=== PATIENT | female | born 1940 | race Caucasian/White ===

== ENCOUNTER 2021-07-11 18:43 | Inpatient (IN) | payer MEDICARE ==
[~2021-07-11] VITALS: Ht 165.1 cm; Wt 66.0 kg
--- NOTE | 2021-07-11 19:19 | RAD ---
EXAMINATION: Chest radiograph. VIEWS: Single view COMPARISON: None INDICATION:80 years, Female, weakness and dizziness. FINDINGS: Normal cardiomediastinal silhouette. Bibasilar patchy airspace opacities. Small to moderate left and small right pleural effusions. No pneumothorax. No acute osseous process. Left chest wall pacemaker d evice with lead wires terminate in the right atrium and right ventricle. IMPRESSION: 1. Bibasilar patchy airspace opacities, differential includes pulmonary edema, multifocal pneumonia o r atelectatic changes. 2. Small to moderate left and small right pleural effusions. Electronically signed by: Montse Yoder MD (07/11/2021 7:16 PM) [facility]
--- NOTE | 2021-07-11 19:21 | PHYS DOC ---
General Adult EDM: Chief Complaint: WEAKNESS/GENERALIZED HPI: HPI: Patient is a 80-year-old female presents emergency department complaining of weakness and dizziness. Denies chest pains or shortness of breath, denies recent fever or chills, denies abdominal pains, nausea, vomiting, diarrhea, reports she lives at home by herself. Reports a history of a pacemaker, cardiac problems, states she takes Lasix and quite a few other medications, has a history of low magnesium. Denies other physical complaints or physical concerns. Reports receiving the COVID-19 virus vaccination series. Denies cigarette smoking, drinking alcohol, or illicit drug use. Review of Systems: Review of Systems: 14 body systems of review of systems have been reviewed. See HPI for pertinent positives and negative responses, otherwise all other systems are negative, nonpertinent or noncontributory. Constitutional: Negative except as outlined in HPI above. Skin: Negative except as outlined in HPI above. Eyes: Negative except as outlined in HPI above. HENT: Negative except as outlined in HPI above. Respiratory: Negative except as outlined in HPI above. Cardiovascular: Negative except as outlined in HPI above. GI: Negative except as outlined in HPI above. : Negative except as outlined in HPI above. Musculoskeletal: Negative except as outlined in HPI above. Integument: Negative except as outlined in HPI above. Neurologic: Negative except as outlined in HPI above. Endocrine: Negative except as outlined in HPI above. Lymphatic: Negative except as outlined in HPI above. Psychiatric: Negative except as outlined in HPI above. Heart Score: C/O Chest Pain: No Risk Factors: Risk Factors: DM, Current or recent (<one month) smoker, HTN, HLP, family history of CAD, obesity. Risk Scores: Score 0 - 3: 2.5% MACE over next 6 weeks - Discharge Home Score 4 - 6: 20.3% MACE over next 6 weeks - Admit for Clinical Observation Score 7 - 10: 72.7% MACE over next 6 weeks - Early Invasive Strategies Current Medications: Eliquis 2.5 mg mg daily metoprolol XL 50 mg daily potassium chloride 20 mEq daily Lasix 40 mg every morning calcium supplement 600 mg daily, iron supplement 325 mg daily, Mag-Ox 250 mg daily, omeprazole 20 mg daily Physical Exam: PE: Constitutional: Well developed, well nourished, patient in mild respiratory distress otherwise nontoxic in appearance. Patient speaks approximately 4-5 words before taking a breath. HENT: Normocephalic, atraumatic, bilateral external ears normal, oropharynx moist, no oral exudates, nose normal. No lymphadenopathy of the head or neck appreciated, patient speaking in normal voice tones. Eyes: PERRLA, EOMI, conjunctiva normal, no discharge. Neck: Normal range of motion, no tenderness, supple, no stridor. Bilateral JVD Cardiovascular: Rapid heart rate irregular rhythm with diastolic murmur appreciated per auscultation. Lungs & Thorax: Coarse inspiratory/expiratory lung sounds right upper and lower lobes, expiratory wheezing to left upper lobe, coarse left lower lobe. Abdomen: Bowel sounds normal, soft, no tenderness, no masses, no pulsatile masses. Skin: Warm, dry, no erythema, no rash. Back: No tenderness, no CVA tenderness. Extremities: No tenderness, no cyanosis, no clubbing, ROM intact, bilateral 2+ ankle edema, 2+ dorsalis pedis pulses bilaterally, distal cap refill less than 2 seconds. Neurologic: Alert and oriented X 3, normal motor function, normal sensory function, no focal deficits noted. Psychologic: Affect normal, judgement normal, mood normal. EKG: EKG: EKG performed at 1854 by ED nursing staff shows atrial fibrillation irregular rhythm with no discernible P waves with occasional PVCs heart rate 129 bpm, QTc interval 0.503, no acute STEMI, no ACS, no acute ischemia appreciated, EKG interpreted by ED attending physician Dr. Ramos. Radiology/Procedures: Radiology/Procedures: PATIENT: NADINE SILVEIRA LACCOUNT: [id number] : 1940 LOCATION: ER AGE: 80 SEX: F EXAM STATUS: PRE ER ORD. PHYSICIAN: CARMINA GARCIA APRN REASON: Dizziness PROCEDURE: CT HEAD WO CONTRAST Exam: CT head INDICATION: Dizziness TECHNIQUE: Sequential axial images through the head were obtained without the administration of IV contrast. Exposure: One or more of the following in the visualized dose reduction techniques were utilized for this examination: 1. Automated exposure control 2. Adjustment of the MA and/or KV according to patient size 3. Use of iterative of reconstructive technique Comparisons: None FINDINGS: No focal parenchymal lesion or hemorrhage is identified. There is no midline shift or sulcal effacement. Mild small vessel ischemic change, technically age indeterminate. No acute vascular territory infarction is identified. Sharp-white distinction is preserved. The ventricular system is within normal limits without compression hydrocephalus. The basal cisterns are well maintained. The visualized portions of the paranasal sinuses and mastoid air cells are well- pneumatized. No acute fractures. IMPRESSION: Mild small vessel ischemic change, technically age indeterminate without recent prior imaging. Electronically signed by: Danish Grubbs MD (07/11/2021 7:56 PM) [facility] PROCEDURE: CHEST AP ONLY EXAMINATION: Chest radiograph. VIEWS: Single view COMPARISON: None INDICATION:80 years, Female, weakness and dizziness. FINDINGS: Normal cardiomediastinal silhouette. Bibasilar patchy airspace opacities. Small to moderate left and small right pleural effusions. No pneumothorax. No acute osseous process. Left chest wall pacemaker device with lead wires terminate in the right atrium and right ventricle. IMPRESSION: 1. Bibasilar patchy airspace opacities, differential includes pulmonary edema, multifocal pneumonia or atelectatic changes. 2. Small to moderate left and small right pleural effusions. Electronically signed by: Montse Yoder MD (07/11/2021 7:16 PM) [facility] Course & Med Decision Making: Course & Med Decision Making Pertinent Labs and Imaging studies reviewed. (See chart for details) 80-year-old female, vital signs reviewed, presents to the emergency department concerning weakness and dizziness at home all day. Patient has a history of atrial fibrillation with RVR chronic diastolic CHF, nonrheumatic mitral valve regurgitation. Patient physical examination concerning for CHF exacerbation, will order CBC, CMP, chest x-ray, EKG, proBNP, cardiac enzymes, magnesium, phosphorus, urinalysis assay. CT head concerning for small vessel disease, chest x-ray interpreted as pulmonary edema versus other infiltrate, with patient's lung sounds, 2-day reported history of lower extremity edema with shortness of breath, this is most likely a pulmonary edema/CHF exacerbation. Labs are still pending at this time. Patient's proBNP greater than 35,000, patient takes 20 mg of Lasix daily, will give 40 IV, patient's heart rate remains at 128 atrial fibrillation with occasional PVC, will give 10 mg diltiazem, will reevaluate for additional dosing and drip if required. Called and discussed patient case and ED work-up with inpatient management physician Dr. Parks who agrees patient's case warrants admission to the telemetry unit. 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 Sujata Disclaimer: Sujata Disclaimer: This electronic medical record was generated, in whole or in part, using a voice recognition dictation system. Departure Departure Impression: Primary Impression: Acute on chronic congestive heart failure Qualified Codes: I50.9 - Heart failure, unspecified Disposition: ADMITTED INPATIENT Admitting Physician: LASHON (Admit to Dr. Parks to the telemetry unit.) Condition: GUARDED PATSYMYNORCARMINA Clay PROGRAM SPECIALIST Jul 11, 2021 19:21
--- NOTE | 2021-07-11 19:58 | RAD ---
Exam: CT head INDICATION: Dizziness TECHNIQUE: Sequential axial images through the head were obtained without the administration of IV co ntrast. Exposure: One or more of the following in the visualized dose reduction techniques were utilized for this examination: 1. Automated exposure control 2. Adjustment of the MA and/or KV according to patient size 3. Use of iterative of reconstructive technique Comparisons: None FINDINGS: No focal parenchymal lesion or hemorrhage is identified. There is no midline shift or sulcal effaceme nt. Mild small vessel ischemic change, technically age indeterminate. No acute vascular territory infarct ion is identified. Sharp-white distinction is preserved. The ventricular system is within normal limits without compression hydrocephalus. The basal cisterns are well maintained. The visualized portions of the paranasal sinuses and mastoid air cells are well-pneumatized. No acute fractures. IMPRESSION: Mild small vessel ischemic change, technically age indeterminate without recent prior imaging. Electronically signed by: Danish Grubbs MD (07/11/2021 7:56 PM) [facility]
[2021-07-11] MEDS ORDERED: ONDANSETRON PF 4 MG/2 ML VIAL. IVP ONE (20:30)
[2021-07-11 20:33] LABS: BASO % 0 % (0-3); EOS % 0 % (0-3); HEMOGLOBIN 13.4 g/dL (12.0-15.5); LYMPH # 0.2 x10^3/uL (1.0-4.8); LYMPH % 2 % (24-48); MEAN CORPUSCULAR HEMOGLOBIN 29 pg (25-35); MEAN CORPUSCULAR HGB CONC 33 g/dL (31-37); MEAN CORPUSCULAR VOLUME 90 fL (79-100); MONO # 0.3 x10^3/uL (0.0-1.1); MONO % 3 % (0-9); NEUT # 8.5 x10^3/uL (1.8-7.7); NEUT % 94 % (31-73); PLATELET COUNT 131 x10^3/uL (140-400); RED BLOOD COUNT 4.56 x10^6/uL (3.50-5.40); RED CELL DISTRIBUTION WIDTH 16.3 % (11.5-14.5)
[2021-07-11 20:44] LABS: PROTHROMBIN TIME PATIENT 15.5 SEC (11.7-14.0)
[2021-07-11 20:48] LABS: CALCIUM 8.4 mg/dL (8.5-10.1); CREATININE 0.9 mg/dL (0.6-1.0); GFR 59.9; POTASSIUM 4.9 mmol/L (3.5-5.1)
[2021-07-11 20:53] LABS: ALBUMIN 2.4 g/dL (3.4-5.0); ALBUMIN/GLOBULIN RATIO 0.7 (1.0-1.7); MAGNESIUM 1.9 mg/dL (1.8-2.4); PHOSPHORUS 3.8 mg/dL (2.6-4.7); TOTAL BILIRUBIN 0.5 mg/dL (0.2-1.0); TOTAL PROTEIN 5.8 g/dL (6.4-8.2)
[2021-07-11 21:01] LABS: % BANDS 21 % (0-9); % LYMPHS 5 % (24-48); % MONOS 5 % (0-10); % SEGS 69 % (35-66); PLT ESTIMATE DECREASED (ADEQUATE)
[2021-07-11 21:02] LABS: CREATINE KINASE 82 U/L (26-192)
[2021-07-11] MEDS ORDERED: FUROSEMIDE 40 MG/4 ML VIAL. IVP ONE (21:15)
[2021-07-12] VITALS (8 sets, daily range): BP systolic 83–109; BP diastolic 38–62
[2021-07-12] MEDS ORDERED: DIGOXIN IV 500 MCG/2 ML AMPUL. IV ONE (00:45)
--- NOTE | 2021-07-12 02:15 | NUR ---
The patient, NADINE SILVEIRA, 80 y/o, F admitted by DAVID BROOKS III, DO, was given written information regarding hospital policies, unit procedures and contact persons. Valuables were checked and documented. Call light in reach, will cont to monitor pt status and safety. pmrn
--- NOTE | 2021-07-12 04:07 | EKG ---
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
--- NOTE | 2021-07-12 08:36 | PDOC1 ---
History and Physical Date of Service: DOS: DATE: 07/12/21 TIME: 08:30 Chief Complaint: Chief Complain: Weakness and dizziness History of Present Illness: HPI: History obtained from discussion with the ED physician and chart review: 80-year-old female with past medical history of atrial fibrillation with pacemaker placed at [facility], hypertension, CHF, atrial fibrillation who comes in with shortness of breath and weakness for the past week since . She does take Lasix and other cardiac medications. Apparently patient also takes Eliquis but this is costly for her so she decided to just stay on aspirin. Patient denies any nausea vomiting, fevers, chest pain, diarrhea or dysuria. Patient is vaccinated for COVID-19. Per chart review: EKG performed at 1854 by ED nursing staff shows atrial fibrillation irregular rhythm with no discernible P waves with occasional PVCs heart rate 129 bpm, QTc interval 0.503, no acute STEMI, no ACS, no acute ischemia appreciated, EKG interpreted by ED attending physician Dr. Ramos. Past Medical/Surgical History: PMH/PSH: History of atrial fibrillation, pacemaker placement, hypertension, CHF Allergies: Allergies: Coded Allergies: Penicillins (Verified Allergy, Unknown, 07/11/21) prednisone (Verified Allergy, Unknown, 07/12/21) pt verbalized causes boils Family History: Family History: Reviewed with no relevant findings Social History: Social History: Denies tobacco, drug or alcohol abuse Current Medications: Current Medications Current Medications Ondansetron HCl (Zofran) 4 mg 1X ONCE IVP Last administered on 07/11/21at 20:38; Start 07/11/21 at 20:30; Stop 07/11/21 at 20:42; Status DC Furosemide (Lasix) 40 mg 1X ONCE IVP Last administered on 07/11/21at 22:50; Start 07/11/21 at 21:15; Stop 07/11/21 at 21:16; Status DC Diltiazem HCl (Cardizem Iv Push) 10 mg 1X ONCE IVP Last administered on 1at 22:53; Start 07/11/21 at 21:15; Stop 07/11/21 at 21:18; Status DC Diltiazem HCl 125 mg/Sodium Chloride 125 ml @ 5 mls/hr CONT PRN IV PER PROTOCOL Last administered on 11/1/21at 23:43; Start 07/11/21 at 23:30 Enoxaparin Sodium (Lovenox 60mg Syringe) 60 mg 1X ONCE SQ ; Start 07/12/21 at 00:00; Stop 07/12/21 at 00:42; Status DC Digoxin (Lanoxin) 500 mcg 1X ONCE IV Last administered on 07/12/21at 01:10; Start 07/12/21 at 00:45; Stop 07/12/21 at 00:46; Status DC ROS: Review of Systems Review of System REVIEW OF SYSTEMS: GENERAL: Positive for weakness SKIN: No bruising, hair changes or rashes. EYES: No blurred, double or loss of vision. NOSE AND THROAT: No history of nosebleeds, hoarseness or sore throat. HEART: No history of palpitations, chest pain or shortness of breath on exertion. LUNGS: Positive for shortness of breath GASTROINTESTINAL: Denies changes in appetite, nausea, vomiting, diarrhea or constipation. GENITOURINARY: No history of frequency, urgency, hesitancy or nocturia. NEUROLOGIC: Denies history of numbness, tingling, or tremor. PSYCHIATRIC: No history of panic, anxiety or depression. ENDOCRINE: No history of heat or cold intolerance, polyuria or polydipsia. EXTREMITIES: Denies joint pain, pain on walking or stiffness. Physical Exam: Vital Signs: Vital Signs Date Time Temp Pulse Resp B/P (MAP) Pulse Ox O2 Delivery O2 Flow Rate FiO2 07/12/21 04:16 87 109/41 (63) Nasal Cannula 1.0 07/12/21 03:24 97 07/12/21 02:42 97.7 18 97.7 Physcial Exam: General: Well developed, well nourished, no acute distress, well appearing. Minimal respiratory distress. HEENT: Pupils equally round and reactive to light, EOMI, no discharge, normal conjunctiva Neck: Supple, no nuchal rigidity, no JVD, trachea midline, no tenderness Cardiac: RRR, no murmurs, no gallops, no rubs Chest/Lungs: CTAB, no wheeze, no rhonchi, no crackles Abdomen: soft, non-distended, no guarding, no peritoneal signs, non-tender Back: No tenderness Extremities: bilateral 2+ ankle edema, 2+ dorsalis pedis pulses bilaterally, distal cap refill less than 2 seconds., pulses intact, non-tender,capillary refill <3 sec bilateral upper and lower extremities, Neuro: Alert and oriented x 4, no focal deficits, normal speech Labs: Labs: Laboratory Tests Test 07/11/21 20:20 White Blood Count 9.0 x10^3/uL (4.0-11.0) Red Blood Count 4.56 x10^6/uL (3.50-5.40) Hemoglobin 13.4 g/dL (12.0-15.5) Hematocrit 41.0 % (36.0-47.0) Mean Corpuscular Volume 90 fL (79-100) Mean Corpuscular Hemoglobin 29 pg (25-35) Mean Corpuscular Hemoglobin Concent 33 g/dL (31-37) Red Cell Distribution Width 16.3 % (11.5-14.5) Platelet Count 131 x10^3/uL (140-400) Neutrophils (%) (Auto) 94 % (31-73) Lymphocytes (%) (Auto) 2 % (24-48) Monocytes (%) (Auto) 3 % (0-9) Eosinophils (%) (Auto) 0 % (0-3) Basophils (%) (Auto) 0 % (0-3) Neutrophils # (Auto) 8.5 x10^3/uL (1.8-7.7) Lymphocytes # (Auto) 0.2 x10^3/uL (1.0-4.8) Monocytes # (Auto) 0.3 x10^3/uL (0.0-1.1) Eosinophils # (Auto) 0.0 x10^3/uL (0.0-0.7) Basophils # (Auto) 0.0 x10^3/uL (0.0-0.2) Segmented Neutrophils % 69 % (35-66) Band Neutrophils % 21 % (0-9) Lymphocytes % 5 % (24-48) Monocytes % 5 % (0-10) Platelet Estimate Decreased (ADEQUATE) Prothrombin Time 15.5 SEC (11.7-14.0) Prothromb Time International Ratio 1.2 (0.8-1.1) Sodium Level 135 mmol/L (136-145) Potassium Level 4.9 mmol/L (3.5-5.1) Chloride Level 99 mmol/L (98-107) Carbon Dioxide Level 26 mmol/L (21-32) Anion Gap 10 (6-14) Blood Urea Nitrogen 30 mg/dL (7-20) Creatinine 0.9 mg/dL (0.6-1.0) Estimated GFR (Cockcroft-Gault) 59.9 BUN/Creatinine Ratio 33 (6-20) Glucose Level 171 mg/dL (70-99) Calcium Level 8.4 mg/dL (8.5-10.1) Phosphorus Level 3.8 mg/dL (2.6-4.7) Magnesium Level 1.9 mg/dL (1.8-2.4) Total Bilirubin 0.5 mg/dL (0.2-1.0) Aspartate Amino Transf (AST/SGOT) 46 U/L (15-37) Alanine Aminotransferase (ALT/SGPT) 76 U/L (14-59) Alkaline Phosphatase 141 U/L (46-116) Creatine Kinase 82 U/L (26-192) Creatine Kinase MB (Mass) 2.5 ng/mL (0.0-3.6) Creatine Kinase MB Relative Index 3.0 % (0-4) Troponin I High Sensitivity 727 ng/L (4-50) RQ-Xtf-T-Type Natriuretic Peptide > 70980 pg/mL (0-449) Total Protein 5.8 g/dL (6.4-8.2) Albumin 2.4 g/dL (3.4-5.0) Albumin/Globulin Ratio 0.7 (1.0-1.7) Laboratory Tests Test 07/11/21 20:20 White Blood Count 9.0 x10^3/uL (4.0-11.0) Red Blood Count 4.56 x10^6/uL (3.50-5.40) Hemoglobin 13.4 g/dL (12.0-15.5) Hematocrit 41.0 % (36.0-47.0) Mean Corpuscular Volume 90 fL (79-100) Mean Corpuscular Hemoglobin 29 pg (25-35) Mean Corpuscular Hemoglobin Concent 33 g/dL (31-37) Red Cell Distribution Width 16.3 % (11.5-14.5) Platelet Count 131 x10^3/uL (140-400) Neutrophils (%) (Auto) 94 % (31-73) Lymphocytes (%) (Auto) 2 % (24-48) Monocytes (%) (Auto) 3 % (0-9) Eosinophils (%) (Auto) 0 % (0-3) Basophils (%) (Auto) 0 % (0-3) Neutrophils # (Auto) 8.5 x10^3/uL (1.8-7.7) Lymphocytes # (Auto) 0.2 x10^3/uL (1.0-4.8) Monocytes # (Auto) 0.3 x10^3/uL (0.0-1.1) Eosinophils # (Auto) 0.0 x10^3/uL (0.0-0.7) Basophils # (Auto) 0.0 x10^3/uL (0.0-0.2) Segmented Neutrophils % 69 % (35-66) Band Neutrophils % 21 % (0-9) Lymphocytes % 5 % (24-48) Monocytes % 5 % (0-10) Platelet Estimate Decreased (ADEQUATE) Prothrombin Time 15.5 SEC (11.7-14.0) Prothromb Time International Ratio 1.2 (0.8-1.1) Sodium Level 135 mmol/L (136-145) Potassium Level 4.9 mmol/L (3.5-5.1) Chloride Level 99 mmol/L (98-107) Carbon Dioxide Level 26 mmol/L (21-32) Anion Gap 10 (6-14) Blood Urea Nitrogen 30 mg/dL (7-20) Creatinine 0.9 mg/dL (0.6-1.0) Estimated GFR (Cockcroft-Gault) 59.9 BUN/Creatinine Ratio 33 (6-20) Glucose Level 171 mg/dL (70-99) Calcium Level 8.4 mg/dL (8.5-10.1) Phosphorus Level 3.8 mg/dL (2.6-4.7) Magnesium Level 1.9 mg/dL (1.8-2.4) Total Bilirubin 0.5 mg/dL (0.2-1.0) Aspartate Amino Transf (AST/SGOT) 46 U/L (15-37) Alanine Aminotransferase (ALT/SGPT) 76 U/L (14-59) Alkaline Phosphatase 141 U/L (46-116) Creatine Kinase 82 U/L (26-192) Creatine Kinase MB (Mass) 2.5 ng/mL (0.0-3.6) Creatine Kinase MB Relative Index 3.0 % (0-4) Troponin I High Sensitivity 727 ng/L (4-50) VY-Ier-I-Type Natriuretic Peptide > 05399 pg/mL (0-449) Total Protein 5.8 g/dL (6.4-8.2) Albumin 2.4 g/dL (3.4-5.0) Albumin/Globulin Ratio 0.7 (1.0-1.7) Images: Images PROCEDURE: CT HEAD WO CONTRAST IMPRESSION: Mild small vessel ischemic change, technically age indeterminate without recent prior imaging. PROCEDURE: CHEST AP ONLY IMPRESSION: 1. Bibasilar patchy airspace opacities, differential includes pulmonary edema, multifocal pneumonia or atelectatic changes. 2. Small to moderate left and small right pleural effusions. Assessment/Plan Assessment/Plan Acute on chronic CHF exacerbation Elevated BNP due to volume overload Elevated troponins suggestive of type II demand ischemia A. fib RVR Mild transaminitis Severe protein malnutrition Admit to hospitalist for further management Continue telemetry Strict I's and O's IV Lasix diuresis as needed Continue with IV diltiazem drip with target heart rate less than 110 in the inpatient setting Trend troponins Cardiology consult Aspirin for now for stroke prophylaxis Lovenox for DVT prophylaxis Cardiac diet CODE STATUS full Discussed with RN and SW Disposition inpatient management as above DPOA: Undesignated In addition to my E/M visit, advance care planning done with A total time of 20 minutes was spent from 830 to 850 face to face in discussion regarding the patient's goals of care, CODE STATUS. Justifications for Admission Other Justification MACHO ESTEVEZ MD Jul 12, 2021 08:36
[2021-07-12] MEDS ORDERED: LORazepam 0.5 MG TABLET PO PRN (08:45)
[2021-07-12] MEDS ORDERED: ZOLPIDEM 5 MG TABLET. PO PRN (08:45)
[2021-07-12] MEDS ORDERED: PROCHLORPERAZINE 10 MG/2 ML VIAL. IV PRN (08:45)
[2021-07-12] MEDS ORDERED: DEXTROSE 50% 25 GM / 50ML DISP.SYRIN. IV PRN (08:45)
[2021-07-12] MEDS ORDERED: ONDANSETRON PF 4 MG/2 ML VIAL. IVP PRN (08:45)
[2021-07-12] MEDS ORDERED: DOCUSATE SODIUM 100 MG CAPSULE. PO PRN (08:45)
[2021-07-12] MEDS ORDERED: SENNOSIDES 8.6 MG TABLET PO PRN (08:45)
[2021-07-12] MEDS ORDERED: FURO-68 PO (09:06)
[2021-07-12] MEDS ORDERED: APIX2.5T PO (09:06)
[2021-07-12] MEDS ORDERED: METO-239 PO (09:15)
[2021-07-12] MEDS ORDERED: EFFER-K 10 MEQ10 MEQ PO (09:15)
[2021-07-12] MEDS ORDERED: APIXABAN 2.5 MG TABLET. PO SCH ×2 (09:30→21:00)
[2021-07-12 09:31] LABS: CHOLESTEROL/HDL RATIO 3.8
[2021-07-12] MEDS: METOPROLOL TART IMMED RELEASE 25 MG TABLET. PO SCH ×2 (09:41→20:25)
[2021-07-12] MEDS: ACETAMINOPHEN 325 MG TABLET. PO PRN ×2 (09:42→12:15)
[2021-07-12] MEDS: POTASSIUM BICARB 20 MEQ EFFERVESCENT TABLET. PO SCH (09:42)
--- NOTE | 2021-07-12 11:39 | PDOC2 ---
CARDIAC CONSULT DATE OF CONSULT Date of Consult DATE: 07/12/21 TIME: 11:12 REASON FOR CONSULT Reason for Consult: elevated troponin REFERRING PHYSICIAN Referring Physician: Kasey SOURCE Source: Chart review, Patient HISTORY OF PRESENT ILLNESS HISTORY OF PRESENT ILLNESS This is a pleasant 80 yo female admitted for complains of SOA and leg swelling. Reports that since she has been feeling SOA and could not function. Her right foot is sore and is currently red. No fever or chills. Reports no chest pain or palpitations. No recent falls or injury. She is vaccinated for covid-19. 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 PAST MEDICAL HISTORY Cardiovascular: AFIB, HTN Musculoskeletal: Osteoarthritis ENT: Other ([id number]) PAST SURGICAL HISTORY Past Surgical History: Pacemaker, Hysterectomy FAMILY HISTORY Family History: Family History Unknown SOCIAL HISTORY Smoke: No ALCOHOL: none Drugs: None Lives: Alone CURRENT MEDICATIONS CURRENT MEDICATIONS Current Medications Medications (Trade) Dose Ordered Sig/Beny Route PRN Reason Start Time Stop Time Status Last Admin Dose Admin Ondansetron HCl (Zofran) 4 mg 1X ONCE IVP 07/11/21 20:30 07/11/21 20:42 DC 07/11/21 20:38 Furosemide (Lasix) 40 mg 1X ONCE IVP 07/11/21 21:15 07/11/21 21:16 DC 07/11/21 22:50 Diltiazem HCl (Cardizem Iv Push) 10 mg 1X ONCE IVP 07/11/21 21:15 07/11/21 21:18 DC 07/11/21 22:53 Diltiazem HCl 125 mg/Sodium Chloride 125 ml @ 5 mls/hr CONT PRN IV PER PROTOCOL 07/11/21 23:30 07/11/21 23:43 Digoxin (Lanoxin) 500 mcg 1X ONCE IV 07/12/21 00:45 07/12/21 00:46 DC 07/12/21 01:10 Acetaminophen (Tylenol) 650 mg PRN Q4HRS PRN PO TEMP OVER 100.4F OR MILD PAIN 07/12/21 08:45 07/12/21 09:42 Apixaban (Eliquis) 2.5 mg BID PO 07/12/21 09:30 07/12/21 09:41 Metoprolol Tartrate (Lopressor) 25 mg BID PO 07/12/21 09:30 07/12/21 09:41 ALLERGIES ALLERGIES: Coded Allergies: Penicillins (Verified Allergy, Unknown, 07/11/21) prednisone (Verified Allergy, Unknown, 07/12/21) pt verbalized causes boils ROS Review of System limited, poor historian PHYSICAL EXAM General: Alert, Oriented X3, Cooperative, No acute distress HEENT: Atraumatic, Mucous membr. moist/pink Lungs: Other (basialr crackles) Heart: Other (Atrial flutter with PVCs rate controlled; 4/6 apical holosystolic murmur) Extremities: No cyanosis, Other (2-3+ bilateral LE pitting edema with erythema to right foot) Skin: No breakdown, No significant lesion Neuro: Normal speech, Sensation intact Psych/Mental Status: Mental status NL, Mood NL MUSCULOSKELETAL: Osteoarthritic changes both hands VITALS/I&O VITALS/I&O: Vital Signs Date Time Temp Pulse Resp B/P (MAP) Pulse Ox O2 Delivery O2 Flow Rate FiO2 07/12/21 10:22 98.4 92 17 108/38 (61) 98 Nasal Cannula 3.0 98.4 I & O 07/11/21 07/11/21 07/12/21 15:00 23:00 07:00 Output Total 20 ml Balance -20 ml LABS Lab: Laboratory Tests Test 07/11/21 20:20 07/12/21 08:45 White Blood Count 9.0 x10^3/uL (4.0-11.0) Red Blood Count 4.56 x10^6/uL (3.50-5.40) Hemoglobin 13.4 g/dL (12.0-15.5) Hematocrit 41.0 % (36.0-47.0) Mean Corpuscular Volume 90 fL (79-100) Mean Corpuscular Hemoglobin 29 pg (25-35) Mean Corpuscular Hemoglobin Concent 33 g/dL (31-37) Red Cell Distribution Width 16.3 % (11.5-14.5) H Platelet Count 131 x10^3/uL (140-400) L Neutrophils (%) (Auto) 94 % (31-73) H Lymphocytes (%) (Auto) 2 % (24-48) L Monocytes (%) (Auto) 3 % (0-9) Eosinophils (%) (Auto) 0 % (0-3) Basophils (%) (Auto) 0 % (0-3) Neutrophils # (Auto) 8.5 x10^3/uL (1.8-7.7) H Lymphocytes # (Auto) 0.2 x10^3/uL (1.0-4.8) L Monocytes # (Auto) 0.3 x10^3/uL (0.0-1.1) Eosinophils # (Auto) 0.0 x10^3/uL (0.0-0.7) Basophils # (Auto) 0.0 x10^3/uL (0.0-0.2) Segmented Neutrophils % 69 % (35-66) H Band Neutrophils % 21 % (0-9) H Lymphocytes % 5 % (24-48) L Monocytes % 5 % (0-10) Platelet Estimate Decreased (ADEQUATE) Prothrombin Time 15.5 SEC (11.7-14.0) H Prothrombin Time INR 1.2 (0.8-1.1) H Sodium Level 135 mmol/L (136-145) L Potassium Level 4.9 mmol/L (3.5-5.1) Chloride Level 99 mmol/L (98-107) Carbon Dioxide Level 26 mmol/L (21-32) Anion Gap 10 (6-14) Blood Urea Nitrogen 30 mg/dL (7-20) H Creatinine 0.9 mg/dL (0.6-1.0) Estimated GFR (Cockcroft-Gault) 59.9 BUN/Creatinine Ratio 33 (6-20) H Glucose Level 171 mg/dL (70-99) H Calcium Level 8.4 mg/dL (8.5-10.1) L Phosphorus Level 3.8 mg/dL (2.6-4.7) Magnesium Level 1.9 mg/dL (1.8-2.4) Total Bilirubin 0.5 mg/dL (0.2-1.0) Aspartate Amino Transferase (AST) 46 U/L (15-37) H Alanine Aminotransferase (ALT) 76 U/L (14-59) H Alkaline Phosphatase 141 U/L (46-116) H Creatine Kinase 82 U/L (26-192) Creatine Kinase MB (Mass) 2.5 ng/mL (0.0-3.6) Creatine Kinase MB Relative Index 3.0 % (0-4) Troponin I High Sensitivity 727 ng/L (4-50) H CH-Dng-X-Type Natriuretic Peptide > 01880 pg/mL (0-449) H Total Protein 5.8 g/dL (6.4-8.2) L Albumin 2.4 g/dL (3.4-5.0) L Albumin/Globulin Ratio 0.7 (1.0-1.7) L Triglycerides Level 70 mg/dL (0-150) Cholesterol Level 94 mg/dL (0-200) LDL Cholesterol, Calculated 55 mg/dL (0-100) VLDL Cholesterol, Calculated 14 mg/dL (0-40) Non-HDL Cholesterol Calculated 69 mg/dL (0-129) HDL Cholesterol 25 mg/dL (40-60) L Cholesterol/HDL Ratio 3.8 Laboratory Tests 07/11/21 20:20 Laboratory Tests 07/11/21 20:20 ASSESSMENT/PLAN ASSESSMENT/PLAN 1. Acute on chronic CHF with possible diastolic/systolic dysfunction 2. AFIB/flutter with RVR: rate better possibly chronic 3. HTN; at low end 4. PPM in situ: unknown brand 5. NSTEMI; suspect demand mediated type 2 6. Valvular insufficiency: possibly MR 7. Right foot cellulitis; per PCP 8. Possible urinary retention Recommendations 1. Unable to retrieve [facility] records. Will try to get fax records. Interrogate device 2. Presently on eliquis but apparently pt has not been able to afford this costing >$500 every other week and has been taking high dose ASA at home instead. Will switch over to ASA for stroke prevention 3. TTE 4. Received cardizem and digoxin bolus in ED. Continue metoprolol for rate control 5. Consider for outpt ischemic workup. she follows with [facility] cardiology 6. Lasix therapy MICHAELA PIPER SOFTWARE SOLUTIONS ARCHITECT Jul 12, 2021 11:39
[2021-07-12] MEDS ORDERED: FUROSEMIDE 20 MG/2 ML VIAL. IVP ONE (12:00)
--- NOTE | 2021-07-12 12:34 | NUR ---
SS following for discharge planning. SS reviewed pt chart and discussed with pt RN. Pt is from home and is currently requiring oxygen at three liters nasal canula. Cardiology consulted. PT/OT ordered. Pt still drives and lives independently. SS will continue to follow for discharge planning.
[2021-07-12] MEDS: ENOXAPARIN 40 MG/0.4 ML SYRINGE. SQ SCH (17:19)
--- NOTE | 2021-07-12 18:53 | EKG ---
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
[2021-07-12] MEDS ORDERED: CALCIUM CARBONATE 500 MG TAB.CHEW PO PRN (20:00)
[2021-07-12] MEDS: MAG HYDROX/ALUMINUM HYD/SIMETH 30 ML ORAL.SUSP PO PRN (20:22)
[2021-07-12] MEDS: ATORVASTATIN CALCIUM 10 MG TABLET. PO SCH (20:22)
[2021-07-12] MEDS ORDERED: METOPROLOL TART IMMED RELEASE 25 MG TABLET. PO SCH (21:00)
[2021-07-13 02:20] VITALS: BP 54/51
[2021-07-13 07:00] VITALS: BP 110/71
[2021-07-13] MEDS ORDERED: ASPIRIN ENTERIC COATED 81 MG TABLET.DR. PO SCH (08:00)
[2021-07-13 08:38] LABS: BASO % 0 % (0-3); EOS # 0.1 x10^3/uL (0.0-0.7); EOS % 1 % (0-3); HEMOGLOBIN 11.3 g/dL (12.0-15.5); LYMPH # 0.3 x10^3/uL (1.0-4.8); LYMPH % 4 % (24-48); MEAN CORPUSCULAR HEMOGLOBIN 29 pg (25-35); MEAN CORPUSCULAR HGB CONC 32 g/dL (31-37); MEAN CORPUSCULAR VOLUME 90 fL (79-100); MONO # 0.6 x10^3/uL (0.0-1.1); MONO % 10 % (0-9); NEUT % 85 % (31-73); RED BLOOD COUNT 3.89 x10^6/uL (3.50-5.40); RED CELL DISTRIBUTION WIDTH 16.2 % (11.5-14.5); WHITE BLOOD COUNT 5.9 x10^3/uL (4.0-11.0)
[2021-07-13 08:42] LABS: PLATELET COUNT 78 x10^3/uL (140-400)
[2021-07-13] MEDS: METOPROLOL TART IMMED RELEASE 25 MG TABLET. PO SCH ×2 (08:47→21:37)
[2021-07-13] MEDS: ACETAMINOPHEN 325 MG TABLET. PO PRN ×2 (08:47→21:36)
[2021-07-13] MEDS: MAG HYDROX/ALUMINUM HYD/SIMETH 30 ML ORAL.SUSP PO PRN ×2 (08:47→21:37)
[2021-07-13] MEDS: POTASSIUM BICARB 20 MEQ EFFERVESCENT TABLET. PO SCH (08:48)
[2021-07-13 08:49] LABS: CALCIUM 7.6 mg/dL (8.5-10.1); CREATININE 0.7 mg/dL (0.6-1.0); GFR 80.1; MAGNESIUM 2.1 mg/dL (1.8-2.4); PHOSPHORUS 2.5 mg/dL (2.6-4.7); POTASSIUM 4.7 mmol/L (3.5-5.1)
--- NOTE | 2021-07-13 09:52 | PDOC ---
MICHAELA PIPER INDUSTRIAL AUTOMATION SPECIALIST 07/13/21 0952: CARDIO Progress Notes Date and Time Date of Service 07/13/2021 Time of Evaluation 1115 Subjective Subjective: No Chest Pain, No shortness of breath, No Palpitations Vitals Vitals Vital Signs Date Time Temp Pulse Resp B/P (MAP) Pulse Ox O2 Delivery O2 Flow Rate FiO2 07/13/21 08:47 96 110/71 07/13/21 08:00 Nasal Cannula 3.0 07/13/21 07:00 98.6 18 96 98.6 Weight Weight [ ] Input and Output Intake and Output Intake and Output 07/13/21 07:00 Intake Total 1720 ml Output Total 850 ml Balance 870 ml Intake Oral 1720 ml Output Urine Total 850 ml Laboratory Labs Laboratory Tests Test 07/13/21 08:05 White Blood Count 5.9 x10^3/uL (4.0-11.0) Red Blood Count 3.89 x10^6/uL (3.50-5.40) Hemoglobin 11.3 g/dL (12.0-15.5) Hematocrit 35.0 % (36.0-47.0) Mean Corpuscular Volume 90 fL (79-100) Mean Corpuscular Hemoglobin 29 pg (25-35) Mean Corpuscular Hemoglobin Concent 32 g/dL (31-37) Red Cell Distribution Width 16.2 % (11.5-14.5) Platelet Count 78 x10^3/uL (140-400) Neutrophils (%) (Auto) 85 % (31-73) Lymphocytes (%) (Auto) 4 % (24-48) Monocytes (%) (Auto) 10 % (0-9) Eosinophils (%) (Auto) 1 % (0-3) Basophils (%) (Auto) 0 % (0-3) Neutrophils # (Auto) 5.0 x10^3/uL (1.8-7.7) Lymphocytes # (Auto) 0.3 x10^3/uL (1.0-4.8) Monocytes # (Auto) 0.6 x10^3/uL (0.0-1.1) Eosinophils # (Auto) 0.1 x10^3/uL (0.0-0.7) Basophils # (Auto) 0.0 x10^3/uL (0.0-0.2) Sodium Level 131 mmol/L (136-145) Potassium Level 4.7 mmol/L (3.5-5.1) Chloride Level 97 mmol/L (98-107) Carbon Dioxide Level 29 mmol/L (21-32) Anion Gap 5 (6-14) Blood Urea Nitrogen 27 mg/dL (7-20) Creatinine 0.7 mg/dL (0.6-1.0) Estimated GFR (Cockcroft-Gault) 80.1 Glucose Level 105 mg/dL (70-99) Calcium Level 7.6 mg/dL (8.5-10.1) Phosphorus Level 2.5 mg/dL (2.6-4.7) Magnesium Level 2.1 mg/dL (1.8-2.4) Physical Exam HEENT: Neck Supple W Full Motion Chest: Symmetric LUNGS: Other (basilar crackles) Heart: irregularly irregular (AFlutter) Abdomen: Soft N/T Extremities: Other (2+ bilateral LE pitting edema) Neurology: alert, oriented, follow commands Assessment Assessment 1. Acute on chronic CHF with possible diastolic/systolic dysfunction, improved 2. Chronic AFIB/flutter with RVR: rate better possibly chronic 3. HTN; controlled 4. 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 Normal device function. AAIR-DDDR 99.6% AFIB burden 10.7 yrs battery life 5. NSTEMI; suspect demand mediated type 2, CP free 6. Valvular insufficiency: MR 7. Right foot cellulitis?; per PCP Recommendations 1. Presently on eliquis but apparently pt has not been able to afford this costing >$500 every other week and has been taking high dose ASA at home instead. Will switch over to ASA for stroke prevention 2. TTE 3. Continue metoprolol for rate control 4. Consider for outpt ischemic workup. she follows with [facility] cardiology 5. Lasix therapy 6. Consider SNU Justicifation of Admission Dx: Justifications for Admission: Justification of Admission Dx: Yes JOSE VILLEGAS MD 07/13/21 0441: CARDIO Progress Notes Assessment Assessment Patient seen and examined. I agree with our nurse practitioners assessment and plan. Acute on chronic CHF with possible diastolic/systolic dysfunction, continue slow improvement. Echo pending. Chronic AFIB/flutter with RVR: rate better possibly chronic. Continuing beta- blockers. Discussion of Eliquis as above. 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 Normal device function. AAIR-DDDR 99.6% AFIB burden 10.7 yrs battery life NSTEMI; suspect demand mediated type 2, CP free Valvular insufficiency: MICHAELA CORDON APRN Jul 13, 2021 09:52 JOSE VILLEGAS MD Jul 13, 2021 16:25
[2021-07-13] MEDS ORDERED: FUROSEMIDE 40 MG/4 ML VIAL. IVP ONE (10:00)
[2021-07-13 11:00] VITALS: BP 113/50
--- NOTE | 2021-07-13 11:02 | NUR ---
SS following up with discharge planning. SS reviewed pt chart and discussed with pt RN. Cardiology following. ID consulted for right foot. Pt is currently requiring oxygen at three liters nasal canula. Pt has no home oxygen. PT/OT ordered. Pt very weak but stating that she will not go to inpatient rehabilitation. Physician and RN notified. SS will continue to follow for discharge planning.
[2021-07-13] MEDS ORDERED: ceFAZolin SODIUM IV Push 1 GM VIAL. IVP ONE ×3 (12:00→12:45)
[2021-07-13] MEDS: MICAFUNGIN 100 MG in IV DEXTROSE 5% 100ML 100 ML IV SCH (12:44)
--- NOTE | 2021-07-13 13:11 | PDOC ---
[facility] [facility] PROGRESS NOTE Date of Service DOS: DATE: 07/13/21 TIME: 13:10 Chief Complaint Chief Complaint Acute on chronic CHF exacerbation Elevated BNP due to volume overload Elevated troponins suggestive of type II demand ischemia A. fib RVR Mild transaminitis Severe protein malnutrition ID consult Start empiric IV antibiotics, IV micafungin and IV Ancef per ID recommendations Continue telemetry Strict I's and O's IV Lasix diuresis as needed Continue with IV diltiazem drip with target heart rate less than 110 in the inpatient setting Trend troponins Cardiology consult Aspirin for now for stroke prophylaxis Lovenox for DVT prophylaxis Cardiac diet CODE STATUS full Discussed with RN and SW Disposition inpatient management as above DPOA: Undesignated History of Present Illness History of Present Illness 80-year-old female with past medical history of atrial fibrillation with pacemaker placed at [facility], hypertension, CHF, atrial fibrillation who comes in with shortness of breath and weakness for the past week since . She does take Lasix and other cardiac medications. Apparently patient also takes Eliquis but this is costly for her so she decided to just stay on aspirin. Patient denies any nausea vomiting, fevers, chest pain, diarrhea or dysuria. Patient is vaccinated for COVID-19. Per chart review: EKG performed at 1854 by ED nursing staff shows atrial fibrillation irregular rhythm with no discernible P waves with occasional PVCs heart rate 129 bpm, QTc interval 0.503, no acute STEMI, no ACS, no acute ischemia appreciated, EKG interpreted by ED attending physician Dr. Ramos. 08/09/2021 Patient seen and examined bedside while eating breakfast. Patient tolerating diet without issues. Does complain of some reflux issues. Complaining of right lower extremity pain in her foot. She does have severe bilateral toe digits onychomycosis. Patient's chart, labs, images were reviewed and discussed with RN Vitals/I&O Vitals/I&O: Vital Signs Date Time Temp Pulse Resp B/P (MAP) Pulse Ox O2 Delivery O2 Flow Rate FiO2 07/13/21 11:00 99.1 83 18 113/50 (71) 95 Nasal Cannula 3.0 99.1 I & O0 07/12/21 07/12/21 07/13/21 15:00 23:00 07:00 Intake Total 300 ml 420 ml 1000 ml Output Total 850 ml Balance 300 ml 420 ml 150 ml Physical Exam General: Alert, Oriented X3, Cooperative Heart: Regular rate Lungs: Wheezing Abdomen: Normal bowel sounds Extremities: Other (Redness and swelling of the right foot. Severe bilateral toe onychomycosis) Labs Labs: Laboratory Tests Test 07/13/21 08:05 White Blood Count 5.9 x10^3/uL (4.0-11.0) Red Blood Count 3.89 x10^6/uL (3.50-5.40) Hemoglobin 11.3 g/dL (12.0-15.5) Hematocrit 35.0 % (36.0-47.0) Mean Corpuscular Volume 90 fL (79-100) Mean Corpuscular Hemoglobin 29 pg (25-35) Mean Corpuscular Hemoglobin Concent 32 g/dL (31-37) Red Cell Distribution Width 16.2 % (11.5-14.5) Platelet Count 78 x10^3/uL (140-400) Neutrophils (%) (Auto) 85 % (31-73) Lymphocytes (%) (Auto) 4 % (24-48) Monocytes (%) (Auto) 10 % (0-9) Eosinophils (%) (Auto) 1 % (0-3) Basophils (%) (Auto) 0 % (0-3) Neutrophils # (Auto) 5.0 x10^3/uL (1.8-7.7) Lymphocytes # (Auto) 0.3 x10^3/uL (1.0-4.8) Monocytes # (Auto) 0.6 x10^3/uL (0.0-1.1) Eosinophils # (Auto) 0.1 x10^3/uL (0.0-0.7) Basophils # (Auto) 0.0 x10^3/uL (0.0-0.2) Sodium Level 131 mmol/L (136-145) Potassium Level 4.7 mmol/L (3.5-5.1) Chloride Level 97 mmol/L (98-107) Carbon Dioxide Level 29 mmol/L (21-32) Anion Gap 5 (6-14) Blood Urea Nitrogen 27 mg/dL (7-20) Creatinine 0.7 mg/dL (0.6-1.0) Estimated GFR (Cockcroft-Gault) 80.1 Glucose Level 105 mg/dL (70-99) Calcium Level 7.6 mg/dL (8.5-10.1) Phosphorus Level 2.5 mg/dL (2.6-4.7) Magnesium Level 2.1 mg/dL (1.8-2.4) Assessment and Plan Assessmemt and Plan Problems Medical Problems: (1) Acute on chronic congestive heart failure Status: Acute Comment Review of Relevant I have reviewed the following items peewee (where applicable) has been applied. Medications: Current Medications Medications (Trade) Dose Ordered Sig/Beny Route PRN Reason Start Time Stop Time Status Last Admin Dose Admin Atorvastatin Calcium (Lipitor) 10 mg QHS PO 07/12/21 21:00 07/12/21 20:22 Aspirin (Ecotrin) 81 mg DAILYWBKFT PO 07/13/21 08:00 07/13/21 08:49 DC 07/13/21 08:47 Enoxaparin Sodium (Lovenox 40mg Syringe) 40 mg Q24H SQ 07/12/21 16:00 07/12/21 17:19 Al Hydroxide/Mg Hydroxide (Mylanta Plus Xs) 30 ml PRN Q2HR PRN PO HEARTBURN / GAS 07/12/21 20:00 07/13/21 08:47 Furosemide (Lasix) 40 mg 1X ONCE IVP 07/13/21 10:00 07/13/21 10:01 DC 07/13/21 10:43 Micafungin Sodium 100 mg/Dextrose 100 ml @ 100 mls/hr Q24H IV 07/13/21 13:00 07/13/21 12:44 Cefazolin Sodium (Ancef) 0.2 gm 1X ONCE IVP 07/13/21 12:00 07/13/21 12:01 DC 07/13/21 12:00 Cefazolin Sodium (Ancef) 0.8 gm 1X ONCE IVP 07/13/21 12:45 07/13/21 12:46 DC 07/13/21 12:43 Justifications for Admission Other Justification A. fib RVR and CHF exacerbation MACHO ESTEVEZ MD Jul 13, 2021 13:11
--- NOTE | 2021-07-13 13:12 | CONS ---
DATE OF CONSULTATION: 07/13/2021 REFERRING PHYSICIAN: Julian Woo MD REASON FOR CONSULTATION: Possible right foot cellulitis evaluation and treatment. HISTORY OF PRESENT ILLNESS: An 80-year-old female presented to the ER with complaints of shortness of breath and leg swelling. The patient has been living at home alone with her dog in a trailer for the last one year. Prior to that, she was at [facility], but since she was not allowed to walk around, she left [facility] and went back home again. She has a history of chronic CHF and has a pacemaker placed at [facility]. The patient denies any fevers, chills, recent falls or injury. The patient was found to have right foot redness. Also, she was found to have onychomycosis mainly in all the toenails. The patient denies being on any antibiotics recently. PAST MEDICAL HISTORY: AFib, hypertension, CHF, osteoarthritis, PPM, hysterectomy. FAMILY HISTORY: As per HPI. SOCIAL HISTORY: Lives alone. No smoking, alcohol or drugs. Has a pet dog. Poor living condition. CURRENT MEDICATIONS: Reviewed. Antibiotics none. ALLERGIES: PENICILLIN, PREDNISONE. REVIEW OF SYSTEMS: Hard of hearing, limited, poor historian. PHYSICAL EXAMINATION: VITAL SIGNS: Afebrile, stable. GENERAL: Alert, awake female, poor hearing, in no acute distress, able to answer most of the questions. HEENT: Normocephalic, atraumatic. Anicteric. No thrush. Oral mucosa moist. NECK: Supple. LUNGS: Basilar crackles. HEART: Irregular. Holosystolic murmur. EXTREMITIES: Bilateral lower extremity pedal edema with erythema to the right foot, onychomycosis both feet on toenails. Good peripheral pulses, dorsalis pedis. No calf tenderness, no cyanosis. DERMATOLOGIC: Warm, dry. No generalized skin rash except for above. NEUROLOGIC: Hard of hearing, alert, awake, moves all 4 extremities. Debilitated. PSYCHIATRIC: Calm and cooperative. MUSCULOSKELETAL: Degenerative joint disease changes. LABORATORY DATA: WBC normal, hemoglobin 11.3, hematocrit 35, platelets 79. Sodium 131, potassium 4.7, chloride 97, bicarbonate 29, BUN 27, creatinine 0.7, glucose 105. BNP 35,000. Troponin 727. CK 82. INR 1.2. IMAGING: Chest x-ray shows bibasilar patchy airspace opacities, small to moderate bilateral pleural effusion. Head CT, mild small vessel ischemic change. IMPRESSION: 1. Right foot redness, possible mild superimposed cellulitis. 2. Acute on chronic congestive heart failure exacerbation. 3. Atrial fibrillation with rapid ventricular response. 4. Mild transaminitis. 5. Severe protein calorie malnutrition. 6. PPM in place. 7. Thrombocytopenia. 8. Poor living condition. RECOMMENDATIONS: 1. Start cefazolin and micafungin. 2. Elevate right lower extremity. 3. We will deescalate soon. 4. Local wound care. 5. The patient will need podiatry evaluation as an outpatient. 6. Optimal edema control. 7. Continue supportive care. Thank you, Dr. Woo, for consulting Infectious Disease to participate in this patient's care. If you have any questions, do not hesitate to contact me. HERMAN NICHOLE: Anibal TID: [id number]
[2021-07-13 15:00] VITALS: BP 109/52
[2021-07-13] MEDS: ENOXAPARIN 40 MG/0.4 ML SYRINGE. SQ SCH (17:05)
[2021-07-13 19:00] VITALS: BP 124/63
[2021-07-13] MEDS: ceFAZolin SODIUM IV Push 1 GM VIAL. IVP SCH (21:35)
[2021-07-13] MEDS: ATORVASTATIN CALCIUM 10 MG TABLET. PO SCH (21:36)
[2021-07-13 23:00] VITALS: BP 101/64
[2021-07-14] MEDS: MAG HYDROX/ALUMINUM HYD/SIMETH 30 ML ORAL.SUSP PO PRN (00:14)
[2021-07-14 03:00] VITALS: BP 110/54
[2021-07-14 04:15] LABS: BASO % 0 % (0-3); EOS % 0 % (0-3); HEMATOCRIT 36.3 % (36.0-47.0); HEMOGLOBIN 11.7 g/dL (12.0-15.5); LYMPH # 0.3 x10^3/uL (1.0-4.8); LYMPH % 6 % (24-48); MEAN CORPUSCULAR HEMOGLOBIN 29 pg (25-35); MEAN CORPUSCULAR HGB CONC 32 g/dL (31-37); MEAN CORPUSCULAR VOLUME 90 fL (79-100); MONO # 0.8 x10^3/uL (0.0-1.1); MONO % 15 % (0-9); NEUT % 79 % (31-73); PLATELET COUNT 81 x10^3/uL (140-400); RED BLOOD COUNT 4.06 x10^6/uL (3.50-5.40); RED CELL DISTRIBUTION WIDTH 15.5 % (11.5-14.5); WHITE BLOOD COUNT 5.1 x10^3/uL (4.0-11.0)
[2021-07-14 04:34] LABS: CALCIUM 7.6 mg/dL (8.5-10.1); CREATININE 0.5 mg/dL (0.6-1.0); GFR 118.1; MAGNESIUM 2.2 mg/dL (1.8-2.4)
[2021-07-14 07:00] VITALS: BP 125/72
[2021-07-14] MEDS ORDERED: ASPIRIN 325 MG TABLET PO SCH (08:00)
--- NOTE | 2021-07-14 08:11 | CARD ---
MR#: [id number] Date of Study: 07/13/2021 Ordering Physician: MICHAELA PIPER, Referring Physician: MICHAELA PIPER, Tech: Angelia Hammond, [facility] APPROVED REPORT EXAM: Two-dimensional and M-mode echocardiogram with Doppler and color Doppler. Other Information Rhythm : PacemakerTechnically limited study due to INDICATION Atrial Fibrillation Congestive Heart Failure Elevated Troponin Surgery/Intervention Pacemaker: RISK FACTORS Hypertension 2D DIMENSIONS Left Atrium(2D)3.8 (1.6-4.0cm)IVSd0.7 (0.7-1.1cm) Aortic Root(2D)3.2 (2.0-3.7cm)LVDd5.2 (3.9-5.9cm) LVOT Diameter2.1 (1.8-2.4cm)PWd1.0 (0.7-1.1cm) LVDs3.5 (2.5-4.0cm)FS (%) 32.0 % SV77.4 mlLVEF(%)59.8 (>50%) Aortic Valve AoV Peak Jarrell.127.3cm/sAoV VTI24.8cm AO Peak GR.6.5mmHgLVOT VTI 14.97cm AO Mean GR.5mmHg Mitral Valve MV E Eubfkjzz657.2cm/sMV E Peak Gr.6mmHg MV A Dgwtmvea11.9cm/sMV E Mean Gr.2mmHg E/A Ratio1.6 TDI Lateral E' P. V18.99cm/sMedial E' P. V4.83cm/s E/Lateral E'6.6E/Medial E'25.9 Tricuspid Valve TR P. [id number]/sRAP [id number] TR Peak Gr.[id number] LEFT VENTRICLE The left ventricle is normal size. There is borderline to mild concentric left ventricular hypertroph y. The left ventricular systolic function is normal. Ejection fraction estimated at 50 to 55% Septal wall motion consistent with conduction abnormality and pacemaker activation. Tissue Doppler imaging r eveals moderate left ventricular diastolic dysfunction. RIGHT VENTRICLE The right ventricle is not well visualized. There is normal right ventricular wall thickness. There i s a pacemaker lead in the right ventricle. ATRIA The left atrium is mildly dilated. AORTIC VALVE The aortic valve is thickened but opens well. Doppler and Color Flow revealed trace aortic regurgitat ion. There is no significant aortic valvular stenosis. Calculated aortic valve area is 2.14 cm2 with maximum pressure gradient of 8 mmHg and mean pressure gradient of 5mmHg. MITRAL VALVE The mitral valve is normal in structure and function. There is no mitral valve stenosis. Doppler and Color-flow revealed moderate to severe mitral regurgitation. TRICUSPID VALVE The tricuspid valve is normal in structure and function. Doppler and Color Flow revealed moderate tri cuspid regurgitation with an estimated PAP of 35 mmHg. There is no tricuspid valve stenosis. PULMONIC VALVE The pulmonary valve is normal in structure and function. Doppler and Color Flow revealed trace pulmon ic valvular regurgitation. GREAT VESSELS The aortic root is normal in size. The IVC was not visualized. PERICARDIAL EFFUSION There is a trace pericardial effusion. Critical Notification Critical Value: No <Conclusion> The left ventricular systolic function is normal. Ejection fraction estimated at 50 to 55%. Pacer lead noted RA/RV. Moderate to severe mitral regurgitation. Moderate tricuspid regurgitation with an estimated PAP of 35 mmHg. There is a trace pericardial effusion. Signed by : Kei Chang, Electronically Approved : 07/14/2021 08:10:51
[2021-07-14] MEDS: POTASSIUM BICARB 20 MEQ EFFERVESCENT TABLET. PO SCH (08:32)
[2021-07-14] MEDS: ASPIRIN ENTERIC COATED 81 MG TABLET.DR. PO SCH (08:34)
[2021-07-14] MEDS: METOPROLOL TART IMMED RELEASE 25 MG TABLET. PO SCH ×2 (08:35→22:39)
[2021-07-14] MEDS: ceFAZolin SODIUM IV Push 1 GM VIAL. IVP SCH ×2 (08:36→22:37)
--- NOTE | 2021-07-14 09:18 | PDOC ---
Infectious Disease Note Subjective: Subjective Patient complains of shortness of breath T-max 100 degrees Patient tolerated cefazolin well Right foot redness and swelling is improving Vital Signs: Vital Signs Vital Signs Date Time Temp Pulse Resp B/P (MAP) Pulse Ox O2 Delivery O2 Flow Rate FiO2 07/14/21 08:35 125 125/72 07/14/21 07:00 97.9 28 92 Nasal Cannula 3.0 97.9 Physical Exam: PHYSICAL EXAM GENERAL: Alert, awake female, poor hearing,, lethargic, confused, HEENT: Normocephalic, atraumatic. Anicteric. No thrush. Oral mucosa moist. NECK: Supple. LUNGS: Basilar crackles. HEART: Irregular. Holosystolic murmur. EXTREMITIES: Bilateral lower extremity pedal edema , dusky looking toes worsened than yesterday Right foot more prominent, I could not palpate dorsalis pedis today ,onychomycosis both feet on toenails. pedis. No calf tenderness, no cyanosis. DERMATOLOGIC: Warm, dry. No generalized skin rash except for above. NEUROLOGIC: Hard of hearing, opens eyes, confused lethargic, was able to move all 4 extremities yesterday though had generalized weakness PSYCHIATRIC: Anxious and confused MUSCULOSKELETAL: Degenerative joint disease changes. Medications: Inpatient Meds: Medications reviewed. Labs: Lab Laboratory Tests Test 07/14/21 02:35 White Blood Count 5.1 x10^3/uL (4.0-11.0) Red Blood Count 4.06 x10^6/uL (3.50-5.40) Hemoglobin 11.7 g/dL (12.0-15.5) Hematocrit 36.3 % (36.0-47.0) Mean Corpuscular Volume 90 fL (79-100) Mean Corpuscular Hemoglobin 29 pg (25-35) Mean Corpuscular Hemoglobin Concent 32 g/dL (31-37) Red Cell Distribution Width 15.5 % (11.5-14.5) Platelet Count 81 x10^3/uL (140-400) Neutrophils (%) (Auto) 79 % (31-73) Lymphocytes (%) (Auto) 6 % (24-48) Monocytes (%) (Auto) 15 % (0-9) Eosinophils (%) (Auto) 0 % (0-3) Basophils (%) (Auto) 0 % (0-3) Neutrophils # (Auto) 4.0 x10^3/uL (1.8-7.7) Lymphocytes # (Auto) 0.3 x10^3/uL (1.0-4.8) Monocytes # (Auto) 0.8 x10^3/uL (0.0-1.1) Eosinophils # (Auto) 0.0 x10^3/uL (0.0-0.7) Basophils # (Auto) 0.0 x10^3/uL (0.0-0.2) Sodium Level 132 mmol/L (136-145) Potassium Level 5.0 mmol/L (3.5-5.1) Chloride Level 97 mmol/L (98-107) Carbon Dioxide Level 32 mmol/L (21-32) Anion Gap 3 (6-14) Blood Urea Nitrogen 25 mg/dL (7-20) Creatinine 0.5 mg/dL (0.6-1.0) Estimated GFR (Cockcroft-Gault) 118.1 Glucose Level 117 mg/dL (70-99) Calcium Level 7.6 mg/dL (8.5-10.1) Magnesium Level 2.2 mg/dL (1.8-2.4) Objective: Assessment: Right foot cyanotic, ischemic changes changed significantly since yesterday's exam ,possible ischemic Altered mental status Acute on chronic congestive heart failure exacerbation. Atrial fibrillation with rapid ventricular response. Severe protein calorie malnutrition. PPM in place. Thrombocytopenia. Poor living condition. Plan: Plan of Care Agree for brain imaging and Doppler ultrasound Recommend vascular evaluation Continue cefazolin and micafungin. Patient tolerated cefazolin well. Elevate right lower extremity. Critically ill Consider palliative care Discussed with NATALY Francis MD Jul 14, 2021 09:18
--- NOTE | 2021-07-14 10:57 | PDOC2 ---
CONSULT Date of Consult Date of Consult DATE: 07/14/21 TIME: 10:51 Reason for Consult Reason for Consult: Toe mottling Referring Physician Referring Physician: Dr. Woo Identification/Chief Complaint Chief Complaint Shortness of breath History of Present Illness Reason for Visit: This is an 80-year-old female admitted for management of multiple medical issues and acute dyspnea. I was consulted for evaluation of cyanosis of the bilateral feet. She currently denies any changes in the sensation of her feet and denies any pain in her toes or feet. She was unable to unable to answer many questions due to acute mental status changes related to her acute illness which limited my evaluation and history. Past Medical History Cardiovascular: AFIB, HTN Musculoskeletal: Osteoarthritis ENT: Other ([place]) Past Surgical History Past Surgical History: Pacemaker, Hysterectomy Family History Family History: Family History Unknown Social History No ALCOHOL: none Drugs: None Lives: Alone Current Problem List Problem List Problems Medical Problems: (1) Acute on chronic congestive heart failure Status: Acute Current Medications Current Medications Current Medications Ondansetron HCl (Zofran) 4 mg 1X ONCE IVP Last administered on 07/11/21at 20:38; Start 07/11/21 at 20:30; Stop 07/11/21 at 20:42; Status DC Furosemide (Lasix) 40 mg 1X ONCE IVP Last administered on 07/11/21at 22:50; Start 07/11/21 at 21:15; Stop 07/11/21 at 21:16; Status DC Diltiazem HCl (Cardizem Iv Push) 10 mg 1X ONCE IVP Last administered on 07/11/21at 22:53; Start 07/11/21 at 21:15; Stop 07/11/21 at 21:18; Status DC Diltiazem HCl 125 mg/Sodium Chloride 125 ml @ 5 mls/hr CONT PRN IV PER PROTOCOL Last administered on 07/11/21at 23:43; Start 07/11/21 at 23:30 Enoxaparin Sodium (Lovenox 60mg Syringe) 60 mg 1X ONCE SQ ; Start 07/12/21 at 00:00; Stop 07/12/21 at 00:42; Status DC Digoxin (Lanoxin) 500 mcg 1X ONCE IV Last administered on 07/12/21at 01:10; Start 07/12/21 at 00:45; Stop 07/12/21 at 00:46; Status DC Sennosides (Senna) 17.2 mg PRN BID PRN PO CONSTIPATION; Start 07/12/21 at 08:45 Docusate Sodium (Colace) 100 mg PRN DAILY PRN PO HARD STOOLS; Start 07/12/21 at 08:45 Ondansetron HCl (Zofran) 4 mg PRN Q6HRS PRN IVP NAUSEA/VOMITING, 1ST CHOICE; Start 07/12/21 at 08:45 Dextrose (Dextrose 50%-Water Syringe) 12.5 gm PRN Q15MIN PRN IV SEE COMMENTS; Start 07/12/21 at 08:45 Acetaminophen (Tylenol) 650 mg PRN Q4HRS PRN PO TEMP OVER 100.4F OR MILD PAIN Last administered on 07/13/21at 21:36; Start 07/12/21 at 08:45 Lorazepam (Ativan) 0.5 mg PRN Q6HRS PRN PO ANXIETY / AGITATION; Start 07/12/21 at 08:45 Lorazepam (Ativan Inj) 0.25 mg PRN Q4HRS PRN IV ANXIETY / AGITATION Last administered on 07/14/21at 08:08; Start 07/12/21 at 08:45 Prochlorperazine Edisylate (Compazine) 10 mg PRN Q6HRS PRN IV NAUSEA/VOMITING, 2ND CHOICE; Start 07/12/21 at 08:45 Zolpidem Tartrate (Ambien) 2.5 mg PRN QHS PRN PO INSOMNIA; Start 07/12/21 at 08:45 Metoprolol Tartrate (Lopressor) 25 mg BID PO ; Start 07/12/21 at 21:00; Stop 07/12/21 at 09:28; Status DC Apixaban (Eliquis) 2.5 mg BID PO ; Start 07/12/21 at 21:00; Stop 07/12/21 at 09:28; Status DC Potassium Bicarbonate (Potassium Effervescent Tablet) 10 meq DAILY PO Last administered on 07/14/21at 08:32; Start 07/12/21 at 10:00 Apixaban (Eliquis) 2.5 mg BID PO Last administered on 07/12/21at 09:41; Start 07/12/21 at 09:30; Stop 07/12/21 at 11:40; Status DC Metoprolol Tartrate (Lopressor) 25 mg BID PO Last administered on 07/14/21at 08:35; Start 07/12/21 at 09:30 Furosemide (Lasix) 20 mg 1X ONCE IVP Last administered on 07/12/21at 12:18; Start 07/12/21 at 12:00; Stop 07/12/21 at 12:01; Status DC Atorvastatin Calcium (Lipitor) 10 mg QHS PO Last administered on 07/13/21at 21:36; Start 07/12/21 at 21:00 Aspirin (Ecotrin) 81 mg DAILYWBKFT PO Last administered on 07/13/21at 08:47; Start 07/13/21 at 08:00; Stop 07/13/21 at 08:49; Status DC Enoxaparin Sodium (Lovenox 40mg Syringe) 40 mg Q24H SQ Last administered on 07/13/21at 17:05; Start 07/12/21 at 16:00 Al Hydroxide/Mg Hydroxide (Mylanta Plus Xs) 30 ml PRN Q2HR PRN PO HEARTBURN / GAS Last administered on 07/14/21at 00:14; Start 07/12/21 at 20:00 Calcium Carbonate/ Glycine (Tums) 500 mg PRN AFTMEALHC PRN PO INDIGESTION; Start 07/12/21 at 20:00 Aspirin (Willie Aspirin) 325 mg DAILYWBKFT PO ; Start 07/14/21 at 08:00; Stop 07/13/21 at 11:05; Status DC Furosemide (Lasix) 40 mg 1X ONCE IVP Last administered on 07/13/21at 10:43; Start 07/13/21 at 10:00; Stop 07/13/21 at 10:01; Status DC Aspirin (Ecotrin) 81 mg DAILYWBKFT PO Last administered on 07/14/21at 08:34; Start 07/14/21 at 08:00 Cefazolin Sodium (Ancef) 1 gm Q12HR IVP Last administered on 07/14/21at 08:36; Start 07/13/21 at 21:00 Micafungin Sodium 100 mg/Dextrose 100 ml @ 100 mls/hr Q24H IV Last administered on 07/13/21at 12:44; Start 07/13/21 at 13:00 Cefazolin Sodium (Ancef) 0.2 gm 1X ONCE IVP Last administered on 07/13/21at 12:00; Start 07/13/21 at 12:00; Stop 07/13/21 at 12:01; Status DC Cefazolin Sodium (Ancef) 0.8 gm 1X ONCE IVP ; Start 07/13/21 at 12:30; Stop 07/13/21 at 12:31; Status Cancel Cefazolin Sodium (Ancef) 0.8 gm 1X ONCE IVP Last administered on 07/13/21at 12:43; Start 07/13/21 at 12:45; Stop 07/13/21 at 12:46; Status DC Active Scripts Active Reported Effer-K 10 Meq Tablet Eff (Potassium Bicarbonate/Cit Ac) 10 Meq Tablet.eff 15 Meq PO DAILY Metoprolol Succinate ( Xl ) (Metoprolol Succinate) 25 Mg Tab.er.24h 2 Tab PO BID Lasix (Furosemide) 40 Mg Tablet 1 Tab PO DAILY 30 Days Eliquis (Apixaban) 2.5 Mg Tablet 2.5 Mg PO BID Allergies Allergies: Coded Allergies: Penicillins (Verified Allergy, Intermediate, 07/14/21) prednisone (Verified Allergy, Intermediate, 07/14/21) pt verbalized causes boils ROS Review of System Unable to obtain due to alteration of mental status related to acute illness Physical Exam General: moderate distress, Other (Labored breathing) HEENT: Atraumatic, EOMI Lungs: Other (Tachypneic with labored breathing) Heart: Other (Tachycardic, 2+ palpable femoral and popliteal pulses. Nonpalpable pedal pulses. There are monophasic Doppler signals in the PT and DP bilaterally.) Abdomen: No masses, Other (Nondistended) Extremities: Other (She has significant cyanosis of both of her feet including the toes worse on the right than the left) Skin: No breakdown, Other (There are no ulcerations on either foot) Neuro: Sensation intact, Other (She is able to flex and extend her bilateral lower extremities and toes) MUSCULOSKELETAL: No deformity, No swelling, Other (She is cachectic in appearance) Vitals VITALS Vital Signs Date Time Temp Pulse Resp B/P (MAP) Pulse Ox O2 Delivery O2 Flow Rate FiO2 07/14/21 08:35 125 125/72 11/4/21 07:00 97.9 28 92 Nasal Cannula 3.0 97.9 Labs Labs Laboratory Tests Test 07/13/21 08:05 07/14/21 02:35 White Blood Count 5.9 x10^3/uL (4.0-11.0) 5.1 x10^3/uL (4.0-11.0) Red Blood Count 3.89 x10^6/uL (3.50-5.40) 4.06 x10^6/uL (3.50-5.40) Hemoglobin 11.3 g/dL (12.0-15.5) 11.7 g/dL (12.0-15.5) Hematocrit 35.0 % (36.0-47.0) 36.3 % (36.0-47.0) Mean Corpuscular Volume 90 fL (79-100) 90 fL (79-100) Mean Corpuscular Hemoglobin 29 pg (25-35) 29 pg (25-35) Mean Corpuscular Hemoglobin Concent 32 g/dL (31-37) 32 g/dL (31-37) Red Cell Distribution Width 16.2 % (11.5-14.5) 15.5 % (11.5-14.5) Platelet Count 78 x10^3/uL (140-400) 81 x10^3/uL (140-400) Neutrophils (%) (Auto) 85 % (31-73) 79 % (31-73) Lymphocytes (%) (Auto) 4 % (24-48) 6 % (24-48) Monocytes (%) (Auto) 10 % (0-9) 15 % (0-9) Eosinophils (%) (Auto) 1 % (0-3) 0 % (0-3) Basophils (%) (Auto) 0 % (0-3) 0 % (0-3) Neutrophils # (Auto) 5.0 x10^3/uL (1.8-7.7) 4.0 x10^3/uL (1.8-7.7) Lymphocytes # (Auto) 0.3 x10^3/uL (1.0-4.8) 0.3 x10^3/uL (1.0-4.8) Monocytes # (Auto) 0.6 x10^3/uL (0.0-1.1) 0.8 x10^3/uL (0.0-1.1) Eosinophils # (Auto) 0.1 x10^3/uL (0.0-0.7) 0.0 x10^3/uL (0.0-0.7) Basophils # (Auto) 0.0 x10^3/uL (0.0-0.2) 0.0 x10^3/uL (0.0-0.2) Sodium Level 131 mmol/L (136-145) 132 mmol/L (136-145) Potassium Level 4.7 mmol/L (3.5-5.1) 5.0 mmol/L (3.5-5.1) Chloride Level 97 mmol/L (98-107) 97 mmol/L (98-107) Carbon Dioxide Level 29 mmol/L (21-32) 32 mmol/L (21-32) Anion Gap 5 (6-14) 3 (6-14) Blood Urea Nitrogen 27 mg/dL (7-20) 25 mg/dL (7-20) Creatinine 0.7 mg/dL (0.6-1.0) 0.5 mg/dL (0.6-1.0) Estimated GFR (Cockcroft-Gault) 80.1 118.1 Glucose Level 105 mg/dL (70-99) 117 mg/dL (70-99) Calcium Level 7.6 mg/dL (8.5-10.1) 7.6 mg/dL (8.5-10.1) Phosphorus Level 2.5 mg/dL (2.6-4.7) Magnesium Level 2.1 mg/dL (1.8-2.4) 2.2 mg/dL (1.8-2.4) Laboratory Tests Test 07/14/21 02:35 White Blood Count 5.1 x10^3/uL (4.0-11.0) Red Blood Count 4.06 x10^6/uL (3.50-5.40) Hemoglobin 11.7 g/dL (12.0-15.5) Hematocrit 36.3 % (36.0-47.0) Mean Corpuscular Volume 90 fL (79-100) Mean Corpuscular Hemoglobin 29 pg (25-35) Mean Corpuscular Hemoglobin Concent 32 g/dL (31-37) Red Cell Distribution Width 15.5 % (11.5-14.5) Platelet Count 81 x10^3/uL (140-400) Neutrophils (%) (Auto) 79 % (31-73) Lymphocytes (%) (Auto) 6 % (24-48) Monocytes (%) (Auto) 15 % (0-9) Eosinophils (%) (Auto) 0 % (0-3) Basophils (%) (Auto) 0 % (0-3) Neutrophils # (Auto) 4.0 x10^3/uL (1.8-7.7) Lymphocytes # (Auto) 0.3 x10^3/uL (1.0-4.8) Monocytes # (Auto) 0.8 x10^3/uL (0.0-1.1) Eosinophils # (Auto) 0.0 x10^3/uL (0.0-0.7) Basophils # (Auto) 0.0 x10^3/uL (0.0-0.2) Sodium Level 132 mmol/L (136-145) Potassium Level 5.0 mmol/L (3.5-5.1) Chloride Level 97 mmol/L (98-107) Carbon Dioxide Level 32 mmol/L (21-32) Anion Gap 3 (6-14) Blood Urea Nitrogen 25 mg/dL (7-20) Creatinine 0.5 mg/dL (0.6-1.0) Estimated GFR (Cockcroft-Gault) 118.1 Glucose Level 117 mg/dL (70-99) Calcium Level 7.6 mg/dL (8.5-10.1) Magnesium Level 2.2 mg/dL (1.8-2.4) Assessment/Plan Assessment/Plan 1. Acrocyanosis, bilateral lower extremity 2. COPD 3. Pacemaker dependent 4. Cachexia/severe protein calorie malnutrition. Recommend obtaining a right lower extremity arterial duplex however on my examination I am less concerned about embolic phenomenon to the lower extremities. I am more concerned that the peripheral acrocyanosis is a sign of systemic vasoconstriction concerning for an early sign of clinical deterioration. I expressed my concerns with Dr. Woo and explained my exam findings. She has monophasic Doppler signals in the bilateral pedal vessels again concerning for vasospasm related to peripheral vasoconstriction. DAVID LUX MD Jul 14, 2021 10:57
[2021-07-14 11:00] VITALS: BP 117/80
[2021-07-14] MEDS ORDERED: FUROSEMIDE 40 MG/4 ML VIAL. IVP ONE (11:15)
[2021-07-14] MEDS ORDERED: DIGOXIN IV 500 MCG/2 ML AMPUL. IV ONE (11:15)
--- NOTE | 2021-07-14 11:15 | PDOC ---
MICHAELA PIPER GENERAL ASSISTANT 07/14/21 1115: CARDIO Progress Notes Date and Time Date of Service 07/14/2021 Time of Evaluation 1050 Subjective Subjective: No Chest Pain, No shortness of breath, No Palpitations Vitals Vitals Vital Signs Date Time Temp Pulse Resp B/P (MAP) Pulse Ox O2 Delivery O2 Flow Rate FiO2 07/14/21 11:00 98.0 125 18 117/80 (92) 95 Nasal Cannula 3.0 98.0 Weight Weight [ ] Input and Output Intake and Output Intake and Output 07/14/21 07:00 Intake Total 940 ml Output Total 400 ml Balance 540 ml Intake Oral 940 ml Output Urine Total 400 ml Laboratory Labs Laboratory Tests Test 07/14/21 02:35 White Blood Count 5.1 x10^3/uL (4.0-11.0) Red Blood Count 4.06 x10^6/uL (3.50-5.40) Hemoglobin 11.7 g/dL (12.0-15.5) Hematocrit 36.3 % (36.0-47.0) Mean Corpuscular Volume 90 fL (79-100) Mean Corpuscular Hemoglobin 29 pg (25-35) Mean Corpuscular Hemoglobin Concent 32 g/dL (31-37) Red Cell Distribution Width 15.5 % (11.5-14.5) Platelet Count 81 x10^3/uL (140-400) Neutrophils (%) (Auto) 79 % (31-73) Lymphocytes (%) (Auto) 6 % (24-48) Monocytes (%) (Auto) 15 % (0-9) Eosinophils (%) (Auto) 0 % (0-3) Basophils (%) (Auto) 0 % (0-3) Neutrophils # (Auto) 4.0 x10^3/uL (1.8-7.7) Lymphocytes # (Auto) 0.3 x10^3/uL (1.0-4.8) Monocytes # (Auto) 0.8 x10^3/uL (0.0-1.1) Eosinophils # (Auto) 0.0 x10^3/uL (0.0-0.7) Basophils # (Auto) 0.0 x10^3/uL (0.0-0.2) Sodium Level 132 mmol/L (136-145) Potassium Level 5.0 mmol/L (3.5-5.1) Chloride Level 97 mmol/L (98-107) Carbon Dioxide Level 32 mmol/L (21-32) Anion Gap 3 (6-14) Blood Urea Nitrogen 25 mg/dL (7-20) Creatinine 0.5 mg/dL (0.6-1.0) Estimated GFR (Cockcroft-Gault) 118.1 Glucose Level 117 mg/dL (70-99) Calcium Level 7.6 mg/dL (8.5-10.1) Magnesium Level 2.2 mg/dL (1.8-2.4) Physical Exam HEENT: Neck Supple W Full Motion Chest: Symmetric LUNGS: Other (basilar crackles) Heart: irregularly irregular (AFlutter) Abdomen: Soft N/T Extremities: Other (2+ bilateral LE pitting edema) Neurology: alert, oriented, follow commands Assessment Assessment 1. Acute on chronic CHF with possible diastolic/systolic dysfunction, improved. EF nml 2. Chronic AFIB/flutter with RVR: HR in the 120s 3. HTN; controlled 4. 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 Normal device function. AAIR-DDDR 99.6% AFIB burden 10.7 yrs battery life 5. NSTEMI; suspect demand mediated type 2, CP free 6. Valvular insufficiency: Moderate to severe mitral regurgitation. 7. Right foot cellulitis; per PCP Recommendations 1. Was on eliquis but apparently pt has not been able to afford this costing >$500 every other week and has been taking high dose ASA at home instead. Will switch over to ASA for stroke prevention 2. Continue metoprolol for rate control. Digoxin IV x1. Will increase BB if BP trend is adequate 3. Consider for outpt ischemic workup. she follows with [facility] cardiology. Will likely need mitral clip. Will consider for BETY. Will see if she has had any recent BETY at 4. Lasix therapy 5. Consider SN[facility] Justicifation of Admission Dx: Justifications for Admission: Justification of Admission Dx: Yes JOSE VILLEGAS MD 07/14/21 6936: CARDIO Progress Notes Assessment Assessment Patient seen and examined I agree with our nurse practitioners assessment and plan. Acute on chronic CHF with possible diastolic/systolic dysfunction. EF nml. Still short of breath. Pulmonary evaluation. Chronic AFIB/flutter with RVR: HR in the 120s. Continuing present treatments as above. Digoxin x1 for improved rate control. 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 Normal device function. AAIR-DDDR 99.6% AFIB burden 10.7 yrs battery life NSTEMI; suspect demand mediated type 2, CP free Valvular insufficiency: Moderate to severe mitral regurgitation. Follows at . Right foot cellulitis; per PCP MICHAELA PIPER APRN Jul 14, 2021 11:15 JOSE VILLEGAS MD Jul 14, 2021 16:16
[2021-07-14] MEDS ORDERED: IOHEXOL 350 MG/ML 100 ML VIAL. IV ONE (11:30)
[2021-07-14] MEDS ORDERED: CONTRAST GIVEN. MC PRN (11:45)
--- NOTE | 2021-07-14 11:52 | NUR ---
SS following up with discharge planning. SS reviewed pt chart and discussed with pt RN. Pt is currently requiring oxygen at three liters nasal canula. Pt has no home oxygen. Cardiology, ID, and Vascular following. Pt on IV Cefazolin and IV Micafungin. PT/OT recommended retirement unit. SS met with pt and discussed discharge planning and retirement unit. Pt agreeable to rehabilitation with no preference of company. Referral phoned and faxed to [facility], ; fax [phone]. COVID19 test requested for placement. SS will continue to follow for discharge planning. Addendum: 07/14/21 at 1156 by DANNIE MÉNDEZ Pt has been vaccinated for COVID19.
--- NOTE | 2021-07-14 12:29 | RAD ---
EXAMINATION: CT head without IV contrast INDICATION:80 years, Female, tachycardia, altered mental status. COMPARISON: 07/11/2021 TECHNIQUE: Spiral acquisition of contiguous images from the skull base to the vertex were obtained. S agittal and coronal 2D reformatted series were provided by the technologist. Exposure: One or more of the following individualized dose reduction techniques were utilized for thi s examination: 1. Automated exposure control 2. Adjustment of the mA and/or kV according to patient size 3. Use of iterative reconstruction technique. FINDINGS: Neither mass, midline shift, intracranial hemorrhage, acute/subacute ischemic changes, nor extraaxial fluid collections are seen. Brain parenchymal volume loss. Mild to moderate supratentorial periventr icular white matter hypodensities, indeterminate but most likely representing chronic microangiopathi c disease, similar. The ventricular system is within normal limits of variation. The paranasal sinuses, mastoid air cells, and middle ears are clear.The orbital contents appear withi n normal limits. IMPRESSION: 1. No evidence of acute intracranial abnormality. 2. Similar supratentorial periventricular white matter hypodensities, indeterminate but most likely representing chronic microangiopathic disease. Electronically signed by: Sajan Clark DO (07/14/2021 12:27 PM) [facility]
--- NOTE | 2021-07-14 13:02 | RAD ---
CTA OF THE CHEST WITH AND WITHOUT CONTRAST Clinical indications: Tachycardia. Altered mental status. Technique: Noncontrast axial localizer was performed. After IV infusion of 90 cc of Omnipaque 350, he lical CT scanning of the chest was performed using the CTA pulmonary embolism protocol. Coronal and s agittal MIP reconstructions were generated. PQRS compliance Statement One or more of the following individualized dose reduction techniques were utilized for this study: 1. Automated exposure control 2. Adjustment of the mA and/or kV according to patient size 3. Use of iterative reconstruction technique Comparison: None available. Findings: There is significant breathing motion artifact. Given this, there are bilateral pulmonary e mboli present within the primary branches of both lung forde just distal to the bifurcation of the l eft and right main pulmonary arteries at the level of the hilum especially on the left side. There ar e low density areas within the left and right main pulmonary arteries extending to the distal main pu lmonary trunk which could be due to flow phenomenon or emboli. No finding of right ventricular strain . Heart size is significantly enlarged. No pericardial effusion is seen. No focal aneurysmal dilatati on of thoracic aorta is seen. Prominent hiatal hernia is seen within the lower right medial chest. No bulky thoracic lymphadenopathy is apparent. Moderate size bilateral pleural effusions right greater than left are seen. There is significant compressive atelectasis or consolidative infiltrate of both lower lobes. Breathing motion artifact is apparent throughout the lung forde. As a result, groundgla ss lung infiltrates/pulmonary edema cannot be excluded. Proximal bronchial tree is patent. No pneumot horax is seen. There is a mild compression fracture of superior endplate of T12 of indeterminate age. No lytic process is seen otherwise. IMPRESSION: Bilateral pulmonary emboli. No right ventricular strain. Significant cardiomegaly more so involving the left side of the heart. Moderate size bilateral pleural effusions, right greater than left, with associated compressive atele ctasis or consolidation of both lower lobes. Given the breathing motion artifact, evaluation for grou ndglass lung infiltrates/pulmonary edema is difficult and therefore cannot be excluded. Prominent hiatal hernia. Mild compression fracture of T12 of indeterminate age. FOR INTERNAL CODING PURPOSES Critical result: Findings discussed with Bhavna, the patient's floor nurse at 07/14/2021 12:30 PM. RESULT CODE: (C) Electronically signed by: Blake Lee MD (07/14/2021 1:00 PM) [id number]
--- NOTE | 2021-07-14 13:42 | PDOC ---
[employer] PROGRESS NOTE Date of Service DOS: DATE: 07/14/21 TIME: 13:29 Chief Complaint Chief Complaint Acute bilateral PE without right heart strain Acute bilateral pleural effusions Acute on chronic CHF exacerbation, nromal LVEF Elevated BNP due to volume overload Elevated troponins suggestive of type II demand ischemia A. fib RVR Mild transaminitis Severe protein malnutrition Start full dose Lovenox ID consult Start empiric IV antibiotics, IV micafungin and IV Ancef per ID recommendations Continue telemetry Strict I's and O's IV Lasix diuresis as needed Continue with IV diltiazem drip with target heart rate less than 110 in the inpatient setting Trend troponins Cardiology consult Aspirin for now for stroke prophylaxis Lovenox for DVT prophylaxis Cardiac diet CODE STATUS full Discussed with RN and SW Disposition inpatient management as above DPOA: Undesignated History of Present Illness History of Present Illness 80-year-old female with past medical history of atrial fibrillation with pacemaker placed at [facility], hypertension, CHF, atrial fibrillation who comes in with shortness of breath and weakness for the past week since . She does take Lasix and other cardiac medications. Apparently patient also takes Eliquis but this is costly for her so she decided to just stay on aspirin. Patient denies any nausea vomiting, fevers, chest pain, diarrhea or dysuria. Patient is vaccinated for COVID-19. Per chart review: EKG performed at 1854 by ED nursing staff shows atrial fibrillation irregular rhythm with no discernible P waves with occasional PVCs heart rate 129 bpm, QTc interval 0.503, no acute STEMI, no ACS, no acute ischemia appreciated, EKG interpreted by ED attending physician Dr. Ramos. 07/13/2021 Patient seen and examined bedside while eating breakfast. Patient tolerating diet without issues. Does complain of some reflux issues. Complaining of right lower extremity pain in her foot. She does have severe bilateral toe digits onychomycosis. Patient's chart, labs, images were reviewed and discussed with RN 07/14/21 No acute events overnight. Pt seen and examined bedside today and there are some acute mental status changes. Pt more confused and mumbling her words. More tachycardic in the 120s. Lower extremities are cold to touch but there are dopplerable monophasic pulses. Will obtain CTA of the chest and CT head. Patient's chart, labs, images were reviewed and discussed with RN Vitals/I&O Vitals/I&O: Vital Signs Date Time Temp Pulse Resp B/P (MAP) Pulse Ox O2 Delivery O2 Flow Rate FiO2 07/14/21 11:22 125 117/80 07/14/21 11:00 98.0 18 95 Nasal Cannula 3.0 98.0 I & O 07/13/21 07/13/21 07/14/21 15:00 23:00 07:00 Intake Total 360 ml 420 ml 160 ml Output Total 400 ml Balance 360 ml 420 ml -240 ml Physical Exam Physical Exam: GENERAL: Alert, awake female, poor hearing,, lethargic, confused, HEENT: Normocephalic, atraumatic. Anicteric. No thrush. Oral mucosa moist. NECK: Supple. LUNGS: Basilar crackles. HEART: Irregular. Holosystolic murmur. EXTREMITIES: Bilateral lower extremity pedal edema , dusky looking toes worsened than yesterday Right foot more prominent, I could not palpate dorsalis pedis today ,onychomycosis both feet on toenails. pedis. No calf tenderness, no cyanosis. DERMATOLOGIC: Warm, dry. No generalized skin rash except for above. NEUROLOGIC: Hard of hearing, opens eyes, confused lethargic, was able to move all 4 extremities yesterday though had generalized weakness PSYCHIATRIC: Anxious and confused MUSCULOSKELETAL: Degenerative joint disease changes. General: moderate distress, Other (Labored breathing) Heart: Other (Tachycardic, 2+ palpable femoral and popliteal pulses. Nonpalpable pedal pulses. There are monophasic Doppler signals in the PT and DP bilaterally.) Lungs: Wheezing Abdomen: No masses, Other (Nondistended) Extremities: Other (She has significant cyanosis of both of her feet including the toes worse on the right than the left) Skin: No breakdown, Other (There are no ulcerations on either foot) Labs Labs: Laboratory Tests Test 07/14/21 02:35 White Blood Count 5.1 x10^3/uL (4.0-11.0) Red Blood Count 4.06 x10^6/uL (3.50-5.40) Hemoglobin 11.7 g/dL (12.0-15.5) Hematocrit 36.3 % (36.0-47.0) Mean Corpuscular Volume 90 fL (79-100) Mean Corpuscular Hemoglobin 29 pg (25-35) Mean Corpuscular Hemoglobin Concent 32 g/dL (31-37) Red Cell Distribution Width 15.5 % (11.5-14.5) Platelet Count 81 x10^3/uL (140-400) Neutrophils (%) (Auto) 79 % (31-73) Lymphocytes (%) (Auto) 6 % (24-48) Monocytes (%) (Auto) 15 % (0-9) Eosinophils (%) (Auto) 0 % (0-3) Basophils (%) (Auto) 0 % (0-3) Neutrophils # (Auto) 4.0 x10^3/uL (1.8-7.7) Lymphocytes # (Auto) 0.3 x10^3/uL (1.0-4.8) Monocytes # (Auto) 0.8 x10^3/uL (0.0-1.1) Eosinophils # (Auto) 0.0 x10^3/uL (0.0-0.7) Basophils # (Auto) 0.0 x10^3/uL (0.0-0.2) Sodium Level 132 mmol/L (136-145) Potassium Level 5.0 mmol/L (3.5-5.1) Chloride Level 97 mmol/L (98-107) Carbon Dioxide Level 32 mmol/L (21-32) Anion Gap 3 (6-14) Blood Urea Nitrogen 25 mg/dL (7-20) Creatinine 0.5 mg/dL (0.6-1.0) Estimated GFR (Cockcroft-Gault) 118.1 Glucose Level 117 mg/dL (70-99) Calcium Level 7.6 mg/dL (8.5-10.1) Magnesium Level 2.2 mg/dL (1.8-2.4) Assessment and Plan Assessmemt and Plan Problems Medical Problems: (1) Acute on chronic congestive heart failure Status: Acute Comment Review of Relevant I have reviewed the following items peewee (where applicable) has been applied. Medications: Current Medications Medications (Trade) Dose Ordered Sig/Beny Route PRN Reason Start Time Stop Time Status Last Admin Dose Admin Aspirin (Ecotrin) 81 mg [id number] PO 07/14/21 08:00 07/14/21 08:34 Cefazolin Sodium (Ancef) 1 gm Q12HR IVP 07/13/21 21:00 07/14/21 08:36 Furosemide (Lasix) 40 mg 1X ONCE IVP 07/14/21 11:15 07/14/21 11:16 DC 07/14/21 11:17 Digoxin (Lanoxin) 500 mcg 1X ONCE IV 07/14/21 11:15 07/14/21 11:16 DC 07/14/21 11:22 Iohexol (Omnipaque 350 Mg/ml) 90 ml 1X ONCE IV 07/14/21 11:30 07/14/21 11:31 DC 07/14/21 11:59 Justifications for Admission Other Justification A. fib RVR and CHF exacerbation MACHO ESTEVEZ MD Jul 14, 2021 13:42
--- NOTE | 2021-07-14 14:45 | PDOC ---
PULMONARY PROGRESS NOTES DATE: 07/14/21 TIME: 14:44 Vitals Vital Signs Date Time Temp Pulse Resp B/P (MAP) Pulse Ox O2 Delivery O2 Flow Rate FiO2 07/14/21 11:22 125 117/80 07/14/21 11:00 98.0 18 95 Nasal Cannula 3.0 98.0 Lungs: Wheezing Labs Laboratory Tests Test 07/13/21 08:05 07/14/21 02:35 White Blood Count 5.9 x10^3/uL (4.0-11.0) 5.1 x10^3/uL (4.0-11.0) Red Blood Count 3.89 x10^6/uL (3.50-5.40) 4.06 x10^6/uL (3.50-5.40) Hemoglobin 11.3 g/dL (12.0-15.5) 11.7 g/dL (12.0-15.5) Hematocrit 35.0 % (36.0-47.0) 36.3 % (36.0-47.0) Mean Corpuscular Volume 90 fL (79-100) 90 fL (79-100) Mean Corpuscular Hemoglobin 29 pg (25-35) 29 pg (25-35) Mean Corpuscular Hemoglobin Concent 32 g/dL (31-37) 32 g/dL (31-37) Red Cell Distribution Width 16.2 % (11.5-14.5) 15.5 % (11.5-14.5) Platelet Count 78 x10^3/uL (140-400) 81 x10^3/uL (140-400) Neutrophils (%) (Auto) 85 % (31-73) 79 % (31-73) Lymphocytes (%) (Auto) 4 % (24-48) 6 % (24-48) Monocytes (%) (Auto) 10 % (0-9) 15 % (0-9) Eosinophils (%) (Auto) 1 % (0-3) 0 % (0-3) Basophils (%) (Auto) 0 % (0-3) 0 % (0-3) Neutrophils # (Auto) 5.0 x10^3/uL (1.8-7.7) 4.0 x10^3/uL (1.8-7.7) Lymphocytes # (Auto) 0.3 x10^3/uL (1.0-4.8) 0.3 x10^3/uL (1.0-4.8) Monocytes # (Auto) 0.6 x10^3/uL (0.0-1.1) 0.8 x10^3/uL (0.0-1.1) Eosinophils # (Auto) 0.1 x10^3/uL (0.0-0.7) 0.0 x10^3/uL (0.0-0.7) Basophils # (Auto) 0.0 x10^3/uL (0.0-0.2) 0.0 x10^3/uL (0.0-0.2) Sodium Level 131 mmol/L (136-145) 132 mmol/L (136-145) Potassium Level 4.7 mmol/L (3.5-5.1) 5.0 mmol/L (3.5-5.1) Chloride Level 97 mmol/L (98-107) 97 mmol/L (98-107) Carbon Dioxide Level 29 mmol/L (21-32) 32 mmol/L (21-32) Anion Gap 5 (6-14) 3 (6-14) Blood Urea Nitrogen 27 mg/dL (7-20) 25 mg/dL (7-20) Creatinine 0.7 mg/dL (0.6-1.0) 0.5 mg/dL (0.6-1.0) Estimated GFR (Cockcroft-Gault) 80.1 118.1 Glucose Level 105 mg/dL (70-99) 117 mg/dL (70-99) Calcium Level 7.6 mg/dL (8.5-10.1) 7.6 mg/dL (8.5-10.1) Phosphorus Level 2.5 mg/dL (2.6-4.7) Magnesium Level 2.1 mg/dL (1.8-2.4) 2.2 mg/dL (1.8-2.4) Laboratory Tests Test 07/14/21 02:35 White Blood Count 5.1 x10^3/uL (4.0-11.0) Red Blood Count 4.06 x10^6/uL (3.50-5.40) Hemoglobin 11.7 g/dL (12.0-15.5) Hematocrit 36.3 % (36.0-47.0) Mean Corpuscular Volume 90 fL (79-100) Mean Corpuscular Hemoglobin 29 pg (25-35) Mean Corpuscular Hemoglobin Concent 32 g/dL (31-37) Red Cell Distribution Width 15.5 % (11.5-14.5) Platelet Count 81 x10^3/uL (140-400) Neutrophils (%) (Auto) 79 % (31-73) Lymphocytes (%) (Auto) 6 % (24-48) Monocytes (%) (Auto) 15 % (0-9) Eosinophils (%) (Auto) 0 % (0-3) Basophils (%) (Auto) 0 % (0-3) Neutrophils # (Auto) 4.0 x10^3/uL (1.8-7.7) Lymphocytes # (Auto) 0.3 x10^3/uL (1.0-4.8) Monocytes # (Auto) 0.8 x10^3/uL (0.0-1.1) Eosinophils # (Auto) 0.0 x10^3/uL (0.0-0.7) Basophils # (Auto) 0.0 x10^3/uL (0.0-0.2) Sodium Level 132 mmol/L (136-145) Potassium Level 5.0 mmol/L (3.5-5.1) Chloride Level 97 mmol/L (98-107) Carbon Dioxide Level 32 mmol/L (21-32) Anion Gap 3 (6-14) Blood Urea Nitrogen 25 mg/dL (7-20) Creatinine 0.5 mg/dL (0.6-1.0) Estimated GFR (Cockcroft-Gault) 118.1 Glucose Level 117 mg/dL (70-99) Calcium Level 7.6 mg/dL (8.5-10.1) Magnesium Level 2.2 mg/dL (1.8-2.4) Medications Active Scripts Medications Dose Route/Sig Max Daily Dose Days Date Category Effer-K 10 Meq Tablet Eff (Potassium Bicarbonate/Cit Ac) 10 Meq Tablet.eff 15 Meq PO DAILY 07/12/21 Reported Metoprolol Succinate ( Xl ) (Metoprolol Succinate) 25 Mg Tab.er.24h 2 Tab PO BID 07/12/21 Reported Lasix (Furosemide) 40 Mg Tablet 1 Tab PO DAILY 30 07/12/21 Reported Eliquis (Apixaban) 2.5 Mg Tablet 2.5 Mg PO BID 07/12/21 Reported Impression . Full note dictated Proceed with thoracentesis, patient severely short of air Suspect transudate of effusion CHHAYA LOYOLA MD Jul 14, 2021 14:45
--- NOTE | 2021-07-14 14:52 | RAD ---
Exam: US RIGHT LOWER EXTREMITY ARTERIAL DUPLEX EVAL History: Right lower extremity change in pulses Comparison: None. Technique: Grayscale, color, and spectral Doppler ultrasound images of the right lower extremity marco max. Exam was terminated early by the patient due to pain. Arteries below the knee were not evaluate d. Findings: Peak systolic velocities (cm/s) and waveforms in the lower extremities: Right: Common femoral artery: 94, triphasic Profunda femoris artery: 39, biphasic Proximal superficial femoral artery: 71, triphasic Mid superficial femoral artery: 60, triphasic Distal superficial femoral artery: 57, triphasic Popliteal artery: 69, triphasic Arteries below the knee were not evaluated due to patient pain. Impression: 1. The exam was terminated early by the patient due to pain. The arteries below the knee were not ari luated. 2. Normal common femoral, profunda femoris, superficial femoral, and popliteal arteries. Electronically signed by: Sheree Gaytan MD (07/14/2021 2:49 PM) [id number]
[2021-07-14 15:00] VITALS: BP 126/77
[2021-07-14] MEDS: MICAFUNGIN 100 MG in IV DEXTROSE 5% 100ML 100 ML IV SCH (15:07)
[2021-07-14] MEDS: FUROSEMIDE 40 MG TABLET. PO SCH (16:47)
[2021-07-14 19:47] VITALS: BP 127/87
[2021-07-14 22:05] VITALS: BP 105/76
[2021-07-14] MEDS: ACETAMINOPHEN 325 MG TABLET. PO PRN (22:35)
[2021-07-14] MEDS: LACTOBACILLUS RHAMNOSUS GG 1 CAPSULE. PO SCH (22:36)
[2021-07-14] MEDS: ATORVASTATIN CALCIUM 10 MG TABLET. PO SCH (22:36)
--- NOTE | 2021-07-14 23:48 | CONS ---
DATE OF CONSULTATION: 07/14/2021 ATTENDING PHYSICIAN: Julian Woo MD REASON FOR CONSULTATION: The patient is seen in pulmonary consultation at the request of Dr. Woo for abnormal CT chest revealing bilateral pulmonary effusions with atelectasis, right greater than left. HISTORY OF PRESENT ILLNESS: The patient is an 80-year-old female that was admitted on the 12 of July with acute on chronic heart failure, elevated BNP, severe protein malnutrition. The patient has been treated with IV diuresis. Cardiology has been consulted. Part of her workup included a CT angiogram, which revealed no evidence of pulmonary emboli. There was a large right-sided small left effusion. I was asked to see her in consultation. The patient is currently being treated for right foot possible cellulitis. She is on cefazolin and micafungin. She is short of breath, normally does not wear oxygen at home. She is not coughing up any blood. She has never smoked. PAST MEDICAL HISTORY: Otherwise remarkable for AFib, hypertension, osteoarthritis. PAST SURGICAL HISTORY: Status post pacemaker, hysterectomy. FAMILY HISTORY: Noncontributory. SOCIAL HISTORY: She has never smoked. REVIEW OF SYSTEMS: As indicated above, otherwise other systems were reviewed and negative. CURRENT MEDICATIONS: List was reviewed. ALLERGIES: SHE IS CURRENTLY ALLERGIC TO PENICILLIN AND PREDNISONE. PHYSICAL EXAMINATION: VITAL SIGNS: Stable. O2 saturation was greater than 92%. Yesterday, she had a T-max of 100, currently on 3-4 liters of oxygen. NECK: Jugular venous distention was markedly elevated. No lymphadenopathy. CHEST: Full expansion. Evidence of muscle wasting. LUNGS: Anteriorly were clear. There were diminished breath sounds in the lateral bases. CARDIOVASCULAR: Tachycardic with S1, S2, no S3. ABDOMEN: Soft. EXTREMITIES: Muscle wasting. Some edema. LABORATORY DATA: Reviewed. White count was normal, hemoglobin and hematocrit were noted. Electrolytes: Sodium was low, BUN was 25, creatinine was 0.5. AST and ALT were elevated. CT reviewed as indicated above. IMPRESSION: 1. Progressive dyspnea, acute hypoxemic respiratory failure, multifactorial in nature. 2. Acute on chronic diastolic heart failure. 3. Abnormal CT chest revealing significant pleural effusions, right greater than left, suspect transudative. 4. Chronic atrial fibrillation/flutter with rapid ventricular response. 5. Hypertension. 6. Non-ST segment elevation myocardial infarction. 7. Valvular insufficiency, moderate to severe mitral regurgitation. 8. Right foot cellulitis. 9. Fever per ID. PLAN: Considering the patient's significant symptomatology, I recommend proceeding with thoracentesis of the right side. She is currently anticoagulated with Lovenox 40 subcutaneously 24 hours. She has also received Lovenox 70 every 12 hours started today. Lovenox will be placed on hold. Proceed with interventional radiologist performing a thoracentesis. KIMBERLYN/KASHIF/MARA DR: Tomas TID: [id number]
[2021-07-15 02:34] VITALS: BP 93/48
[2021-07-15 07:15] VITALS: BP 113/56
[2021-07-15 07:51] LABS: BASO % 0 % (0-3); EOS % 0 % (0-3); HEMATOCRIT 35.7 % (36.0-47.0); HEMOGLOBIN 11.4 g/dL (12.0-15.5); LYMPH # 0.4 x10^3/uL (1.0-4.8); LYMPH % 5 % (24-48); MEAN CORPUSCULAR HEMOGLOBIN 29 pg (25-35); MEAN CORPUSCULAR HGB CONC 32 g/dL (31-37); MEAN CORPUSCULAR VOLUME 90 fL (79-100); MONO # 1.2 x10^3/uL (0.0-1.1); MONO % 15 % (0-9); NEUT # 6.5 x10^3/uL (1.8-7.7); NEUT % 80 % (31-73); PLATELET COUNT 67 x10^3/uL (140-400); RED BLOOD COUNT 3.99 x10^6/uL (3.50-5.40); RED CELL DISTRIBUTION WIDTH 15.9 % (11.5-14.5); WHITE BLOOD COUNT 8.1 x10^3/uL (4.0-11.0)
[2021-07-15 08:10] LABS: CALCIUM 7.8 mg/dL (8.5-10.1); CREATININE 0.4 mg/dL (0.6-1.0); GFR 152.8; MAGNESIUM 2.1 mg/dL (1.8-2.4); POTASSIUM 4.1 mmol/L (3.5-5.1)
--- NOTE | 2021-07-15 08:33 | PDOC ---
PULMONARY PROGRESS NOTES DATE: 07/15/21 TIME: 08:33 Subjective Patient less short of breath status post thoracentesis earlier this morning Chest x-ray pending Vitals Vital Signs Date Time Temp Pulse Resp B/P (MAP) Pulse Ox O2 Delivery O2 Flow Rate FiO2 07/15/21 07:15 97.8 66 22 113/56 (75) 98 Nasal Cannula 3.5 97.8 ROS: No Nausea, No Chest Pain, No Abdominal Pain, No Increase Cough General: Alert Lungs: Clear, Other (Diminished breath sounds in the bases) Cardiovascular: S1, S2 Abdomen: Soft Neuro Exam: Alert Extremities: No Edema Skin: Warm Labs Laboratory Tests Test 07/14/21 02:35 07/15/21 06:45 White Blood Count 5.1 x10^3/uL (4.0-11.0) 8.1 x10^3/uL (4.0-11.0) Red Blood Count 4.06 x10^6/uL (3.50-5.40) 3.99 x10^6/uL (3.50-5.40) Hemoglobin 11.7 g/dL (12.0-15.5) 11.4 g/dL (12.0-15.5) Hematocrit 36.3 % (36.0-47.0) 35.7 % (36.0-47.0) Mean Corpuscular Volume 90 fL (79-100) 90 fL (79-100) Mean Corpuscular Hemoglobin 29 pg (25-35) 29 pg (25-35) Mean Corpuscular Hemoglobin Concent 32 g/dL (31-37) 32 g/dL (31-37) Red Cell Distribution Width 15.5 % (11.5-14.5) 15.9 % (11.5-14.5) Platelet Count 81 x10^3/uL (140-400) 67 x10^3/uL (140-400) Neutrophils (%) (Auto) 79 % (31-73) 80 % (31-73) Lymphocytes (%) (Auto) 6 % (24-48) 5 % (24-48) Monocytes (%) (Auto) 15 % (0-9) 15 % (0-9) Eosinophils (%) (Auto) 0 % (0-3) 0 % (0-3) Basophils (%) (Auto) 0 % (0-3) 0 % (0-3) Neutrophils # (Auto) 4.0 x10^3/uL (1.8-7.7) 6.5 x10^3/uL (1.8-7.7) Lymphocytes # (Auto) 0.3 x10^3/uL (1.0-4.8) 0.4 x10^3/uL (1.0-4.8) Monocytes # (Auto) 0.8 x10^3/uL (0.0-1.1) 1.2 x10^3/uL (0.0-1.1) Eosinophils # (Auto) 0.0 x10^3/uL (0.0-0.7) 0.0 x10^3/uL (0.0-0.7) Basophils # (Auto) 0.0 x10^3/uL (0.0-0.2) 0.0 x10^3/uL (0.0-0.2) Sodium Level 132 mmol/L (136-145) 137 mmol/L (136-145) Potassium Level 5.0 mmol/L (3.5-5.1) 4.1 mmol/L (3.5-5.1) Chloride Level 97 mmol/L (98-107) 101 mmol/L (98-107) Carbon Dioxide Level 32 mmol/L (21-32) 32 mmol/L (21-32) Anion Gap 3 (6-14) 4 (6-14) Blood Urea Nitrogen 25 mg/dL (7-20) 28 mg/dL (7-20) Creatinine 0.5 mg/dL (0.6-1.0) 0.4 mg/dL (0.6-1.0) Estimated GFR (Cockcroft-Gault) 118.1 152.8 Glucose Level 117 mg/dL (70-99) 101 mg/dL (70-99) Calcium Level 7.6 mg/dL (8.5-10.1) 7.8 mg/dL (8.5-10.1) Magnesium Level 2.2 mg/dL (1.8-2.4) 2.1 mg/dL (1.8-2.4) Laboratory Tests Test 07/15/21 06:45 White Blood Count 8.1 x10^3/uL (4.0-11.0) Red Blood Count 3.99 x10^6/uL (3.50-5.40) Hemoglobin 11.4 g/dL (12.0-15.5) Hematocrit 35.7 % (36.0-47.0) Mean Corpuscular Volume 90 fL (79-100) Mean Corpuscular Hemoglobin 29 pg (25-35) Mean Corpuscular Hemoglobin Concent 32 g/dL (31-37) Red Cell Distribution Width 15.9 % (11.5-14.5) Platelet Count 67 x10^3/uL (140-400) Neutrophils (%) (Auto) 80 % (31-73) Lymphocytes (%) (Auto) 5 % (24-48) Monocytes (%) (Auto) 15 % (0-9) Eosinophils (%) (Auto) 0 % (0-3) Basophils (%) (Auto) 0 % (0-3) Neutrophils # (Auto) 6.5 x10^3/uL (1.8-7.7) Lymphocytes # (Auto) 0.4 x10^3/uL (1.0-4.8) Monocytes # (Auto) 1.2 x10^3/uL (0.0-1.1) Eosinophils # (Auto) 0.0 x10^3/uL (0.0-0.7) Basophils # (Auto) 0.0 x10^3/uL (0.0-0.2) Sodium Level 137 mmol/L (136-145) Potassium Level 4.1 mmol/L (3.5-5.1) Chloride Level 101 mmol/L (98-107) Carbon Dioxide Level 32 mmol/L (21-32) Anion Gap 4 (6-14) Blood Urea Nitrogen 28 mg/dL (7-20) Creatinine 0.4 mg/dL (0.6-1.0) Estimated GFR (Cockcroft-Gault) 152.8 Glucose Level 101 mg/dL (70-99) Calcium Level 7.8 mg/dL (8.5-10.1) Magnesium Level 2.1 mg/dL (1.8-2.4) Medications Active Scripts Medications Dose Route/Sig Max Daily Dose Days Date Category Effer-K 10 Meq Tablet Eff (Potassium Bicarbonate/Cit Ac) 10 Meq Tablet.eff 15 Meq PO DAILY 07/12/21 Reported Metoprolol Succinate ( Xl ) (Metoprolol Succinate) 25 Mg Tab.er.24h 2 Tab PO BID 07/12/21 Reported Lasix (Furosemide) 40 Mg Tablet 1 Tab PO DAILY 30 07/12/21 Reported Eliquis (Apixaban) 2.5 Mg Tablet 2.5 Mg PO BID 07/12/21 Reported Impression . IMPRESSION: 1. Progressive dyspnea, acute hypoxemic respiratory failure, multifactorial in nature. 2. Acute on chronic diastolic heart failure. 3. Abnormal CT chest revealing significant pleural effusions, right greater than left, suspect transudative. 4. Chronic atrial fibrillation/flutter with rapid ventricular response. 5. Hypertension. 6. Non-ST segment elevation myocardial infarction. 7. Valvular insufficiency, moderate to severe mitral regurgitation. 8. Right foot cellulitis. 9. Fever per ID. Plan . Updated 07/[address] Woo, case management Okay to transfer to [facility] Continue anticoagulation per cardiology Suspect fluid transudate of in nature Follow-up in my office in August 20 PLAN: Considering the patient's significant symptomatology, I recommend proceeding with thoracentesis of the right side. She is currently anticoagulated with Lovenox 40 subcutaneously 24 hours. She has also received Lovenox 70 every 12 hours started today. Lovenox will be placed on hold. Proceed with interventional radiologist performing a thoracentesis. CHHAYA LOYOLA MD Jul 15, 2021 08:33
--- NOTE | 2021-07-15 09:12 | NUR ---
SS following up with discharge planning. SS reviewed pt chart and discussed with pt RN. Pt is currently requiring oxygen at three and a half liters nasal canula. COVID19 test pending for placement. Pt on IV Cefazolin and IV Micafungin. PO Lasix. Pt has no home oxygen. Thoracentesis today. PT/OT recommended senior care unit. Pt accepted at [facility], ; fax [phone]. Pt has friends Kira and Fotrino Yo, , that are primary contacts. SS will continue to follow for discharge planning. Addendum: 07/15/21 at 1332 by DANNIE MÉNDEZ Discharge orders received and phoned and faxed to [facility]. Pt will discharge today and go to [facility] between 1500 and 1530 via [employer]. Pt and pt's RN notified.
--- NOTE | 2021-07-15 09:14 | PDOC ---
Infectious Disease Note Subjective: Subjective Patient remains afebrile interim events noted. Complains of shortness of breath and foot pain Vital Signs: Vital Signs Vital Signs Date Time Temp Pulse Resp B/P (MAP) Pulse Ox O2 Delivery O2 Flow Rate FiO2 07/15/21 07:15 97.8 66 22 113/56 (75) 98 Nasal Cannula 3.5 97.8 Physical Exam: PHYSICAL EXAM GENERAL: Alert, awake female, poor hearing,, lethargic, confused, HEENT: Normocephalic, atraumatic. Anicteric. No thrush. Oral mucosa moist. NECK: Supple. LUNGS: Basilar crackles. HEART: Irregular. Holosystolic murmur. EXTREMITIES: Bilateral lower extremity pedal edema , dusky looking toes worsened than yesterday Right foot more prominent, I could not palpate dorsalis pedis today ,on ychomycosis both feet on toenails. pedis. No calf tenderness, no cyanosis. DERMATOLOGIC: Warm, dry. No generalized skin rash except for above. NEUROLOGIC: Hard of hearing, opens eyes, confused lethargic, was able to move all 4 extremities yesterday though had generalized weakness PSYCHIATRIC: Anxious and confused MUSCULOSKELETAL: Degenerative joint disease changes. Medications: Inpatient Meds: Medications reviewed. Labs: Lab Laboratory Tests Test 07/15/21 06:45 White Blood Count 8.1 x10^3/uL (4.0-11.0) Red Blood Count 3.99 x10^6/uL (3.50-5.40) Hemoglobin 11.4 g/dL (12.0-15.5) Hematocrit 35.7 % (36.0-47.0) Mean Corpuscular Volume 90 fL (79-100) Mean Corpuscular Hemoglobin 29 pg (25-35) Mean Corpuscular Hemoglobin Concent 32 g/dL (31-37) Red Cell Distribution Width 15.9 % (11.5-14.5) Platelet Count 67 x10^3/uL (140-400) Neutrophils (%) (Auto) 80 % (31-73) Lymphocytes (%) (Auto) 5 % (24-48) Monocytes (%) (Auto) 15 % (0-9) Eosinophils (%) (Auto) 0 % (0-3) Basophils (%) (Auto) 0 % (0-3) Neutrophils # (Auto) 6.5 x10^3/uL (1.8-7.7) Lymphocytes # (Auto) 0.4 x10^3/uL (1.0-4.8) Monocytes # (Auto) 1.2 x10^3/uL (0.0-1.1) Eosinophils # (Auto) 0.0 x10^3/uL (0.0-0.7) Basophils # (Auto) 0.0 x10^3/uL (0.0-0.2) Sodium Level 137 mmol/L (136-145) Potassium Level 4.1 mmol/L (3.5-5.1) Chloride Level 101 mmol/L (98-107) Carbon Dioxide Level 32 mmol/L (21-32) Anion Gap 4 (6-14) Blood Urea Nitrogen 28 mg/dL (7-20) Creatinine 0.4 mg/dL (0.6-1.0) Estimated GFR (Cockcroft-Gault) 152.8 Glucose Level 101 mg/dL (70-99) Calcium Level 7.8 mg/dL (8.5-10.1) Magnesium Level 2.1 mg/dL (1.8-2.4) Objective: Assessment: Biltateral foot cyanosis right foot changes worse than left, vascular evaluation noted Altered mental status Acute hypoxic respiratory failure CT and pulmonary evaluation noted Moderate right pleural effusion awaiting thoracocentesis Acute on chronic congestive heart failure exacerbation. Atrial fibrillation with rapid ventricular response. Severe protein calorie malnutrition. PPM in place. Thrombocytopenia. Poor living condition. Plan: Plan of Care Continue cefazolin and micafungin, Elevate right lower extremity. Patient is awaiting thoracocentesis for right moderate pleural effusion Critically ill Consider palliative care Discussed with NATALY MCKEE MD Jul 15, 2021 09:14
[2021-07-15 09:22] VITALS: BP 140/46
[2021-07-15 09:37] VITALS: BP 141/51
--- NOTE | 2021-07-15 09:41 | NUR ---
This RN talked to patient about code status. Patient replied, "I want everything done! [facility] keeps trying to put me on hospice. Im not ready for that!" Patient remains full code status.
--- NOTE | 2021-07-15 10:29 | PDOC ---
CARDIO Progress Notes Date and Time Date of Service 07/15/2021 Time of Evaluation 1010 Subjective Subjective: No Chest Pain, No shortness of breath, No Palpitations Vitals Vitals Vital Signs Date Time Temp Pulse Resp B/P (MAP) Pulse Ox O2 Delivery O2 Flow Rate FiO2 07/15/21 09:37 65 20 141/51 (81) 93 Nasal Cannula 3.5 07/15/21 07:15 97.8 97.8 Weight Weight [ ] Input and Output Intake and Output Intake and Output 07/15/21 07:00 Intake Total 150 ml Output Total 600 ml Balance -450 ml Intake Oral 50 ml IV Total 100 ml Output Urine Total 600 ml # Voids 2 # Bowel Movements 1 Laboratory Labs Laboratory Tests Test 07/15/21 06:45 07/15/21 09:25 White Blood Count 8.1 x10^3/uL (4.0-11.0) Red Blood Count 3.99 x10^6/uL (3.50-5.40) Hemoglobin 11.4 g/dL (12.0-15.5) Hematocrit 35.7 % (36.0-47.0) Mean Corpuscular Volume 90 fL (79-100) Mean Corpuscular Hemoglobin 29 pg (25-35) Mean Corpuscular Hemoglobin Concent 32 g/dL (31-37) Red Cell Distribution Width 15.9 % (11.5-14.5) Platelet Count 67 x10^3/uL (140-400) Neutrophils (%) (Auto) 80 % (31-73) Lymphocytes (%) (Auto) 5 % (24-48) Monocytes (%) (Auto) 15 % (0-9) Eosinophils (%) (Auto) 0 % (0-3) Basophils (%) (Auto) 0 % (0-3) Neutrophils # (Auto) 6.5 x10^3/uL (1.8-7.7) Lymphocytes # (Auto) 0.4 x10^3/uL (1.0-4.8) Monocytes # (Auto) 1.2 x10^3/uL (0.0-1.1) Eosinophils # (Auto) 0.0 x10^3/uL (0.0-0.7) Basophils # (Auto) 0.0 x10^3/uL (0.0-0.2) Sodium Level 137 mmol/L (136-145) Potassium Level 4.1 mmol/L (3.5-5.1) Chloride Level 101 mmol/L (98-107) Carbon Dioxide Level 32 mmol/L (21-32) Anion Gap 4 (6-14) Blood Urea Nitrogen 28 mg/dL (7-20) Creatinine 0.4 mg/dL (0.6-1.0) Estimated GFR (Cockcroft-Gault) 152.8 Glucose Level 101 mg/dL (70-99) Calcium Level 7.8 mg/dL (8.5-10.1) Magnesium Level 2.1 mg/dL (1.8-2.4) Body Fluid pH 7.34 Physical Exam HEENT: Neck Supple W Full Motion Chest: Symmetric LUNGS: Other (diminished) Heart: irregularly irregular (AFlutter) Abdomen: Soft N/T Extremities: Other (2+ bilateral LE pitting edema) Neurology: alert, oriented, follow commands Assessment Assessment 1. Acute on chronic CHF with possible diastolic/systolic dysfunction, improved. EF nml 2. Chronic AFIB/flutter with RVR: now rate controlled 3. HTN; controlled 4. 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 Normal device function. AAIR-DDDR 99.6% AFIB burden 10.7 yrs battery life 5. NSTEMI; suspect demand mediated type 2, CP free 6. Valvular insufficiency: Moderate to severe mitral regurgitation. 7. Right foot cellulitis; per PCP 8. Pleural effusion: S/P right side thoracentesis Recommendations 1. Was on eliquis but apparently pt has not been able to afford this costing >$500 every other week and has been taking high dose ASA at home instead. Given that she is going to SNU, will start on low dose eliquis for stroke prevention. If no assistance in regards to this then will need to go back to ASA once DC from SNU 2. Continue metoprolol for rate control.Start on low dose digoxin. Digoxin level in 1 week 3. Consider for outpt ischemic workup. she follows with [facility] cardiology. Will likely need mitral clip. Will consider for BETY as an outpt. No BETY records from 4. Lasix therapy 5. Consider SNU Justicifation of Admission Dx: Justifications for Admission: Justification of Admission Dx: Yes MICHAELA PIPER DATABASE SECURITY ADMINISTRATOR Jul 15, 2021 10:29
[2021-07-15] MEDS ORDERED: ANTI-COAG MONITOR BY PHARMACY. MC PRN (10:45)
[2021-07-15 10:53] VITALS: BP 119/60
[2021-07-15] MEDS ORDERED: APIXABAN 2.5 MG TABLET. PO SCH (11:00)
[2021-07-15] MEDS ORDERED: DIGOXIN 125 MCG TABLET. PO SCH (11:00)
--- NOTE | 2021-07-15 11:22 | RAD ---
XR CHEST 1V History: Status post right thoracentesis. Comparison: CT chest 07/14/2021. Chest x-ray 07/11/2021 Technique: Portable AP radiograph of the chest. Findings: Adequate inflation. Interval decrease in size of now small right pleural effusion with persistent rig ht lower lobe consolidation. Moderate left pleural effusion with adjacent consolidations. Left chest dual-chamber pacemaker with cardiomegaly. Pulmonary vasculature is within normal limits. Degenerative changes of the right shoulder. Moderate to large hiatal hernia projecting in the right lower mediast inum. Impression: 1. Decreased size of right pleural effusion. No pneumothorax. 2. Bilateral lower lung airspace disease and moderate left pleural effusion. 3. Moderate to large hiatal hernia. Electronically signed by: Julien Hull MD (07/15/2021 11:20 AM) [id number]
[2021-07-15] MEDS: ASPIRIN ENTERIC COATED 81 MG TABLET.DR. PO SCH (11:23)
[2021-07-15] MEDS: POTASSIUM BICARB 20 MEQ EFFERVESCENT TABLET. PO SCH (11:23)
[2021-07-15] MEDS: METOPROLOL TART IMMED RELEASE 25 MG TABLET. PO SCH (11:24)
[2021-07-15] MEDS: LACTOBACILLUS RHAMNOSUS GG 1 CAPSULE. PO SCH (11:24)
[2021-07-15 11:34] VITALS: BP 119/60
[2021-07-15] MEDS: ceFAZolin SODIUM IV Push 1 GM VIAL. IVP SCH (11:35)
[2021-07-15] MEDS: FUROSEMIDE 40 MG TABLET. PO SCH (11:35)
[2021-07-15] MEDS ORDERED: ATOR10TA60 PO (12:32)
[2021-07-15] MEDS ORDERED: DIGO125T3 PO (12:32)
[2021-07-15] MEDS ORDERED: CEPH500C PO (13:13)
[2021-07-15] MEDS ORDERED: METO25TA4 PO (13:15)
[2021-07-15] MEDS ORDERED: APIX2.5T PO (13:15)
--- NOTE | 2021-07-15 13:16 | SNU/HH DC ---
DISCHARGE ORDERS DISCHARGE INFORMATION: DISCHARGE DATE: Jul 15, 2021 FINAL DIAGNOSIS Problems Medical Problems: (1) Acute on chronic congestive heart failure Status: Acute CONDITION ON DISCHARGE: Stable CODE STATUS: Code Status: Full SHELTER: SNF STAY <30 DAYS: Yes POST DISCHARGE ORDERS: ACTIVITY ORDERS: Activity as tolerated WEIGHT BEARING STATUS: As tolerated CHECKS AFTER DISCHARGE: CHECKS AFTER DISCHARGE: Check blood press - daily, Check your Temp as needed, Weigh Yourself Daily COMMENTS: Digoxin level in 1 week FOLLOW-UP: PHYSICIAN FOLLOW-UP: PCP within 2 weeks of discharge ADDITIONAL FOLLOW-UP: Pulmonology and cardiology as needed LAB ORDERS FOR FOLLOW-UP: CBC, CMP and digoxin level in 1 week TREATMENT/EQUIPMENT ORDERS: Physical Therapy For: Evalulation/Treatment Occupational Therapy For: Evaluation/Treatment DISCHARGE MEDICATIONS: Home Meds Active Scripts Metoprolol Tartrate (METOPROLOL TARTRATE) 25 Mg Tablet, 25 MG PO BID for afrib for 30 Days, #60 TAB 2 Refills Prov:MACHO ESTEVEZ MD 07/15/21 Apixaban (ELIQUIS) 2.5 Mg Tablet, 2.5 MG PO BID for stroke prophylaxis for 30 Days, #60 TAB 2 Refills Prov:MACHO ESTEVEZ MD 07/15/21 Cephalexin (KEFLEX) 500 Mg Capsule, 1 CAP PO TID for cellulitis for 3 Days, #9 CAP Prov:MACHO ESTEVEZ MD 07/15/21 Atorvastatin Calcium (ATORVASTATIN CALCIUM) 10 Mg Tablet, 10 MG PO QHS for cholesterol for 30 Days, #30 TAB Prov:MACHO ESTEVEZ MD 07/15/21 Digoxin (DIGOXIN) 125 Mcg Tablet, 125 MCG PO DAILY for afib for 30 Days, #30 TAB 2 Refills Prov:MACHO ESTEVEZ MD 07/15/21 Reported Medications Potassium Bicarbonate/Cit Ac (EFFER-K 10 MEQ TABLET EFF) 10 Meq Tablet.eff, 15 MEQ PO DAILY for POTASSIUM SUPPLEMENT, TAB 07/12/21 Metoprolol Succinate (METOPROLOL SUCCINATE ( XL )) 25 Mg Tab.er.24h, 2 TAB PO BID for cardiac, #30 TAB 5 Refills 07/12/21 Furosemide (LASIX) 40 Mg Tablet, 1 TAB PO DAILY for diuretic for 30 Days, #30 TAB 0 Refills 07/12/21 Apixaban (ELIQUIS) 2.5 Mg Tablet, 2.5 MG PO BID for cardiac, TAB 07/12/21 MACHO ESTEVEZ MD Jul 15, 2021 13:16
[2021-07-15] MEDS ORDERED: APIX5TAB PO (14:14)
[2021-07-15] MEDS ORDERED: APIXABAN 5 MG TABLET. PO SCH (14:15)
--- NOTE | 2021-07-15 14:19 | SNU/HH DC ---
DISCHARGE ORDERS DISCHARGE INFORMATION: DISCHARGE DATE: Jul 15, 2021 FINAL DIAGNOSIS Problems Medical Problems: (1) Acute on chronic congestive heart failure Status: Acute CONDITION ON DISCHARGE: Stable CODE STATUS: Code Status: Full RESIDENTIAL: SNF STAY <30 DAYS: Yes POST DISCHARGE ORDERS: ACTIVITY ORDERS: Activity as tolerated WEIGHT BEARING STATUS: As tolerated CHECKS AFTER DISCHARGE: CHECKS AFTER DISCHARGE: Check blood press - daily, Check your Temp as needed, Weigh Yourself Daily COMMENTS: Digoxin level in 1 week FOLLOW-UP: PHYSICIAN FOLLOW-UP: PCP within 2 weeks of discharge ADDITIONAL FOLLOW-UP: Pulmonology and cardiology as needed LAB ORDERS FOR FOLLOW-UP: CBC, CMP and digoxin level in 1 week TREATMENT/EQUIPMENT ORDERS: Physical Therapy For: Evalulation/Treatment Occupational Therapy For: Evaluation/Treatment DISCHARGE MEDICATIONS: Home Meds Active Scripts Apixaban (ELIQUIS) 5 Mg Tablet, 5 MG PO BID for PE for 30 Days, #60 TAB Prov:MACHO ESTEVEZ MD 07/15/21 Apixaban (ELIQUIS) 5 Mg Tablet, 10 MG PO BID for PE for 7 Days, #28 TAB Prov:MACHO ESTEVEZ MD 07/15/21 Metoprolol Tartrate (METOPROLOL TARTRATE) 25 Mg Tablet, 25 MG PO BID for afrib for 30 Days, #60 TAB 2 Refills Prov:MACHO ESTEVEZ MD 07/15/21 Cephalexin (KEFLEX) 500 Mg Capsule, 1 CAP PO TID for cellulitis for 3 Days, #9 CAP Prov:MACHO ESTEVEZ MD 07/15/21 Atorvastatin Calcium (ATORVASTATIN CALCIUM) 10 Mg Tablet, 10 MG PO QHS for cholesterol for 30 Days, #30 TAB Prov:MACHO ESTEVEZ MD 07/15/21 Digoxin (DIGOXIN) 125 Mcg Tablet, 125 MCG PO DAILY for afib for 30 Days, #30 TAB 2 Refills Prov:MACHO ESTEVEZ MD 07/15/21 Reported Medications Potassium Bicarbonate/Cit Ac (EFFER-K 10 MEQ TABLET EFF) 10 Meq Tablet.eff, 15 MEQ PO DAILY for POTASSIUM SUPPLEMENT, TAB 07/12/21 Metoprolol Succinate (METOPROLOL SUCCINATE ( XL )) 25 Mg Tab.er.24h, 2 TAB PO BID for cardiac, #30 TAB 5 Refills 07/12/21 Furosemide (LASIX) 40 Mg Tablet, 1 TAB PO DAILY for diuretic for 30 Days, #30 TAB 0 Refills 07/12/21 MACHO ESTEVEZ MD Jul 15, 2021 14:19
--- NOTE | 2021-07-15 14:47 | NUR ---
Discharge Note: NADINE SILVEIRA Discharge instructions and discharge home medications reviewed with Other facility and a copy given. All questions have been answered and understanding verbalized. The following instructions and handouts were given: Nursing report was given to RN at [facility]. Discontinued lines and drains: 20g R FA removed with tip intact. Patient discharged to EMS transferred patient to [facility].
--- NOTE | 2021-07-15 15:19 | RAD ---
Ultrasound Guided Thoracentesis Indication: Adult female with right pleural effusion. Consent: The procedure was explained in its entirety to the patient or the patients designated repres entative by a member of the treatment team, including a discussion of the risks, benefits and commonl y accepted alternatives to the procedure, as well as the expected consequences of not performing the procedure. Discussion of the risks included, but was not limited to, those that are most frequent an d those that are rare but possibly severe or life-threatening, as well as the possibility of unforese en complications. Sterility: The procedure was performed in its entirety using appropriate elements of sterile techniqu e. Technique and Findings: Following informed consent, the patient was prepped and draped in the usual s terile fashion. Ultrasound interrogation of the area of interest revealed a pleural effusion. Under ultrasound guidance, a 6 bruneian [id number] catheter was inserted into the pleural space and 550 cc of thin rosario fluid was removed. The catheter was removed and hemostasis was achieved with manual compression. Chest x-ray was ordered. Complications: No immediate Impression: 1. Ultrasound-guided right thoracentesis as described. Electronically signed by: Cory Arias MD (07/15/2021 3:17 PM) [id number]
--- NOTE | 2021-08-01 12:40 | PDOC3 ---
[facility]-Discharge Summary Date of Admission: Date of Admission: Jul 12, 2021 Date of Discharge: Date of Discharge: Jul 15, 2021 Discharge Diagnosis: Discharge Diagnosis: Acute bilateral PE without right heart strain Acute bilateral pleural effusions Acute on chronic CHF exacerbation, nromal LVEF Elevated BNP due to volume overload Elevated troponins suggestive of type II demand ischemia A. fib RVR Mild transaminitis Severe protein malnutrition Consults: Consults: Cardiac Recommendations 1. Was on eliquis but apparently pt has not been able to afford this costing >$500 every other week and has been taking high dose ASA at home instead. Given that she is going to SNU, will start on low dose eliquis for stroke prevention. If no assistance in regards to this then will need to go back to ASA once DC from SNU 2. Continue metoprolol for rate control.Start on low dose digoxin. Digoxin level in 1 week 3. Consider for outpt ischemic workup. she follows with [facility] cardiology. Will likely need mitral clip. Will consider for [facility] as an outpt. No [facility] records from 4. Lasix therapy 5. Consider [facility] Hospital Course: Hospital Course: 80-year-old female with past medical history of atrial fibrillation with pacemaker placed at [facility], hypertension, CHF, atrial fibrillation who comes in with shortness of breath and weakness for the past week since . She does take Lasix and other cardiac medications. Apparently patient also takes Eliquis but this is costly for her so she decided to just stay on aspirin. Patient denies any nausea vomiting, fevers, chest pain, diarrhea or dysuria. Patient is vaccinated for COVID-19. Per chart review: EKG performed at 1854 by ED nursing staff shows atrial fibrillation irregular rhythm with no discernible P waves with occasional PVCs heart rate 129 bpm, QTc interval 0.503, no acute STEMI, no ACS, no acute ischemia appreciated, EKG interpreted by ED attending physician Dr. Ramos. 07/13/2021 Patient seen and examined bedside while eating breakfast. Patient tolerating diet without issues. Does complain of some reflux issues. Complaining of right lower extremity pain in her foot. She does have severe bilateral toe digits onychomycosis. Patient's chart, labs, images were reviewed and discussed with RN 07/14/21 No acute events overnight. Pt seen and examined bedside today and there are some acute mental status changes. Pt more confused and mumbling her words. More tachycardic in the 120s. Lower extremities are cold to touch but there are dopplerable monophasic pulses. Will obtain CTA of the chest and CT head. Patient's chart, labs, images were reviewed and discussed with RN Patient was clinically stable by time of discharge. She will be transferred to assisted facility. SS following up with discharge planning. SS reviewed pt chart and discussed with pt RN. Pt is currently requiring oxygen at three and a half liters nasal canula. COVID19 test pending for placement. Pt on IV Cefazolin and IV Micafungin. PO Lasix. Pt has no home oxygen. Thoracentesis today. PT/OT recommended assisted unit. Pt accepted at [facility], ; fax [phone]. Pt has friends Kira and Fortino Yo, , that are primary contacts. SS will continue to follow for disch arge planning. Activity: Activity: Resume previous activity Diet: Diet: Cardiac Medications: Home Meds Active Scripts Apixaban (ELIQUIS) 5 Mg Tablet, 5 MG PO BID for PE for 30 Days, #60 TAB Prov:MACHO ESTEVEZ MD 07/15/21 Apixaban (ELIQUIS) 5 Mg Tablet, 10 MG PO BID for PE for 7 Days, #28 TAB Prov:MACHO ESTEVEZ MD 07/15/21 Metoprolol Tartrate (METOPROLOL TARTRATE) 25 Mg Tablet, 25 MG PO BID for afrib for 30 Days, #60 TAB 2 Refills Prov:MACHO ESTEVEZ MD 07/15/21 Cephalexin (KEFLEX) 500 Mg Capsule, 1 CAP PO TID for cellulitis for 3 Days, #9 CAP Prov:MACHO ESTEVEZ MD 07/15/21 Atorvastatin Calcium (ATORVASTATIN CALCIUM) 10 Mg Tablet, 10 MG PO QHS for cholesterol for 30 Days, #30 TAB Prov:MACHO ESTEVEZ MD 07/15/21 Digoxin (DIGOXIN) 125 Mcg Tablet, 125 MCG PO DAILY for afib for 30 Days, #30 TAB 2 Refills Prov:MACHO ESTEVEZ MD 07/15/21 Reported Medications Potassium Bicarbonate/Cit Ac (EFFER-K 10 MEQ TABLET EFF) 10 Meq Tablet.eff, 15 MEQ PO DAILY for POTASSIUM SUPPLEMENT, TAB 07/12/21 Furosemide (LASIX) 40 Mg Tablet, 1 TAB PO DAILY for diuretic for 30 Days, #30 TAB 0 Refills 07/12/21 Scheduled Apixaban (Eliquis), 10 MG PO BID Apixaban (Eliquis), 5 MG PO BID Atorvastatin Calcium (Atorvastatin Calcium), 10 MG PO QHS Cephalexin (Keflex), 1 CAP PO TID Digoxin (Digoxin), 125 MCG PO DAILY Furosemide (Lasix), 1 TAB PO DAILY, (Reported) Metoprolol Tartrate (Metoprolol Tartrate), 25 MG PO BID Potassium Bicarbonate/Cit Ac (Effer-K 10 Meq Tablet Eff), 15 MEQ PO DAILY, (Reported) Total Time: Total Time: Total time spent was 32 minutes in preparing scripts, discharge planning with [facility] and RN and preparing this discharge summary Patient seen and examined on day of discharge. No acute abnormal findings. Justicifation of Admission Dx: Justifications for Admission: Justification of Admission Dx: Yes MACHO ESTEVEZ MD Aug 01, 2021 12:40
== END 2021-07-15 14:40 | DRG 280 ==
LOC: ER 18:43 → 5 NORTH 21:10 → 6 SOUTH 07-12 01:36
PROVIDERS: ADMIT Internal Medicine; ATTEND Internal Medicine
PROC: 0W993ZZ Drainage of Right Pleural Cavity, Percutaneous Approach (ICD-10-PCS; principal; 2021-07-15)
DX: I11.0 Hypertensive heart disease with heart failure (principal); E43 Unspecified severe protein-calorie malnutrition; I21.A1 Myocardial infarction type 2; I50.43 Acute on chronic combined systolic (congestive) and diastolic (congestive) heart failure; J96.01 Acute respiratory failure with hypoxia; I48.92 Unspecified atrial flutter; L03.115 Cellulitis of right lower limb; R64 Cachexia; I48.20 Chronic atrial fibrillation, unspecified; J90 Pleural effusion, not elsewhere classified; B35.1 Tinea unguium; D69.6 Thrombocytopenia, unspecified; I34.0 Nonrheumatic mitral (valve) insufficiency; I73.89 Other specified peripheral vascular diseases; J44.9 Chronic obstructive pulmonary disease, unspecified; K21.9 Gastro-esophageal reflux disease without esophagitis; Z90.710 Acquired absence of both cervix and uterus; Z95.0 Presence of cardiac pacemaker; M19.90 Unspecified osteoarthritis, unspecified site; R74.01 Elevation of levels of liver transaminase levels; Z88.0 Allergy status to penicillin; Z60.2 Problems related to living alone
CPT/HCPCS: 32555; 36415; 70450; 71045; 71275; 80048; 80053; 80061; 82553; 83615; 83735; 83880; 83986; 84100; 84157; 84484; 85007; 85025; 85610; 87071; 87075; 87116; 88112; 93005; 93306; 93926; 96365; 96375; J0690; J1160; J1650; J1940; J2060; J2248; J2405; J3490; J7060; Q9967; U0003; U0005; 97110-GP; 99285-25; G0378

== ENCOUNTER 2021-07-17 01:13 | Inpatient (IN) | payer MEDICARE ==
[~2021-07-17] VITALS: Ht 165.1 cm; Wt 54.6 kg
[2021-07-17] VITALS (19 sets, daily range): BP systolic 86–130; BP diastolic 28–60
[2021-07-17 01:05] LABS: CREATINE KINASE 18 U/L (26-192)
[2021-07-17 01:13] LABS: INFLUENZA A PATIENT NEGATIVE (NEGATIVE); INFLUENZA B PATIENT NEGATIVE (NEGATIVE)
[~2021-07-17 01:13] MED LIST: APIX2.5T PO; APIX5TAB PO; ATOR10TA60 PO; CEPH500C PO; DIGO125T3 PO; EFFER-K 10 MEQ10 MEQ PO; FURO-68 PO; METO-239 PO; METO25TA4 PO
--- NOTE | 2021-07-17 01:19 | PHYS DOC ---
Past Medical History Past Medical History: A-Fib, Arthritis, CHF, GERD, Pneumonia, UTI Additional Past Medical Histor: MITRAL VALVE REGURG Past Surgical History: Hysterectomy, Pacemaker Smoking Status: Never Smoker Alcohol Use: None Drug Use: None General Adult EDM: Chief Complaint: SHORTNESS OF BREATH HPI: HPI: Patient is a 80 year old female with past medical history of congestive heart failure, A. fib, pacemaker placement at [facility] and NSTEMI (on 07/12/21) is presenting today via EMS with shortness of breath at detention. in A. fib RVR. Apparently patient started feeling short of breath around 0030. According to EMS, patient was satting around 70s and the patient was put on 4 L. In the emergency department today, the patient was put on 6 L of oxygen went up to 98. However, shortly after that the patient dropped back down to 90s, so we put the patient on a nonrebreather. Patient states that she is in pain, but cannot exactly where the source of pain is. History limited due to patient's mental status. Patient is vaccinated for COVID. Review of Systems: Review of Systems: Constitutional: Denies fever or chills Eyes: Denies redness or eye pain HENT: Denies nasal congestion or sore throat Respiratory: Reports shortness of breath and mild cough Cardiovascular: Denies chest pain or palpitations GI: Denies abdominal pain, nausea, or vomiting : Denies dysuria or hematuria Musculoskeletal: Denies back pain or joint pain Integument: Denies rash or skin lesions Neurologic: Denies headache, focal weakness or sensory changes Complete systems were reviewed and found to be within normal limits, except as documented in this note. Heart Score: C/O Chest Pain: No Current Medications: Current Medications Medications (Trade) Dose Ordered Sig/Beny Start Time Stop Time Status Last Admin Dose Admin Acetaminophen (Tylenol) 500 mg 1X ONCE 07/17/21 02:00 07/17/21 02:01 Aspirin (Ecotrin) 325 mg 1X ONCE 07/17/21 02:00 07/17/21 02:01 Diltiazem HCl (Cardizem Iv Push) 20 mg 1X ONCE 07/17/21 02:00 07/17/21 02:01 07/17/21 01:41 20 MG Diltiazem HCl 125 mg/Sodium Chloride 125 ml @ 5 mls/hr 1X ONCE 07/17/21 02:00 07/18/21 02:59 07/17/21 01:48 5 MLS/HR Allergies: Allergies: Allergies Coded Allergies Type Severity Reaction Last Updated Verified Penicillins Allergy Intermediate 07/14/21 Yes prednisone Allergy Intermediate 07/14/21 Yes Physical Exam: PE: Constitutional: Well developed, well nourished, increased work of breathing, non-toxic appearance HENT: Normocephalic, atraumatic, hard of hearing Eyes: PERRL, EOMI, conjunctiva normal, no discharge Neck: Normal range of motion, no tenderness, supple Lungs & Thorax: Mild respiratory distress, tachypnea Abdomen: Soft, no tenderness Skin: Warm, dry, no erythema, no rash Back: No tenderness, no CVA tenderness Extremities: No tenderness, ROM intact, no edema Neurologic: Alert and oriented , normal motor function, normal sensory function, no focal deficits noted Psychologic: Affect normal, judgment normal Current Patient Data: Labs: Laboratory Tests Test 07/17/21 01:27 White Blood Count 14.2 x10^3/uL (4.0-11.0) H Red Blood Count 4.19 x10^6/uL (3.50-5.40) Hemoglobin 11.9 g/dL (12.0-15.5) L Hematocrit 36.6 % (36.0-47.0) Mean Corpuscular Volume 87 fL (79-100) Mean Corpuscular Hemoglobin 28 pg (25-35) Mean Corpuscular Hemoglobin Concent 33 g/dL (31-37) Red Cell Distribution Width 15.7 % (11.5-14.5) H Platelet Count 85 x10^3/uL (140-400) L Neutrophils (%) (Auto) 94 % (31-73) H Lymphocytes (%) (Auto) 2 % (24-48) L Monocytes (%) (Auto) 4 % (0-9) Eosinophils (%) (Auto) 0 % (0-3) Basophils (%) (Auto) 0 % (0-3) Neutrophils # (Auto) 13.4 x10^3/uL (1.8-7.7) H Lymphocytes # (Auto) 0.3 x10^3/uL (1.0-4.8) L Monocytes # (Auto) 0.5 x10^3/uL (0.0-1.1) Eosinophils # (Auto) 0.0 x10^3/uL (0.0-0.7) Basophils # (Auto) 0.0 x10^3/uL (0.0-0.2) Platelet Estimate Pending Laboratory Tests 07/17/21 01:27 Vital Signs: Vital Signs Date Time Temp Pulse Resp B/P (MAP) Pulse Ox O2 Delivery O2 Flow Rate FiO2 07/17/21 01:41 135 114/71 EKG: EK: Irregularly irregular rhythm, rate of 123 bpm, left axis deviation, no significant T segment changes, T wave inversions in lead II, V2, V3, V4, ME 86 ms, QRS 136 ms, QT/QTc 318/461 ms 0147: Irregularly irregular rhythm with a rate of 87 bpm, left axis deviation, no significant ST segment changes T waves inverted in lead III, V3, V4, ME--no seconds, QRS 146, QT/QTc 354/427 ms Radiology/Procedures: Radiology/Procedures: PROCEDURE: CT ANGIOGRAPHY CHEST RS Compliance Statement: One or more of the following individualized dose reduction techniques were utilized for this examination: 1. Automated exposure control 2. Adjustment of the mA and/or kV according to patient size 3. Use of iterative reconstruction technique CT CHEST WITH CONTRAST, PULMONARY ANGIOGRAM History: Reason: SOA, fever, hypoxia, Comparison: None. Technique: Helical CT of the chest was performed after the administration of 100 cc of Omnipaque 350 intravenous contrast according to PE protocol. Axial and coronal reconstructions were obtained. 3-D MIP images were constructed to better evaluate the pulmonary arteries. Findings: Pulmonary arteries are adequately opacified. There is no evidence of pulmonary embolism. Pulmonary trunk diameter is upper limits of normal. Contrast refluxes into the hepatic veins and the IVC suggesting right heart dysfunction. There is marked cardiomegaly. There is no thoracic aortic dissection. There is left chest dual-chamber pacer. No pericardial effusion is seen. There are large bilateral pleural effusions. The upper esophagus is distended w ith air. No wall thickening is appreciated. There is moderate respiratory motion artifact, limiting evaluation of the lungs. There are consolidations in the bilateral lobes adjacent to the pleural effusions. There is a large hiatal hernia. There is a small cyst or hemangioma in the left hepatic lobe. There is right adrenal gland hyperplasia. There is soft tissue density left para-aortic, nonspecific. Finding could be adenopathy. Limited evaluation of ribs due to motion artifact. Redemonstrated compression fracture of the T12 vertebral body. IMPRESSION: 1. There is no pulmonary embolus. 2. Marked cardiomegaly. There is evidence of right ventricular dysfunction. 3. Large bilateral pleural effusions. 4. Bilateral lung consolidations may be atelectasis or pneumonia. 5. Hiatal hernia. Electronically signed by: Wesley Leos MD (07/17/2021 2:50 AM) [facility] Course & Med Decision Making: Course & Med Decision Making 80-year-old female patient with past medical history of CHF and atrial fibrillation is presenting today in A. fib RVR with shortness of breath. Apparently, shortness of breath started around 0030 today patient was also satt ing low at the detention and is satting low in the department today. Patient was placed on a nonrebreather on 6 L which is brought her oxygenation saturation up to 98. Patient was placed on Cardizem and her rate reduced from 120s-130s to 80s-90s. Patient was just recently here on 07/12/21 and was diagnosed with an NSTEMI. Considering patient's elevated heart rate and hypoxia, PE is on the d ifferential. Therefore, CT angio chest ordered. Patient's high-sensitivity troponins were elevated but they are coming down significantly from prior admission. Pt is on Eliquis. She does have a very significantly elevated BNP. However, this is remained unchanged since last visit. Patient is meeting SIRS criteria with tachycardia, tachypnea, borderline fever at 100.3, and elevated white blood cell count. Patient does have a presumed source of infection based on chest CT demonstrating possible pneumonia versus atelectasis with bilateral pleural pleural effusions. ABG stable. Patient requiring admission for further evaluation and treatment. Discussed with Dr. Woo (hospitalist) who is in agreement with admission. Discussed findings and plan with patient, who acknowledges understanding and agreement. After discussion with Dr. Woo, it was noted patient with history of PE based on CTA from , however, today's CTA without sign of PE??? Dragon Disclaimer: Draglilly Disclaimer: This electronic medical record was generated, in whole or in part, using a voice recognition dictation system. Departure Departure Impression: Primary Impression: Respiratory failure Qualified Codes: J96.01 - Acute respiratory failure with hypoxia Additional Impressions: Hypoxia Pleural effusion Elevated troponin Bandemia SIRS (systemic inflammatory response syndrome) Disposition: 09 ADMITTED INPATIENT Admitting Physician: LASHON Walker) Condition: GUARDED Referrals: UNKNOWN PCP NAME (PCP) Critical Care Time Critical care time was 30 minutes which includes time at bedside, spent in discussion of patient's care with specialists and/or family members, with interpretation of laboratory and/or radiological studies and is exclusive of pro cedures. CARMINA WESTON DO Jul 17, 2021 01:19
[2021-07-17 01:24] LABS: PROTHROMBIN TIME PATIENT 21.1 SEC (11.7-14.0)
[2021-07-17] MEDS ORDERED: CONTRAST GIVEN. MC PRN (01:30)
[2021-07-17 01:36] LABS: BASO % 0 % (0-3); EOS % 0 % (0-3); HEMATOCRIT 36.6 % (36.0-47.0); HEMOGLOBIN 11.9 g/dL (12.0-15.5); LYMPH # 0.3 x10^3/uL (1.0-4.8); LYMPH % 2 % (24-48); MEAN CORPUSCULAR HEMOGLOBIN 28 pg (25-35); MEAN CORPUSCULAR HGB CONC 33 g/dL (31-37); MEAN CORPUSCULAR VOLUME 87 fL (79-100); MONO # 0.5 x10^3/uL (0.0-1.1); MONO % 4 % (0-9); NEUT # 13.4 x10^3/uL (1.8-7.7); NEUT % 94 % (31-73); PLATELET COUNT 85 x10^3/uL (140-400); RED BLOOD COUNT 4.19 x10^6/uL (3.50-5.40); RED CELL DISTRIBUTION WIDTH 15.7 % (11.5-14.5); WHITE BLOOD COUNT 14.2 x10^3/uL (4.0-11.0)
[2021-07-17 01:39] LABS: DIG 1.1 ng/mL (0.9-2.0)
--- NOTE | 2021-07-17 01:46 | EKG ---
[facility] [address] [place] [address] Test Date: 2021-07-17 Test Time: 01:22:44 Pat Name: NADINE SILVEIRA Department: Room: Gender: F Coronary Clinical Specialist: : 1940 Requested By: CARMINA WESTON Order Number: [id number] Reading MD: Francois Arechiga Measurements Intervals [place] Rate: 123 P: 0 MA: 86 QRS: -49 QRSD: 136 T: 129 QT: 318 QTc: 461 Interpretive Statements SINUS TACHYCARDIA COMPLEX(ES) WITH ABERRANT INTRAVENTRICULAR CONDUCTION VENTRICULAR PREMATURE COMPLEX(ES) ABNORMAL LEFT AXIS DEVIATION LEFT ANTERIOR FASCICULAR BLOCK RIGHT BUNDLE BRANCH BLOCK BIFASCICULAR BLOCK RVH WITH REPOLARIZATION ABNORMALITY ABNORMAL ECG RI6.02 Electronically Signed On 07-18-2021 9:26:08 ETL BI DEVELOPER by Francois Arechiga
[2021-07-17 01:49] LABS: CALCIUM 7.8 mg/dL (8.5-10.1); CREATININE 0.6 mg/dL (0.6-1.0); GFR 95.7; POTASSIUM 5.1 mmol/L (3.5-5.1)
[2021-07-17 01:55] LABS: ALBUMIN 1.7 g/dL (3.4-5.0); ALBUMIN/GLOBULIN RATIO 0.5 (1.0-1.7); MAGNESIUM 1.8 mg/dL (1.8-2.4); TOTAL BILIRUBIN 0.6 mg/dL (0.2-1.0); TOTAL PROTEIN 5.1 g/dL (6.4-8.2)
--- NOTE | 2021-07-17 01:57 | EKG ---
[facility] [address] [place] [address] Test Date: 2021-07-17 Test Time: 01:45:31 Pat Name: NADINE SILVEIRA Department: Room: Gender: F Rod Finisher: : 1940 Requested By: CARMINA WESTON Order Number: [id number] Reading MD: Francois Arechiga Measurements Intervals [place] Rate: 87 P: CO: QRS: -53 QRSD: 146 T: 113 QT: 354 QTc: 427 Interpretive Statements ATRIAL FLUTTER VENTRICULAR PREMATURE COMPLEX(ES) ABNORMAL LEFT AXIS DEVIATION RIGHT BUNDLE BRANCH BLOCK RVH WITH REPOLARIZATION ABNORMALITY ABNORMAL ECG RI6.02 Compared to ECG 07/17/2021 01:22:44 Sinus tachycardia no longer present Left anterior fascicular block no longer present Bifascicular block no longer present Electronically Signed On 07-18-2021 9:25:37 CREDIT COORDINATOR by Francois Arechiga
[2021-07-17] MEDS ORDERED: ACETAMINOPHEN 500 MG TABLET PO ONE (02:00)
[2021-07-17] MEDS ORDERED: IOHEXOL 350 MG/ML 100 ML VIAL. IV ONE (02:00)
[2021-07-17] MEDS ORDERED: ASPIRIN ENTERIC COATED 325 MG TABLET.DR. PO ONE (02:00)
--- NOTE | 2021-07-17 02:53 | RAD ---
PQRS Compliance Statement: One or more of the following individualized dose reduction techniques were utilized for this examinat ion: 1. Automated exposure control 2. Adjustment of the mA and/or kV according to patient size 3. Use of iterative reconstruction technique CT CHEST WITH CONTRAST, PULMONARY ANGIOGRAM History: Reason: SOA, fever, hypoxia, Comparison: None. Technique: Helical CT of the chest was performed after the administration of 100 cc of Omnipaque 350 intravenous contrast according to PE protocol. Axial and coronal reconstructions were obtained. 3- D MIP images were constructed to better evaluate the pulmonary arteries. Findings: Pulmonary arteries are adequately opacified. There is no evidence of pulmonary embolism. Pulmonary tr unk diameter is upper limits of normal. Contrast refluxes into the hepatic veins and the IVC suggesti ng right heart dysfunction. There is marked cardiomegaly. There is no thoracic aortic dissection. The re is left chest dual-chamber pacer. No pericardial effusion is seen. There are large bilateral pleural effusions. The upper esophagus is distended with air. No wall thick ening is appreciated. There is moderate respiratory motion artifact, limiting evaluation of the lungs . There are consolidations in the bilateral lobes adjacent to the pleural effusions. There is a large hiatal hernia. There is a small cyst or hemangioma in the left hepatic lobe. There is right adrenal gland hyperplasi a. There is soft tissue density left para-aortic, nonspecific. Finding could be adenopathy. Limited evaluation of ribs due to motion artifact. Redemonstrated compression fracture of the T12 zari tebral body. IMPRESSION: 1. There is no pulmonary embolus. 2. Marked cardiomegaly. There is evidence of right ventricular dysfunction. 3. Large bilateral pleural effusions. 4. Bilateral lung consolidations may be atelectasis or pneumonia. 5. Hiatal hernia. Electronically signed by: Wesley Leos MD (07/17/2021 2:50 AM) [facility]
[2021-07-17] MEDS ORDERED: ONDANSETRON PF 4 MG/2 ML VIAL. IVP PRN (03:15)
[2021-07-17] MEDS ORDERED: STERILE WATER for RESP 2,000 ML BAG. INH PRN (03:15)
[2021-07-17 03:22] LABS: BASE EXCESS ABG 7 mmol/L (-3-3); HCO3 ABG 33 mmol/L (21-28); PCO2 ABG 52 mmHg (35-46); PO2 ABG 66 mmHg (65-108); SAT O2 ABG 93 % (92-99)
[2021-07-17] MEDS ORDERED: AZTREONAM IV Push 2 GM VIAL. IVP ONE (03:30)
[2021-07-17] MEDS ORDERED: AZITHRMYCN 500MG IVPB FOR OMNI 250 ML IV ONE (03:30)
[2021-07-17 04:05] LABS: FIO2 ABG 52
[2021-07-17 04:24] LABS: % BANDS 12 % (0-9); % LYMPHS 3 % (24-48); % METAS 1 % (0-0); % MONOS 2 % (0-10); % SEGS 82 % (35-66)
[2021-07-17 04:25] LABS: PLT ESTIMATE DECREASED (ADEQUATE); TOXIC GRANULATION SLIGHT
--- NOTE | 2021-07-17 06:57 | CONS ---
DATE OF CONSULTATION: 07/17/2021 REASON FOR CONSULTATION: I was asked to see this 80-year-old lady for acute respiratory failure. HISTORY OF PRESENT ILLNESS: She is currently on oxygen 7 liters per minute via nasal cannula. She is confused. All of the information was obtained from nursing staff and chart. She was discharged from [facility] on 07/15 to senior living. She was brought to Emergency Room for shortness of breath. Per EMS, her O2 saturation was in 70s on room air. She was placed on oxygen. She was found to be in AFib with rapid ventricular response. She was given Cardizem bolus and she is now on Cardizem 5 mg per hour. She is confused. She has had COVID vaccination. PAST MEDICAL HISTORY: Atrial fibrillation. She was sent to senior living on apixaban. She was also sent home with cephalexin for lower extremity cellulitis. She was found to have bilateral pleural effusion. She had a thoracentesis on 07/14, 550 mL fluid was evacuated. It is transudate, but the cytology results are still pending. PAST MEDICAL HISTORY: Hypertension, atrial fibrillation, osteoarthritis, status post pacemaker placement, hysterectomy. FAMILY HISTORY: Hypertension, per chart. SOCIAL HISTORY: She is nonsmoker per chart. REVIEW OF SYSTEMS: Unable to obtain. The patient is confused. MEDICATIONS: The patient was given azithromycin, aztreonam in the Emergency Room. She is currently on Cardizem drip. She was on Eliquis in senior living. PHYSICAL EXAMINATION: GENERAL: A malnourished lady. VITAL SIGNS: Her O2 saturation on 7 liters of oxygen is 98%, respiratory rate 24, heart rate 95, blood pressure 100/59, temperature 97.5. HEENT: Normocephalic, atraumatic. Pupils equal, round, reactive to light. Nose is clear. NECK: Positive JVD. No lymphadenopathy. CARDIOVASCULAR: Irregularly irregular rhythm. CHEST: Symmetrical to expansion. LUNGS: There are bibasilar crackles, dullness at the bases. ABDOMEN: Soft. Bowel sounds are good. EXTREMITIES: There is bilateral edema. NEUROLOGIC: She is confused. SKIN: Chronic changes. LABORATORY DATA: I reviewed the following lab data: Chest x-ray on 07/[address] angiogram showed bilateral effusion, left more than right. No PE, cardiomegaly, bilateral infiltrate. Sodium 132, potassium 5.1, chloride 98, CO2 32, BUN 28, creatinine 0.6, lactic acid 0.9, AST 23, ALT 25, alkaline phosphatase 103. Troponin 145. BNP more than 35,000. COVID-19, influenza A and B negative. ABG: pH 7.42, pCO2 of 52, pO2 of 66. WBC 14.2, hemoglobin 11.9, and platelet 85. IMPRESSION: 1. Acute respiratory failure, multifactorial in etiology including acute diastolic congestive heart failure, bilateral pleural effusion, AFib with rapid ventricular response, rule out pneumonia. 2. Abnormal CT of the chest. 3. Acute diastolic congestive heart failure. 4. Atrial fibrillation with rapid ventricular response. 5. Pleural effusion, status post right thoracentesis on 07/14, transudate. Cytology is pending. 6. Malnutrition. 7. Moderate to severe mitral regurgitation. 8. Right lower extremity cellulitis. 9. Leukocytosis. 10. Hyponatremia. 11. Elevated troponin, rule out non-ST elevation myocardial infarction. PLAN AND RECOMMENDATION: 1. Titrate FiO2 to keep O2 saturation 92%. 2. Continue Cardizem drip. 3. Cardiology consultation. 4. Keep intake, less than output. Lasix per Cardiology. 5. Continue antibiotic. I do recommend ID consultation. 6. Add Protonix for stress ulcer prophylaxis. 7. The patient has a large left pleural effusion. She may require ultrasound-guided thoracentesis. She had her Eliquis yesterday. We may have to wait a day or two before thoracentesis. 8. Monitor closely in ICU. 9. Continue Cardizem drip. Thank you very much for allowing me to participate in care of this very nice lady. The findings and recommendations were discussed with RN and RT. JOSEFINA DR: Adele TID: [id number]
[2021-07-17] MEDS: PANTOPRAZOLE IV PUSH 40 MG VIAL. IVP SCH (09:08)
--- NOTE | 2021-07-17 09:31 | PDOC2 ---
CONSULT Date of Consult Date of Consult DATE: 07/17/21 TIME: 09:31 Reason for Consult Reason for Consult: Atrial flutter with RVR Referring Physician Referring Physician: Dr. Velez Identification/Chief Complaint Chief Complaint Shortness of breath Source Source: Chart review, Patient History of Present Illness Reason for Visit: 80-year-old female with history of sick sinus syndrome s/p permanent pacemaker implantation and chronic atrial fibrillation/flutter was recently discharged to [facility] after being treated for acute on chronic diastolic heart failure presented via EMS with shortness of breath that started early this morning. Patient was found to be hypoxic and admitted for further management. She was initially noted to be in atrial flutter with rapid ventricular response and was started on Cardizem drip with improvement in heart rate. Patient complained of generalized pains but denied any chest pain as such. She also denied any palpitations. Past Medical History Cardiovascular: AFIB, HTN Musculoskeletal: Osteoarthritis Past Surgical History Past Surgical History: Pacemaker, Hysterectomy Family History Family History: Family History Unknown Social History ALCOHOL: none Drugs: None Lives: Alone Current Problem List Problem List Problems Medical Problems: (1) Bandemia Status: Acute (2) Elevated troponin Status: Acute (3) Hypoxia Status: Acute (4) Pleural effusion Status: Acute (5) Respiratory failure Status: Acute (6) SIRS (systemic inflammatory response syndrome) Status: Acute Current Medications Current Medications Current Medications Diltiazem HCl (Cardizem Iv Push) 20 mg 1X ONCE IVP Last administered on 07/17/21at 01:41; Start 07/17/21 at 02:00; Stop 07/17/21 at 02:01; Status DC Diltiazem HCl 125 mg/Sodium Chloride 125 ml @ 5 mls/hr 1X ONCE IV Last administered on 07/17/21at 01:48; Start 07/17/21 at 02:00; Stop 07/18/21 at 02:59 Aspirin (Ecotrin) 325 mg 1X ONCE PO Last administered on 07/17/21at 01:38; Start 07/17/21 at 02:00; Stop 07/17/21 at 02:01; Status DC Acetaminophen (Tylenol) 500 mg 1X ONCE PO Last administered on 07/17/21at 02:19; Start 07/17/21 at 02:00; Stop 07/17/21 at 02:01; Status DC Iohexol (Omnipaque 350 Mg/ml) 100 ml 1X ONCE IV ; Start 07/17/21 at 02:00; Stop 07/17/21 at 02:01; Status DC Info (CONTRAST GIVEN -- Rx MONITORING) 1 each PRN DAILY PRN MC SEE COMMENTS; Start 07/17/21 at 01:30; Stop 07/19/21 at 01:29 Aztreonam (Azactam) 2 gm 1X ONCE IVP Last administered on 07/17/21at 03:45; Start 07/17/21 at 03:30; Stop 07/17/21 at 03:31; Status DC Azithromycin 250 ml @ 250 mls/hr 1X ONCE IV Last administered on 07/17/21at 04:27; Start 07/17/21 at 03:30; Stop 07/17/21 at 04:29; Status DC Sterile Water (WATER for RESP) 2,000 ml CONT PRN INH VIA VAPOTHERM DEVICE; Start 07/17/21 at 03:15 Ondansetron HCl (Zofran) 4 mg PRN Q8HRS PRN IVP NAUSEA/VOMITING 1ST CHOICE; Start 07/17/21 at 03:15; Stop 07/18/21 at 03:14 Pantoprazole Sodium (PROTONIX VIAL for IV PUSH) 40 mg DAILYAC IVP Last administered on 07/17/21at 09:08; Start 07/17/21 at 09:00 Active Scripts Active Eliquis (Apixaban) 5 Mg Tablet 5 Mg PO BID 30 Days Eliquis (Apixaban) 5 Mg Tablet 10 Mg PO BID 7 Days Metoprolol Tartrate 25 Mg Tablet 25 Mg PO BID 30 Days Keflex (Cephalexin) 500 Mg Capsule 1 Cap PO TID 3 Days Atorvastatin Calcium 10 Mg Tablet 10 Mg PO QHS 30 Days Digoxin 125 Mcg Tablet 125 Mcg PO DAILY 30 Days Reported Effer-K 10 Meq Tablet Eff (Potassium Bicarbonate/Cit Ac) 10 Meq Tablet.eff 15 Meq PO DAILY Lasix (Furosemide) 40 Mg Tablet 1 Tab PO DAILY 30 Days Allergies Allergies: Coded Allergies: Penicillins (Verified Allergy, Intermediate, 07/14/21) prednisone (Verified Allergy, Intermediate, 07/14/21) pt verbalized causes boils ROS PSYCHOLOGICAL ROS: No: Hallucinations Eyes: No Loss of vision HEENT: No: Epistaxis Respiratory: YES: Shortness of breath; No: Hemoptysis Gastrointestinal: No Vomiting, No Diarrhea Genitourinary: No Hematuria Neurological: No Seizures Skin: No Rash Physical Exam General: Alert, mild distress HEENT: Atraumatic Lungs: Other (Decreased air entry bases) Heart: Other (Heart rate irregular, PSM 3/6 apex) Abdomen: Soft Extremities: No edema Neuro: Normal speech Psych/Mental Status: Mood NL Vitals VITALS Vital Signs Date Time Temp Pulse Resp B/P (MAP) Pulse Ox O2 Delivery O2 Flow Rate FiO2 07/17/21 06:00 95 28 100/59 (73) 96 Nasal Cannula 5.0 07/17/21 04:00 97.5 97.5 Labs Labs Laboratory Tests Test 07/17/21 00:45 07/17/21 01:27 07/17/21 01:45 07/17/21 03:50 Prothrombin Time 21.1 SEC (11.7-14.0) Prothromb Time International Ratio 1.9 (0.8-1.1) Activated Partial Thromboplast Time 39 SEC (24-38) Digoxin Level 1.1 ng/mL (0.9-2.0) Digoxin Last Dose Date Digoxin Last Dose Time White Blood Count 14.2 x10^3/uL (4.0-11.0) Red Blood Count 4.19 x10^6/uL (3.50-5.40) Hemoglobin 11.9 g/dL (12.0-15.5) Hematocrit 36.6 % (36.0-47.0) Mean Corpuscular Volume 87 fL (79-100) Mean Corpuscular Hemoglobin 28 pg (25-35) Mean Corpuscular Hemoglobin Concent 33 g/dL (31-37) Red Cell Distribution Width 15.7 % (11.5-14.5) Platelet Count 85 x10^3/uL (140-400) Neutrophils (%) (Auto) 94 % (31-73) Lymphocytes (%) (Auto) 2 % (24-48) Monocytes (%) (Auto) 4 % (0-9) Eosinophils (%) (Auto) 0 % (0-3) Basophils (%) (Auto) 0 % (0-3) Neutrophils # (Auto) 13.4 x10^3/uL (1.8-7.7) Lymphocytes # (Auto) 0.3 x10^3/uL (1.0-4.8) Monocytes # (Auto) 0.5 x10^3/uL (0.0-1.1) Eosinophils # (Auto) 0.0 x10^3/uL (0.0-0.7) Basophils # (Auto) 0.0 x10^3/uL (0.0-0.2) Segmented Neutrophils % 82 % (35-66) Band Neutrophils % 12 % (0-9) Lymphocytes % 3 % (24-48) Monocytes % 2 % (0-10) Metamyelocytes % 1 % (0-0) Toxic Granulation Slight Platelet Estimate Decreased (ADEQUATE) Sodium Level 132 mmol/L (136-145) Potassium Level 5.1 mmol/L (3.5-5.1) Chloride Level 98 mmol/L (98-107) Carbon Dioxide Level 32 mmol/L (21-32) Anion Gap 2 (6-14) Blood Urea Nitrogen 28 mg/dL (7-20) Creatinine 0.6 mg/dL (0.6-1.0) Estimated GFR (Cockcroft-Gault) 95.7 BUN/Creatinine Ratio 47 (6-20) Glucose Level 126 mg/dL (70-99) Lactic Acid Level 0.9 mmol/L (0.4-2.0) Calcium Level 7.8 mg/dL (8.5-10.1) Magnesium Level 1.8 mg/dL (1.8-2.4) Total Bilirubin 0.6 mg/dL (0.2-1.0) Aspartate Amino Transf (AST/SGOT) 23 U/L (15-37) Alanine Aminotransferase (ALT/SGPT) 25 U/L (14-59) Alkaline Phosphatase 103 U/L (46-116) Creatine Kinase 18 U/L (26-192) Creatine Kinase MB (Mass) 0.6 ng/mL (0.0-3.6) Creatine Kinase MB Relative Index % (0-4) Troponin I High Sensitivity 145 ng/L (4-50) 187 ng/L (4-50) ZV-Pdi-O-Type Natriuretic Peptide > 77978 pg/mL (0-449) Total Protein 5.1 g/dL (6.4-8.2) Albumin 1.7 g/dL (3.4-5.0) Albumin/Globulin Ratio 0.5 (1.0-1.7) Influenza Type A Antigen Negative (NEGATIVE) Influenza Type B Antigen Negative (NEGATIVE) SARS-CoV-2 Antigen (Rapid) Negative (NEGATIVE) Test 07/17/21 04:16 O2 Saturation 93 % (92-99) Arterial Blood pH 7.42 (7.35-7.45) Arterial Blood pCO2 at Patient Temp 52 mmHg (35-46) Arterial Blood pO2 at Patient Temp 66 mmHg (65-108) Arterial Blood HCO3 33 mmol/L (21-28) Arterial Blood Base Excess 7 mmol/L (-3-3) FiO2 52 Laboratory Tests Test 07/17/21 00:45 07/17/21 01:27 07/17/21 01:45 07/17/21 03:50 Prothrombin Time 21.1 SEC (11.7-14.0) Prothromb Time International Ratio 1.9 (0.8-1.1) Activated Partial Thromboplast Time 39 SEC (24-38) Digoxin Level 1.1 ng/mL (0.9-2.0) Digoxin Last Dose Date Digoxin Last Dose Time White Blood Count 14.2 x10^3/uL (4.0-11.0) Red Blood Count 4.19 x10^6/uL (3.50-5.40) Hemoglobin 11.9 g/dL (12.0-15.5) Hematocrit 36.6 % (36.0-47.0) Mean Corpuscular Volume 87 fL (79-100) Mean Corpuscular Hemoglobin 28 pg (25-35) Mean Corpuscular Hemoglobin Concent 33 g/dL (31-37) Red Cell Distribution Width 15.7 % (11.5-14.5) Platelet Count 85 x10^3/uL (140-400) Neutrophils (%) (Auto) 94 % (31-73) Lymphocytes (%) (Auto) 2 % (24-48) Monocytes (%) (Auto) 4 % (0-9) Eosinophils (%) (Auto) 0 % (0-3) Basophils (%) (Auto) 0 % (0-3) Neutrophils # (Auto) 13.4 x10^3/uL (1.8-7.7) Lymphocytes # (Auto) 0.3 x10^3/uL (1.0-4.8) Monocytes # (Auto) 0.5 x10^3/uL (0.0-1.1) Eosinophils # (Auto) 0.0 x10^3/uL (0.0-0.7) Basophils # (Auto) 0.0 x10^3/uL (0.0-0.2) Segmented Neutrophils % 82 % (35-66) Band Neutrophils % 12 % (0-9) Lymphocytes % 3 % (24-48) Monocytes % 2 % (0-10) Metamyelocytes % 1 % (0-0) Toxic Granulation Slight Platelet Estimate Decreased (ADEQUATE) Sodium Level 132 mmol/L (136-145) Potassium Level 5.1 mmol/L (3.5-5.1) Chloride Level 98 mmol/L (98-107) Carbon Dioxide Level 32 mmol/L (21-32) Anion Gap 2 (6-14) Blood Urea Nitrogen 28 mg/dL (7-20) Creatinine 0.6 mg/dL (0.6-1.0) Estimated GFR (Cockcroft-Gault) 95.7 BUN/Creatinine Ratio 47 (6-20) Glucose Level 126 mg/dL (70-99) Lactic Acid Level 0.9 mmol/L (0.4-2.0) Calcium Level 7.8 mg/dL (8.5-10.1) Magnesium Level 1.8 mg/dL (1.8-2.4) Total Bilirubin 0.6 mg/dL (0.2-1.0) Aspartate Amino Transf (AST/SGOT) 23 U/L (15-37) Alanine Aminotransferase (ALT/SGPT) 25 U/L (14-59) Alkaline Phosphatase 103 U/L (46-116) Creatine Kinase 18 U/L (26-192) Creatine Kinase MB (Mass) 0.6 ng/mL (0.0-3.6) Creatine Kinase MB Relative Index % (0-4) Troponin I High Sensitivity 145 ng/L (4-50) 187 ng/L (4-50) LT-Dvh-P-Type Natriuretic Peptide > 22725 pg/mL (0-449) Total Protein 5.1 g/dL (6.4-8.2) Albumin 1.7 g/dL (3.4-5.0) Albumin/Globulin Ratio 0.5 (1.0-1.7) Influenza Type A Antigen Negative (NEGATIVE) Influenza Type B Antigen Negative (NEGATIVE) SARS-CoV-2 Antigen (Rapid) Negative (NEGATIVE) Test 07/17/21 04:16 O2 Saturation 93 % (92-99) Arterial Blood pH 7.42 (7.35-7.45) Arterial Blood pCO2 at Patient Temp 52 mmHg (35-46) Arterial Blood pO2 at Patient Temp 66 mmHg (65-108) Arterial Blood HCO3 33 mmol/L (21-28) Arterial Blood Base Excess 7 mmol/L (-3-3) FiO2 52 Assessment/Plan Assessment/Plan 1. Acute respiratory failure secondary to combination of acute on chronic diastolic heart failure, bilateral pleural effusions, possible pneumonia. Patient was also diagnosed with pulmonary embolism on CTA last admission. Pulmonary team considering thoracentesis. 2. Acute on chronic diastolic heart failure: Recent 2D echo showed LVEF 50 to 55%. Continue diuresis. 3. Permanent atrial fibrillation/flutter presently with atrial flutter with RVR, rate better controlled with Cardizem infusion. Stop Cardizem infusion and resume her home medication metoprolol. Continue heparin infusion for now and change to Eliquis after thoracentesis. 4. Moderate to severe mitral regurgitation noted on recent 2D echo. Consider BETY and referral for mitral valve clip repair as an outpatient. 5. Hypertension: Controlled 6. SSS s/p PPM implantation with recent device check showing normal function with adequate battery life Thank you for your consultation. EMILY MARIN MD Jul 17, 2021 09:31
--- NOTE | 2021-07-17 09:48 | PDOC1 ---
History and Physical Date of Service: DOS: DATE: 07/17/21 TIME: 09:47 Chief Complaint: Problems: (1) SIRS (systemic inflammatory response syndrome) (2) Pleural effusion (3) Respiratory failure (4) Hypoxia (5) Elevated troponin History of Present Illness: HPI: Patient is a 80 year old female with past medical history of congestive heart failure, A. fib, pacemaker placement at [facility] and NSTEMI (on 07/12/21) is presenting today via EMS with shortness of breath at long-term. in A. fib RVR. Apparently patient started feeling short of breath around 0030. According to EMS, patient was satting around 70s and the patient was put on 4 L. In the emergency department today, the patient was put on 6 L of oxygen went up to 98. However, shortly after that the patient dropped back down to 90s, so we put the patient on a nonrebreather. Patient states that she is in pain, but cannot exactly where the source of pain is. History limited due to patient's mental status. Patient is vaccinated for COVID. Past Medical/Surgical History: PMH/PSH: A-Fib, Arthritis, CHF, GERD, Pneumonia, UTI MITRAL VALVE REGURG Allergies: Allergies: Coded Allergies: Penicillins (Verified Allergy, Intermediate, 07/14/21) prednisone (Verified Allergy, Intermediate, 07/14/21) pt verbalized causes boils Family History: Family History: Unable to review with patient due to mental status Social History: Social History: No alcohol tobacco or drug use Current Medications: Current Medications Current Medications Diltiazem HCl (Cardizem Iv Push) 20 mg 1X ONCE IVP Last administered on 07/17at 01:41; Start 07/17/21 at 02:00; Stop 07/17/21 at 02:01; Status DC Diltiazem HCl 125 mg/Sodium Chloride 125 ml @ 5 mls/hr 1X ONCE IV Last administered on 07/17/21at 01:48; Start 07/17/21 at 02:00; Stop 07/18/21 at 02:59 Aspirin (Ecotrin) 325 mg 1X ONCE PO Last administered on 07/17/21at 01:38; Start 07/17/21 at 02:00; Stop 07/17/21 at 02:01; Status DC Acetaminophen (Tylenol) 500 mg 1X ONCE PO Last administered on 07/17/21at 02:19; Start 07/17/21 at 02:00; Stop 07/17/21 at 02:01; Status DC Iohexol (Omnipaque 350 Mg/ml) 100 ml 1X ONCE IV ; Start 07/17/21 at 02:00; Stop 07/17/21 at 02:01; Status DC Info (CONTRAST GIVEN -- Rx MONITORING) 1 each PRN DAILY PRN MC SEE COMMENTS; Start 07/17/21 at 01:30; Stop 07/19/21 at 01:29 Aztreonam (Azactam) 2 gm 1X ONCE IVP Last administered on 07/17/21at 03:45; Start 07/17/21 at 03:30; Stop 07/17/21 at 03:31; Status DC Azithromycin 250 ml @ 250 mls/hr 1X ONCE IV Last administered on 07/17/21at 04:27; Start 07/17/21 at 03:30; Stop 07/17/21 at 04:29; Status DC Sterile Water (WATER for RESP) 2,000 ml CONT PRN INH VIA VAPOTHERM DEVICE; Start 07/17/21 at 03:15 Ondansetron HCl (Zofran) 4 mg PRN Q8HRS PRN IVP NAUSEA/VOMITING 1ST CHOICE; Start 07/17/21 at 03:15; Stop 07/18/21 at 03:14 Pantoprazole Sodium (PROTONIX VIAL for IV PUSH) 40 mg DAILYAC IVP Last administered on 07/17/21at 09:08; Start 07/17/21 at 09:00 Active Scripts Active Eliquis (Apixaban) 5 Mg Tablet 5 Mg PO BID 30 Days Eliquis (Apixaban) 5 Mg Tablet 10 Mg PO BID 7 Days Metoprolol Tartrate 25 Mg Tablet 25 Mg PO BID 30 Days Keflex (Cephalexin) 500 Mg Capsule 1 Cap PO TID 3 Days Atorvastatin Calcium 10 Mg Tablet 10 Mg PO QHS 30 Days Digoxin 125 Mcg Tablet 125 Mcg PO DAILY 30 Days Reported Effer-K 10 Meq Tablet Eff (Potassium Bicarbonate/Cit Ac) 10 Meq Tablet.eff 15 Meq PO DAILY Lasix (Furosemide) 40 Mg Tablet 1 Tab PO DAILY 30 Days ROS: Review of Systems Review of System Unable to obtain due to mental status Physical Exam: Vital Signs: Vital Signs Date Time Temp Pulse Resp B/P (MAP) Pulse Ox O2 Delivery O2 Flow Rate FiO2 07/17/21 06:00 95 28 100/59 (73) 96 Nasal Cannula 5.0 07/17/21 04:00 97.5 97.5 Physcial Exam: GEN: In bed no major distress. Resting on Vapotherm HEENT: Normal cephalic, atraumatic, external auditory canals are patent EYES: Extraocular muscles are intact, pupil are equally round and reactive to light and accommodation MUSCULOSKELETAL: Limited range of motion ENDOCRINE: No thyromegaly was palpated LYMPHATICS: No cervical chain or axillary nodes were noted HEMATOPOIETIC: No bruising NECK: Supple, no JVD, no thyromegaly was noted LUNGS: Clear to auscultation in all lung forde without rhonchi or wheezing HEART: RRR, S1, S2 present. Peripheral pulses intact, no obvious murmurs noted ABDOMEN: Soft, nontender. Positive bowel sounds, no organomegaly, normal bowel sounds EXTREMITIES: Without clubbing, cyanosis, or edema. Pedal pulses intact. NEUROLOGIC: Normal speech and tone. A&O x 3, moves all extremities, no obvious focal deficits PSYCHIATRIC: Normal affect, normal mood. Stable SKIN: No ulcerations or rashes, good skin turgor, no jaundice VASCULAR: Good capillary refill, neurovascular bundle appears to be intact Labs: Labs: Laboratory Tests Test 07/17/21 00:45 07/17/21 01:27 07/17/21 01:45 07/17/21 03:50 Prothrombin Time 21.1 SEC (11.7-14.0) Prothromb Time International Ratio 1.9 (0.8-1.1) Activated Partial Thromboplast Time 39 SEC (24-38) Digoxin Level 1.1 ng/mL (0.9-2.0) Digoxin Last Dose Date Digoxin Last Dose Time White Blood Count 14.2 x10^3/uL (4.0-11.0) Red Blood Count 4.19 x10^6/uL (3.50-5.40) Hemoglobin 11.9 g/dL (12.0-15.5) Hematocrit 36.6 % (36.0-47.0) Mean Corpuscular Volume 87 fL (79-100) Mean Corpuscular Hemoglobin 28 pg (25-35) Mean Corpuscular Hemoglobin Concent 33 g/dL (31-37) Red Cell Distribution Width 15.7 % (11.5-14.5) Platelet Count 85 x10^3/uL (140-400) Neutrophils (%) (Auto) 94 % (31-73) Lymphocytes (%) (Auto) 2 % (24-48) Monocytes (%) (Auto) 4 % (0-9) Eosinophils (%) (Auto) 0 % (0-3) Basophils (%) (Auto) 0 % (0-3) Neutrophils # (Auto) 13.4 x10^3/uL (1.8-7.7) Lymphocytes # (Auto) 0.3 x10^3/uL (1.0-4.8) Monocytes # (Auto) 0.5 x10^3/uL (0.0-1.1) Eosinophils # (Auto) 0.0 x10^3/uL (0.0-0.7) Basophils # (Auto) 0.0 x10^3/uL (0.0-0.2) Segmented Neutrophils % 82 % (35-66) Band Neutrophils % 12 % (0-9) Lymphocytes % 3 % (24-48) Monocytes % 2 % (0-10) Metamyelocytes % 1 % (0-0) Toxic Granulation Slight Platelet Estimate Decreased (ADEQUATE) Sodium Level 132 mmol/L (136-145) Potassium Level 5.1 mmol/L (3.5-5.1) Chloride Level 98 mmol/L (98-107) Carbon Dioxide Level 32 mmol/L (21-32) Anion Gap 2 (6-14) Blood Urea Nitrogen 28 mg/dL (7-20) Creatinine 0.6 mg/dL (0.6-1.0) Estimated GFR (Cockcroft-Gault) 95.7 BUN/Creatinine Ratio 47 (6-20) Glucose Level 126 mg/dL (70-99) Lactic Acid Level 0.9 mmol/L (0.4-2.0) Calcium Level 7.8 mg/dL (8.5-10.1) Magnesium Level 1.8 mg/dL (1.8-2.4) Total Bilirubin 0.6 mg/dL (0.2-1.0) Aspartate Amino Transf (AST/SGOT) 23 U/L (15-37) Alanine Aminotransferase (ALT/SGPT) 25 U/L (14-59) Alkaline Phosphatase 103 U/L (46-116) Creatine Kinase 18 U/L (26-192) Creatine Kinase MB (Mass) 0.6 ng/mL (0.0-3.6) Creatine Kinase MB Relative Index % (0-4) Troponin I High Sensitivity 145 ng/L (4-50) 187 ng/L (4-50) AY-Aqm-Q-Type Natriuretic Peptide > 37005 pg/mL (0-449) Total Protein 5.1 g/dL (6.4-8.2) Albumin 1.7 g/dL (3.4-5.0) Albumin/Globulin Ratio 0.5 (1.0-1.7) Influenza Type A Antigen Negative (NEGATIVE) Influenza Type B Antigen Negative (NEGATIVE) SARS-CoV-2 Antigen (Rapid) Negative (NEGATIVE) Test 07/17/21 04:16 O2 Saturation 93 % (92-99) Arterial Blood pH 7.42 (7.35-7.45) Arterial Blood pCO2 at Patient Temp 52 mmHg (35-46) Arterial Blood pO2 at Patient Temp 66 mmHg (65-108) Arterial Blood HCO3 33 mmol/L (21-28) Arterial Blood Base Excess 7 mmol/L (-3-3) FiO2 52 Laboratory Tests Test 07/17/21 00:45 07/17/21 01:27 07/17/21 01:45 07/17/21 03:50 Prothrombin Time 21.1 SEC (11.7-14.0) Prothromb Time International Ratio 1.9 (0.8-1.1) Activated Partial Thromboplast Time 39 SEC (24-38) Digoxin Level 1.1 ng/mL (0.9-2.0) Digoxin Last Dose Date Digoxin Last Dose Time White Blood Count 14.2 x10^3/uL (4.0-11.0) Red Blood Count 4.19 x10^6/uL (3.50-5.40) Hemoglobin 11.9 g/dL (12.0-15.5) Hematocrit 36.6 % (36.0-47.0) Mean Corpuscular Volume 87 fL (79-100) Mean Corpuscular Hemoglobin 28 pg (25-35) Mean Corpuscular Hemoglobin Concent 33 g/dL (31-37) Red Cell Distribution Width 15.7 % (11.5-14.5) Platelet Count 85 x10^3/uL (140-400) Neutrophils (%) (Auto) 94 % (31-73) Lymphocytes (%) (Auto) 2 % (24-48) Monocytes (%) (Auto) 4 % (0-9) Eosinophils (%) (Auto) 0 % (0-3) Basophils (%) (Auto) 0 % (0-3) Neutrophils # (Auto) 13.4 x10^3/uL (1.8-7.7) Lymphocytes # (Auto) 0.3 x10^3/uL (1.0-4.8) Monocytes # (Auto) 0.5 x10^3/uL (0.0-1.1) Eosinophils # (Auto) 0.0 x10^3/uL (0.0-0.7) Basophils # (Auto) 0.0 x10^3/uL (0.0-0.2) Segmented Neutrophils % 82 % (35-66) Band Neutrophils % 12 % (0-9) Lymphocytes % 3 % (24-48) Monocytes % 2 % (0-10) Metamyelocytes % 1 % (0-0) Toxic Granulation Slight Platelet Estimate Decreased (ADEQUATE) Sodium Level 132 mmol/L (136-145) Potassium Level 5.1 mmol/L (3.5-5.1) Chloride Level 98 mmol/L (98-107) Carbon Dioxide Level 32 mmol/L (21-32) Anion Gap 2 (6-14) Blood Urea Nitrogen 28 mg/dL (7-20) Creatinine 0.6 mg/dL (0.6-1.0) Estimated GFR (Cockcroft-Gault) 95.7 BUN/Creatinine Ratio 47 (6-20) Glucose Level 126 mg/dL (70-99) Lactic Acid Level 0.9 mmol/L (0.4-2.0) Calcium Level 7.8 mg/dL (8.5-10.1) Magnesium Level 1.8 mg/dL (1.8-2.4) Total Bilirubin 0.6 mg/dL (0.2-1.0) Aspartate Amino Transf (AST/SGOT) 23 U/L (15-37) Alanine Aminotransferase (ALT/SGPT) 25 U/L (14-59) Alkaline Phosphatase 103 U/L (46-116) Creatine Kinase 18 U/L (26-192) Creatine Kinase MB (Mass) 0.6 ng/mL (0.0-3.6) Creatine Kinase MB Relative Index % (0-4) Troponin I High Sensitivity 145 ng/L (4-50) 187 ng/L (4-50) ZP-Gkl-S-Type Natriuretic Peptide > 88331 pg/mL (0-449) Total Protein 5.1 g/dL (6.4-8.2) Albumin 1.7 g/dL (3.4-5.0) Albumin/Globulin Ratio 0.5 (1.0-1.7) Influenza Type A Antigen Negative (NEGATIVE) Influenza Type B Antigen Negative (NEGATIVE) SARS-CoV-2 Antigen (Rapid) Negative (NEGATIVE) Test 07/17/21 04:16 O2 Saturation 93 % (92-99) Arterial Blood pH 7.42 (7.35-7.45) Arterial Blood pCO2 at Patient Temp 52 mmHg (35-46) Arterial Blood pO2 at Patient Temp 66 mmHg (65-108) Arterial Blood HCO3 33 mmol/L (21-28) Arterial Blood Base Excess 7 mmol/L (-3-3) FiO2 52 Assessment/Plan Assessment/Plan Acute hypoxic respiratory failure secondary to bilateral pleural effusions likely CHF exacerbation bacterial pneumonia suspected gram-negative versus gram- positive recent diagnosis pulmonary embolism, had elevated BNP troponin -Admit to ICU due to respiratory status on Vapotherm -Patient Covid vaccinated. Rapid negative -Imaging showing some opacities may be consistent with a bacterial pneumonia. Will start antibiotics. Pulmonary consultation. -Patient with notable pleural effusions on imaging. Like to try diuresis but has borderline blood pressure. We will discuss this with cardiology and consult -Patient was recently discharged from here a few days ago and CTA during that admission did show pulmonary embolism. Patient was actually currently on her loading dose of Eliquis. CT from overnight showed no pulmonary embolism? As patient may require thoracentesis we will hold off on Eliquis and just do heparin drip for now. We will continue treatment like patient does have pulmonary embolism -Home meds resumed as indicated -Wean oxygen as tolerated -Heparin DVT prophylaxis Justifications for Admission Other Justification A. fib RVR and CHF exacerbation CLAIRE PRATHER MD Jul 17, 2021 09:48
[2021-07-17] MEDS ORDERED: AZITHROMYCIN 500 MG in IV NORMAL SALINE 250ML 250 ML IV ONE (10:00)
[2021-07-17] MEDS ORDERED: HEPARIN 25,000UTS/250ML PREMIX 250 ML IV PRN ×2 (10:00)
[2021-07-17] MEDS ORDERED: HEPARIN for IV BOLUS 10,000 UNIT/10 ML VIAL. IV PRN ×5 (10:00→12:15)
[2021-07-17] MEDS ORDERED: FUROSEMIDE 40 MG/4 ML VIAL. IVP ONE (10:45)
[2021-07-17] MEDS ORDERED: cefTRIAXone IV Push 1 GM VIAL. IVP SCH (11:00)
[2021-07-17] MEDS ORDERED: APIXABAN 5 MG TABLET. PO SCH ×2 (12:00→21:00)
[2021-07-17] MEDS: FUROSEMIDE 40 MG/4 ML VIAL. IVP SCH (12:00)
[2021-07-17] MEDS: DIGOXIN 125 MCG TABLET. PO SCH (12:04)
[2021-07-17] MEDS: METOPROLOL TART IMMED RELEASE 25 MG TABLET. PO SCH ×2 (12:05→21:26)
[2021-07-17] MEDS: HEPARIN 25,000UTS/250ML PREMIX 250 ML IV PRN (12:59)
[2021-07-17] MEDS ORDERED: PIP/TAZO PER PHARMACY MC PRN (13:30)
[2021-07-17] MEDS ORDERED: VANCOMYCIN PER PHARMACY MC PRN (13:30)
[2021-07-17] MEDS: PIPERACILLIN/TAZOBACTAM 3.375 GM in IV NORMAL SALINE 50ML 50 ML IV SCH ×3 (13:58→23:41)
[2021-07-17] MEDS ORDERED: VANCOMYCIN 1.5 GM in IV NORMAL SALINE 500ML BAG 500 ML IV ONE (14:00)
[2021-07-17] MEDS ORDERED: HYDROcodone/APAP 5/325MG 1 TAB TABLET PO PRN (18:30)
[2021-07-17] MEDS: HEPARIN for IV BOLUS 10,000 UNIT/10 ML VIAL. IV PRN (19:29)
[2021-07-17] MEDS: LACTOBACILLUS RHAMNOSUS GG 1 CAPSULE. PO SCH (21:25)
[2021-07-17] MEDS: ATORVASTATIN CALCIUM 10 MG TABLET. PO SCH (21:25)
[2021-07-18] VITALS (13 sets, daily range): BP systolic 86–121; BP diastolic 39–50
[2021-07-18] MEDS: HEPARIN for IV BOLUS 10,000 UNIT/10 ML VIAL. IV PRN (02:22)
[2021-07-18] MEDS: PIPERACILLIN/TAZOBACTAM 3.375 GM in IV NORMAL SALINE 50ML 50 ML IV SCH ×4 (05:56→23:56)
[2021-07-18] MEDS: LACTOBACILLUS RHAMNOSUS GG 1 CAPSULE. PO SCH ×2 (08:32→21:06)
[2021-07-18] MEDS: METOPROLOL TART IMMED RELEASE 25 MG TABLET. PO SCH ×2 (08:32→21:00)
[2021-07-18] MEDS: PANTOPRAZOLE IV PUSH 40 MG VIAL. IVP SCH (08:32)
[2021-07-18] MEDS: DIGOXIN 125 MCG TABLET. PO SCH (08:32)
[2021-07-18] MEDS: FUROSEMIDE 40 MG/4 ML VIAL. IVP SCH (08:33)
--- NOTE | 2021-07-18 08:33 | PDOC2 ---
CONSULT Date of Consult Date of Consult DATE: 07/18/21 TIME: 08:18 Reason for Consult Reason for Consult: Bacteremia Referring Physician Referring Physician: Dr. Velez Identification/Chief Complaint Chief Complaint Infectious disease consultation Source Source: Caregiver, Chart review History of Present Illness Reason for Visit: Patient was discharged from [facility] to [facility] on 07/15/2021. Patient well-known to us from last admission. Please refer to infectious disease consultation for full details from 07/13/2021. Refer to last infectious disease note from 07/15/2021 for full details. 80 year old female well-known to our service as above with past medical history of congestive heart failure, A. fib, pacemaker placement at [facility] and NSTEMI (on 07/12/21) currently admitted in ICU who presented to ER on 07/17/2021 from [facility] via EMS with shortness of breath at retirement. Patient was hypoxic, so the patient on a nonrebreather. T-max 100.3, WBC 14 K, 07/17/2021 blood cultures are positive with GPC in pairs and chains. High BNP. Patient is currently on IV Vanco and Zosyn and azithromycin. CTA as below discussed with RN. Patient is currently on O2. Alert awake. Remains confused. Last admission patient underwent right lung thoracocentesis for moderate pleural effusion. Cultures remain negative. Blood cultures were done this admission which are positive for gram-positive cocci in pairs and chains. ID consultation has been requested for antibiotic management Past Medical History Cardiovascular: AFIB, HTN Musculoskeletal: Osteoarthritis Past Surgical History Past Surgical History: Pacemaker, Hysterectomy Family History Family History: Family History Unknown Social History ALCOHOL: none Drugs: None Lives: Alone Current Problem List Problem List Problems Medical Problems: (1) Bandemia Status: Acute (2) Elevated troponin Status: Acute (3) Hypoxia Status: Acute (4) Pleural effusion Status: Acute (5) Respiratory failure Status: Acute (6) SIRS (systemic inflammatory response syndrome) Status: Acute Current Medications Current Medications Current Medications Diltiazem HCl (Cardizem Iv Push) 20 mg 1X ONCE IVP Last administered on 07/17/21at 01:41; Start 07/17/21 at 02:00; Stop 07/17/21 at 02:01; Status DC Diltiazem HCl 125 mg/Sodium Chloride 125 ml @ 5 mls/hr 1X ONCE IV Last administered on 07/17/21at 01:48; Start 07/17/21 at 02:00; Stop 07/17/21 at 11:39; Status DC Aspirin (Ecotrin) 325 mg 1X ONCE PO Last administered on 07/17/21at 01:38; Start 07/17/21 at 02:00; Stop 07/17/21 at 02:01; Status DC Acetaminophen (Tylenol) 500 mg 1X ONCE PO Last administered on 07/17/21at 02:19; Start 07/17/21 at 02:00; Stop 07/17/21 at 02:01; Status DC Iohexol (Omnipaque 350 Mg/ml) 100 ml 1X ONCE IV ; Start 07/17/21 at 02:00; Stop 07/17/21 at 02:01; Status DC Info (CONTRAST GIVEN -- Rx MONITORING) 1 each PRN DAILY PRN MC SEE COMMENTS; Start 07/17/21 at 01:30; Stop 07/19/21 at 01:29 Aztreonam (Azactam) 2 gm 1X ONCE IVP Last administered on 07/17/21at 03:45; Start 07/17/21 at 03:30; Stop 07/17/21 at 03:31; Status DC Azithromycin 250 ml @ 250 mls/hr 1X ONCE IV Last administered on 07/17/21at 04:27; Start 07/17/21 at 03:30; Stop 07/17/21 at 04:29; Status DC Sterile Water (WATER for RESP) 2,000 ml CONT PRN INH VIA VAPOTHERM DEVICE; Start 07/17/21 at 03:15 Ondansetron HCl (Zofran) 4 mg PRN Q8HRS PRN IVP NAUSEA/VOMITING 1ST CHOICE Last administered on 07/17/21at 22:33; Start 07/17/21 at 03:15; Stop 07/18/21 at 03:14; Status DC Pantoprazole Sodium (PROTONIX VIAL for IV PUSH) 40 mg DAILYAC IVP Last administered on 07/17/21at 09:08; Start 07/17/21 at 09:00 Apixaban (Eliquis) 10 mg BID PO ; Start 07/17/21 at 21:00; Stop 07/17/21 at 09:54; Status DC Atorvastatin Calcium (Lipitor) 10 mg QHS PO Last administered on 07/17/21at 21:25; Start 07/17/21 at 21:00 Digoxin (Lanoxin) 125 mcg DAILY PO Last administered on 07/17/21at 12:04; Start 07/17/21 at 11:00 Ceftriaxone Sodium (Rocephin) 1 gm Q24H IVP Last administered on 07/17/21at 12:49; Start 07/17/21 at 11:00; Stop 07/17/21 at 13:27; Status DC Azithromycin 500 mg/Sodium Chloride 250 ml @ 250 mls/hr 1X ONCE IV ; Start 07/17/21 at 10:00; Stop 07/17/21 at 10:59; Status UNV Azithromycin 250 mg/Sodium Chloride 250 ml @ 250 mls/hr Q24H IV ; Start 07/18/21 at 09:00 Heparin Sodium/ Dextrose 250 ml @ 0 mls/hr CONT PRN IV SEE I/O RECORD; Start 07/17/21 at 10:00; Status UNV Heparin Sodium/ Dextrose 250 ml @ 10.128 mls/ hr CONT PRN IV PER PROTOCOL; Start 07/17/21 at 10:00; Stop 07/17/21 at 11:39; Status DC Heparin Sodium (Porcine) (Heparin Sodium) 1,900 unit PRN Q6HRS PRN IV FOR PTT < 40; Start 07/17/21 at 10:00; Status Cancel Heparin Sodium (Porcine) (Heparin Sodium) 2,000 unit PRN Q6HRS PRN IV FOR PTT 40 - 58; Start 07/17/21 at 10:00; Stop 07/17/21 at 12:02; Status DC Heparin Sodium (Porcine) (Heparin Sodium) 1,000 unit PRN Q6HRS PRN IV FOR PTT 59 - 78; Start 07/17/21 at 10:00; Stop 07/17/21 at 12:02; Status DC Furosemide (Lasix) 40 mg 1X ONCE IVP Last administered on 07/17/21at 12:04; Start 07/17/21 at 10:45; Stop 07/17/21 at 10:46; Status DC Apixaban (Eliquis) 5 mg BID PO ; Start 07/17/21 at 12:00; Stop 07/17/21 at 12:07; Status DC Metoprolol Tartrate (Lopressor) 25 mg BID PO Last administered on 07/17/21at 21:26; Start 07/17/21 at 12:00 Furosemide (Lasix) 40 mg DAILY IVP ; Start 07/17/21 at 12:00 Heparin Sodium/ Dextrose 250 ml @ 10.128 mls/ hr CONT PRN IV PER PROTOCOL Last administered on 07/17/21at 12:59; Start 07/17/21 at 12:15 Heparin Sodium (Porcine) (Heparin Sodium) 1,900 unit PRN Q6HRS PRN IV FOR PTT < 40; Start 07/17/21 at 12:15 Heparin Sodium (Porcine) (Heparin Sodium) 2,000 unit PRN Q6HRS PRN IV FOR PTT 40 - 58 Last administered on 07/17/21at 12:46; Start 07/17/21 at 12:15 Heparin Sodium (Porcine) (Heparin Sodium) 1,000 unit PRN Q6HRS PRN IV FOR PTT 59 - 78 Last administered on 07/18/21at 02:22; Start 07/17/21 at 12:15 Lactobacillus Rhamnosus (Culturelle) 1 cap BID PO Last administered on 07/17/21at 21:25; Start 07/17/21 at 21:00 Vancomycin HCl (Vanco Per Pharmacy) 1 each PRN DAILY PRN MC SEE COMMENTS Last administered on 07/17/21at 14:35; Start 07/17/21 at 13:30 Piperacillin Sod/ Tazobactam Sod (Zosyn Per Pharmacy) 1 each PRN DAILY PRN MC SEE COMMENTS; Start 07/17/21 at 13:30 Piperacillin Sod/ Tazobactam Sod 3.375 gm/Sodium Chloride 50 ml @ 100 mls/hr Q6HRS IV Last administered on 07/18/21at 05:56; Start 07/17/21 at 14:00 Vancomycin HCl 1.5 gm/Sodium Chloride 500 ml @ 250 mls/hr 1X ONCE IV Last administered on 07/17/21at 13:59; Start 07/17/21 at 14:00; Stop 07/17/21 at 15:59; Status DC Vancomycin HCl 1 gm/Sodium Chloride 250 ml @ 250 mls/hr Q24H IV ; Start 07/18/21 at 14:00 Vancomycin HCl (Vancomycin Trough Level) 1 each 1X ONCE MC ; Start 07/19/21 at 13:30; Stop 07/19/21 at 13:31 Acetaminophen/ Hydrocodone Bitart (Lortab 5/325) 1 tab PRN Q4HRS PRN PO PAIN; Start 07/17/21 at 18:30 Active Scripts Active Eliquis (Apixaban) 5 Mg Tablet 5 Mg PO BID 30 Days Eliquis (Apixaban) 5 Mg Tablet 10 Mg PO BID 7 Days Metoprolol Tartrate 25 Mg Tablet 25 Mg PO BID 30 Days Keflex (Cephalexin) 500 Mg Capsule 1 Cap PO TID 3 Days Atorvastatin Calcium 10 Mg Tablet 10 Mg PO QHS 30 Days Digoxin 125 Mcg Tablet 125 Mcg PO DAILY 30 Days Reported Effer-K 10 Meq Tablet Eff (Potassium Bicarbonate/Cit Ac) 10 Meq Tablet.eff 15 Meq PO DAILY Lasix (Furosemide) 40 Mg Tablet 1 Tab PO DAILY 30 Days Allergies Allergies: Coded Allergies: Penicillins (Verified Allergy, Intermediate, 07/14/21) prednisone (Verified Allergy, Intermediate, 07/14/21) pt verbalized causes boils ROS Review of System I am thirsty. Patient remains confused. Denies any pain in the abdomen or chest. Denies any headache. Limited Physical Exam Physical Exam GENERAL: Alert, awake confused likely baseline, poor hearing lying in bed comfortably, in no acute distress. Answers a few questions HEENT: Normocephalic, atraumatic. Anicteric. NECK: Supple. LUNGS: Bibasilar crackles no wheezing. HEART: Irregular, holosystolic murmur, ABDOMEN: Soft, nontender, nondistended. Bowel sounds present EXTREMITIES: Trace edema, [place] boots present, erythema to the right foot resolved, onychomycosis both feet on toenails, good peripheral pulses, no calf tenderness, no cyanosis, left toenail dressed, no wound, MUSCULOSKELETAL: No joint swelling. No decrease in range of motion. CENTRAL NERVOUS SYSTEM: Alert awake hard of hearing moves all 4 extremities debilitated, PSYCHIATRIC: Cooperative, anxious PIV LINES: looks clean. Vitals VITALS Vital Signs Date Time Temp Pulse Resp B/P (MAP) Pulse Ox O2 Delivery O2 Flow Rate FiO2 07/18/21 08:06 Nasal Cannula 4.0 07/18/21 08:02 99.8 92 33 117/47 (70) 97 99.8 Labs Labs Laboratory Tests Test 07/17/21 00:45 07/17/21 01:27 07/17/21 01:45 07/17/21 03:50 Prothrombin Time 21.1 SEC (11.7-14.0) Prothromb Time International Ratio 1.9 (0.8-1.1) Activated Partial Thromboplast Time 39 SEC (24-38) Digoxin Level 1.1 ng/mL (0.9-2.0) Digoxin Last Dose Date Digoxin Last Dose Time White Blood Count 14.2 x10^3/uL (4.0-11.0) Red Blood Count 4.19 x10^6/uL (3.50-5.40) Hemoglobin 11.9 g/dL (12.0-15.5) Hematocrit 36.6 % (36.0-47.0) Mean Corpuscular Volume 87 fL (79-100) Mean Corpuscular Hemoglobin 28 pg (25-35) Mean Corpuscular Hemoglobin Concent 33 g/dL (31-37) Red Cell Distribution Width 15.7 % (11.5-14.5) Platelet Count 85 x10^3/uL (140-400) Neutrophils (%) (Auto) 94 % (31-73) Lymphocytes (%) (Auto) 2 % (24-48) Monocytes (%) (Auto) 4 % (0-9) Eosinophils (%) (Auto) 0 % (0-3) Basophils (%) (Auto) 0 % (0-3) Neutrophils # (Auto) 13.4 x10^3/uL (1.8-7.7) Lymphocytes # (Auto) 0.3 x10^3/uL (1.0-4.8) Monocytes # (Auto) 0.5 x10^3/uL (0.0-1.1) Eosinophils # (Auto) 0.0 x10^3/uL (0.0-0.7) Basophils # (Auto) 0.0 x10^3/uL (0.0-0.2) Segmented Neutrophils % 82 % (35-66) Band Neutrophils % 12 % (0-9) Lymphocytes % 3 % (24-48) Monocytes % 2 % (0-10) Metamyelocytes % 1 % (0-0) Toxic Granulation Slight Platelet Estimate Decreased (ADEQUATE) Sodium Level 132 mmol/L (136-145) Potassium Level 5.1 mmol/L (3.5-5.1) Chloride Level 98 mmol/L (98-107) Carbon Dioxide Level 32 mmol/L (21-32) Anion Gap 2 (6-14) Blood Urea Nitrogen 28 mg/dL (7-20) Creatinine 0.6 mg/dL (0.6-1.0) Estimated GFR (Cockcroft-Gault) 95.7 BUN/Creatinine Ratio 47 (6-20) Glucose Level 126 mg/dL (70-99) Lactic Acid Level 0.9 mmol/L (0.4-2.0) Calcium Level 7.8 mg/dL (8.5-10.1) Magnesium Level 1.8 mg/dL (1.8-2.4) Total Bilirubin 0.6 mg/dL (0.2-1.0) Aspartate Amino Transf (AST/SGOT) 23 U/L (15-37) Alanine Aminotransferase (ALT/SGPT) 25 U/L (14-59) Alkaline Phosphatase 103 U/L (46-116) Creatine Kinase 18 U/L (26-192) Creatine Kinase MB (Mass) 0.6 ng/mL (0.0-3.6) Creatine Kinase MB Relative Index % (0-4) Troponin I High Sensitivity 145 ng/L (4-50) 187 ng/L (4-50) AE-Vih-H-Type Natriuretic Peptide > 35709 pg/mL (0-449) Total Protein 5.1 g/dL (6.4-8.2) Albumin 1.7 g/dL (3.4-5.0) Albumin/Globulin Ratio 0.5 (1.0-1.7) Influenza Type A Antigen Negative (NEGATIVE) Influenza Type B Antigen Negative (NEGATIVE) SARS-CoV-2 RNA (ELLEN) Negative (Negative) SARS-CoV-2 Antigen (Rapid) Negative (NEGATIVE) Test 07/17/21 04:16 07/17/21 18:40 07/18/21 01:30 O2 Saturation 93 % (92-99) Arterial Blood pH 7.42 (7.35-7.45) Arterial Blood pCO2 at Patient Temp 52 mmHg (35-46) Arterial Blood pO2 at Patient Temp 66 mmHg (65-108) Arterial Blood HCO3 33 mmol/L (21-28) Arterial Blood Base Excess 7 mmol/L (-3-3) FiO2 52 Activated Partial Thromboplast Time 68 SEC (24-38) 75 SEC (24-38) Laboratory Tests Test 07/17/21 18:40 07/18/21 01:30 Activated Partial Thromboplast Time 68 SEC (24-38) 75 SEC (24-38) Images Images Signed PATIENT: NADINE SILVEIRA LACCOUNT: [id number] : 1940 LOCATION: ER AGE: 80 SEX: F EXAM STATUS: REG ER ORD. PHYSICIAN: CARMINA WESTNO DO REASON: SOA, fever, hypoxia, eval for PE, OMNI 350 100 ML IV PROCEDURE: CT ANGIOGRAPHY CHEST PQRS Compliance Statement: One or more of the following individualized dose reduction techniques were utilized for this examination: 1. Automated exposure control 2. Adjustment of the mA and/or kV according to patient size 3. Use of iterative reconstruction technique CT CHEST WITH CONTRAST, PULMONARY ANGIOGRAM History: Reason: SOA, fever, hypoxia, Comparison: None. Technique: Helical CT of the chest was performed after the administration of 100 cc of Omnipaque 350 intravenous contrast according to PE protocol. Axial and coronal reconstructions were obtained. 3-D MIP images were constructed to better evaluate the pulmonary arteries. Findings: Pulmonary arteries are adequately opacified. There is no evidence of pulmonary embolism. Pulmonary trunk diameter is upper limits of normal. Contrast refluxes into the hepatic veins and the IVC suggesting right heart dysfunction. There is marked cardiomegaly. There is no thoracic aortic dissection. There is left chest dual-chamber pacer. No pericardial effusion is seen. There are large bilateral pleural effusions. The upper esophagus is distended with air. No wall thickening is appreciated. There is moderate respiratory motion artifact, limiting evaluation of the lungs. There are consolidations in the bilateral lobes adjacent to the pleural effusions. There is a large hiatal hernia. There is a small cyst or hemangioma in the left hepatic lobe. There is right adrenal gland hyperplasia. There is soft tissue density left para-aortic, nonspecific. Finding could be adenopathy. Limited evaluation of ribs due to motion artifact. Redemonstrated compression fracture of the T12 vertebral body. IMPRESSION: 1. There is no pulmonary embolus. 2. Marked cardiomegaly. There is evidence of right ventricular dysfunction. 3. Large bilateral pleural effusions. 4. Bilateral lung consolidations may be atelectasis or pneumonia. 5. Hiatal hernia. Assessment/Plan Assessment/Plan Sepsis from gram-positive bacteremia, not on pressors Gram-positive cocci bacteremia 3 bottles present on admission Low-grade febrile illness Leukocytosis Acute hypoxic respiratory failure on 4 L O2 by nasal cannula likely from CHF History of allergies to penicillin CHF A. fib with RVR Severe protein calorie malnutrition PPM in place Thrombocytopenia Onychomycosis Acrocyanosis, bilateral lower extremity COPD Right pleural effusion that is post thoracocentesis last admission Generalized debility Hard of hearing Poor living condition Recommendations DC IV vancomycin Continue Zosyn Add daptomycin DC azithromycin Follow-up labs and cultures Follow-up repeat blood cultures from 07/18/2021 Continue supportive care Local wound care Thank you Dr. Velez for consulting infectious disease perspiring this patient's care. Discussed with BELINDA. NATALY CALLOWAY MD Jul 18, 2021 08:33
[2021-07-18] MEDS ORDERED: AZITHROMYCIN 250 MG in IV NORMAL SALINE 250ML 250 ML IV SCH (09:00)
--- NOTE | 2021-07-18 09:09 | PDOC ---
[employer] PROGRESS NOTE Date of Service DOS: DATE: 07/18/21 TIME: 08:59 Chief Complaint Chief Complaint A/P: Acute encephalopathy - likely due to sepsis Severe sepsis - ID consulted, cont vancomycin GPC 3 bottles positive blood cultures - as above Acute hypoxic respiratory failure Afib with RVR - eliquis for thromboprophylaxis, cardizem rate control back on metoprolol S/p ppm - good battery life H/o pulmonary embolism - on recent admission 07/14/2021 Acute on chronic diastolic heart failure: Recent 2D echo showed LVEF 50 to 55%. Continue diuresis. Moderate to severe mitral regurgitation noted on recent 2D echo. Consider BETY and referral for mitral valve clip repair as an outpatient. Thrombocytopenia Right pleural effusion Acrocyanosis, bilateral lower extremity COPD Right pleural effusion that is post thoracocentesis last admission Generalized debility Hard of hearing Poor living condition History of Present Illness History of Present Illness Ms Bang is an 80 year old female well-known to our service as above with pas t medical history of congestive heart failure, A. fib, pacemaker placement at [facility] and NSTEMI (on 07/12/21) currently admitted in ICU who presented to ER on 07/17/2021 from [facility] via EMS with shortness of breath at skilled nursing. Patient was hypoxic, so the patient on a nonrebreather. T-max 100.3, WBC 14 K, 07/17/2021 blood cultures are positive with GPC in pairs and chains. Patient is currently on O2. Alert awake. Remains confused. Last admission patient underwent right lung thoracocentesis for moderate pleural effusion on 07/14/2021. Cultures remain negative. Blood cultures were done this admission which are positive for gram-positive cocci in pairs and chains. Admitted with Cardiology, Pulmonology, and ID consultation. Seen bedside in ICU. Asking for water though she just had some drink. Still requiring 4 L nasal cannula to maintain O2 saturations 91%. Heart rate A. fib in the low 100s. cc time 30 min. Can downgrade later today to CVC if ok with pulmonology Vitals/I&O Vitals/I&O: Vital Signs Date Time Temp Pulse Resp B/P (MAP) Pulse Ox O2 Delivery O2 Flow Rate FiO2 07/18/21 08:32 92 117/47 07/18/21 08:06 Nasal Cannula 4.0 07/18/21 08:02 99.8 33 97 99.8 I & O 07/17/21 07/17/21 07/18/21 14:59 22:59 06:59 Intake Total 341 ml 850 ml 675 ml Output Total 1000 ml 550 ml 175 ml Balance -659 ml 300 ml 500 ml Physical Exam General: Alert, mild distress Heart: Other (Heart rate irregular, PSM 3/6 apex) Lungs: Crackles, Other Abdomen: Soft Extremities: No edema Labs Labs: Laboratory Tests Test 07/17/21 18:40 07/18/21 01:30 Activated Partial Thromboplast Time 68 SEC (24-38) 75 SEC (24-38) Assessment and Plan Assessmemt and Plan Problems Medical Problems: (1) Bandemia Status: Acute (2) Elevated troponin Status: Acute (3) Hypoxia Status: Acute (4) Pleural effusion Status: Acute (5) Respiratory failure Status: Acute (6) SIRS (systemic inflammatory response syndrome) Status: Acute Comment Review of Relevant I have reviewed the following items peewee (where applicable) has been applied. Medications: Current Medications Medications (Trade) Dose Ordered Sig/Beny Route PRN Reason Start Time Stop Time Status Last Admin Dose Admin Pantoprazole Sodium (PROTONIX VIAL for IV PUSH) 40 mg DAILYAC IVP 07/17/21 09:00 07/18/21 08:32 Atorvastatin Calcium (Lipitor) 10 mg QHS PO 07/17/21 21:00 07/17/21 21:25 Digoxin (Lanoxin) 125 mcg DAILY PO 07/17/21 11:00 07/18/21 08:32 Ceftriaxone Sodium (Rocephin) 1 gm Q24H IVP 07/17/21 11:00 07/17/21 13:27 DC 07/17/21 12:49 Furosemide (Lasix) 40 mg 1X ONCE IVP 07/17/21 10:45 07/17/21 10:46 DC 07/17/21 12:04 Metoprolol Tartrate (Lopressor) 25 mg BID PO 07/17/21 12:00 07/18/21 08:32 Furosemide (Lasix) 40 mg DAILY IVP 07/17/21 12:00 07/18/21 08:33 Heparin Sodium/ Dextrose 250 ml @ 10.128 mls/ hr CONT PRN IV PER PROTOCOL 07/17/21 12:15 07/17/21 12:59 Heparin Sodium (Porcine) (Heparin Sodium) 2,000 unit PRN Q6HRS PRN IV FOR PTT 40 - 58 07/17/21 12:15 07/17/21 12:46 Heparin Sodium (Porcine) (Heparin Sodium) 1,000 unit PRN Q6HRS PRN IV FOR PTT 59 - 78 07/17/21 12:15 07/18/21 02:22 Lactobacillus Rhamnosus (Culturelle) 1 cap BID PO 07/17/21 21:00 07/18/21 08:32 Vancomycin HCl (Vanco Per Pharmacy) 1 each PRN DAILY PRN MC SEE COMMENTS 07/17/21 13:30 07/18/21 08:39 DC 07/17/21 14:35 Piperacillin Sod/ Tazobactam Sod 3.375 gm/Sodium Chloride 50 ml @ 100 mls/hr Q6HRS IV 07/17/21 14:00 07/18/21 05:56 Vancomycin HCl 1.5 gm/Sodium Chloride 500 ml @ 250 mls/hr 1X ONCE IV 07/17/21 14:00 07/17/21 15:59 DC 07/17/21 13:59 Justifications for Admission Other Justification A. fib RVR and CHF exacerbation CLAIRE LUNDBERG MD Jul 18, 2021 09:08
[2021-07-18] MEDS: DAPTOmycin (GENERIC) IVPB 390 MG in IV NORMAL SALINE 50ML 50 ML IV SCH (09:19)
[2021-07-18 09:54] LABS: BASO % 0 % (0-3); EOS % 0 % (0-3); HEMATOCRIT 28.9 % (36.0-47.0); HEMOGLOBIN 9.5 g/dL (12.0-15.5); LYMPH # 0.5 x10^3/uL (1.0-4.8); LYMPH % 5 % (24-48); MEAN CORPUSCULAR HEMOGLOBIN 29 pg (25-35); MEAN CORPUSCULAR HGB CONC 33 g/dL (31-37); MEAN CORPUSCULAR VOLUME 88 fL (79-100); MONO # 0.9 x10^3/uL (0.0-1.1); MONO % 9 % (0-9); NEUT # 8.3 x10^3/uL (1.8-7.7); NEUT % 86 % (31-73); PLATELET COUNT 96 x10^3/uL (140-400); RED BLOOD COUNT 3.29 x10^6/uL (3.50-5.40); RED CELL DISTRIBUTION WIDTH 15.9 % (11.5-14.5); WHITE BLOOD COUNT 9.7 x10^3/uL (4.0-11.0)
--- NOTE | 2021-07-18 10:20 | PDOC ---
PULMONARY PROGRESS NOTES DATE: 07/18/21 TIME: 10:16 Subjective Patient remains on oxygen. Appears weak but no shortness of breath. Vitals Vital Signs Date Time Temp Pulse Resp B/P (MAP) Pulse Ox O2 Delivery O2 Flow Rate FiO2 07/18/21 08:32 92 117/47 07/18/21 08:06 Nasal Cannula 4.0 07/18/21 08:02 99.8 33 97 99.8 General: Alert, No acute distress Lungs: Other (Diminished breath sounds posteriorly at the bases) Cardiovascular: S1 Abdomen: Soft Extremities: Other (1+ pitting edema) Labs Laboratory Tests Test 07/17/21 00:45 07/17/21 01:27 07/17/21 01:45 07/17/21 03:50 Prothrombin Time 21.1 SEC (11.7-14.0) Prothromb Time International Ratio 1.9 (0.8-1.1) Activated Partial Thromboplast Time 39 SEC (24-38) Digoxin Level 1.1 ng/mL (0.9-2.0) Digoxin Last Dose Date Digoxin Last Dose Time White Blood Count 14.2 x10^3/uL (4.0-11.0) Red Blood Count 4.19 x10^6/uL (3.50-5.40) Hemoglobin 11.9 g/dL (12.0-15.5) Hematocrit 36.6 % (36.0-47.0) Mean Corpuscular Volume 87 fL (79-100) Mean Corpuscular Hemoglobin 28 pg (25-35) Mean Corpuscular Hemoglobin Concent 33 g/dL (31-37) Red Cell Distribution Width 15.7 % (11.5-14.5) Platelet Count 85 x10^3/uL (140-400) Neutrophils (%) (Auto) 94 % (31-73) Lymphocytes (%) (Auto) 2 % (24-48) Monocytes (%) (Auto) 4 % (0-9) Eosinophils (%) (Auto) 0 % (0-3) Basophils (%) (Auto) 0 % (0-3) Neutrophils # (Auto) 13.4 x10^3/uL (1.8-7.7) Lymphocytes # (Auto) 0.3 x10^3/uL (1.0-4.8) Monocytes # (Auto) 0.5 x10^3/uL (0.0-1.1) Eosinophils # (Auto) 0.0 x10^3/uL (0.0-0.7) Basophils # (Auto) 0.0 x10^3/uL (0.0-0.2) Segmented Neutrophils % 82 % (35-66) Band Neutrophils % 12 % (0-9) Lymphocytes % 3 % (24-48) Monocytes % 2 % (0-10) Metamyelocytes % 1 % (0-0) Toxic Granulation Slight Platelet Estimate Decreased (ADEQUATE) Sodium Level 132 mmol/L (136-145) Potassium Level 5.1 mmol/L (3.5-5.1) Chloride Level 98 mmol/L (98-107) Carbon Dioxide Level 32 mmol/L (21-32) Anion Gap 2 (6-14) Blood Urea Nitrogen 28 mg/dL (7-20) Creatinine 0.6 mg/dL (0.6-1.0) Estimated GFR (Cockcroft-Gault) 95.7 BUN/Creatinine Ratio 47 (6-20) Glucose Level 126 mg/dL (70-99) Lactic Acid Level 0.9 mmol/L (0.4-2.0) Calcium Level 7.8 mg/dL (8.5-10.1) Magnesium Level 1.8 mg/dL (1.8-2.4) Total Bilirubin 0.6 mg/dL (0.2-1.0) Aspartate Amino Transf (AST/SGOT) 23 U/L (15-37) Alanine Aminotransferase (ALT/SGPT) 25 U/L (14-59) Alkaline Phosphatase 103 U/L (46-116) Creatine Kinase 18 U/L (26-192) Creatine Kinase MB (Mass) 0.6 ng/mL (0.0-3.6) Creatine Kinase MB Relative Index % (0-4) Troponin I High Sensitivity 145 ng/L (4-50) 187 ng/L (4-50) NU-Zts-V-Type Natriuretic Peptide > 24246 pg/mL (0-449) Total Protein 5.1 g/dL (6.4-8.2) Albumin 1.7 g/dL (3.4-5.0) Albumin/Globulin Ratio 0.5 (1.0-1.7) Influenza Type A Antigen Negative (NEGATIVE) Influenza Type B Antigen Negative (NEGATIVE) SARS-CoV-2 RNA (ELLEN) Negative (Negative) SARS-CoV-2 Antigen (Rapid) Negative (NEGATIVE) Test 07/17/21 04:16 07/17/21 18:40 07/18/21 01:30 07/18/21 08:20 O2 Saturation 93 % (92-99) Arterial Blood pH 7.42 (7.35-7.45) Arterial Blood pCO2 at Patient Temp 52 mmHg (35-46) Arterial Blood pO2 at Patient Temp 66 mmHg (65-108) Arterial Blood HCO3 33 mmol/L (21-28) Arterial Blood Base Excess 7 mmol/L (-3-3) FiO2 52 Activated Partial Thromboplast Time 68 SEC (24-38) 75 SEC (24-38) White Blood Count 9.7 x10^3/uL (4.0-11.0) Red Blood Count 3.29 x10^6/uL (3.50-5.40) Hemoglobin 9.5 g/dL (12.0-15.5) Hematocrit 28.9 % (36.0-47.0) Mean Corpuscular Volume 88 fL (79-100) Mean Corpuscular Hemoglobin 29 pg (25-35) Mean Corpuscular Hemoglobin Concent 33 g/dL (31-37) Red Cell Distribution Width 15.9 % (11.5-14.5) Platelet Count 96 x10^3/uL (140-400) Neutrophils (%) (Auto) 86 % (31-73) Lymphocytes (%) (Auto) 5 % (24-48) Monocytes (%) (Auto) 9 % (0-9) Eosinophils (%) (Auto) 0 % (0-3) Basophils (%) (Auto) 0 % (0-3) Neutrophils # (Auto) 8.3 x10^3/uL (1.8-7.7) Lymphocytes # (Auto) 0.5 x10^3/uL (1.0-4.8) Monocytes # (Auto) 0.9 x10^3/uL (0.0-1.1) Eosinophils # (Auto) 0.0 x10^3/uL (0.0-0.7) Basophils # (Auto) 0.0 x10^3/uL (0.0-0.2) Test 07/18/21 08:25 Activated Partial Thromboplast Time 142 SEC (24-38) Laboratory Tests Test 07/17/21 18:40 07/18/21 01:30 07/18/21 08:20 07/18/21 08:25 Activated Partial Thromboplast Time 68 SEC (24-38) 75 SEC (24-38) 142 SEC (24-38) White Blood Count 9.7 x10^3/uL (4.0-11.0) Red Blood Count 3.29 x10^6/uL (3.50-5.40) Hemoglobin 9.5 g/dL (12.0-15.5) Hematocrit 28.9 % (36.0-47.0) Mean Corpuscular Volume 88 fL (79-100) Mean Corpuscular Hemoglobin 29 pg (25-35) Mean Corpuscular Hemoglobin Concent 33 g/dL (31-37) Red Cell Distribution Width 15.9 % (11.5-14.5) Platelet Count 96 x10^3/uL (140-400) Neutrophils (%) (Auto) 86 % (31-73) Lymphocytes (%) (Auto) 5 % (24-48) Monocytes (%) (Auto) 9 % (0-9) Eosinophils (%) (Auto) 0 % (0-3) Basophils (%) (Auto) 0 % (0-3) Neutrophils # (Auto) 8.3 x10^3/uL (1.8-7.7) Lymphocytes # (Auto) 0.5 x10^3/uL (1.0-4.8) Monocytes # (Auto) 0.9 x10^3/uL (0.0-1.1) Eosinophils # (Auto) 0.0 x10^3/uL (0.0-0.7) Basophils # (Auto) 0.0 x10^3/uL (0.0-0.2) Medications Active Scripts Medications Dose Route/Sig Max Daily Dose Days Date Category Eliquis (Apixaban) 5 Mg Tablet 5 Mg PO BID 30 07/15/21 Rx Eliquis (Apixaban) 5 Mg Tablet 10 Mg PO BID 7 07/15/21 Rx Metoprolol Tartrate 25 Mg Tablet 25 Mg PO BID 30 07/15/21 Rx Keflex (Cephalexin) 500 Mg Capsule 1 Cap PO TID 3 07/15/21 Rx Atorvastatin Calcium 10 Mg Tablet 10 Mg PO QHS 30 07/15/21 Rx Digoxin 125 Mcg Tablet 125 Mcg PO DAILY 30 07/15/21 Rx Effer-K 10 Meq Tablet Eff (Potassium Bicarbonate/Cit Ac) 10 Meq Tablet.eff 15 Meq PO DAILY 07/12/21 Reported Lasix (Furosemide) 40 Mg Tablet 1 Tab PO DAILY 30 07/12/[address] chest reviewed dated July 17, 2021 Bilateral pleural effusions, moderate per my impression. Evidence of congestive heart failure. Impression . 1. Acute respiratory failure, multifactorial in etiology including acute diastolic congestive heart failure, bilateral pleural effusion, AFib with rapid ventricular response, moderate to severe mitral regurgitation. 2. Abnormal CT of the chest. bilateral pleural effusions and evidence of CHF 3. Acute diastolic congestive heart failure. 4. Atrial fibrillation with rapid ventricular response. 5. Pleural effusion, status post right thoracentesis on 07/14, transudate. Cytology is pending. 6. Malnutrition. 7. Moderate to severe mitral regurgitation. 8. Right lower extremity cellulitis. 9. Leukocytosis. 10. Hyponatremia. 11. Elevated troponin, rule out non-ST elevation myocardial infarction. Plan . 1. Titrate FiO2 to keep O2 saturation 92%. 2. Continue Cardizem drip. 3. Cardiology recommendations. 4. Keep intake, less than output. Lasix per Cardiology. 5. De-escalate antibiotics. 6. Protonix for stress ulcer prophylaxis. 7. Patient has recurrent bilateral pleural effusions. She had a recent thoracentesis last Sunday. We can order another thoracentesis on the right side, however unless we fix the etiology of her recurrent pleural effusion which includes diastolic CHF as well as moderate to severe mitral regurgitation, pleural effusion will keep reoccurring. We will talk to cardiology about it. Will hold heparin few hours prior to the procedure 8. Monitor closely in ICU. 9. Continue Cardizem drip. KIRK MASTERSON MD Jul 18, 2021 10:20
--- NOTE | 2021-07-18 10:35 | PDOC ---
PROGRESS NOTES Date of Service: DATE: 07/18/21 TIME: 10:35 Subjective Subjective Feeling better today with slight improvement in dyspnea Objective Objective Vital Signs Date Time Temp Pulse Resp B/P (MAP) Pulse Ox O2 Delivery O2 Flow Rate FiO2 07/18/21 08:32 92 117/47 07/18/21 08:06 Nasal Cannula 4.0 07/18/21 08:02 99.8 33 97 99.8 Intake and Output 07/18/21 07:00 Intake Total 1866 ml Output Total 1725 ml Balance 141 ml Intake Oral 1050 ml IV Total 816 ml Output Urine Total 1725 ml # Voids 1 # Bowel Movements 1 Physical Exam Abdomen: Soft Heart: Other (Heart rate irregular, PSM 3/6 apex) Extremities: No edema General: Alert, mild distress HEENT: Atraumatic Lungs: Other (Decreased air entry bases) MUSCULOSKELETAL: No deformity, No swelling, Other Neuro: Normal speech Psych/Mental Status: Mood NL Assessment Assessment 1. Acute respiratory failure secondary to combination of acute on chronic diastolic heart failure, bilateral pleural effusions, possible pneumonia. Patient was also diagnosed with pulmonary embolism on CTA last admission. Pulmonary team considering thoracentesis. 2. Acute on chronic diastolic heart failure: Recent 2D echo showed LVEF 50 to 55%. Continue diuresis. 3. Permanent atrial fibrillation/flutter presently with atrial flutter with RVR, rate better controlled. Continue metoprolol and digoxin. Continue heparin infusion for now and change to Eliquis after thoracentesis. 4. Moderate to severe mitral regurgitation noted on recent 2D echo. Consider BETY and referral for mitral valve clip repair as an outpatient. 5. Hypertension: Controlled 6. SSS s/p PPM implantation with recent device check showing normal function with adequate battery life Plan Plan of Care Problems Medical Problems: (1) Bandemia Status: Acute (2) Elevated troponin Status: Acute (3) Hypoxia Status: Acute (4) Pleural effusion Status: Acute (5) Respiratory failure Status: Acute (6) SIRS (systemic inflammatory response syndrome) Status: Acute Comment Review of Relevant I have reviewed the following items peewee (where applicable) has been applied. Labs Laboratory Tests Test 07/17/21 18:40 07/18/21 01:30 07/18/21 08:20 07/18/21 08:25 Activated Partial Thromboplast Time 68 SEC (24-38) 75 SEC (24-38) 142 SEC (24-38) White Blood Count 9.7 x10^3/uL (4.0-11.0) Red Blood Count 3.29 x10^6/uL (3.50-5.40) Hemoglobin 9.5 g/dL (12.0-15.5) Hematocrit 28.9 % (36.0-47.0) Mean Corpuscular Volume 88 fL (79-100) Mean Corpuscular Hemoglobin 29 pg (25-35) Mean Corpuscular Hemoglobin Concent 33 g/dL (31-37) Red Cell Distribution Width 15.9 % (11.5-14.5) Platelet Count 96 x10^3/uL (140-400) Neutrophils (%) (Auto) 86 % (31-73) Lymphocytes (%) (Auto) 5 % (24-48) Monocytes (%) (Auto) 9 % (0-9) Eosinophils (%) (Auto) 0 % (0-3) Basophils (%) (Auto) 0 % (0-3) Neutrophils # (Auto) 8.3 x10^3/uL (1.8-7.7) Lymphocytes # (Auto) 0.5 x10^3/uL (1.0-4.8) Monocytes # (Auto) 0.9 x10^3/uL (0.0-1.1) Eosinophils # (Auto) 0.0 x10^3/uL (0.0-0.7) Basophils # (Auto) 0.0 x10^3/uL (0.0-0.2) Microbiology 07/17/21 Blood Culture - Final, Complete Medications Current Medications Acetaminophen/ Hydrocodone Bitart (Lortab 5/325) 1 tab PRN Q4HRS PRN PO PAIN; Start 07/17/21 at 18:30 Apixaban (Eliquis) 5 mg BID PO ; Start 07/17/21 at 12:00; Stop 07/17/21 at 12:07; Status DC Apixaban (Eliquis) 10 mg BID PO ; Start 07/17/21 at 21:00; Stop 07/17/21 at 09:54; Status DC Atorvastatin Calcium (Lipitor) 10 mg QHS PO Last administered on 07/17/21at 21:25; Start 07/17/21 at 21:00 Azithromycin 250 mg/Sodium Chloride 250 ml @ 250 mls/hr Q24H IV ; Start 07/18/21 at 09:00; Stop 07/18/21 at 08:34; Status DC Ceftriaxone Sodium (Rocephin) 1 gm Q24H IVP Last administered on 07/17/21at 12:49; Start 07/17/21 at 11:00; Stop 07/17/21 at 13:27; Status DC Daptomycin 390 mg/ Sodium Chloride 50 ml @ 100 mls/hr Q24H IV Last administered on 07/18/21at 09:19; Start 07/18/21 at 10:00 Digoxin (Lanoxin) 125 mcg DAILY PO Last administered on 07/18/21 08:32; Start 07/17/21 at 11:00 Furosemide (Lasix) 40 mg 1X ONCE IVP Last administered on 07/17/21at 12:04; Start 07/17/21 at 10:45; Stop 07/17/21 at 10:46; Status DC Furosemide (Lasix) 40 mg DAILY IVP Last administered on 07/18/21at 08:33; Start 07/17/21 at 12:00 Heparin Sodium (Porcine) (Heparin Sodium) 1,000 unit PRN Q6HRS PRN IV FOR PTT 59 - 78 Last administered on 07/18/21at 02:22; Start 07/17/21 at 12:15 Heparin Sodium (Porcine) (Heparin Sodium) 1,900 unit PRN Q6HRS PRN IV FOR PTT < 40; Start 07/17/21 at 12:15 Heparin Sodium (Porcine) (Heparin Sodium) 2,000 unit PRN Q6HRS PRN IV FOR PTT 40 - 58 Last administered on 07/17/21at 12:46; Start 07/17/21 at 12:15 Heparin Sodium/ Dextrose 250 ml @ 10.128 mls/ hr CONT PRN IV PER PROTOCOL Last administered on 07/17/21at 12:59; Start 07/17/21 at 12:15 Lactobacillus Rhamnosus (Culturelle) 1 cap BID PO Last administered on 07/18/21at 08:32; Start 07/17/21 at 21:00 Metoprolol Tartrate (Lopressor) 25 mg BID PO Last administered on 07/18/21at 08:32; Start 07/17/21 at 12:00 Piperacillin Sod/ Tazobactam Sod (Zosyn Per Pharmacy) 1 each PRN DAILY PRN MC SEE COMMENTS; Start 07/17/21 at 13:30 Piperacillin Sod/ Tazobactam Sod 3.375 gm/Sodium Chloride 50 ml @ 100 mls/hr Q6HRS IV Last administered on 07/18/21at 05:56; Start 07/17/21 at 14:00 Vancomycin HCl (Vanco Per Pharmacy) 1 each PRN DAILY PRN MC SEE COMMENTS Last administered on 07/17/21at 14:35; Start 07/17/21 at 13:30; Stop 07/18/21 at 08:39; Status DC Vancomycin HCl (Vancomycin Trough Level) 1 each 1X ONCE MC ; Start 07/19/21 at 13:30; Stop 07/19/21 at 13:31; Status Cancel Vancomycin HCl 1.5 gm/Sodium Chloride 500 ml @ 250 mls/hr 1X ONCE IV Last administered on 07/17/21at 13:59; Start 07/17/21 at 14:00; Stop 07/17/21 at 15:59; Status DC Vancomycin HCl 1 gm/Sodium Chloride 250 ml @ 250 mls/hr Q24H IV ; Start 07/18/21 at 14:00; Stop 07/18/21 at 08:34; Status DC Vitals/I & O Vital Sign - Last 24 Hours 07/17/21 07/17/21 07/17/21 07/17/21 11:00 12:00 12:00 12:04 Temp 98.2 98.2 Pulse 82 72 91 Resp 36 34 B/P (MAP) 108/50 (69) 110/54 (72) Pulse Ox 95 93 O2 Delivery Nasal Cannula Nasal Cannula Nasal Cannula O2 Flow Rate 6.0 6.0 6.0 07/17/21 07/17/21 07/17/21 07/17/21 12:05 13:00 15:00 16:00 Pulse 91 78 74 86 Resp 30 34 34 B/P (MAP) 110/54 130/53 (78) 117/45 (69) 112/49 (70) Pulse Ox 98 99 100 O2 Delivery Nasal Cannula Nasal Cannula Nasal Cannula O2 Flow Rate 6.0 6.0 6.0 07/17/21 07/17/21 07/17/21 07/17/21 16:00 17:00 18:00 19:00 Temp 97.5 97.5 Pulse 92 94 90 Resp 32 36 38 B/P (MAP) 123/59 (80) 118/28 (58) 119/50 (73) Pulse Ox 98 94 99 O2 Delivery Nasal Cannula Nasal Cannula Nasal Cannula Nasal Cannula O2 Flow Rate 6.0 6.0 6.0 6.0 07/17/21 07/17/21 07/17/21 07/17/21 20:00 20:00 21:00 21:26 Temp 99.0 99.0 Pulse 87 94 88 Resp 36 34 B/P (MAP) 123/56 (78) 124/54 (77) 124/54 Pulse Ox 100 96 O2 Delivery Nasal Cannula Nasal Cannula Nasal Cannula O2 Flow Rate 6.0 6.0 4.0 07/17/21 07/17/21 07/18/21 07/18/21 22:00 23:00 00:00 00:00 Temp 100.0 100.0 Pulse 81 94 94 Resp 42 43 44 B/P (MAP) 119/48 (71) 126/55 (78) 106/42 (63) Pulse Ox 98 96 93 O2 Delivery Nasal Cannula Nasal Cannula Nasal Cannula Nasal Cannula O2 Flow Rate 4.0 4.0 4.0 4.0 07/18/21 07/18/21 07/18/21 07/18/21 01:00 02:00 03:00 04:00 Temp 99.8 99.8 Pulse 92 90 97 95 Resp 35 41 43 38 B/P (MAP) 95/50 (65) 99/46 (63) 111/50 (70) 104/39 (60) Pulse Ox 98 91 93 96 O2 Delivery Nasal Cannula Nasal Cannula Nasal Cannula Nasal Cannula O2 Flow Rate 4.0 2.0 3.0 4.0 07/18/21 07/18/21 07/18/21 07/18/21 04:00 05:00 06:00 07:00 Pulse 95 86 96 Resp 30 32 33 B/P (MAP) 112/48 (69) 115/41 (65) 121/41 (67) Pulse Ox 97 97 95 O2 Delivery Nasal Cannula Nasal Cannula Nasal Cannula Nasal Cannula O2 Flow Rate 4.0 4.0 4.0 4.0 11/8/21 11/8/21 11/8/21 11/8/21 08:02 08:06 08:32 08:32 Temp 99.8 99.8 Pulse 92 92 92 Resp 33 B/P (MAP) 117/47 (70) 117/47 117/47 Pulse Ox 97 O2 Delivery Nasal Cannula Nasal Cannula O2 Flow Rate 4.0 4.0 Intake and Output 07/17/21 07/17/21 07/18/21 15:00 23:00 07:00 Intake Total 341 ml 850 ml 675 ml Output Total 1000 ml 550 ml 175 ml Balance -659 ml 300 ml 500 ml EMILY MARIN MD Jul 18, 2021 10:35
[2021-07-18] MEDS: HEPARIN 25,000UTS/250ML PREMIX 250 ML IV PRN (10:50)
[2021-07-18 10:59] LABS: CALCIUM 7.5 mg/dL (8.5-10.1); CREATININE 0.4 mg/dL (0.6-1.0); GFR 152.8; POTASSIUM 3.9 mmol/L (3.5-5.1)
[2021-07-18] MEDS ORDERED: VANCOMYCIN 1 GM in IV NORMAL SALINE 250ML 250 ML IV SCH (14:00)
--- NOTE | 2021-07-18 14:12 | NUR ---
SS following for discharge planning. SS reviewed pt chart and discussed with pt RN. Pt is rehabilitation resident from [facility], ; fax [phone]. Pt is currently requiring oxygen at four liters nasal canula. COVID19 negative. Cardiology, Pulmonology, and ID following. Pt on IV Daptomycin, IV Zosyn, and IV Lasix. Possible thoracentesis tomorrow. SS will continue to follow for discharge planning.
[2021-07-18] MEDS: ATORVASTATIN CALCIUM 10 MG TABLET. PO SCH (21:06)
[2021-07-19 03:00] VITALS: BP 102/45
[2021-07-19] MEDS: PIPERACILLIN/TAZOBACTAM 3.375 GM in IV NORMAL SALINE 50ML 50 ML IV SCH ×3 (06:00→20:39)
[2021-07-19 07:00] VITALS: BP 109/49
--- NOTE | 2021-07-19 08:12 | PDOC ---
Infectious Disease Note Subjective: Subjective Patient complains of' hurting all over' Complains of nausea, no vomiting Still remains intermittently confused Denies diarrhea Vital Signs: Vital Signs Vital Signs Date Time Temp Pulse Resp B/P (MAP) Pulse Ox O2 Delivery O2 Flow Rate FiO2 07/19/21 07:00 97.5 82 26 109/49 (69) 95 Nasal Cannula 2.0 97.5 Physical Exam: PHYSICAL EXAM GENERAL: Alert, awake confused likely baseline, poor hearing lying in bed comfortably, in no acute distress. Answers a few questions HEENT: Normocephalic, atraumatic. Anicteric. NECK: Supple. LUNGS: Bibasilar crackles no wheezing. HEART: Irregular, holosystolic murmur, ABDOMEN: Soft, mild tenderness present lower quadrant, no rebound or guarding EXTREMITIES: Trace edema, Rooke boots present, erythema to the right foot resolved, onychomycosis both feet on toenails, good peripheral pulses, no calf tenderness, no cyanosis, left toenail dressed, no wound, MUSCULOSKELETAL: No joint swelling. No decrease in range of motion. CENTRAL NERVOUS SYSTEM: Alert awake hard of hearing moves all 4 extremities debilitated, PSYCHIATRIC: Cooperative, anxious PIV LINES: looks clean. Medications: Inpatient Meds: Medications reviewed. Labs: Lab Laboratory Tests Test 07/18/21 08:20 07/18/21 08:25 07/18/21 14:10 07/18/21 20:25 White Blood Count 9.7 x10^3/uL (4.0-11.0) Red Blood Count 3.29 x10^6/uL (3.50-5.40) Hemoglobin 9.5 g/dL (12.0-15.5) Hematocrit 28.9 % (36.0-47.0) Mean Corpuscular Volume 88 fL (79-100) Mean Corpuscular Hemoglobin 29 pg (25-35) Mean Corpuscular Hemoglobin Concent 33 g/dL (31-37) Red Cell Distribution Width 15.9 % (11.5-14.5) Platelet Count 96 x10^3/uL (140-400) Neutrophils (%) (Auto) 86 % (31-73) Lymphocytes (%) (Auto) 5 % (24-48) Monocytes (%) (Auto) 9 % (0-9) Eosinophils (%) (Auto) 0 % (0-3) Basophils (%) (Auto) 0 % (0-3) Neutrophils # (Auto) 8.3 x10^3/uL (1.8-7.7) Lymphocytes # (Auto) 0.5 x10^3/uL (1.0-4.8) Monocytes # (Auto) 0.9 x10^3/uL (0.0-1.1) Eosinophils # (Auto) 0.0 x10^3/uL (0.0-0.7) Basophils # (Auto) 0.0 x10^3/uL (0.0-0.2) Sodium Level 135 mmol/L (136-145) Potassium Level 3.9 mmol/L (3.5-5.1) Chloride Level 98 mmol/L (98-107) Carbon Dioxide Level 34 mmol/L (21-32) Anion Gap 3 (6-14) Blood Urea Nitrogen 20 mg/dL (7-20) Creatinine 0.4 mg/dL (0.6-1.0) Estimated GFR (Cockcroft-Gault) 152.8 Glucose Level 104 mg/dL (70-99) Calcium Level 7.5 mg/dL (8.5-10.1) Activated Partial Thromboplast Time 142 SEC (24-38) 80 SEC (24-38) 110 SEC (24-38) Objective: Assessment: Sepsis from gram-positive bacteremia present on admission Enterococcus faecalis bacteremia on admission on 07/17 and 07/18 Low-grade febrile illness Leukocytosis Abdominal discomfort, nausea Acute hypoxic respiratory failure on 4 L O2 by nasal cannula likely from CHF History of allergies to penicillin CHF A. fib with RVR Severe protein calorie malnutrition PPM in place Thrombocytopenia Onychomycosis Acrocyanosis, bilateral lower extremity resolved COPD Right pleural effusion that is post thoracocentesis last admission Generalized debility Hard of hearing Poor living condition Plan: Plan of Care Agree with BETY Cardiology following Continue Zosyn/daptomycin for now Was on IV Vanco, azithromycin Follow-up labs and cultures Follow-up blood culture results Repeat blood cultures 07/19 Continue supportive care Local wound care ANTALY CALLOWAY MD Jul 19, 2021 08:12
--- NOTE | 2021-07-19 08:30 | PDOC ---
[employer] PROGRESS NOTE Date of Service DOS: DATE: 07/19/21 TIME: 08:26 Chief Complaint Chief Complaint A/P: Acute encephalopathy - likely due to sepsis Severe sepsis - ID consulted, cont vancomycin GPC positive blood cultures - as above Acute hypoxic respiratory failure Afib with RVR - eliquis for thromboprophylaxis, cardizem rate control back on metoprolol S/p ppm - good battery life H/o pulmonary embolism - on recent admission 07/14/2021 Acute on chronic diastolic heart failure: Recent 2D echo showed LVEF 50 to 55%. Continue diuresis. Moderate to severe mitral regurgitation noted on recent 2D echo. Consider BETY and referral for mitral valve clip repair as an outpatient. Thrombocytopenia Right pleural effusion Acrocyanosis, bilateral lower extremity COPD Right pleural effusion that is post thoracocentesis last admission -recurrent Generalized debility Hard of hearing Poor living condition History of Present Illness History of Present Illness Ms Bang is an 80 year old female well-known to our service as above with p ast medical history of congestive heart failure, A. fib, pacemaker placement at [facility] [place] and NSTEMI (on 07/12/21) currently admitted in ICU who presented to ER on 07/17/2021 from [facility] via EMS with shortness of breath at skilled nursing. Patient was hypoxic, so the patient on a nonrebreather. T-max 100.3, WBC 14 K, 07/17/2021 blood cultures are positive with GPC in pairs and chains. Patient is currently on O2. Alert awake. Remains confused. Last admission patient underwent right lung thoracocentesis for moderate pleural effusion on 07/14/2021. Cultures remain negative. Blood cultures were done this admission which are positive for gram-positive cocci in pairs and chains. Admitted with Cardiology, Pulmonology, and ID consultation. 07/18: Seen bedside in ICU. Asking for water though she just had some drink. Still requiring 4 L nasal cannula to maintain O2 saturations 91%. Heart rate A. fib in the low 100s. Afebrile overnight. Blood cultures 4-4 positive GPC. Heart rate A. fib in 90s 200s. She has been coughing with sips of water. Plan for repeat thoracentesis. Vitals/I&O Vitals/I&O: Vital Signs Date Time Temp Pulse Resp B/P (MAP) Pulse Ox O2 Delivery O2 Flow Rate FiO2 07/19/21 07:00 97.5 82 26 109/49 (69) 95 Nasal Cannula 2.0 97.5 I & O 07/18/21 07/18/21 07/19/21 15:00 23:00 07:00 Intake Total 400 ml 589 ml Output Total 1000 ml 725 ml 275 ml Balance -1000 ml -325 ml 314 ml Physical Exam Physical Exam: GENERAL: Alert, awake confused likely baseline, poor hearing lying in bed comfortably, in no acute distress. Answers a few questions HEENT: Normocephalic, atraumatic. Anicteric. NECK: Supple. LUNGS: Bibasilar crackles no wheezing. HEART: Irregular, holosystolic murmur, ABDOMEN: Soft, nontender, nondistended. Bowel sounds present EXTREMITIES: Trace edema, Rooke boots present, erythema to the right foot resolved, onychomycosis both feet on toenails, good peripheral pulses, no calf tenderness, no cyanosis, left toenail dressed, no wound, MUSCULOSKELETAL: No joint swelling. No decrease in range of motion. CENTRAL NERVOUS SYSTEM: Alert awake hard of hearing moves all 4 extremities debilitated, PSYCHIATRIC: Cooperative, anxious PIV LINES: looks clean. General: Alert, mild distress Heart: Other (Heart rate irregular, PSM 3/6 apex) Lungs: Other (Diminished breath sounds posteriorly at the bases) Abdomen: Soft Extremities: No edema Labs Labs: Laboratory Tests Test 07/18/21 14:10 07/18/21 20:25 Activated Partial Thromboplast Time 80 SEC (24-38) 110 SEC (24-38) Assessment and Plan Assessmemt and Plan Problems Medical Problems: (1) Bandemia Status: Acute (2) Elevated troponin Status: Acute (3) Hypoxia Status: Acute (4) Pleural effusion Status: Acute (5) Respiratory failure Status: Acute (6) SIRS (systemic inflammatory response syndrome) Status: Acute Comment Review of Relevant I have reviewed the following items peewee (where applicable) has been applied. Medications: Current Medications Medications (Trade) Dose Ordered Sig/Beny Route PRN Reason Start Time Stop Time Status Last Admin Dose Admin Daptomycin 390 mg/ Sodium Chloride 50 ml @ 100 mls/hr Q24H IV 07/18/21 10:00 07/18/21 09:19 Justifications for Admission Other Justification A. fib RVR and CHF exacerbation CLAIRE LUNDBERG MD Jul 19, 2021 08:30
[2021-07-19] MEDS: FUROSEMIDE 40 MG/4 ML VIAL. IVP SCH (09:00)
[2021-07-19] MEDS: METOPROLOL TART IMMED RELEASE 25 MG TABLET. PO SCH ×2 (09:00→20:35)
[2021-07-19 09:10] LABS: BASO % 0 % (0-3); EOS % 0 % (0-3); HEMATOCRIT 33.2 % (36.0-47.0); HEMOGLOBIN 10.8 g/dL (12.0-15.5); LYMPH # 0.4 x10^3/uL (1.0-4.8); LYMPH % 5 % (24-48); MEAN CORPUSCULAR HEMOGLOBIN 29 pg (25-35); MEAN CORPUSCULAR HGB CONC 33 g/dL (31-37); MEAN CORPUSCULAR VOLUME 88 fL (79-100); MONO # 0.7 x10^3/uL (0.0-1.1); MONO % 8 % (0-9); NEUT % 87 % (31-73); PLATELET COUNT 122 x10^3/uL (140-400); RED BLOOD COUNT 3.77 x10^6/uL (3.50-5.40); WHITE BLOOD COUNT 9.2 x10^3/uL (4.0-11.0)
[2021-07-19 09:19] LABS: BLOOD UREA NITROGEN 18 mg/dL (7-20); CALCIUM 7.6 mg/dL (8.5-10.1); CARBON DIOXIDE 38 mmol/L (21-32); CHLORIDE 98 mmol/L (98-107); CREATININE 0.4 mg/dL (0.6-1.0); GFR 152.8; GLUCOSE 102 mg/dL (70-99); POTASSIUM 3.7 mmol/L (3.5-5.1); SODIUM 135 mmol/L (136-145)
[2021-07-19 11:04] VITALS: BP 82/51
[2021-07-19] MEDS: DAPTOmycin (GENERIC) IVPB 390 MG in IV NORMAL SALINE 50ML 50 ML IV SCH (11:38)
[2021-07-19] MEDS: PANTOPRAZOLE IV PUSH 40 MG VIAL. IVP SCH (11:42)
[2021-07-19] MEDS: DIGOXIN 125 MCG TABLET. PO SCH (11:43)
[2021-07-19] MEDS: LACTOBACILLUS RHAMNOSUS GG 1 CAPSULE. PO SCH ×2 (11:43→20:35)
--- NOTE | 2021-07-19 11:59 | PDOC ---
PULMONARY PROGRESS NOTES DATE: 07/19/21 TIME: 11:56 Subjective Patient remains on oxygen. Appears weak but no shortness of breath. Status post right thoracentesis. Vitals Vital Signs Date Time Temp Pulse Resp B/P (MAP) Pulse Ox O2 Delivery O2 Flow Rate FiO2 07/19/21 11:43 85 82/51 07/19/21 11:04 97.3 26 95 Nasal Cannula 2.0 97.3 General: Alert, No acute distress Lungs: Other (Diminished breath sounds posteriorly at the bases) Cardiovascular: S1 Abdomen: Soft Extremities: Other (1+ pitting edema) Labs Laboratory Tests Test 07/17/21 18:40 07/18/21 01:30 07/18/21 08:20 07/18/21 08:25 Activated Partial Thromboplast Time 68 SEC (24-38) 75 SEC (24-38) 142 SEC (24-38) White Blood Count 9.7 x10^3/uL (4.0-11.0) Red Blood Count 3.29 x10^6/uL (3.50-5.40) Hemoglobin 9.5 g/dL (12.0-15.5) Hematocrit 28.9 % (36.0-47.0) Mean Corpuscular Volume 88 fL (79-100) Mean Corpuscular Hemoglobin 29 pg (25-35) Mean Corpuscular Hemoglobin Concent 33 g/dL (31-37) Red Cell Distribution Width 15.9 % (11.5-14.5) Platelet Count 96 x10^3/uL (140-400) Neutrophils (%) (Auto) 86 % (31-73) Lymphocytes (%) (Auto) 5 % (24-48) Monocytes (%) (Auto) 9 % (0-9) Eosinophils (%) (Auto) 0 % (0-3) Basophils (%) (Auto) 0 % (0-3) Neutrophils # (Auto) 8.3 x10^3/uL (1.8-7.7) Lymphocytes # (Auto) 0.5 x10^3/uL (1.0-4.8) Monocytes # (Auto) 0.9 x10^3/uL (0.0-1.1) Eosinophils # (Auto) 0.0 x10^3/uL (0.0-0.7) Basophils # (Auto) 0.0 x10^3/uL (0.0-0.2) Sodium Level 135 mmol/L (136-145) Potassium Level 3.9 mmol/L (3.5-5.1) Chloride Level 98 mmol/L (98-107) Carbon Dioxide Level 34 mmol/L (21-32) Anion Gap 3 (6-14) Blood Urea Nitrogen 20 mg/dL (7-20) Creatinine 0.4 mg/dL (0.6-1.0) Estimated GFR (Cockcroft-Gault) 152.8 Glucose Level 104 mg/dL (70-99) Calcium Level 7.5 mg/dL (8.5-10.1) Test 07/18/21 14:10 07/18/21 20:25 07/19/21 08:55 Activated Partial Thromboplast Time 80 SEC (24-38) 110 SEC (24-38) White Blood Count 9.2 x10^3/uL (4.0-11.0) Red Blood Count 3.77 x10^6/uL (3.50-5.40) Hemoglobin 10.8 g/dL (12.0-15.5) Hematocrit 33.2 % (36.0-47.0) Mean Corpuscular Volume 88 fL (79-100) Mean Corpuscular Hemoglobin 29 pg (25-35) Mean Corpuscular Hemoglobin Concent 33 g/dL (31-37) Red Cell Distribution Width 16.0 % (11.5-14.5) Platelet Count 122 x10^3/uL (140-400) Neutrophils (%) (Auto) 87 % (31-73) Lymphocytes (%) (Auto) 5 % (24-48) Monocytes (%) (Auto) 8 % (0-9) Eosinophils (%) (Auto) 0 % (0-3) Basophils (%) (Auto) 0 % (0-3) Neutrophils # (Auto) 8.0 x10^3/uL (1.8-7.7) Lymphocytes # (Auto) 0.4 x10^3/uL (1.0-4.8) Monocytes # (Auto) 0.7 x10^3/uL (0.0-1.1) Eosinophils # (Auto) 0.0 x10^3/uL (0.0-0.7) Basophils # (Auto) 0.0 x10^3/uL (0.0-0.2) Sodium Level 135 mmol/L (136-145) Potassium Level 3.7 mmol/L (3.5-5.1) Chloride Level 98 mmol/L (98-107) Carbon Dioxide Level 38 mmol/L (21-32) Anion Gap (6-14) Blood Urea Nitrogen 18 mg/dL (7-20) Creatinine 0.4 mg/dL (0.6-1.0) Estimated GFR (Cockcroft-Gault) 152.8 Glucose Level 102 mg/dL (70-99) Calcium Level 7.6 mg/dL (8.5-10.1) Laboratory Tests Test 07/18/21 14:10 07/18/21 20:25 07/19/21 08:55 Activated Partial Thromboplast Time 80 SEC (24-38) 110 SEC (24-38) White Blood Count 9.2 x10^3/uL (4.0-11.0) Red Blood Count 3.77 x10^6/uL (3.50-5.40) Hemoglobin 10.8 g/dL (12.0-15.5) Hematocrit 33.2 % (36.0-47.0) Mean Corpuscular Volume 88 fL (79-100) Mean Corpuscular Hemoglobin 29 pg (25-35) Mean Corpuscular Hemoglobin Concent 33 g/dL (31-37) Red Cell Distribution Width 16.0 % (11.5-14.5) Platelet Count 122 x10^3/uL (140-400) Neutrophils (%) (Auto) 87 % (31-73) Lymphocytes (%) (Auto) 5 % (24-48) Monocytes (%) (Auto) 8 % (0-9) Eosinophils (%) (Auto) 0 % (0-3) Basophils (%) (Auto) 0 % (0-3) Neutrophils # (Auto) 8.0 x10^3/uL (1.8-7.7) Lymphocytes # (Auto) 0.4 x10^3/uL (1.0-4.8) Monocytes # (Auto) 0.7 x10^3/uL (0.0-1.1) Eosinophils # (Auto) 0.0 x10^3/uL (0.0-0.7) Basophils # (Auto) 0.0 x10^3/uL (0.0-0.2) Sodium Level 135 mmol/L (136-145) Potassium Level 3.7 mmol/L (3.5-5.1) Chloride Level 98 mmol/L (98-107) Carbon Dioxide Level 38 mmol/L (21-32) Anion Gap (6-14) Blood Urea Nitrogen 18 mg/dL (7-20) Creatinine 0.4 mg/dL (0.6-1.0) Estimated GFR (Cockcroft-Gault) 152.8 Glucose Level 102 mg/dL (70-99) Calcium Level 7.6 mg/dL (8.5-10.1) Medications Active Scripts Medications Dose Route/Sig Max Daily Dose Days Date Category Eliquis (Apixaban) 5 Mg Tablet 5 Mg PO BID 30 07/15/21 Rx Eliquis (Apixaban) 5 Mg Tablet 10 Mg PO BID 7 07/15/21 Rx Metoprolol Tartrate 25 Mg Tablet 25 Mg PO BID 30 07/15/21 Rx Keflex (Cephalexin) 500 Mg Capsule 1 Cap PO TID 3 07/15/21 Rx Atorvastatin Calcium 10 Mg Tablet 10 Mg PO QHS 30 07/15/21 Rx Digoxin 125 Mcg Tablet 125 Mcg PO DAILY 30 07/15/21 Rx Effer-K 10 Meq Tablet Eff (Potassium Bicarbonate/Cit Ac) 10 Meq Tablet.eff 15 Meq PO DAILY 07/12/21 Reported Lasix (Furosemide) 40 Mg Tablet 1 Tab PO DAILY 30 07/12/[address] chest reviewed dated July 17, 2021 Bilateral pleural effusions, moderate per my impression. Evidence of congestive heart failure. Impression . 1. Acute respiratory failure, multifactorial in etiology including acute diastolic congestive heart failure, bilateral pleural effusion, AFib with rapid ventricular response, moderate to severe mitral regurgitation. 2. Abnormal CT of the chest. bilateral pleural effusions and evidence of CHF 3. Acute diastolic congestive heart failure. 4. Atrial fibrillation with rapid ventricular response. 5. Pleural effusion, status post right thoracentesis on 07/14, transudate. Cytology is pending. 6. Malnutrition. 7. Moderate to severe mitral regurgitation. 8. Right lower extremity cellulitis. 9. Leukocytosis. 10. Hyponatremia. 11. Elevated troponin, rule out non-ST elevation myocardial infarction. Plan . 1. Titrate FiO2 to keep O2 saturation 92%. 2. A. fib per cardiology. 3. Status post right thoracentesis. Await analysis. Likely transudate from CHF 4. Keep intake, less than output. Lasix per Cardiology. 5. De-escalate antibiotics. 6. Protonix for stress ulcer prophylaxis. 7. Patient has recurrent bilateral pleural effusions. She had a recent thoracentesis last Sunday. etiology of her recurrent pleural effusion which includes diastolic CHF as well as moderate to severe mitral regurgitation, pleural effusion will keep reoccurring. Awaiting transfer esophageal echo for further recommendations on mitral regurgitation 8. Monitor closely in ICU. 9. Continue Cardizem drip. KIRK MASTERSON MD Jul 19, 2021 11:59
--- NOTE | 2021-07-19 12:08 | PDOC3 ---
[facility]-Discharge Summary Date of Admission: Date of Admission: Jul 11, 2021 Date of Discharge: Date of Discharge: Jul 15, 2021 Discharge Diagnosis: Discharge Diagnosis: Acute bilateral PE without right heart strain Acute bilateral pleural effusions Acute on chronic CHF exacerbation, nromal LVEF Elevated BNP due to volume overload Elevated troponins suggestive of type II demand ischemia A. fib RVR Mild transaminitis Severe protein malnutrition Hospital Course: Hospital Course: 80-year-old female with past medical history of atrial fibrillation with pacemaker placed at [facility], hypertension, CHF, atrial fibrillation who comes in with shortness of breath and weakness for the past week since . She does take Lasix and other cardiac medications. Apparently patient also takes Eliquis but this is costly for her so she decided to just stay on aspirin. Patient denies any nausea vomiting, fevers, chest pain, diarrhea or dysuria. Patient is vaccinated for COVID-19. Per chart review: EKG performed at 1854 by ED nursing staff shows atrial fibrillation irregular rhythm with no discernible P waves with occasional PVCs heart rate 129 bpm, QTc interval 0.503, no acute STEMI, no ACS, no acute ischemia appreciated, EKG interpreted by ED attending physician Dr. Ramos. 07/13/2021 Patient seen and examined bedside while eating breakfast. Patient tolerating diet without issues. Does complain of some reflux issues. Complaining of right lower extremity pain in her foot. She does have severe bilateral toe digits onychomycosis. Patient's chart, labs, images were reviewed and discussed with RN 07/14/21 No acute events overnight. Pt seen and examined bedside today and there are some acute mental status changes. Pt more confused and mumbling her words. Mor e tachycardic in the 120s. Lower extremities are cold to touch but there are dopplerable monophasic pulses. Will obtain CTA of the chest and CT head. Patient's chart, labs, images were reviewed and discussed with RN By day of discharge, patient had improved mental status but still needing rehab. She will need to be on Eliquis for treating her PE and her Afib. She will need to be followed closely for any type of bleeding and falls after she is discharged from SNF. Disposition: Disposition/Orders: D/C to Another Facility Activity: Activity: Resume previous activity Diet: Diet: Cardiac Medications: Home Meds Active Scripts Apixaban (ELIQUIS) 5 Mg Tablet, 5 MG PO BID for PE for 30 Days, #60 TAB Prov:MACHO ESTEVEZ MD 07/15/21 Apixaban (ELIQUIS) 5 Mg Tablet, 10 MG PO BID for PE for 7 Days, #28 TAB Prov:MACHO ESTEVEZ MD 07/15/21 Metoprolol Tartrate (METOPROLOL TARTRATE) 25 Mg Tablet, 25 MG PO BID for afrib for 30 Days, #60 TAB 2 Refills Prov:MACHO ESTEVEZ MD 07/15/21 Cephalexin (KEFLEX) 500 Mg Capsule, 1 CAP PO TID for cellulitis for 3 Days, #9 CAP Prov:MACHO ESTEVEZ MD 07/15/21 Atorvastatin Calcium (ATORVASTATIN CALCIUM) 10 Mg Tablet, 10 MG PO QHS for cholesterol for 30 Days, #30 TAB Prov:MACHO ESTEVEZ MD 07/15/21 Digoxin (DIGOXIN) 125 Mcg Tablet, 125 MCG PO DAILY for afib for 30 Days, #30 TAB 2 Refills Prov:MACHO ESTEVEZ MD 07/15/21 Reported Medications Potassium Bicarbonate/Cit Ac (EFFER-K 10 MEQ TABLET EFF) 10 Meq Tablet.eff, 15 MEQ PO DAILY for POTASSIUM SUPPLEMENT, TAB 07/12/21 Furosemide (LASIX) 40 Mg Tablet, 1 TAB PO DAILY for diuretic for 30 Days, #30 TAB 0 Refills 07/12/21 Scheduled Apixaban (Eliquis), 10 MG PO BID Apixaban (Eliquis), 5 MG PO BID Atorvastatin Calcium (Atorvastatin Calcium), 10 MG PO QHS Cephalexin (Keflex), 1 CAP PO TID Digoxin (Digoxin), 125 MCG PO DAILY Furosemide (Lasix), 1 TAB PO DAILY, (Reported) Metoprolol Tartrate (Metoprolol Tartrate), 25 MG PO BID Potassium Bicarbonate/Cit Ac (Effer-K 10 Meq Tablet Eff), 15 MEQ PO DAILY, (Reported) Total Time: Total Time: Total time spent was 36 minutes in preparing scripts, discharge planning with SW and RN, and preparing this discharge summary. Patient seen and examined on day of discharge. Justicifation of Admission Dx: Justifications for Admission: Justification of Admission Dx: Yes MACHO ESTEVEZ MD Jul 19, 2021 12:08
--- NOTE | 2021-07-19 12:53 | PDOC ---
MICHAELA PIPER LOCATION ANALYST 07/19/21 1253: CARDIO Progress Notes Date and Time Date of Service 07/19/2021 Time of Evaluation 1240 Subjective Subjective: No Chest Pain, No shortness of breath, No Palpitations Vitals Vitals Vital Signs Date Time Temp Pulse Resp B/P (MAP) Pulse Ox O2 Delivery O2 Flow Rate FiO2 07/19/21 11:43 85 82/51 07/19/21 11:04 97.3 26 95 Nasal Cannula 2.0 97.3 Weight Weight [ ] Input and Output Intake and Output Intake and Output 07/19/21 07:00 Intake Total 989 ml Output Total 2000 ml Balance -1011 ml Intake Oral 800 ml IV Total 189 ml Output Urine Total 2000 ml # Bowel Movements 1 Laboratory Labs Laboratory Tests Test 07/18/21 14:10 07/18/21 20:25 07/19/21 08:55 Activated Partial Thromboplast Time 80 SEC (24-38) 110 SEC (24-38) White Blood Count 9.2 x10^3/uL (4.0-11.0) Red Blood Count 3.77 x10^6/uL (3.50-5.40) Hemoglobin 10.8 g/dL (12.0-15.5) Hematocrit 33.2 % (36.0-47.0) Mean Corpuscular Volume 88 fL (79-100) Mean Corpuscular Hemoglobin 29 pg (25-35) Mean Corpuscular Hemoglobin Concent 33 g/dL (31-37) Red Cell Distribution Width 16.0 % (11.5-14.5) Platelet Count 122 x10^3/uL (140-400) Neutrophils (%) (Auto) 87 % (31-73) Lymphocytes (%) (Auto) 5 % (24-48) Monocytes (%) (Auto) 8 % (0-9) Eosinophils (%) (Auto) 0 % (0-3) Basophils (%) (Auto) 0 % (0-3) Neutrophils # (Auto) 8.0 x10^3/uL (1.8-7.7) Lymphocytes # (Auto) 0.4 x10^3/uL (1.0-4.8) Monocytes # (Auto) 0.7 x10^3/uL (0.0-1.1) Eosinophils # (Auto) 0.0 x10^3/uL (0.0-0.7) Basophils # (Auto) 0.0 x10^3/uL (0.0-0.2) Sodium Level 135 mmol/L (136-145) Potassium Level 3.7 mmol/L (3.5-5.1) Chloride Level 98 mmol/L (98-107) Carbon Dioxide Level 38 mmol/L (21-32) Anion Gap (6-14) Blood Urea Nitrogen 18 mg/dL (7-20) Creatinine 0.4 mg/dL (0.6-1.0) Estimated GFR (Cockcroft-Gault) 152.8 Glucose Level 102 mg/dL (70-99) Calcium Level 7.6 mg/dL (8.5-10.1) Microbiology Micro Microbiology 07/18/21 Blood Culture - Final, Complete Physical Exam HEENT: Neck Supple W Full Motion Chest: Symmetric LUNGS: Other (basilar crackles) Heart: irregularly irregular (atrial flutter) Abdomen: Soft N/T Extremities: Other (2+ bilateral LE pitting edema) Neurology: alert, oriented, follow commands Assessment Assessment 1. Acute respiratory failure secondary to combination of acute on chronic diastolic heart failure, bilateral pleural effusions, possible pneumonia. Patient was also diagnosed with pulmonary embolism on CTA last admission. S/P thoracentesis 2. Acute on chronic diastolic heart failure: Recent 2D echo showed LVEF 50 to 55%. Lasix therapy 3. Permanent atrial fibrillation/flutter presently with atrial flutter with RVR, rate better controlled. Continue metoprolol and digoxin. Heparin drip. Change to eliquis moving forward 4. Moderate to severe mitral regurgitation noted on recent 2D echo. Referral for mitral valve clip repair as an outpatient. 5. Hypertension: Controlled 6. SSS s/p PPM implantation with recent device check showing normal function with adequate battery life 7. Sepsis/bacteremia: ID requesting BETY to r/o endocarditis, risks and beneftis discussed and agreeable to proceed. 8. Recent bilateral PE Justicifation of Admission Dx: Justifications for Admission: Justification of Admission Dx: Yes EMILY MARIN MD 07/19/21 6448: CARDIO Progress Notes Assessment Assessment Patient seen and examined. Agree with FISHERIES DIVER's assessment and plan. Acute on chronic diastolic heart failure better compensated Permanent atrial fibrillation/flutter rate controlled Patient with sepsis/bacteremia and has known history of moderate to severe mitral regurgitation Plan for BETY to rule out endocarditis as recommended by ID team MICHAELA PIPER APRN Jul 19, 2021 12:53 EMILY MARIN MD Jul 19, 2021 14:49
--- NOTE | 2021-07-19 13:25 | RAD ---
EXAM: CT Abdomen and Pelvis without IV contrast CLINICAL HISTORY: Reason: nausea and abdo discomfort / Spl. Instructions: / History: . COMPARISON: none TECHNIQUE: Helical CT of the abdomen and pelvis without intravenous contrast. Axial, coronal and sagi ttal reformatted images were generated. PQRS compliance statement - One or more of the following individualized dose reduction techniques wer e utilized for this study: 1. Automated exposure control 2. Adjustment of the mA and/or kV according to patient size 3. Use of iterative reconstruction technique FINDINGS: Lack of intravenous contrast limits evaluation of solid organs, vasculature, and lymph nodes. Lower chest: Small left pleural effusion. Trace right pleural effusion. Associated atelectasis of the left lower l obe. Evaluation of the lung bases limited by motion artifact. Within these constraints no obvious desirae g mass. Large hiatal hernia. There is cardiomegaly with malrotation of the heart. Pacer leads are see n within the heart. Abdomen and Pelvis: Left hepatic cyst. Gallbladder is contracted but otherwise grossly unremarkable. Spleen is grossly un remarkable. Mild thickening left adrenal gland. Right adrenal glands are unremarkable Left interpolar and lower pole renal cyst. No right renal lesion. No hydronephrosis. No hydroureter. Moderate to large volume colonic stool content is seen. No small or large bowel dilatation. No bowel obstruction. Appendix is not seen. Moderate hiatal hernia. Small volume abdominal and pelvic ascites. Presacral infiltration/edema. No abdominal or pelvic lymphadenopathy. Diffuse edema within the subcutaneous soft tissues Bones: Diffuse decreased bone mineral density. Gluteus minimus fatty atrophy bilaterally. IMPRESSION: Small left and trace right pleural effusion. Atelectasis of the left lower lobe. Large hiatal hernia. Small volume abdominal and pelvic ascites. Moderate to large volume colonic stool content is seen. Electronically signed by: Jatin More MD (07/19/2021 1:23 PM) [facility]
--- NOTE | 2021-07-19 14:47 | NUR ---
SS following up with discharge planning. SS reviewed pt chart and discussed with pt RN. Pt is currently requiring oxygen at two liters nasal canula. COVID19 negative. Pt on IV Daptomycin, IV Zosyn, and IV Lasix. PO diet. Pt had Thoracentesis today. BETY tomorrow. PT/OT needed when medically ready to participate. SS will continue to follow for discharge planning.
[2021-07-19 15:36] VITALS: BP 105/49
--- NOTE | 2021-07-19 16:11 | RAD ---
Right Thoracentesis 07/19/2021 9:17 AM Clinical History: Recurrent right pleural effusion. Technique: Relative benefits risks and alternatives were discussed with the patient and/or their rep resentative. Written informed consent was obtained. The patient was placed in seated position. A bryn eout procedure was performed. Sonographic assessment demonstrates a moderate to large right pleural effusion. A site for skin entry was selected, and subsequently prepped and draped using sterile barrier technique. 1% lidocaine wit hout epinepherine was administered for local anesthesia to the skin and subcutaenous tissues. A 5 Mosotho sheathed needle was passed into the pleural space. Serous fluid was aspirated and the cath eter was connected to a vacuum. Approximately 1 liter of fluid were drained. The catheter was remove d and adequate hemostasis was obtained. A sterile dressing was applied. The patient tolerated the pr ocedure well, without complications. Impression: Successful ultrasound guided thoracentesis with removal of 1 liter of serous fluid. Electronically signed by: Sabas Rodríguez MD (07/19/2021 4:09 PM) [id number]
[2021-07-19] MEDS ORDERED: SENNOSIDES/DOCUSATE 8.6/50MG TABLET. PO PRN (16:45)
[2021-07-19] MEDS: HEPARIN 25,000UTS/250ML PREMIX 250 ML IV PRN (16:52)
[2021-07-19] MEDS: POLYETHYLENE GLYCOL 3350 17 GM PACKET. PO SCH (16:56)
[2021-07-19 19:25] VITALS: BP 96/48
[2021-07-19] MEDS: PSYLLIUM HUSK (SUGAR FREE) 1 PKT PACKET PO SCH (20:36)
[2021-07-19] MEDS: ATORVASTATIN CALCIUM 10 MG TABLET. PO SCH (20:37)
[2021-07-19 23:10] VITALS: BP 101/41
[2021-07-20] VITALS (17 sets, daily range): BP systolic 76–165; BP diastolic 43–67
[2021-07-20] MEDS: PIPERACILLIN/TAZOBACTAM 3.375 GM in IV NORMAL SALINE 50ML 50 ML IV SCH ×3 (01:48→15:37)
[2021-07-20 01:58] LABS: BASO % 0 % (0-3); EOS % 1 % (0-3); HEMATOCRIT 29.8 % (36.0-47.0); HEMOGLOBIN 9.9 g/dL (12.0-15.5); LYMPH # 0.5 x10^3/uL (1.0-4.8); LYMPH % 6 % (24-48); MEAN CORPUSCULAR HEMOGLOBIN 29 pg (25-35); MEAN CORPUSCULAR HGB CONC 33 g/dL (31-37); MEAN CORPUSCULAR VOLUME 87 fL (79-100); MONO # 0.7 x10^3/uL (0.0-1.1); MONO % 8 % (0-9); NEUT # 7.4 x10^3/uL (1.8-7.7); NEUT % 86 % (31-73); PLATELET COUNT 136 x10^3/uL (140-400); RED BLOOD COUNT 3.44 x10^6/uL (3.50-5.40); WHITE BLOOD COUNT 8.7 x10^3/uL (4.0-11.0)
[2021-07-20 02:05] LABS: BLOOD UREA NITROGEN 16 mg/dL (7-20); CALCIUM 7.1 mg/dL (8.5-10.1); CARBON DIOXIDE 38 mmol/L (21-32); CHLORIDE 99 mmol/L (98-107); CREATININE 0.4 mg/dL (0.6-1.0); GFR 152.8; GLUCOSE 109 mg/dL (70-99); POTASSIUM 3.6 mmol/L (3.5-5.1); SODIUM 135 mmol/L (136-145)
[2021-07-20] MEDS: HEPARIN for IV BOLUS 10,000 UNIT/10 ML VIAL. IV PRN (02:25)
[2021-07-20] MEDS ORDERED: IV RINGERS,LACTATED 1000ML 1,000 ML IV SCH (06:00)
[2021-07-20] MEDS ORDERED: PROCHLORPERAZINE 10 MG/2 ML VIAL. IVP PRN (06:00)
--- NOTE | 2021-07-20 07:34 | PDOC ---
PULMONARY PROGRESS NOTES DATE: 07/20/21 TIME: 07:31 Subjective Continue on NC oxygen no increased SOA or cough Status post right thoracentesis 07/19 Vitals Vital Signs Date Time Temp Pulse Resp B/P (MAP) Pulse Ox O2 Delivery O2 Flow Rate FiO2 07/20/21 02:45 97.7 75 20 92/43 (59) 92 Nasal Cannula 2.0 97.7 ROS: No Nausea, No Chest Pain, No Abdominal Pain, No Increase Cough General: Alert, No acute distress Lungs: Other (Diminished breath sounds posteriorly at the bases) Cardiovascular: S1 Abdomen: Soft Extremities: Other (1+ pitting edema) Labs Laboratory Tests Test 07/18/21 08:20 07/18/21 08:25 07/18/21 14:10 07/18/21 20:25 White Blood Count 9.7 x10^3/uL (4.0-11.0) Red Blood Count 3.29 x10^6/uL (3.50-5.40) Hemoglobin 9.5 g/dL (12.0-15.5) Hematocrit 28.9 % (36.0-47.0) Mean Corpuscular Volume 88 fL (79-100) Mean Corpuscular Hemoglobin 29 pg (25-35) Mean Corpuscular Hemoglobin Concent 33 g/dL (31-37) Red Cell Distribution Width 15.9 % (11.5-14.5) Platelet Count 96 x10^3/uL (140-400) Neutrophils (%) (Auto) 86 % (31-73) Lymphocytes (%) (Auto) 5 % (24-48) Monocytes (%) (Auto) 9 % (0-9) Eosinophils (%) (Auto) 0 % (0-3) Basophils (%) (Auto) 0 % (0-3) Neutrophils # (Auto) 8.3 x10^3/uL (1.8-7.7) Lymphocytes # (Auto) 0.5 x10^3/uL (1.0-4.8) Monocytes # (Auto) 0.9 x10^3/uL (0.0-1.1) Eosinophils # (Auto) 0.0 x10^3/uL (0.0-0.7) Basophils # (Auto) 0.0 x10^3/uL (0.0-0.2) Sodium Level 135 mmol/L (136-145) Potassium Level 3.9 mmol/L (3.5-5.1) Chloride Level 98 mmol/L (98-107) Carbon Dioxide Level 34 mmol/L (21-32) Anion Gap 3 (6-14) Blood Urea Nitrogen 20 mg/dL (7-20) Creatinine 0.4 mg/dL (0.6-1.0) Estimated GFR (Cockcroft-Gault) 152.8 Glucose Level 104 mg/dL (70-99) Calcium Level 7.5 mg/dL (8.5-10.1) Activated Partial Thromboplast Time 142 SEC (24-38) 80 SEC (24-38) 110 SEC (24-38) Test 07/19/21 08:55 07/19/21 17:35 07/20/21 01:40 White Blood Count 9.2 x10^3/uL (4.0-11.0) 8.7 x10^3/uL (4.0-11.0) Red Blood Count 3.77 x10^6/uL (3.50-5.40) 3.44 x10^6/uL (3.50-5.40) Hemoglobin 10.8 g/dL (12.0-15.5) 9.9 g/dL (12.0-15.5) Hematocrit 33.2 % (36.0-47.0) 29.8 % (36.0-47.0) Mean Corpuscular Volume 88 fL (79-100) 87 fL (79-100) Mean Corpuscular Hemoglobin 29 pg (25-35) 29 pg (25-35) Mean Corpuscular Hemoglobin Concent 33 g/dL (31-37) 33 g/dL (31-37) Red Cell Distribution Width 16.0 % (11.5-14.5) 16.0 % (11.5-14.5) Platelet Count 122 x10^3/uL (140-400) 136 x10^3/uL (140-400) Neutrophils (%) (Auto) 87 % (31-73) 86 % (31-73) Lymphocytes (%) (Auto) 5 % (24-48) 6 % (24-48) Monocytes (%) (Auto) 8 % (0-9) 8 % (0-9) Eosinophils (%) (Auto) 0 % (0-3) 1 % (0-3) Basophils (%) (Auto) 0 % (0-3) 0 % (0-3) Neutrophils # (Auto) 8.0 x10^3/uL (1.8-7.7) 7.4 x10^3/uL (1.8-7.7) Lymphocytes # (Auto) 0.4 x10^3/uL (1.0-4.8) 0.5 x10^3/uL (1.0-4.8) Monocytes # (Auto) 0.7 x10^3/uL (0.0-1.1) 0.7 x10^3/uL (0.0-1.1) Eosinophils # (Auto) 0.0 x10^3/uL (0.0-0.7) 0.0 x10^3/uL (0.0-0.7) Basophils # (Auto) 0.0 x10^3/uL (0.0-0.2) 0.0 x10^3/uL (0.0-0.2) Sodium Level 135 mmol/L (136-145) 135 mmol/L (136-145) Potassium Level 3.7 mmol/L (3.5-5.1) 3.6 mmol/L (3.5-5.1) Chloride Level 98 mmol/L (98-107) 99 mmol/L (98-107) Carbon Dioxide Level 38 mmol/L (21-32) 38 mmol/L (21-32) Anion Gap (6-14) (6-14) Blood Urea Nitrogen 18 mg/dL (7-20) 16 mg/dL (7-20) Creatinine 0.4 mg/dL (0.6-1.0) 0.4 mg/dL (0.6-1.0) Estimated GFR (Cockcroft-Gault) 152.8 152.8 Glucose Level 102 mg/dL (70-99) 109 mg/dL (70-99) Calcium Level 7.6 mg/dL (8.5-10.1) 7.1 mg/dL (8.5-10.1) Magnesium Level 2.1 mg/dL (1.8-2.4) Activated Partial Thromboplast Time 64 SEC (24-38) 61 SEC (24-38) Heparin Anti-Xa Act, Unfractionated 0.53 IU/mL (0.30-0.70) Laboratory Tests Test 07/19/21 08:55 07/19/21 17:35 07/20/21 01:40 White Blood Count 9.2 x10^3/uL (4.0-11.0) 8.7 x10^3/uL (4.0-11.0) Red Blood Count 3.77 x10^6/uL (3.50-5.40) 3.44 x10^6/uL (3.50-5.40) Hemoglobin 10.8 g/dL (12.0-15.5) 9.9 g/dL (12.0-15.5) Hematocrit 33.2 % (36.0-47.0) 29.8 % (36.0-47.0) Mean Corpuscular Volume 88 fL (79-100) 87 fL (79-100) Mean Corpuscular Hemoglobin 29 pg (25-35) 29 pg (25-35) Mean Corpuscular Hemoglobin Concent 33 g/dL (31-37) 33 g/dL (31-37) Red Cell Distribution Width 16.0 % (11.5-14.5) 16.0 % (11.5-14.5) Platelet Count 122 x10^3/uL (140-400) 136 x10^3/uL (140-400) Neutrophils (%) (Auto) 87 % (31-73) 86 % (31-73) Lymphocytes (%) (Auto) 5 % (24-48) 6 % (24-48) Monocytes (%) (Auto) 8 % (0-9) 8 % (0-9) Eosinophils (%) (Auto) 0 % (0-3) 1 % (0-3) Basophils (%) (Auto) 0 % (0-3) 0 % (0-3) Neutrophils # (Auto) 8.0 x10^3/uL (1.8-7.7) 7.4 x10^3/uL (1.8-7.7) Lymphocytes # (Auto) 0.4 x10^3/uL (1.0-4.8) 0.5 x10^3/uL (1.0-4.8) Monocytes # (Auto) 0.7 x10^3/uL (0.0-1.1) 0.7 x10^3/uL (0.0-1.1) Eosinophils # (Auto) 0.0 x10^3/uL (0.0-0.7) 0.0 x10^3/uL (0.0-0.7) Basophils # (Auto) 0.0 x10^3/uL (0.0-0.2) 0.0 x10^3/uL (0.0-0.2) Sodium Level 135 mmol/L (136-145) 135 mmol/L (136-145) Potassium Level 3.7 mmol/L (3.5-5.1) 3.6 mmol/L (3.5-5.1) Chloride Level 98 mmol/L (98-107) 99 mmol/L (98-107) Carbon Dioxide Level 38 mmol/L (21-32) 38 mmol/L (21-32) Anion Gap (6-14) (6-14) Blood Urea Nitrogen 18 mg/dL (7-20) 16 mg/dL (7-20) Creatinine 0.4 mg/dL (0.6-1.0) 0.4 mg/dL (0.6-1.0) Estimated GFR (Cockcroft-Gault) 152.8 152.8 Glucose Level 102 mg/dL (70-99) 109 mg/dL (70-99) Calcium Level 7.6 mg/dL (8.5-10.1) 7.1 mg/dL (8.5-10.1) Magnesium Level 2.1 mg/dL (1.8-2.4) Activated Partial Thromboplast Time 64 SEC (24-38) 61 SEC (24-38) Heparin Anti-Xa Act, Unfractionated 0.53 IU/mL (0.30-0.70) Medications Active Scripts Medications Dose Route/Sig Max Daily Dose Days Date Category Eliquis (Apixaban) 5 Mg Tablet 5 Mg PO BID 30 07/15/21 Rx Eliquis (Apixaban) 5 Mg Tablet 10 Mg PO BID 7 07/15/21 Rx Metoprolol Tartrate 25 Mg Tablet 25 Mg PO BID 30 07/15/21 Rx Keflex (Cephalexin) 500 Mg Capsule 1 Cap PO TID 3 07/15/21 Rx Atorvastatin Calcium 10 Mg Tablet 10 Mg PO QHS 30 07/15/21 Rx Digoxin 125 Mcg Tablet 125 Mcg PO DAILY 30 07/15/21 Rx Effer-K 10 Meq Tablet Eff (Potassium Bicarbonate/Cit Ac) 10 Meq Tablet.eff 15 Meq PO DAILY 07/12/21 Reported Lasix (Furosemide) 40 Mg Tablet 1 Tab PO DAILY 30 07/12/[address] chest reviewed dated July 17, 2021 Bilateral pleural effusions, moderate per my impression. Evidence of congestive heart failure. Impression . 1. Acute respiratory failure, multifactorial in etiology including acute diastolic congestive heart failure, bilateral pleural effusion, AFib with rapid ventricular response, moderate to severe mitral regurgitation.--- now rate controlled 2. Abnormal CT of the chest. bilateral pleural effusions and evidence of CHF 3. Acute diastolic congestive heart failure. 4. Atrial fibrillation with rapid ventricular response. 5. Pleural effusion, status post right thoracentesis on 07/14, transudate. Cytology is pending. 6. Malnutrition. 7. Moderate to severe mitral regurgitation. 8. Right lower extremity cellulitis. 9. Leukocytosis--improved ID following 10. Hyponatremia.--resolved 11. Elevated troponin, rule out non-ST elevation myocardial infarction. Plan . 1. Titrate FiO2 to keep O2 saturation 92%. 2. A. fib per cardiology--plannnign for BETY, continue heparin gtt 3. Status post right thoracentesis 07/19/21--1 liter removed --Await analysis. Likely transudate from CHF 4. Keep intake, less than output. Lasix per Cardiology. 5. antibiotics--zosyn and Dapto--per ID 6. Protonix for stress ulcer prophylaxis. 7. Patient has recurrent bilateral pleural effusions. She had a recent thoracentesis last Sunday. etiology of her recurrent pleural effusion which includes diastolic CHF as well as moderate to severe mitral regurgitation, pleural effusion will keep reoccurring. Awaiting transfer esophageal echo for further recommendations on mitral regurgitation KIRK MASTERSON MD Jul 20, 2021 07:33
[2021-07-20] MEDS ORDERED: BENZOCAINE ONE 20% MUCOSAL SPRAY. MM (08:45)
[2021-07-20] MEDS ORDERED: LIDOCAINE 2% TOPICAL JELLY 30GM TUBE. TP ONE (08:45)
[2021-07-20] MEDS ORDERED: LIDOCAINE 2% VISCOUS 15 ML SOLUTION. SWSW ONE (08:45)
[2021-07-20] MEDS: POLYETHYLENE GLYCOL 3350 17 GM PACKET. PO SCH (09:00)
[2021-07-20] MEDS: METOPROLOL TART IMMED RELEASE 25 MG TABLET. PO SCH ×2 (09:00→21:00)
[2021-07-20] MEDS: LACTOBACILLUS RHAMNOSUS GG 1 CAPSULE. PO SCH ×2 (09:00→21:00)
[2021-07-20] MEDS: FUROSEMIDE 40 MG/4 ML VIAL. IVP SCH (09:00)
[2021-07-20] MEDS: PANTOPRAZOLE IV PUSH 40 MG VIAL. IVP SCH (09:33)
[2021-07-20] MEDS: DAPTOmycin (GENERIC) IVPB 390 MG in IV NORMAL SALINE 50ML 50 ML IV SCH (10:00)
--- NOTE | 2021-07-20 14:10 | PDOC ---
[facility] [facility] PROGRESS NOTE Date of Service DOS: DATE: 07/20/21 TIME: 13:47 Chief Complaint Chief Complaint A/P: Acute encephalopathy - likely due to sepsis Severe sepsis - ID consulted, cont vancomycin GPC positive blood cultures - as above Acute hypoxic respiratory failure Afib with RVR - eliquis for thromboprophylaxis, cardizem rate control back on metoprolol S/p ppm - good battery life H/o pulmonary embolism - on recent admission 07/14/2021 Acute on chronic diastolic heart failure: Recent 2D echo showed LVEF 50 to 55%. Continue diuresis. Moderate to severe mitral regurgitation noted on recent 2D echo. Consider BETY and referral for mitral valve clip repair as an outpatient. Thrombocytopenia Right pleural effusion Acrocyanosis, bilateral lower extremity COPD Right pleural effusion that is post thoracocentesis last admission -recurrent Generalized debility Hard of hearing Poor living condition History of Present Illness History of Present Illness 07/20, out of ICU yesterday, better BETY today, cont other, cont other Ms Bang is an 80 year old female well-known to our service as above with past medical history of congestive heart failure, A. fib, pacemaker placement at [facility] and NSTEMI (on 07/12/21) currently admitted in ICU who presented to ER on 07/17/2021 from [facility] via EMS with shortness of breath at custodial. Patient was hypoxic, so the patient on a nonrebreather. T-max 100.3, WBC 14 K, 07/17/2021 blood cultures are positive with GPC in pairs and chains. Patient is currently on O2. Alert awake. Remains confused. Last admission patient underwent right lung thoracocentesis for moderate pleural effusion on 07/14/2021. Cultures remain negative. Blood cultures were done this admission which are positive for gram-positive cocci in pairs and chains. Admitted with Cardiology, Pulmonology, and ID consultation. Afebrile overnight. Blood cultures 4-4 positive GPC. Heart rate A. fib in 90s 200s. She has been coughing with sips of water. Plan for repeat thoracentesis. Vitals/I&O Vitals/I&O: Vital Signs Date Time Temp Pulse Resp B/P (MAP) Pulse Ox O2 Delivery O2 Flow Rate FiO2 07/20/21 11:46 98.6 84 99/44 88 Nasal Cannula 3.0 98.6 07/20/21 11:00 18 I & O 07/19/21 07/19/21 07/20/21 15:00 23:00 07:00 Intake Total 640 ml 60 ml Output Total 200 ml 200 ml Balance 440 ml -200 ml 60 ml Physical Exam Physical Exam: GENERAL: Alert, awake confused likely baseline, poor hearing lying in bed comfortably, in no acute distress. Answers a few questions HEENT: Normocephalic, atraumatic. Anicteric. NECK: Supple. LUNGS: Bibasilar crackles no wheezing. HEART: Irregular, holosystolic murmur, ABDOMEN: Soft, mild tenderness present lower quadrant, no rebound or guarding EXTREMITIES: Trace edema, Rooke boots present, erythema to the right foot resolved, onychomycosis both feet on toenails, good peripheral pulses, no calf tenderness, no cyanosis, left toenail dressed, no wound, MUSCULOSKELETAL: No joint swelling. No decrease in range of motion. CENTRAL NERVOUS SYSTEM: Alert awake hard of hearing moves all 4 extremities debilitated, PSYCHIATRIC: Cooperative, anxious PIV LINES: looks clean. General: Alert, mild distress Heart: Other (Heart rate irregular, PSM 3/6 apex) Lungs: Other (Diminished breath sounds posteriorly at the bases) Abdomen: Soft Extremities: No edema Labs Labs: Laboratory Tests Test 07/19/21 17:35 07/20/21 01:40 07/20/21 08:05 Activated Partial Thromboplast Time 64 SEC (24-38) 61 SEC (24-38) 102 SEC (24-38) Heparin Anti-Xa Act, Unfractionated 0.53 IU/mL (0.30-0.70) White Blood Count 8.7 x10^3/uL (4.0-11.0) Red Blood Count 3.44 x10^6/uL (3.50-5.40) Hemoglobin 9.9 g/dL (12.0-15.5) Hematocrit 29.8 % (36.0-47.0) Mean Corpuscular Volume 87 fL (79-100) Mean Corpuscular Hemoglobin 29 pg (25-35) Mean Corpuscular Hemoglobin Concent 33 g/dL (31-37) Red Cell Distribution Width 16.0 % (11.5-14.5) Platelet Count 136 x10^3/uL (140-400) Neutrophils (%) (Auto) 86 % (31-73) Lymphocytes (%) (Auto) 6 % (24-48) Monocytes (%) (Auto) 8 % (0-9) Eosinophils (%) (Auto) 1 % (0-3) Basophils (%) (Auto) 0 % (0-3) Neutrophils # (Auto) 7.4 x10^3/uL (1.8-7.7) Lymphocytes # (Auto) 0.5 x10^3/uL (1.0-4.8) Monocytes # (Auto) 0.7 x10^3/uL (0.0-1.1) Eosinophils # (Auto) 0.0 x10^3/uL (0.0-0.7) Basophils # (Auto) 0.0 x10^3/uL (0.0-0.2) Sodium Level 135 mmol/L (136-145) Potassium Level 3.6 mmol/L (3.5-5.1) Chloride Level 99 mmol/L (98-107) Carbon Dioxide Level 38 mmol/L (21-32) Anion Gap (6-14) Blood Urea Nitrogen 16 mg/dL (7-20) Creatinine 0.4 mg/dL (0.6-1.0) Estimated GFR (Cockcroft-Gault) 152.8 Glucose Level 109 mg/dL (70-99) Calcium Level 7.1 mg/dL (8.5-10.1) Assessment and Plan Assessmemt and Plan Problems Medical Problems: (1) Bandemia Status: Acute (2) Elevated troponin Status: Acute (3) Hypoxia Status: Acute (4) Pleural effusion Status: Acute (5) Respiratory failure Status: Acute (6) SIRS (systemic inflammatory response syndrome) Status: Acute Comment Review of Relevant I have reviewed the following items peewee (where applicable) has been applied. Medications: Current Medications Medications (Trade) Dose Ordered Sig/Beny Route PRN Reason Start Time Stop Time Status Last Admin Dose Admin Psyllium Hydrophilic Mucilloid (Metamucil Fiber Packet) 1 pkt QHS PO 07/19/21 21:00 07/19/21 20:36 Polyethylene Glycol (miraLAX PACKET) 17 gm DAILY PO 07/19/21 16:45 07/19/21 16:56 Justifications for Admission Other Justification A. fib RVR and CHF exacerbation HAMZAH BRAND MD Jul 20, 2021 14:10
[2021-07-20] MEDS: DIGOXIN 125 MCG TABLET. PO SCH (15:42)
[2021-07-20] MEDS: HEPARIN 25,000UTS/250ML PREMIX 250 ML IV PRN (15:44)
--- NOTE | 2021-07-20 16:35 | PDOC ---
Infectious Disease Note Subjective Subjective pt is feeling better, says is hungry and wants food and water ROS ROS no n/v/d/ Vital Sign Vital Signs Vital Signs Date Time Temp Pulse Resp B/P (MAP) Pulse Ox O2 Delivery O2 Flow Rate FiO2 07/20/21 15:42 100 80/55 07/20/21 15:00 97.8 26 93 Nasal Cannula 3.0 97.8 Physical Exam PHYSICAL EXAM GENERAL: Alert, awake confused likely baseline, poor hearing lying in bed comfortably, in no acute distress. Answers a few questions HEENT: Normocephalic, atraumatic. Anicteric. NECK: Supple. LUNGS: Bibasilar crackles no wheezing. HEART: Irregular, holosystolic murmur, ABDOMEN: Soft, mild tenderness present lower quadrant, no rebound or guarding EXTREMITIES: Trace edema, Rooke boots present, erythema to the right foot resolved, onychomycosis both feet on toenails, good peripheral pulses, no calf tenderness, no cyanosis, left toenail dressed, no wound, MUSCULOSKELETAL: No joint swelling. No decrease in range of motion. CENTRAL NERVOUS SYSTEM: Alert awake hard of hearing moves all 4 extremities debilitated, PSYCHIATRIC: Cooperative, anxious PIV LINES: looks clean. Labs Lab Laboratory Tests Test 07/19/21 17:35 07/20/21 01:40 07/20/21 08:05 Activated Partial Thromboplast Time 64 SEC (24-38) 61 SEC (24-38) 102 SEC (24-38) Heparin Anti-Xa Act, Unfractionated 0.53 IU/mL (0.30-0.70) White Blood Count 8.7 x10^3/uL (4.0-11.0) Red Blood Count 3.44 x10^6/uL (3.50-5.40) Hemoglobin 9.9 g/dL (12.0-15.5) Hematocrit 29.8 % (36.0-47.0) Mean Corpuscular Volume 87 fL (79-100) Mean Corpuscular Hemoglobin 29 pg (25-35) Mean Corpuscular Hemoglobin Concent 33 g/dL (31-37) Red Cell Distribution Width 16.0 % (11.5-14.5) Platelet Count 136 x10^3/uL (140-400) Neutrophils (%) (Auto) 86 % (31-73) Lymphocytes (%) (Auto) 6 % (24-48) Monocytes (%) (Auto) 8 % (0-9) Eosinophils (%) (Auto) 1 % (0-3) Basophils (%) (Auto) 0 % (0-3) Neutrophils # (Auto) 7.4 x10^3/uL (1.8-7.7) Lymphocytes # (Auto) 0.5 x10^3/uL (1.0-4.8) Monocytes # (Auto) 0.7 x10^3/uL (0.0-1.1) Eosinophils # (Auto) 0.0 x10^3/uL (0.0-0.7) Basophils # (Auto) 0.0 x10^3/uL (0.0-0.2) Sodium Level 135 mmol/L (136-145) Potassium Level 3.6 mmol/L (3.5-5.1) Chloride Level 99 mmol/L (98-107) Carbon Dioxide Level 38 mmol/L (21-32) Anion Gap (6-14) Blood Urea Nitrogen 16 mg/dL (7-20) Creatinine 0.4 mg/dL (0.6-1.0) Estimated GFR (Cockcroft-Gault) 152.8 Glucose Level 109 mg/dL (70-99) Calcium Level 7.1 mg/dL (8.5-10.1) Micro Microbiology 07/19/21 Gram Stain - Final, Resulted 07/19/21 Aerobic and Anaerobic Culture, Resulted Pending 07/18/21 Blood Culture - Final, Complete Objective Assessment Sepsis from gram-positive bacteremia, not on pressors Gram-positive cocci bacteremia 3 bottles present on admission,, enterococcus Low-grade febrile illness Leukocytosis Acute hypoxic respiratory failure on 4 L O2 by nasal cannula likely from CHF History of allergies to penicillin CHF A. fib with RVR Severe protein calorie malnutrition PPM in place Thrombocytopenia Onychomycosis Acrocyanosis, bilateral lower extremity COPD Right pleural effusion that is post thoracocentesis last admission Generalized debility Hard of hearing Poor living condition Plan Plan of Care BETY done , result not available Cardiology following Follow-up labs and cultures Follow-up blood culture results Repeat blood cultures 07/19 Continue supportive care Local wound care change antibiotics to iv ampicillin and rocephine MARIYA CALLOWAY MD Jul 20, 2021 16:35
[2021-07-20 19:28] LABS: BASE EXCESS ABG 8 mmol/L (-3-3); HCO3 ABG 34 mmol/L (21-28); PCO2 ABG 56 mmHg (35-46); PO2 ABG 88 mmHg (65-108); SAT O2 ABG 96 % (92-99)
[2021-07-20] MEDS ORDERED: ZIPRASIDONE IM 20 MG VIAL. IM ONE (19:30)
--- NOTE | 2021-07-20 19:30 | NUR ---
Rapid Response Note: Rapid response called on patient by RN for altered mental status and respiratory distress. RN states patient was alert, in her normal mental state but asked the RN to "just stay with me, I want to live a couple more days"; patient had undergone BETY this afternoon. RN stated patient was given Ativan around 181 for anxiety and now patient has altered mental status and increased RR with desaturation. Upon arrival patient in bed with RR 30's, O2 10L/NC and NRB 15L, unarousable to name but does arouse to name with shaking; patient became very agitated/restless. Lungs sounds anteriorly clear, laterally decreased and posteriorly scattered fine crackles on auscultation, heart tones S1S2 with murmur, tele AFib with rates 120's and PVC--intermittently trigeminal, no edema seen, skin warm, fragile with bruising. Vital signs HR 129, BP 165/62, RR36 and sat 99%. ABGs obtained and resulted pH 7.4, pCO2 56, pO2 81, HCO3 34, BE 8. Patient became more agitated and continued to attempt remove O2 mask and nasal canula requiring application of mitts. Dr Parks called, notified of above, orders received for Geodon 10MG IM, may repeat Geodon 10MG IM if first dose not effective and order portable CXR stat--see orders. RN and patient notified of orders; RN to call for further problems. Addendum: 07/20/21 at 2113 by NIC ANN RN Amended: Links added.
[2021-07-20 19:32] LABS: FIO2 ABG 100
[2021-07-20] MEDS: PSYLLIUM HUSK (SUGAR FREE) 1 PKT PACKET PO SCH (21:00)
[2021-07-20] MEDS: cefTRIAXone IV Push 2 GM VIAL. IVP SCH (21:00)
[2021-07-20] MEDS: ATORVASTATIN CALCIUM 10 MG TABLET. PO SCH (21:00)
--- NOTE | 2021-07-20 22:24 | RAD ---
Exam: Chest one view INDICATION: Tachypnea TECHNIQUE: Frontal view of the chest Comparisons: 07/15/2021 FINDINGS: Pacer with leads remaining the right atrium and ventricle. Heart is moderately enlarged. Pulmonary vessels are within normal limits. Extensive bibasilar airspace disease greater on the left. IMPRESSION: Extensive bilateral airspace disease may be infectious or inflammatory in etiology. Electronically signed by: Danish Grubbs MD (07/20/2021 10:21 PM) VIDYA
[2021-07-21] MEDS: AMPICILLIN SODIUM 2 GM in IV NORMAL SALINE 100ML 100 ML IV SCH ×5 (01:32→23:47)
[2021-07-21 02:19] VITALS: BP 100/51
[2021-07-21 04:43] LABS: BASO % 0 % (0-3); EOS % 0 % (0-3); HEMATOCRIT 30.5 % (36.0-47.0); HEMOGLOBIN 9.8 g/dL (12.0-15.5); LYMPH # 0.5 x10^3/uL (1.0-4.8); LYMPH % 4 % (24-48); MEAN CORPUSCULAR HEMOGLOBIN 28 pg (25-35); MEAN CORPUSCULAR HGB CONC 32 g/dL (31-37); MEAN CORPUSCULAR VOLUME 89 fL (79-100); MONO # 0.8 x10^3/uL (0.0-1.1); MONO % 7 % (0-9); NEUT # 10.5 x10^3/uL (1.8-7.7); NEUT % 89 % (31-73); PLATELET COUNT 158 x10^3/uL (140-400); RED BLOOD COUNT 3.45 x10^6/uL (3.50-5.40); RED CELL DISTRIBUTION WIDTH 16.5 % (11.5-14.5); WHITE BLOOD COUNT 11.8 x10^3/uL (4.0-11.0)
[2021-07-21 05:03] LABS: CALCIUM 7.7 mg/dL (8.5-10.1); CREATININE 0.5 mg/dL (0.6-1.0); GFR 118.1; POTASSIUM 3.6 mmol/L (3.5-5.1)
[2021-07-21 07:00] VITALS: BP 99/46
[2021-07-21] MEDS: POLYETHYLENE GLYCOL 3350 17 GM PACKET. PO SCH (07:26)
[2021-07-21] MEDS: METOPROLOL TART IMMED RELEASE 25 MG TABLET. PO SCH ×2 (09:00→23:46)
--- NOTE | 2021-07-21 09:51 | PDOC ---
PULMONARY PROGRESS NOTES DATE: 07/21/21 TIME: 09:45 Subjective Patient remains confused. Oxygen requirement has increased. Currently placed on a nonrebreather mask. Saturation is 100%. Status post right thoracentesis 07/19 Vitals Vital Signs Date Time Temp Pulse Resp B/P (MAP) Pulse Ox O2 Delivery O2 Flow Rate FiO2 07/21/21 07:00 97.8 62 16 99/46 (63) 98 NonRebreather Mask 15.0 97.8 ROS: No Nausea, No Chest Pain, No Abdominal Pain, No Increase Cough General: Lethargic Lungs: Other (Diminished breath sounds posteriorly at the bases) Cardiovascular: S1 Abdomen: Soft Extremities: Other (1+ pitting edema) Labs Laboratory Tests Test 07/19/21 17:35 07/20/21 01:40 07/20/21 08:05 07/20/21 17:15 Activated Partial Thromboplast Time 64 SEC (24-38) 61 SEC (24-38) 102 SEC (24-38) 69 SEC (24-38) Heparin Anti-Xa Act, Unfractionated 0.53 IU/mL (0.30-0.70) 0.41 IU/mL (0.30-0.70) White Blood Count 8.7 x10^3/uL (4.0-11.0) Red Blood Count 3.44 x10^6/uL (3.50-5.40) Hemoglobin 9.9 g/dL (12.0-15.5) Hematocrit 29.8 % (36.0-47.0) Mean Corpuscular Volume 87 fL (79-100) Mean Corpuscular Hemoglobin 29 pg (25-35) Mean Corpuscular Hemoglobin Concent 33 g/dL (31-37) Red Cell Distribution Width 16.0 % (11.5-14.5) Platelet Count 136 x10^3/uL (140-400) Neutrophils (%) (Auto) 86 % (31-73) Lymphocytes (%) (Auto) 6 % (24-48) Monocytes (%) (Auto) 8 % (0-9) Eosinophils (%) (Auto) 1 % (0-3) Basophils (%) (Auto) 0 % (0-3) Neutrophils # (Auto) 7.4 x10^3/uL (1.8-7.7) Lymphocytes # (Auto) 0.5 x10^3/uL (1.0-4.8) Monocytes # (Auto) 0.7 x10^3/uL (0.0-1.1) Eosinophils # (Auto) 0.0 x10^3/uL (0.0-0.7) Basophils # (Auto) 0.0 x10^3/uL (0.0-0.2) Sodium Level 135 mmol/L (136-145) Potassium Level 3.6 mmol/L (3.5-5.1) Chloride Level 99 mmol/L (98-107) Carbon Dioxide Level 38 mmol/L (21-32) Anion Gap (6-14) Blood Urea Nitrogen 16 mg/dL (7-20) Creatinine 0.4 mg/dL (0.6-1.0) Estimated GFR (Cockcroft-Gault) 152.8 Glucose Level 109 mg/dL (70-99) Calcium Level 7.1 mg/dL (8.5-10.1) Test 07/20/21 19:07 07/21/21 03:45 O2 Saturation 96 % (92-99) Arterial Blood pH 7.40 (7.35-7.45) Arterial Blood pCO2 at Patient Temp 56 mmHg (35-46) Arterial Blood pO2 at Patient Temp 88 mmHg (65-108) Arterial Blood HCO3 34 mmol/L (21-28) Arterial Blood Base Excess 8 mmol/L (-3-3) FiO2 100 White Blood Count 11.8 x10^3/uL (4.0-11.0) Red Blood Count 3.45 x10^6/uL (3.50-5.40) Hemoglobin 9.8 g/dL (12.0-15.5) Hematocrit 30.5 % (36.0-47.0) Mean Corpuscular Volume 89 fL (79-100) Mean Corpuscular Hemoglobin 28 pg (25-35) Mean Corpuscular Hemoglobin Concent 32 g/dL (31-37) Red Cell Distribution Width 16.5 % (11.5-14.5) Platelet Count 158 x10^3/uL (140-400) Neutrophils (%) (Auto) 89 % (31-73) Lymphocytes (%) (Auto) 4 % (24-48) Monocytes (%) (Auto) 7 % (0-9) Eosinophils (%) (Auto) 0 % (0-3) Basophils (%) (Auto) 0 % (0-3) Neutrophils # (Auto) 10.5 x10^3/uL (1.8-7.7) Lymphocytes # (Auto) 0.5 x10^3/uL (1.0-4.8) Monocytes # (Auto) 0.8 x10^3/uL (0.0-1.1) Eosinophils # (Auto) 0.0 x10^3/uL (0.0-0.7) Basophils # (Auto) 0.0 x10^3/uL (0.0-0.2) Activated Partial Thromboplast Time 100 SEC (24-38) Sodium Level 139 mmol/L (136-145) Potassium Level 3.6 mmol/L (3.5-5.1) Chloride Level 102 mmol/L (98-107) Carbon Dioxide Level 36 mmol/L (21-32) Anion Gap 1 (6-14) Blood Urea Nitrogen 17 mg/dL (7-20) Creatinine 0.5 mg/dL (0.6-1.0) Estimated GFR (Cockcroft-Gault) 118.1 Glucose Level 152 mg/dL (70-99) Calcium Level 7.7 mg/dL (8.5-10.1) Laboratory Tests Test 07/20/21 17:15 07/20/21 19:07 07/21/21 03:45 Activated Partial Thromboplast Time 69 SEC (24-38) 100 SEC (24-38) Heparin Anti-Xa Act, Unfractionated 0.41 IU/mL (0.30-0.70) O2 Saturation 96 % (92-99) Arterial Blood pH 7.40 (7.35-7.45) Arterial Blood pCO2 at Patient Temp 56 mmHg (35-46) Arterial Blood pO2 at Patient Temp 88 mmHg (65-108) Arterial Blood HCO3 34 mmol/L (21-28) Arterial Blood Base Excess 8 mmol/L (-3-3) FiO2 100 White Blood Count 11.8 x10^3/uL (4.0-11.0) Red Blood Count 3.45 x10^6/uL (3.50-5.40) Hemoglobin 9.8 g/dL (12.0-15.5) Hematocrit 30.5 % (36.0-47.0) Mean Corpuscular Volume 89 fL (79-100) Mean Corpuscular Hemoglobin 28 pg (25-35) Mean Corpuscular Hemoglobin Concent 32 g/dL (31-37) Red Cell Distribution Width 16.5 % (11.5-14.5) Platelet Count 158 x10^3/uL (140-400) Neutrophils (%) (Auto) 89 % (31-73) Lymphocytes (%) (Auto) 4 % (24-48) Monocytes (%) (Auto) 7 % (0-9) Eosinophils (%) (Auto) 0 % (0-3) Basophils (%) (Auto) 0 % (0-3) Neutrophils # (Auto) 10.5 x10^3/uL (1.8-7.7) Lymphocytes # (Auto) 0.5 x10^3/uL (1.0-4.8) Monocytes # (Auto) 0.8 x10^3/uL (0.0-1.1) Eosinophils # (Auto) 0.0 x10^3/uL (0.0-0.7) Basophils # (Auto) 0.0 x10^3/uL (0.0-0.2) Sodium Level 139 mmol/L (136-145) Potassium Level 3.6 mmol/L (3.5-5.1) Chloride Level 102 mmol/L (98-107) Carbon Dioxide Level 36 mmol/L (21-32) Anion Gap 1 (6-14) Blood Urea Nitrogen 17 mg/dL (7-20) Creatinine 0.5 mg/dL (0.6-1.0) Estimated GFR (Cockcroft-Gault) 118.1 Glucose Level 152 mg/dL (70-99) Calcium Level 7.7 mg/dL (8.5-10.1) Medications Active Scripts Medications Dose Route/Sig Max Daily Dose Days Date Category Eliquis (Apixaban) 5 Mg Tablet 5 Mg PO BID 30 07/15/21 Rx Eliquis (Apixaban) 5 Mg Tablet 10 Mg PO BID 7 07/15/21 Rx Metoprolol Tartrate 25 Mg Tablet 25 Mg PO BID 30 07/15/21 Rx Keflex (Cephalexin) 500 Mg Capsule 1 Cap PO TID 3 07/15/21 Rx Atorvastatin Calcium 10 Mg Tablet 10 Mg PO QHS 30 07/15/21 Rx Digoxin 125 Mcg Tablet 125 Mcg PO DAILY 30 07/15/21 Rx Effer-K 10 Meq Tablet Eff (Potassium Bicarbonate/Cit Ac) 10 Meq Tablet.eff 15 Meq PO DAILY 07/12/21 Reported Lasix (Furosemide) 40 Mg Tablet 1 Tab PO DAILY 30 07/12/21 Reported Comments Chest x-ray reviewed 07/20/2021. Bilateral infiltrates and left-sided pleural effusion. CT chest reviewed dated July 17, 2021 Bilateral pleural effusions, moderate per my impression. Evidence of congestive heart failure. Impression . 1. Acute respiratory failure, multifactorial in etiology including acute diastolic congestive heart failure, bilateral pleural effusion, AFib with rapid ventricular response, moderate to severe mitral regurgitation.--- now rate controlled 2. Abnormal CT of the chest. bilateral pleural effusions and evidence of CHF 3. Acute diastolic congestive heart failure. 4. Atrial fibrillation with rapid ventricular response. 5. Pleural effusion, status post right thoracentesis on 07/14, transudate. Cytology is pending. 6. Malnutrition. 7. Moderate to severe mitral regurgitation. 8. Right lower extremity cellulitis. 9. Leukocytosis--improved ID following 10. Hyponatremia.--resolved 11. Elevated troponin, rule out non-ST elevation myocardial infarction. 12. Sepsis from gram-positive bacteremia, Gram-positive cocci bacteremia 3 bottles present on admission,, enterococcus Plan . 1. Titrate FiO2 to keep O2 saturation 92%. 2. A. fib per cardiology--transesophageal echo without any evidence of endocarditis., continue heparin gtt 3. Status post right thoracentesis 07/19/21--1 liter removed -- transudate from CHF 4. Keep intake, less than output. Lasix per Cardiology. 5. antibiotics---per ID 6. Protonix for stress ulcer prophylaxis. 7. Patient has recurrent bilateral pleural effusions. She had a recent thoracentesis last Sunday. etiology of her recurrent pleural effusion includes diastolic CHF as well as moderate to severe mitral regurgitation, pleural effusion will keep reoccurring. It will be difficult to manage her congestive heart failure without fixing the mitral regurgitation. Prognosis is grim. 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 Await the recommendations regarding further treatment options for her mitral regurgitation. KIRK MASTERSON MD Jul 21, 2021 09:51
[2021-07-21] MEDS: PANTOPRAZOLE IV PUSH 40 MG VIAL. IVP SCH (09:59)
[2021-07-21] MEDS: LACTOBACILLUS RHAMNOSUS GG 1 CAPSULE. PO SCH ×2 (10:00→23:46)
[2021-07-21] MEDS: DIGOXIN 125 MCG TABLET. PO SCH (10:00)
[2021-07-21] MEDS: cefTRIAXone IV Push 2 GM VIAL. IVP SCH ×2 (10:01→23:47)
--- NOTE | 2021-07-21 10:10 | PDOC ---
MARCK BEARD STULL INSTALLER 07/21/21 1010: CARDIO Progress Notes Date and Time Date of Service 07/21/21 Time of Evaluation 1000 Subjective Subjective: No Chest Pain, No shortness of breath, No Palpitations Comments: RR called last night due to shortness of breath. breathing improved today Vitals Vitals Vital Signs Date Time Temp Pulse Resp B/P (MAP) Pulse Ox O2 Delivery O2 Flow Rate FiO2 07/21/21 10:00 74 07/21/21 07:00 97.8 16 99/46 (63) 98 NonRebreather Mask 15.0 97.8 Weight Weight [ ] Input and Output Intake and Output Intake and Output 07/21/21 07:00 Intake Total 635 ml Balance 635 ml Intake Oral 237 ml IV Total 398 ml # Voids 1 # Bowel Movements 2 Laboratory Labs Laboratory Tests Test 07/20/21 17:15 07/20/21 19:07 07/21/21 03:45 Activated Partial Thromboplast Time 69 SEC (24-38) 100 SEC (24-38) Heparin Anti-Xa Act, Unfractionated 0.41 IU/mL (0.30-0.70) O2 Saturation 96 % (92-99) Arterial Blood pH 7.40 (7.35-7.45) Arterial Blood pCO2 at Patient Temp 56 mmHg (35-46) Arterial Blood pO2 at Patient Temp 88 mmHg (65-108) Arterial Blood HCO3 34 mmol/L (21-28) Arterial Blood Base Excess 8 mmol/L (-3-3) FiO2 100 White Blood Count 11.8 x10^3/uL (4.0-11.0) Red Blood Count 3.45 x10^6/uL (3.50-5.40) Hemoglobin 9.8 g/dL (12.0-15.5) Hematocrit 30.5 % (36.0-47.0) Mean Corpuscular Volume 89 fL (79-100) Mean Corpuscular Hemoglobin 28 pg (25-35) Mean Corpuscular Hemoglobin Concent 32 g/dL (31-37) Red Cell Distribution Width 16.5 % (11.5-14.5) Platelet Count 158 x10^3/uL (140-400) Neutrophils (%) (Auto) 89 % (31-73) Lymphocytes (%) (Auto) 4 % (24-48) Monocytes (%) (Auto) 7 % (0-9) Eosinophils (%) (Auto) 0 % (0-3) Basophils (%) (Auto) 0 % (0-3) Neutrophils # (Auto) 10.5 x10^3/uL (1.8-7.7) Lymphocytes # (Auto) 0.5 x10^3/uL (1.0-4.8) Monocytes # (Auto) 0.8 x10^3/uL (0.0-1.1) Eosinophils # (Auto) 0.0 x10^3/uL (0.0-0.7) Basophils # (Auto) 0.0 x10^3/uL (0.0-0.2) Sodium Level 139 mmol/L (136-145) Potassium Level 3.6 mmol/L (3.5-5.1) Chloride Level 102 mmol/L (98-107) Carbon Dioxide Level 36 mmol/L (21-32) Anion Gap 1 (6-14) Blood Urea Nitrogen 17 mg/dL (7-20) Creatinine 0.5 mg/dL (0.6-1.0) Estimated GFR (Cockcroft-Gault) 118.1 Glucose Level 152 mg/dL (70-99) Calcium Level 7.7 mg/dL (8.5-10.1) Microbiology Micro Microbiology 07/20/21 Blood Culture - Final, Complete 07/19/21 Gram Stain - Final, Resulted 07/19/21 Aerobic and Anaerobic Culture, Resulted Pending Physical Exam HEENT: Neck Supple W Full Motion Chest: Symmetric LUNGS: Other (fine basilar crackles) Heart: irregularly irregular (atrial flutter, rate controlled ) Abdomen: Soft N/T Extremities: Other (1+ bilateral LE pitting edema) Neurology: alert, oriented, follow commands Assessment Assessment 1. Acute respiratory failure secondary to combination of acute on chronic diastolic heart failure, bilateral pleural effusions, possible pneumonia. S/P thoracentesis 07/19. 2. Acute on chronic diastolic heart failure: Echo showed LVEF 50 to 55%. Improved s/p diuresis. Continue Lasix therapy 3. Permanent atrial fibrillation/flutter presently with atrial flutter with RVR, rate better controlled. Continue digoxin and metoprolol as BP allows. Heparin drip. Convert to Eliqius 4. Moderate to severe mitral regurgitation, mitral valve prolapse with possible ruptured chordae noted on BETY. Will plan for RHC to evaluated pressure in am. R/b/a discussed with patient and she is agreeable. NPO p MN. 5. Hypertension: Controlled 6. SSS s/p PPM implantation with recent device check showing normal function with adequate battery life 7. Sepsis/bacteremia; BC with GPC. no evidence of endocarditis per BETY 8. Recent bilateral PE Justicifation of Admission Dx: Justifications for Admission: Justification of Admission Dx: Yes EMILY MARIN MD 07/21/21 1652: CARDIO Progress Notes Assessment Assessment Patient seen and examined. Agree with DATABASE CONSULTANT's assessment and plan. Acute on chronic diastolic heart failure better compensated Permanent atrial fibrillation/flutter rate controlled Continue current treatment of sepsis per ID team BETY yesterday showed mitral valve prolapse with possible ruptured chordae and moderate to severe mitral regurgitation Agree with right heart catheterization tomorrow to evaluate fluid status and need for more aggressive diuresis We will plan outpatient referral to valve clinic MARCK BEARD APRN Jul 21, 2021 10:10 EMILY MARIN MD Jul 21, 2021 16:52
[2021-07-21 10:55] VITALS: BP 105/49
--- NOTE | 2021-07-21 11:49 | CARD ---
MR#: [id number] Date of Study: 07/20/2021 Ordering Physician: MICHAELA PIPER, Referring Physician: MICHAELA PIPER, Tech: Angelia Hammond, [facility] APPROVED REPORT EXAM: Transesophageal echocardiogram with color flow Doppler. INDICATION Congestive Heart Failure Bacteremia, Vegetation RISK FACTORS Hypertension Reason For Test : Rule out Intracardiac Thrombus. PROCEDURE After obtaining informed consent, patient underwent transesophageal echo in the PACU. Type of Sedation : General Anesthesia Sedation was administered by Cristela Peña. Sedation was achieved with Propofol 70mg intravenously. Sedation was achieved with Lidocane 100mg intravenously. Transesophageal probe was inserted and advanced into esophagus by Kei Chang MD. The BETY was performed without complications. Throughout the procedure, the blood pressure, pulse oximetry, cardiac rhythm, and rate were monitored . The patient tolerated the procedure without adverse effects. Recovery from general anesthesia was une ventful and vital signs were stable. LEFT VENTRICLE The left ventricle is normal size. There is borderline to mild concentric left ventricular hypertroph y. The left ventricular systolic function is normal. The Ejection Fraction is 50-55%. Septal motion c onsistent with pacemaker activation. RIGHT VENTRICLE The right ventricle is borderline dilated. There is normal right ventricular wall thickness. Systolic function is borderline reduced. There is a pacemaker lead in the right ventricle. ATRIA The left atrium is mildly dilated. The right atrium size is normal. The interatrial septum is intact with no evidence for an atrial septal defect or patent foramen ovale as noted on 2-D or Doppler imagi ng. AORTIC VALVE The aortic valve is thickened but opens well. Doppler and Color Flow revealed trace aortic regurgitat ion. There is no significant aortic valvular stenosis. There is no aortic valvular vegetation. MITRAL VALVE Mitral valve prolapse seen with possible ruptured chordae. Doubt endocarditis since the valve leaflet s are not thickened. Doppler and Color-flow revealed moderate to severe mitral regurgitation. TRICUSPID VALVE The tricuspid valve is normal in structure and function. Doppler and Color Flow revealed mild tricusp id regurgitation. There is no tricuspid valve stenosis. PULMONIC VALVE The pulmonic valve is not well visualized. GREAT VESSELS The aortic root is normal in size. PERICARDIAL EFFUSION There is no evidence of significant pericardial effusion. Critical Notification Critical Value: No <Conclusion> Technically difficult study. The left ventricular systolic function is normal. The Ejection Fraction is 50-55%. Pacer lead noted RA/RV. Mitral valve prolapse seen with possible ruptured chordae. Doubt endocarditis since the valve leafle ts are not thickened. Moderate to severe mitral regurgitation. Mild tricuspid regurgitation. There is no evidence of significant pericardial effusion. Signed by : Kei Chang, Electronically Approved : 07/21/2021 11:48:36
--- NOTE | 2021-07-21 12:57 | PDOC ---
Infectious Disease Note Subjective: Subjective pt alert awake somewhat confused nonrebreather says is hungry and wants food Vital Signs: Vital Signs Vital Signs Date Time Temp Pulse Resp B/P (MAP) Pulse Ox O2 Delivery O2 Flow Rate FiO2 07/21/21 10:55 98.4 69 18 105/49 (67) 98 NonRebreather Mask 15.0 98.4 Physical Exam: PHYSICAL EXAM GENERAL: Alert, awake confused likely baseline, poor hearing lying in bed comfortably, in no acute distress. Answers a few questions HEENT: Normocephalic, atraumatic. Anicteric. NECK: Supple. LUNGS: Bibasilar crackles no wheezing. HEART: Irregular, holosystolic murmur, ABDOMEN: Soft, mild tenderness present lower quadrant, no rebound or guarding EXTREMITIES: Trace edema, [place] boots present, erythema to the right foot resolved, onychomycosis both feet on toenails, good peripheral pulses, no calf tenderness, no cyanosis, left toenail dressed, no wound, MUSCULOSKELETAL: No joint swelling. No decrease in range of motion. CENTRAL NERVOUS SYSTEM: Alert awake hard of hearing moves all 4 extremities debilitated, PSYCHIATRIC: Cooperative, anxious PIV LINES: looks clean. Medications: Inpatient Meds: Medications reviewed. Labs: Lab Laboratory Tests Test 07/20/21 17:15 07/20/21 19:07 07/21/21 03:45 07/21/21 10:40 Activated Partial Thromboplast Time 69 SEC (24-38) 100 SEC (24-38) 95 SEC (24-38) Heparin Anti-Xa Act, Unfractionated 0.41 IU/mL (0.30-0.70) O2 Saturation 96 % (92-99) Arterial Blood pH 7.40 (7.35-7.45) Arterial Blood pCO2 at Patient Temp 56 mmHg (35-46) Arterial Blood pO2 at Patient Temp 88 mmHg (65-108) Arterial Blood HCO3 34 mmol/L (21-28) Arterial Blood Base Excess 8 mmol/L (-3-3) FiO2 100 White Blood Count 11.8 x10^3/uL (4.0-11.0) Red Blood Count 3.45 x10^6/uL (3.50-5.40) Hemoglobin 9.8 g/dL (12.0-15.5) Hematocrit 30.5 % (36.0-47.0) Mean Corpuscular Volume 89 fL (79-100) Mean Corpuscular Hemoglobin 28 pg (25-35) Mean Corpuscular Hemoglobin Concent 32 g/dL (31-37) Red Cell Distribution Width 16.5 % (11.5-14.5) Platelet Count 158 x10^3/uL (140-400) Neutrophils (%) (Auto) 89 % (31-73) Lymphocytes (%) (Auto) 4 % (24-48) Monocytes (%) (Auto) 7 % (0-9) Eosinophils (%) (Auto) 0 % (0-3) Basophils (%) (Auto) 0 % (0-3) Neutrophils # (Auto) 10.5 x10^3/uL (1.8-7.7) Lymphocytes # (Auto) 0.5 x10^3/uL (1.0-4.8) Monocytes # (Auto) 0.8 x10^3/uL (0.0-1.1) Eosinophils # (Auto) 0.0 x10^3/uL (0.0-0.7) Basophils # (Auto) 0.0 x10^3/uL (0.0-0.2) Sodium Level 139 mmol/L (136-145) Potassium Level 3.6 mmol/L (3.5-5.1) Chloride Level 102 mmol/L (98-107) Carbon Dioxide Level 36 mmol/L (21-32) Anion Gap 1 (6-14) Blood Urea Nitrogen 17 mg/dL (7-20) Creatinine 0.5 mg/dL (0.6-1.0) Estimated GFR (Cockcroft-Gault) 118.1 Glucose Level 152 mg/dL (70-99) Calcium Level 7.7 mg/dL (8.5-10.1) Micro ------- ----- RUN DATE: 07/20/21 [facility] LAB *LIVE* PAGE 1 RUN TIME: 754 Specimen Inquiry PATIENT: NADINE SILVEIRA ACCT: [id number] LOC: [address] [place] [address] U: [id number] AGE/SX: 80/F ROOM: [facility] RE07/17/[address]: MACHO ESTEVEZ MD : 1940 BED: 1 DIS: STATUS: ADM IN TLOC: SPEC #: [id number] JA: 07/17/21 STATUS: COMP REQ #: [id number] RECD: 07/17/[address]: CARMINA WESTON DO SOURCE: BLOOD ENTR: 07/18/[address]: UNKNOWN PCP NAME SPDESC: ORDERED: BLD CULT - LC Procedure Result BLOOD CULTURE LC Final Final GROWTH OF GRAM POSITIVE COCCI FINAL ID= [ENTEROCOCCUS FAECALIS] ENTEROCOCCUS FAECALIS Streptomycin Synergy Screen S Gentamicin Synergy Screen S ANTIMICROBIAL SUSCEPTIBILITY Final Comment POS ANA TYPE 38 ENTEROCOCCUS FAECALIS ANTIBIOTIC RESULT INTERPRETATION AMPICILLIN <=2 S DAPTOMYCIN 2 S LINEZOLID 2 S PENICILLIN 2 S VANCOMYCIN 1 S Unless otherwise specified, Testing Performed by: [address] [address] For Inquires, the Physician may contact the Microbiology department at [phone] Objective: Assessment: Sepsis from gram-positive bacteremia present on admission Recurrent Enterococcus faecalis bacteremia on admission on 07/17 and 07/18 and 07/20 BETY difficult study with mitral valve chordae, less likely vegetation Low-grade febrile illness resolved Leukocytosis Abdominal discomfort, nausea Acute hypoxic respiratory failure on 4 L O2 by nasal cannula likely from CHF History of allergies to penicillin CHF A. fib with RVR Severe protein calorie malnutrition PPM in place Thrombocytopenia Onychomycosis Acrocyanosis, bilateral lower extremity resolved COPD Right pleural effusion that is post thoracocentesis last admission Generalized debility Hard of hearing Poor living condition BETY Technically difficult study. The left ventricular systolic function is normal. The Ejection Fraction is 50-55%. Pacer lead noted RA/RV. Mitral valve prolapse seen with possible ruptured chordae. Doubt endocarditis since the valve leaflets are not thickened. Moderate to severe mitral regurgitation. Mild tricuspid regurgitation. There is no evidence of significant pericardial effusion. Plan: Plan of Care Cont IV ampicillin and rocephin UA urine culture not done Will order again CT abdomen and pelvis reviewed Repeat blood cultures in a.m. Follow-up labs and cultures Continue supportive care Maintain aspiration precautions Overall prognosis poor NATALY CALLOWAY MD Jul 21, 2021 12:57
--- NOTE | 2021-07-21 14:55 | PDOC ---
[employer] PROGRESS NOTE Date of Service DOS: DATE: 07/21/21 TIME: 14:53 Chief Complaint Chief Complaint Acute encephalopathy - likely due to sepsis Severe sepsis - ID consulted, cont vancomycin GPC positive blood cultures - as above Acute hypoxic respiratory failure Afib with RVR - eliquis for thromboprophylaxis, cardizem rate control back on metoprolol S/p ppm - good battery life H/o pulmonary embolism - on recent admission 07/14/2021 Acute on chronic diastolic heart failure: Recent 2D echo showed LVEF 50 to 55%. Continue diuresis. Moderate to severe mitral regurgitation noted on recent 2D echo. Consider BETY and referral for mitral valve clip repair as an outpatient. Thrombocytopenia Right pleural effusion Acrocyanosis, bilateral lower extremity COPD Right pleural effusion that is post thoracocentesis last admission -recurrent Generalized debility Hard of hearing Poor living condition History of Present Illness History of Present Illness 07/21 confused overnight, rapid response, GEodon given calm this AM, somnolent early in the AM Ms Bang is an 80 year old female well-known to our service as above with past medical history of congestive heart failure, A. fib, pacemaker placement at [facility] and NSTEMI (on 07/12/21) currently admitted in ICU who p resented to ER on 07/17/2021 from [facility] via EMS with [facility] breath at [facility]. Patient was hypoxic, so the patient on a nonrebreather. T-max 100.3, WBC 14 K, 07/17/2021 blood cultures are positive with GPC in pairs and chains. Patient is currently on O2. Alert awake. Remains confused. Last admission patient underwent right lung thoracocentesis for moderate pleural effusion on 07/14/2021. Cultures remain negative. Blood cultures were done this admission which are positive for gram-positive cocci in pairs and chains. Admitted with Cardiology, Pulmonology, and ID consultation. Afebrile overnight. Blood cultures 4-4 positive GPC. Heart rate A. fib in 90s 200s. She has been coughing with sips of water. Plan for repeat thoracentesis. Vitals/I&O Vitals/I&O: Vital Signs Date Time Temp Pulse Resp B/P (MAP) Pulse Ox O2 Delivery O2 Flow Rate FiO2 07/21/21 10:55 98.4 69 18 105/49 (67) 98 NonRebreather Mask 15.0 98.4 I & O 07/20/21 07/20/21 07/21/21 15:00 23:00 07:00 Intake Total 0 ml 287 ml 348 ml Balance 0 ml 287 ml 348 ml Physical Exam Physical Exam: GENERAL: Alert, awake confused likely baseline, poor hearing lying in bed comfortably, in no acute NECK: Supple. LUNGS: Bibasilar crackles no wheezing. HEART: Irregular, holosystolic murmur, MUSCULOSKELETAL: No joint swelling. No decrease in range of motion. CENTRAL NERVOUS SYSTEM: Alert awake hard of hearing moves all 4 extremities debilitated, PIV LINES: looks clean. General: Alert, mild distress Heart: Other (Heart rate irregular, PSM 3/6 apex) Lungs: Other (Diminished breath sounds posteriorly at the bases) Abdomen: Soft Extremities: No edema Labs Labs: Laboratory Tests Test 07/20/21 17:15 07/20/21 19:07 07/21/21 03:45 07/21/21 10:40 Activated Partial Thromboplast Time 69 SEC (24-38) 100 SEC (24-38) 95 SEC (24-38) Heparin Anti-Xa Act, Unfractionated 0.41 IU/mL (0.30-0.70) O2 Saturation 96 % (92-99) Arterial Blood pH 7.40 (7.35-7.45) Arterial Blood pCO2 at Patient Temp 56 mmHg (35-46) Arterial Blood pO2 at Patient Temp 88 mmHg (65-108) Arterial Blood HCO3 34 mmol/L (21-28) Arterial Blood Base Excess 8 mmol/L (-3-3) FiO2 100 White Blood Count 11.8 x10^3/uL (4.0-11.0) Red Blood Count 3.45 x10^6/uL (3.50-5.40) Hemoglobin 9.8 g/dL (12.0-15.5) Hematocrit 30.5 % (36.0-47.0) Mean Corpuscular Volume 89 fL (79-100) Mean Corpuscular Hemoglobin 28 pg (25-35) Mean Corpuscular Hemoglobin Concent 32 g/dL (31-37) Red Cell Distribution Width 16.5 % (11.5-14.5) Platelet Count 158 x10^3/uL (140-400) Neutrophils (%) (Auto) 89 % (31-73) Lymphocytes (%) (Auto) 4 % (24-48) Monocytes (%) (Auto) 7 % (0-9) Eosinophils (%) (Auto) 0 % (0-3) Basophils (%) (Auto) 0 % (0-3) Neutrophils # (Auto) 10.5 x10^3/uL (1.8-7.7) Lymphocytes # (Auto) 0.5 x10^3/uL (1.0-4.8) Monocytes # (Auto) 0.8 x10^3/uL (0.0-1.1) Eosinophils # (Auto) 0.0 x10^3/uL (0.0-0.7) Basophils # (Auto) 0.0 x10^3/uL (0.0-0.2) Sodium Level 139 mmol/L (136-145) Potassium Level 3.6 mmol/L (3.5-5.1) Chloride Level 102 mmol/L (98-107) Carbon Dioxide Level 36 mmol/L (21-32) Anion Gap 1 (6-14) Blood Urea Nitrogen 17 mg/dL (7-20) Creatinine 0.5 mg/dL (0.6-1.0) Estimated GFR (Cockcroft-Gault) 118.1 Glucose Level 152 mg/dL (70-99) Calcium Level 7.7 mg/dL (8.5-10.1) Assessment and Plan Assessmemt and Plan Problems Medical Problems: (1) Bandemia Status: Acute (2) Elevated troponin Status: Acute (3) Hypoxia Status: Acute (4) Pleural effusion Status: Acute (5) Respiratory failure Status: Acute (6) SIRS (systemic inflammatory response syndrome) Status: Acute Comment Review of Relevant I have reviewed the following items peewee (where applicable) has been applied. Medications: Current Medications Medications (Trade) Dose Ordered Sig/Beny Route PRN Reason Start Time Stop Time Status Last Admin Dose Admin Lorazepam (Ativan Inj) 1 mg PRN Q6HRS PRN IVP ANXIETY / AGITATION 07/20/21 18:00 07/20/21 18:11 Ziprasidone (Geodon Im) 10 mg 1X ONCE IM 07/20/21 19:30 07/20/21 19:34 DC 07/20/21 19:30 Ampicillin Sodium 2 gm/Sodium Chloride 100 ml @ 200 mls/hr Q6HRS IV 07/21/21 00:00 07/21/21 06:38 Ceftriaxone Sodium (Rocephin) 2 gm Q12HR IVP 07/20/21 21:00 07/21/21 10:01 Justifications for Admission Other Justification A. fib RVR and CHF exacerbation HAMZAH BRAND MD Jul 21, 2021 14:55
[2021-07-21] MEDS: HEPARIN 25,000UTS/250ML PREMIX 250 ML IV PRN (14:56)
[2021-07-21] MEDS: FUROSEMIDE 40 MG/4 ML VIAL. IVP SCH (14:58)
[2021-07-21 15:00] VITALS: BP 113/61
[2021-07-21 19:00] VITALS: BP 111/45
[2021-07-21] MEDS: ATORVASTATIN CALCIUM 10 MG TABLET. PO SCH (21:00)
[2021-07-21 23:08] VITALS: BP 116/45
[2021-07-21] MEDS: PSYLLIUM HUSK (SUGAR FREE) 1 PKT PACKET PO SCH (23:46)
[2021-07-22] VITALS (7 sets, daily range): BP systolic 116–152; BP diastolic 50–62
[2021-07-22] MEDS: AMPICILLIN SODIUM 2 GM in IV NORMAL SALINE 100ML 100 ML IV SCH ×3 (05:58→19:24)
--- NOTE | 2021-07-22 06:54 | PDOC ---
Infectious Disease Note Subjective: Subjective pt alert awake somewhat confused nonrebreather Appears comfortable Vital Signs: Vital Signs Vital Signs Date Time Temp Pulse Resp B/P (MAP) Pulse Ox O2 Delivery O2 Flow Rate FiO2 07/22/21 02:38 98.1 63 22 129/61 (83) 100 NonRebreather Mask 15.0 98.1 Physical Exam: PHYSICAL EXAM GENERAL: Alert, awake confused likely baseline, poor hearing lying in bed comfortably, in no acute NECK: Supple. LUNGS: Bibasilar crackles no wheezing. HEART: Irregular, holosystolic murmur, MUSCULOSKELETAL: No joint swelling. No decrease in range of motion. CENTRAL NERVOUS SYSTEM: Alert awake hard of hearing moves all 4 extremities debilitated, PIV LINES: looks clean. Medications: Inpatient Meds: Medications reviewed. Labs: Lab Laboratory Tests Test 07/21/21 10:40 07/22/21 05:00 Activated Partial Thromboplast Time 95 SEC (24-38) Heparin Anti-Xa Act, Unfractionated 0.37 IU/mL (0.30-0.70) Micro RUN DATE: 07/20/21 [facility] LAB *LIVE* PAGE 1 RUN TIME: 0755 Specimen Inquiry PATIENT: NADINE SILVEIRA ACCT: [id number] LOC: [address] [place] [address] U: [id number] AGE/SX: 80/F ROOM: [facility] RE07/17/[address]: MACHO ESTEVEZ MD : 1940 BED: 1 DIS: STATUS: ADM IN TLOC: SPEC #: [id number] JA: 07/17/21 STATUS: COMP REQ #: [id number] RECD: 07/17/[address] [facility] [address]: CARMINA WESTON DO SOURCE: BLOOD ENTR: 07/18/[address] [facility] [address]: UNKNOWN PCP NAME [facility]: ORDERED: BLD CULT - LC Procedure Result BLOOD CULTURE LC Final Final GROWTH OF GRAM POSITIVE COCCI FINAL ID= [ENTEROCOCCUS FAECALIS] ENTEROCOCCUS FAECALIS Streptomycin Synergy Screen S Gentamicin Synergy Screen S ANTIMICROBIAL SUSCEPTIBILITY Final Comment POS ANA TYPE 38 ENTEROCOCCUS FAECALIS ANTIBIOTIC RESULT INTERPRETATION AMPICILLIN <=2 S DAPTOMYCIN 2 S LINEZOLID 2 S PENICILLIN 2 S VANCOMYCIN 1 S Unless otherwise specified, Testing Performed by: [address] [address] For Inquires, the Physician may contact the Microbiology department at [phone] Objective: Assessment: Sepsis from gram-positive bacteremia present on admission Persistent Enterococcus faecalis bacteremia on admission on 07/17 and 07/18 and 07/20 BETY difficult study with mitral valve chordae, less likely vegetation Low-grade febrile illness resolved Leukocytosis Abdominal discomfort, nausea Acute hypoxic respiratory failure on 4 L O2 by nasal cannula likely from CHF History of allergies to penicillin CHF A. fib with RVR Severe protein calorie malnutrition PPM in place Thrombocytopenia Onychomycosis Acrocyanosis, bilateral lower extremity resolved COPD Right pleural effusion that is post thoracocentesis last admission Generalized debility Hard of hearing Poor living condition BETY Technically difficult study. The left ventricular systolic function is normal. The Ejection Fraction is 50-55%. Pacer lead noted RA/RV. Mitral valve prolapse seen with possible ruptured chordae. Doubt endocarditis since the valve leaflets are not thickened. Moderate to severe mitral regurgitation. Mild tricuspid regurgitation. There is no evidence of significant pericardial effusion. Plan: Plan of Care Cont IV ampicillin and rocephin UA urine culture not done Will order again CT abdomen and pelvis reviewed Follow-up repeat blood cultures 07/22/[address] PICC line until patient has repeat blood cultures negative at least for 48 to 72 hours Follow-up labs and cultures Continue supportive care Maintain aspiration precautions Would not discharge patient until blood clearance as above Overall prognosis poor NATALY CALLOWAY MD Jul 22, 2021 06:54
[2021-07-22] MEDS: cefTRIAXone IV Push 2 GM VIAL. IVP SCH ×2 (08:31→21:06)
[2021-07-22] MEDS: PANTOPRAZOLE IV PUSH 40 MG VIAL. IVP SCH (08:31)
[2021-07-22] MEDS: LACTOBACILLUS RHAMNOSUS GG 1 CAPSULE. PO SCH ×2 (08:50→21:00)
[2021-07-22] MEDS: METOPROLOL TART IMMED RELEASE 25 MG TABLET. PO SCH ×2 (08:50→21:00)
[2021-07-22] MEDS: FUROSEMIDE 40 MG/4 ML VIAL. IVP SCH ×2 (09:00→17:29)
[2021-07-22] MEDS: DIGOXIN 125 MCG TABLET. PO SCH (09:00)
[2021-07-22] MEDS: POLYETHYLENE GLYCOL 3350 17 GM PACKET. PO SCH (09:00)
--- NOTE | 2021-07-22 11:12 | PDOC ---
PULMONARY PROGRESS NOTES DATE: 07/22/21 TIME: 11:08 Subjective Patient remains confused. Currently on a nonrebreather mask. Saturation is 100%. Status post right thoracentesis 07/19 Vitals Vital Signs Date Time Temp Pulse Resp B/P (MAP) Pulse Ox O2 Delivery O2 Flow Rate FiO2 07/22/21 08:50 81 120/51 07/22/21 08:00 Non-Rebreather 15.0 07/22/21 07:00 98.0 18 100 98.0 ROS: No Nausea, No Chest Pain, No Abdominal Pain, No Increase Cough Lungs: Other (Diminished breath sounds posteriorly at the bases) Cardiovascular: S1 Abdomen: Soft Extremities: Other (1+ pitting edema) Labs Laboratory Tests Test 07/20/21 17:15 07/20/21 19:07 07/21/21 03:45 07/21/21 10:40 Activated Partial Thromboplast Time 69 SEC (24-38) 100 SEC (24-38) 95 SEC (24-38) Heparin Anti-Xa Act, Unfractionated 0.41 IU/mL (0.30-0.70) O2 Saturation 96 % (92-99) Arterial Blood pH 7.40 (7.35-7.45) Arterial Blood pCO2 at Patient Temp 56 mmHg (35-46) Arterial Blood pO2 at Patient Temp 88 mmHg (65-108) Arterial Blood HCO3 34 mmol/L (21-28) Arterial Blood Base Excess 8 mmol/L (-3-3) FiO2 100 White Blood Count 11.8 x10^3/uL (4.0-11.0) Red Blood Count 3.45 x10^6/uL (3.50-5.40) Hemoglobin 9.8 g/dL (12.0-15.5) Hematocrit 30.5 % (36.0-47.0) Mean Corpuscular Volume 89 fL (79-100) Mean Corpuscular Hemoglobin 28 pg (25-35) Mean Corpuscular Hemoglobin Concent 32 g/dL (31-37) Red Cell Distribution Width 16.5 % (11.5-14.5) Platelet Count 158 x10^3/uL (140-400) Neutrophils (%) (Auto) 89 % (31-73) Lymphocytes (%) (Auto) 4 % (24-48) Monocytes (%) (Auto) 7 % (0-9) Eosinophils (%) (Auto) 0 % (0-3) Basophils (%) (Auto) 0 % (0-3) Neutrophils # (Auto) 10.5 x10^3/uL (1.8-7.7) Lymphocytes # (Auto) 0.5 x10^3/uL (1.0-4.8) Monocytes # (Auto) 0.8 x10^3/uL (0.0-1.1) Eosinophils # (Auto) 0.0 x10^3/uL (0.0-0.7) Basophils # (Auto) 0.0 x10^3/uL (0.0-0.2) Sodium Level 139 mmol/L (136-145) Potassium Level 3.6 mmol/L (3.5-5.1) Chloride Level 102 mmol/L (98-107) Carbon Dioxide Level 36 mmol/L (21-32) Anion Gap 1 (6-14) Blood Urea Nitrogen 17 mg/dL (7-20) Creatinine 0.5 mg/dL (0.6-1.0) Estimated GFR (Cockcroft-Gault) 118.1 Glucose Level 152 mg/dL (70-99) Calcium Level 7.7 mg/dL (8.5-10.1) Test 07/22/21 05:00 Heparin Anti-Xa Act, Unfractionated 0.37 IU/mL (0.30-0.70) Laboratory Tests Test 07/22/21 05:00 Heparin Anti-Xa Act, Unfractionated 0.37 IU/mL (0.30-0.70) Medications Active Scripts Medications Dose Route/Sig Max Daily Dose Days Date Category Eliquis (Apixaban) 5 Mg Tablet 5 Mg PO BID 30 07/15/21 Rx Eliquis (Apixaban) 5 Mg Tablet 10 Mg PO BID 7 07/15/21 Rx Metoprolol Tartrate 25 Mg Tablet 25 Mg PO BID 30 07/15/21 Rx Keflex (Cephalexin) 500 Mg Capsule 1 Cap PO TID 3 07/15/21 Rx Atorvastatin Calcium 10 Mg Tablet 10 Mg PO QHS 30 07/15/21 Rx Digoxin 125 Mcg Tablet 125 Mcg PO DAILY 30 07/15/21 Rx Effer-K 10 Meq Tablet Eff (Potassium Bicarbonate/Cit Ac) 10 Meq Tablet.eff 15 Meq PO DAILY 07/12/21 Reported Lasix (Furosemide) 40 Mg Tablet 1 Tab PO DAILY 30 07/12/21 Reported Comments Chest x-ray reviewed 07/20/2021. Bilateral infiltrates and left-sided pleural effusion. CT chest reviewed dated July 17, 2021 Bilateral pleural effusions, moderate per my impression. Evidence of congestive heart failure. Impression . 1. Acute respiratory failure, multifactorial in etiology including acute diastolic congestive heart failure, bilateral pleural effusion, AFib with rapid ventricular response, moderate to severe mitral regurgitation.--- now rate controlled 2. Abnormal CT of the chest. bilateral pleural effusions and evidence of CHF 3. Acute diastolic congestive heart failure. 4. Atrial fibrillation with rapid ventricular response. Now controlled 5. Pleural effusion, status post right thoracentesis on 07/14, transudate. Cytology is pending. 6. Malnutrition. 7. Moderate to severe mitral regurgitation. 8. Right lower extremity cellulitis. 9. Leukocytosis--improved ID following 10. BETY showed mitral valve prolapse with possible ruptured chordae and moderate to severe mitral regurgitation 11. non-ST elevation myocardial infarction. 12. Sepsis from gram-positive bacteremia, Gram-positive cocci bacteremia 3 bottles present on admission,, enterococcus Plan . 1. Titrate FiO2 to keep O2 saturation 92%. Currently her saturations 100%. Discussed with RN to wean FiO2. 2. A. fib per cardiology--cardiac cath planned for today. 3. Status post right thoracentesis 07/19/21--1 liter removed -- transudate from CHF 4. Keep intake, less than output. Lasix per Cardiology. 5. antibiotics---per ID 6. Protonix for stress ulcer prophylaxis. 7. Patient has recurrent bilateral pleural effusions. She had a recent prior thoracentesis last Sunday. etiology of her recurrent pleural effusion includes diastolic CHF as well as moderate to severe mitral regurgitation, pleural effusion will keep reoccurring. It will be difficult to manage her congestive heart failure without fixing the mitral regurgitation. Prognosis is grim. 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 There is a concern for rupture of chordae as well .cardiac cath planned for today. Follow cardiology recommendations after the cath. KIRK MASTERSON MD Jul 22, 2021 11:12
[2021-07-22] MEDS ORDERED: LIDOCAINE 1% Multi-Dose 20 ML VIAL. ONE (12:05)
--- NOTE | 2021-07-22 12:25 | PDOC ---
[employer] PROGRESS NOTE Date of Service DOS: DATE: 07/22/21 TIME: 12:24 Chief Complaint Chief Complaint Acute encephalopathy - likely due to sepsis Severe sepsis - ID consulted, cont vancomycin GPC positive blood cultures - as above Acute hypoxic respiratory failure Afib with RVR - eliquis for thromboprophylaxis, cardizem rate control back on metoprolol S/p ppm - good battery life H/o pulmonary embolism - on recent admission 07/14/2021 Acute on chronic diastolic heart failure: Recent 2D echo showed LVEF 50 to 55%. Continue diuresis. Moderate to severe mitral regurgitation noted on recent 2D echo. Consider BETY and referral for mitral valve clip repair as an outpatient. Thrombocytopenia Right pleural effusion Acrocyanosis, bilateral lower extremity COPD Right pleural effusion that is post thoracocentesis last admission -recurrent Generalized debility Hard of hearing Poor living condition History of Present Illness History of Present Illness 07/22, more clear, mental status improvede calm and talkative was very confused 07/20 GEodon given overnight calm this AM, somnolent early in the AM Ms Bang is an 80 year old female well-known to our service as above with past medical history of congestive heart failure, A. fib, pacemaker placement at [facility] and NSTEMI (on 07/12/21) currently admitted in ICU who presented to ER on 07/17/2021 from [facility] via EMS with [facility] of breath [facility]. Patient was hypoxic, so the patient on a nonrebreather. T-max 100.3, WBC 14 K, 07/17/2021 blood cultures are positive with GPC in pairs and chains. Patient is currently on O2. Alert awake. Remains confused. Last admission patient underwent right lung thoracocentesis for moderate pleural effusion on 07/14/2021. Cultures remain negative. Blood cultures were done this admission which are positive for gram-positive cocci in pairs and chains. Admitted with Cardiology, Pulmonology, and ID consultation. Afebrile overnight. Blood cultures 4-4 positive GPC. Heart rate A. fib in 90s 200s. She has been coughing with sips of water. Plan for repeat thoracentesis. Vitals/I&O Vitals/I&O: Vital Signs Date Time Temp Pulse Resp B/P (MAP) Pulse Ox O2 Delivery O2 Flow Rate FiO2 07/22/21 08:50 81 120/51 07/22/21 08:00 Non-Rebreather 15.0 07/22/21 07:00 98.0 18 100 98.0 I & O 07/21/21 07/21/21 07/22/21 14:59 22:59 06:59 Intake Total 0 ml 0 ml 363 ml Balance 0 ml 0 ml 363 ml Physical Exam Physical Exam: GENERAL: Alert, awake confused likely baseline, poor hearing lying in bed c omfortably, in no acute NECK: Supple. LUNGS: Bibasilar crackles no wheezing. HEART: Irregular, holosystolic murmur, MUSCULOSKELETAL: No joint swelling. No decrease in range of motion. CENTRAL NERVOUS SYSTEM: Alert awake hard of hearing moves all 4 extremities debilitated, PIV LINES: looks clean. General: Alert, No acute distress Heart: Regular rate, Other (Heart rate irregular, PSM 3/6 apex) Lungs: Clear, Other (Diminished breath sounds posteriorly at the bases) Abdomen: Soft Extremities: No cyanosis, No edema Skin: No breakdown Labs Labs: Laboratory Tests Test 07/22/21 05:00 Heparin Anti-Xa Act, Unfractionated 0.37 IU/mL (0.30-0.70) Assessment and Plan Assessmemt and Plan Problems Medical Problems: (1) Bandemia Status: Acute (2) Elevated troponin Status: Acute (3) Hypoxia Status: Acute (4) Pleural effusion Status: Acute (5) Respiratory failure Status: Acute (6) SIRS (systemic inflammatory response syndrome) Status: Acute Comment Review of Relevant I have reviewed the following items peewee (where applicable) has been applied. Justifications for Admission Other Justification A. fib RVR and CHF exacerbation HAMZAH BRAND MD Jul 22, 2021 12:25
--- NOTE | 2021-07-22 13:13 | PATHOLOGY ---
Note [facility] Accession Number: [id number] TESTS RESULT FLAG UNITS REF RANGE LAB Clinician Provided Cytology Information No. of containers..01 Other (Miscellaneous) Source: RIGHT PLEURAL FLUID DIAGNOSIS: RIGHT PLEURAL FLUID NEGATIVE FOR MALIGNANT CELLS. REACTIVE MESOTHELIAL CELLS ARE PRESENT. THIS INTERPRETATION INCLUDES EVALUATION OF A CELL BLOCK. Signed out by: 02 Fazal Burgess MD, Pathologist NPI- [id number] Performed by: Nargis Washington, Non Destructive Testing Supervisor ([facility]) Gross description: 50ML, CLEAR PALE, YELLOW /LCS 07/20/2021 1609 Local FLAG LEGEND: L-Low Normal,H-High Normal,LL-Alert Low,HH-Alert High <-Panic Low,>-Panic High,A-Abnormal,AA-Critical Abnormal Performed at: [address] [place] [address] Luis Eduardo Bonilla MD, [address] [facility] [address] [place] [address] Fazal Burgess MD, Specimen Comment: A duplicate report has been generated due to demographic updates. Performed at: [address], [place], [place] [id number] MD Luis Eduardo Bonilla MD Phone: [phone]
[2021-07-22] MEDS ORDERED: MIDAZOLAM HCL/PF 2 MG/2 ML VIAL. ONE (13:58)
[2021-07-22] MEDS ORDERED: fentaNYL PF VIAL 100 MCG/2 ML VIAL ONE (13:58)
[2021-07-22] MEDS ORDERED: fentaNYL PF VIAL 100 MCG/2 ML VIAL IV ONE (14:00)
[2021-07-22] MEDS ORDERED: LIDOCAINE 1% Multi-Dose 20 ML VIAL. INJ ONE (14:00)
[2021-07-22] MEDS ORDERED: MIDAZOLAM HCL/PF 2 MG/2 ML VIAL. IV ONE (14:00)
--- NOTE | 2021-07-22 14:46 | PDOC ---
MODERATE SEDATION ASSESSMENT RISKS/ALTERNATIVES Risks/Alternatives Risks and alternatives of this type of sedation and procedure discussed with: RISK/ALTERNATIVES: Patient H & P ON CHART H & P H & P on chart and reviewed for co-morbid conditions and appropriate labs. H&P ON CHART: Yes STATUS PREG STATUS ASSESSED: N/A MEDS/ALLERGIES REVIEWED Meds/Allergies Reviewed Medications and Allergies including time and route of recently administered narcotics and sedatives. MEDS/ALLERGIES REVIEWED: Yes ASA RATING ASA RATING: III AIRWAY ASSESSMENT Airway Assessment Airway patency, oral function limitations, presence of caps, crowns, dentures, partials, and ability to extend neck assessed. AIRWAY ASSESSMENT: Yes MALLAMPATI SCORE MALLAMPATI SCORE: II PRE-SEDATION ASSESSMENT PRE-SEDATION ASSESSMENT: Yes EMILY MARIN MD Jul 22, 2021 14:46
--- NOTE | 2021-07-22 15:05 | CARD ---
MR#: [id number] Date of Study: 07/22/2021 Ordering Physician: MARCK BEARD, Referring Physician: MARCK BEARD, Tech: RT Rachel(R) APPROVED REPORT Technologist: RT Rachel(R) Nurse: Kira Faith RN Procedure(s) performed: RIGHT HEART CATHETERIZATION FL TIME: 1.9 MIN DOSE: 1.2 GYCM2 MODERATE SEDATION: 24 MIN INDICATION The indication(s) include : Recurrent acute on chronic diastolic heart failure. CASE TECHNIQUE IV conscious sedation was used throughout procedure with appropriate monitoring and was performed in the presence of a registered nurse who was an independent trained observer other than the physician p erforming the procedure. During this case, Fluoroscopy and low osmolar contrast were used for imaging . Specimen(s) Removed: No Estimated Blood loss: 20 cc's. PROCEDURE NARRATIVE After explaining the risk, benefits and alternative options, informed consent was obtained from patie nt. Patient was brought to the cardiac Enterprise Systems Architect and her right groin was prepped and draped in the us ual fashion. 10 cc of 2% lidocaine was infiltrated into the skin and subcutaneous tissues for local anesthesia. Venous access was obtained in the right common femoral vein and 8 Burkinan sheath was inse rted. A 7.5 Burkinan Brilliant-Brianna catheter was then advanced under fluoroscopic guidance and intracardiac pressures, oxygen saturations and cardiac output by Olivier method measured. Patient tolerated the pro cedure well. Hemostasis was achieved using manual compression. There were no immediate complication s. FINDINGS 1. Intracardiac pressures: Mean right atrial pressure 8 mmHg, right ventricular pressure 47/1 mmHg, pulmonary artery pressure 67/35 mmHg, mean PA pressure 45 mmHg and mean pulmonary capillary wedge pre ssure 20 mmHg. This is consistent with elevated left-sided filling pressures from acute on chronic d iastolic heart failure and mild to moderate pulmonary hypertension. 2. Oxygen saturations: Right atrium 66%, pulmonary artery 58%. No evidence of intracardiac shunt. 3. Cardiac output by Olivier method 3.06 L/min. Conclusion Elevated left-sided filling pressure secondary to acute on chronic diastolic heart failure and mild t o moderate pulmonary hypertension. No evidence of intracardiac shunt. Recommendations Continue medical management including diuresis. Signed by : Kei Chang, Electronically Approved : 07/22/2021 15:05:15
[2021-07-22] MEDS ORDERED: DIGOXIN IV 500 MCG/2 ML AMPUL. IV ONE (17:15)
[2021-07-22] MEDS ORDERED: METOPROLOL IV PUSH 5 MG/5 ML VIAL. IVP ONE (17:15)
[2021-07-22 17:50] LABS: BASE EXCESS ABG 9 mmol/L (-3-3); HCO3 ABG 36 mmol/L (21-28); PO2 ABG 147 mmHg (65-108); SAT O2 ABG 99 % (92-99)
[2021-07-22 17:53] LABS: PCO2 ABG 66 mmHg (35-46)
--- NOTE | 2021-07-22 20:32 | RAD ---
Exam: Chest one view INDICATION: Shortness of breath TECHNIQUE: Frontal view of the chest Comparisons: 07/20/2021 FINDINGS: Pacer with leads terminating the right atrium and ventricle. Heart is mildly enlarged pulmonary vessels are within normal limits. Hazy opacities lungs bilaterally. Small to moderate left effusions. IMPRESSION: Findings likely related to pulmonary edema with small to moderate-sized left pleural effusion. Superi mposed infectious process is difficult to exclude. Electronically signed by: Danish Grubbs MD (07/22/2021 8:30 PM) VIDYA
[2021-07-22] MEDS: PSYLLIUM HUSK (SUGAR FREE) 1 PKT PACKET PO SCH (21:00)
[2021-07-22] MEDS: ATORVASTATIN CALCIUM 10 MG TABLET. PO SCH (21:00)
[2021-07-22] MEDS ORDERED: METOPROLOL IV PUSH 5 MG/5 ML VIAL. IVP PRN (22:30)
[2021-07-23] MEDS: AMPICILLIN SODIUM 2 GM in IV NORMAL SALINE 100ML 100 ML IV SCH ×4 (00:56→18:49)
[2021-07-23 02:46] VITALS: BP 135/57
[2021-07-23] MEDS: FUROSEMIDE 40 MG/4 ML VIAL. IVP SCH ×2 (06:12→18:33)
[2021-07-23 07:00] VITALS: BP 147/54
[2021-07-23 08:19] LABS: BASE EXCESS ABG 15 mmol/L (-3-3); HCO3 ABG 38 mmol/L (21-28); PCO2 ABG 44 mmHg (35-46); SAT O2 ABG 88 % (92-99)
--- NOTE | 2021-07-23 08:19 | PDOC ---
PULMONARY PROGRESS NOTES DATE: 07/23/21 TIME: 08:15 Subjective on bipap for pulm edema s/p cath 07/22 Status post right thoracentesis 07/19 Vitals Vital Signs Date Time Temp Pulse Resp B/P (MAP) Pulse Ox O2 Delivery O2 Flow Rate FiO2 07/23/21 08:06 100 Nasal Cannula 2.0 07/23/21 02:46 97.2 68 20 135/57 (83) 97.2 General: Alert HEENT: Other (nc at bipap mask on ) Lungs: Clear, Other (Diminished breath sounds posteriorly at the bases) Cardiovascular: Other (irreg irreg) Abdomen: Soft Neuro Exam: Alert Extremities: Other (1+ pitting edema) Skin: Warm Labs Laboratory Tests Test 07/21/21 10:40 07/22/21 05:00 07/22/21 17:40 Activated Partial Thromboplast Time 95 SEC (24-38) Heparin Anti-Xa Act, Unfractionated 0.37 IU/mL (0.30-0.70) O2 Saturation 99 % (92-99) Arterial Blood pH 7.36 (7.35-7.45) Arterial Blood pCO2 at Patient Temp 66 mmHg (35-46) Arterial Blood pO2 at Patient Temp 147 mmHg (65-108) Arterial Blood HCO3 36 mmol/L (21-28) Arterial Blood Base Excess 9 mmol/L (-3-3) FiO2 100 bipap Laboratory Tests Test 07/22/21 17:40 O2 Saturation 99 % (92-99) Arterial Blood pH 7.36 (7.35-7.45) Arterial Blood pCO2 at Patient Temp 66 mmHg (35-46) Arterial Blood pO2 at Patient Temp 147 mmHg (65-108) Arterial Blood HCO3 36 mmol/L (21-28) Arterial Blood Base Excess 9 mmol/L (-3-3) FiO2 100 bipap Medications Active Scripts Medications Dose Route/Sig Max Daily Dose Days Date Category Eliquis (Apixaban) 5 Mg Tablet 5 Mg PO BID 30 07/15/21 Rx Eliquis (Apixaban) 5 Mg Tablet 10 Mg PO BID 7 07/15/21 Rx Metoprolol Tartrate 25 Mg Tablet 25 Mg PO BID 30 07/15/21 Rx Keflex (Cephalexin) 500 Mg Capsule 1 Cap PO TID 3 07/15/21 Rx Atorvastatin Calcium 10 Mg Tablet 10 Mg PO QHS 30 07/15/21 Rx Digoxin 125 Mcg Tablet 125 Mcg PO DAILY 30 07/15/21 Rx Effer-K 10 Meq Tablet Eff (Potassium Bicarbonate/Cit Ac) 10 Meq Tablet.eff 15 Meq PO DAILY 07/12/21 Reported Lasix (Furosemide) 40 Mg Tablet 1 Tab PO DAILY 30 07/12/21 Reported Comments Chest x-ray reviewed 07/20/2021. Bilateral infiltrates and left-sided pleural effusion. CT chest reviewed dated July 17, 2021 Bilateral pleural effusions, moderate per my impression. Evidence of congestive heart failure. Impression . 1. Acute respiratory failure, multifactorial in etiology including acute diastolic congestive heart failure, bilateral pleural effusion, AFib with rapid ventricular response, moderate to severe mitral regurgitation.--- now rate controlled 2. Abnormal CT of the chest. bilateral pleural effusions and evidence of CHF 3. Acute diastolic congestive heart failure. 4. Atrial fibrillation with rapid ventricular response. Now controlled 5. Pleural effusion, status post right thoracentesis on 07/14, transudate. 6. Malnutrition. 7. Moderate to severe mitral regurgitation. 8. Right lower extremity cellulitis. 9. Leukocytosis--improved ID following . BETY showed mitral valve prolapse with possible ruptured chordae and moderate to severe mitral regurgitation 11. non-ST elevation myocardial infarction. 12. Persistent Enterococcus faecalis bacteremia on admission on 07/17 and 07/18 and 07/20 cardiac cath 07/22 Conclusion Elevated left-sided filling pressure secondary to acute on chronic diastolic heart failure and mild to moderate pulmonary hypertension. No evidence of intracardiac shunt. Recommendations Continue medical management including diuresis. Plan . 1. Titrate FiO2 to keep O2 saturation 90% not higher is co2 retainer. bipap prn during day cont at night 2. A. fib per cardiology--cardiac cath 07/22 reviewed 3. Status post right thoracentesis 07/19/21--1 liter removed -- transudate from CHF 4. Keep intake, less than output. Lasix per Cardiology. 5. antibiotics---per ID need neg blood cx before picc and dc 6. Protonix for stress ulcer prophylaxis. 7. Patient has recurrent bilateral pleural effusions. She had a recent prior thoracentesis last Sunday. etiology of her recurrent pleural effusion includes acute on chronic diastolic CHF as well as moderate to severe mitral regurgitation, pleural effusion will keep reoccurring. It will be difficult to manage her congestive heart failure without fixing the mitral regurgitation. Prognosis is poor. 8. Follow cardiology recommendations aggressive tx of chf discussed w JOSY Fenton MD Jul 23, 2021 08:19
[2021-07-23 08:27] LABS: PO2 ABG 48 mmHg (65-108)
[2021-07-23 08:39] LABS: FIO2 ABG 1.5 lpm nc
[2021-07-23] MEDS: POLYETHYLENE GLYCOL 3350 17 GM PACKET. PO SCH (09:00)
[2021-07-23] MEDS ORDERED: DIGOXIN IV 500 MCG/2 ML AMPUL. IV ONE (09:00)
--- NOTE | 2021-07-23 09:12 | PDOC ---
[facility] PROGRESS NOTE Date of Service DOS: DATE: 07/23/21 TIME: 09:11 Chief Complaint Chief Complaint Acute encephalopathy - likely due to sepsis Severe sepsis - ID consulted, cont vancomycin GPC positive blood cultures - as above Acute hypoxic respiratory failure Afib with RVR - eliquis for thromboprophylaxis, cardizem rate control back on metoprolol S/p ppm - good battery life H/o pulmonary embolism - on recent admission 07/14/2021 Acute on chronic diastolic heart failure: Recent 2D echo showed LVEF 50 to 55%. Continue diuresis. Moderate to severe mitral regurgitation noted on recent 2D echo. Consider BETY and referral for mitral valve clip repair as an outpatient. Thrombocytopenia Right pleural effusion Acrocyanosis, bilateral lower extremity COPD Right pleural effusion that is post thoracocentesis last admission -recurrent Generalized debility Hard of hearing Poor living condition History of Present Illness History of Present Illness 07/23, atrial flutter, rate controlled more calm, mitts off NPO still, start procalamine 07/22, more clear, mental status improvede calm and talkative was very confused 07/20 GEodon given overnight calm this AM, somnolent early in the AM Ms Bang is an 80 year old female well-known to our service as above with past medical history of congestive heart failure, A. fib, pacemaker placement at [facility] and NSTEMI (on 07/12/21) currently admitted in ICU who presented to ER on 07/17/2021 from [facility] via EMS with shortness of breath at custodial. Patient was hypoxic, so the patient on a nonrebreather. T-max 100.3, WBC 14 K, 07/17/2021 blood cultures are positive with GPC in pairs and chains. Patient is currently on O2. Alert awake. Remains confused. Last admission patient underwent right lung thoracocentesis for moderate pleural effusion on 07/14/2021. Cultures remain negative. Blood cultures were done this admission which are positive for gram-positive cocci in pairs and chains. Admitted with Cardiology, Pulmonology, and ID consultation. Afebrile overnight. Blood cultures 4-4 positive GPC. Heart rate A. fib in 90s 200s. She has been coughing with sips of water. Plan for repeat thoracentesis. Vitals/I&O Vitals/I&O: Vital Signs Date Time Temp Pulse Resp B/P (MAP) Pulse Ox O2 Delivery O2 Flow Rate FiO2 07/23/21 08:41 2.5 07/23/21 08:06 100 Nasal Cannula 07/23/21 07:00 97.5 67 20 147/54 (85) 97.5 I & O 07/22/21 07/22/21 07/23/21 15:00 23:00 07:00 Intake Total 0 ml 320 ml 0 ml Balance 0 ml 320 ml 0 ml Physical Exam Physical Exam: GENERAL: Alert, awake confused likely baseline, poor hearing lying in bed comfortably, in no acute NECK: Supple. LUNGS: Bibasilar crackles no wheezing. HEART: Irregular, holosystolic murmur, MUSCULOSKELETAL: No joint swelling. No decrease in range of motion. CENTRAL NERVOUS SYSTEM: Alert awake hard of hearing moves all 4 extremities debilitated, PIV LINES: looks clean. General: Alert, No acute distress Heart: Regular rate, Other (Heart rate irregular, PSM 3/6 apex) Lungs: Clear, Other (Diminished breath sounds posteriorly at the bases) Abdomen: Soft Extremities: No cyanosis, No edema Skin: No breakdown Labs Labs: Laboratory Tests Test 07/22/21 17:40 07/23/21 08:00 O2 Saturation 99 % (92-99) 88 % (92-99) Arterial Blood pH 7.36 (7.35-7.45) 7.55 (7.35-7.45) Arterial Blood pCO2 at Patient Temp 66 mmHg (35-46) 44 mmHg (35-46) Arterial Blood pO2 at Patient Temp 147 mmHg (65-108) 48 mmHg (65-108) Arterial Blood HCO3 36 mmol/L (21-28) 38 mmol/L (21-28) Arterial Blood Base Excess 9 mmol/L (-3-3) 15 mmol/L (-3-3) FiO2 100 bipap 1.5 lpm nc Assessment and Plan Assessmemt and Plan Problems Medical Problems: (1) Bandemia Status: Acute (2) Elevated troponin Status: Acute (3) Hypoxia Status: Acute (4) Pleural effusion Status: Acute (5) Respiratory failure Status: Acute (6) SIRS (systemic inflammatory response syndrome) Status: Acute Comment Review of Relevant I have reviewed the following items peewee (where applicable) has been applied. Medications: Current Medications Medications (Trade) Dose Ordered Sig/Beny Route PRN Reason Start Time Stop Time Status Last Admin Dose Admin Heparin Sodium/ Sodium Chloride (HEPARIN for ARTERIAL LINE FLUSH) 1,000 unit 1X ONCE IART 07/22/21 14:00 07/22/21 14:04 DC 07/22/21 14:00 Heparin Sodium/ Sodium Chloride (HEPARIN for ARTERIAL LINE FLUSH) 1,000 unit 1X ONCE IART 07/22/21 14:00 07/22/21 14:04 DC 07/22/21 14:00 Midazolam HCl (Versed) 2 mg 1X ONCE IV 07/22/21 14:00 07/22/21 14:04 DC 07/22/21 14:25 Fentanyl Citrate (Fentanyl 2ml Vial) 100 mcg 1X ONCE IV 07/22/21 14:00 07/22/21 14:04 DC 07/22/21 14:25 Lidocaine HCl (Lidocaine 1% 20ml Vial) 20 ml 1X ONCE INJ 07/22/21 14:00 07/22/21 14:04 DC 07/22/21 14:26 Furosemide (Lasix) 40 mg Q12H IVP 07/22/21 18:00 07/23/21 06:12 Metoprolol Tartrate (Lopressor Vial) 5 mg 1X ONCE IVP 07/22/21 17:15 07/22/21 17:19 DC 07/22/21 17:26 Digoxin (Lanoxin) 500 mcg 1X ONCE IV 07/22/21 17:15 07/22/21 17:19 DC 07/22/21 17:26 Justifications for Admission Other Justification A. fib RVR and CHF exacerbation HAMZAH BRAND MD Jul 23, 2021 09:12
[2021-07-23 09:55] LABS: HEMATOCRIT 35.5 % (36.0-47.0); HEMOGLOBIN 11.4 g/dL (12.0-15.5); RED BLOOD COUNT 3.97 x10^6/uL (3.50-5.40); RED CELL DISTRIBUTION WIDTH 16.7 % (11.5-14.5)
[2021-07-23 10:00] VITALS: BP 167/51
[2021-07-23 10:10] LABS: ALBUMIN 1.7 g/dL (3.4-5.0); ALBUMIN/GLOBULIN RATIO 0.4 (1.0-1.7); CALCIUM 8.1 mg/dL (8.5-10.1); CREATININE 0.4 mg/dL (0.6-1.0); GFR 152.8; TOTAL BILIRUBIN 0.5 mg/dL (0.2-1.0); TOTAL PROTEIN 5.5 g/dL (6.4-8.2)
[2021-07-23 10:16] LABS: POTASSIUM 2.9 mmol/L (3.5-5.1)
[2021-07-23] MEDS: PANTOPRAZOLE IV PUSH 40 MG VIAL. IVP SCH (10:50)
[2021-07-23] MEDS: LACTOBACILLUS RHAMNOSUS GG 1 CAPSULE. PO SCH ×2 (10:51→21:00)
[2021-07-23] MEDS: DIGOXIN 125 MCG TABLET. PO SCH (10:53)
[2021-07-23] MEDS: cefTRIAXone IV Push 2 GM VIAL. IVP SCH ×2 (10:54→21:59)
[2021-07-23] MEDS: ENOXAPARIN 40 MG/0.4 ML SYRINGE. SQ SCH (10:54)
[2021-07-23] MEDS: METOPROLOL TART IMMED RELEASE 25 MG TABLET. PO SCH ×2 (10:54→21:00)
--- NOTE | 2021-07-23 11:23 | PDOC ---
Infectious Disease Note Subjective: Subjective pt alert awake Asking for food, remains somewhat confused On O2 by nasal cannula Appears comfortable Vital Signs: Vital Signs Vital Signs Date Time Temp Pulse Resp B/P (MAP) Pulse Ox O2 Delivery O2 Flow Rate FiO2 07/23/21 10:54 68 138/52 07/23/21 08:41 2.5 07/23/21 08:06 100 Nasal Cannula 07/23/21 07:00 97.5 20 97.5 Physical Exam: PHYSICAL EXAM GENERAL: Alert, awake confused likely baseline, poor hearing lying in bed comfortably, in no acute distress HEENT normocephalic atraumatic anicteric NECK: Supple. LUNGS: Bibasilar crackles no wheezing. HEART: Irregular, holosystolic murmur, MUSCULOSKELETAL: No joint swelling. No decrease in range of motion. CENTRAL NERVOUS SYSTEM: Alert awake hard of hearing moves all 4 extremities debilitated, Medications: Inpatient Meds: Medications reviewed. Labs: Lab Laboratory Tests Test 07/22/21 17:40 07/23/21 08:00 07/23/21 09:40 O2 Saturation 99 % (92-99) 88 % (92-99) Arterial Blood pH 7.36 (7.35-7.45) 7.55 (7.35-7.45) Arterial Blood pCO2 at Patient Temp 66 mmHg (35-46) 44 mmHg (35-46) Arterial Blood pO2 at Patient Temp 147 mmHg (65-108) 48 mmHg (65-108) Arterial Blood HCO3 36 mmol/L (21-28) 38 mmol/L (21-28) Arterial Blood Base Excess 9 mmol/L (-3-3) 15 mmol/L (-3-3) FiO2 100 bipap 1.5 lpm nc White Blood Count 8.0 x10^3/uL (4.0-11.0) Red Blood Count 3.97 x10^6/uL (3.50-5.40) Hemoglobin 11.4 g/dL (12.0-15.5) Hematocrit 35.5 % (36.0-47.0) Mean Corpuscular Volume 89 fL (79-100) Mean Corpuscular Hemoglobin 29 pg (25-35) Mean Corpuscular Hemoglobin Concent 32 g/dL (31-37) Red Cell Distribution Width 16.7 % (11.5-14.5) Platelet Count 206 x10^3/uL (140-400) Sodium Level 147 mmol/L (136-145) Potassium Level 2.9 mmol/L (3.5-5.1) Chloride Level 104 mmol/L (98-107) Carbon Dioxide Level 41 mmol/L (21-32) Anion Gap 2 (6-14) Blood Urea Nitrogen 11 mg/dL (7-20) Creatinine 0.4 mg/dL (0.6-1.0) Estimated GFR (Cockcroft-Gault) 152.8 BUN/Creatinine Ratio 28 (6-20) Glucose Level 99 mg/dL (70-99) Calcium Level 8.1 mg/dL (8.5-10.1) Total Bilirubin 0.5 mg/dL (0.2-1.0) Aspartate Amino Transf (AST/SGOT) 37 U/L (15-37) Alanine Aminotransferase (ALT/SGPT) 33 U/L (14-59) Alkaline Phosphatase 91 U/L (46-116) Total Protein 5.5 g/dL (6.4-8.2) Albumin 1.7 g/dL (3.4-5.0) Albumin/Globulin Ratio 0.4 (1.0-1.7) Micro ---- -------- RUN DATE: 07/20/21 [facility] LAB *LIVE* PAGE 1 RUN TIME: 0755 Specimen Inquiry PATIENT: NADINE SILVEIRA ACCT: [id number] LOC: [address] [place] [address] U: [id number] AGE/SX: 80/F ROOM: 656 RE07/17/[address]: MACHO ESTEVEZ MD : 1940 BED: 1 DIS: STATUS: ADM IN TLOC: SPEC #: [id number] JA: 07/17/21 STATUS: COMP REQ #: [id number] RECD: 07/17/[address]: CARMINA WESTON DO SOURCE: BLOOD ENTR: 07/18/21 [facility] DR: UNKNOWN PCP NAME SPDC: ORDERED: BLD CULT - LC Procedure Result BLOOD CULTURE LC Final Final GROWTH OF GRAM POSITIVE COCCI FINAL ID= [ENTEROCOCCUS [email or web address]] ENTEROCOCCUS FAECALIS Streptomycin Synergy Screen S Gentamicin Synergy Screen S ANTIMICROBIAL SUSCEPTIBILITY Final Comment POS ANA TYPE 38 ENTEROCOCCUS FAECALIS ANTIBIOTIC RESULT INTERPRETATION AMPICILLIN <=2 S DAPTOMYCIN 2 S LINEZOLID 2 S PENICILLIN 2 S VANCOMYCIN 1 S Unless otherwise specified, Testing Performed by: [address] [address] For Inquires, the Physician may contact the Microbiology department at [phone] Objective: Assessment: Sepsis from gram-positive bacteremia present on admission Persistent Enterococcus faecalis bacteremia on admission on 07/17 and 07/18 and 07/20 BETY difficult study with mitral valve chordae, less likely vegetation UA urine culture not done CT abdomen and pelvis reviewed Fever resolved Leukocytosis Abdominal discomfort, nausea Acute hypoxic respiratory failure on 4 L O2 by nasal cannula likely from CHF History of allergies to penicillin CHF A. fib with RVR Severe protein calorie malnutrition PPM in place Thrombocytopenia Onychomycosis Acrocyanosis, bilateral lower extremity resolved COPD Right pleural effusion that is post thoracocentesis last admission Generalized debility Hard of hearing Poor living condition BETY Technically difficult study. The left ventricular systolic function is normal. The Ejection Fraction is 50-55%. Pacer lead noted RA/RV. Mitral valve prolapse seen with possible ruptured chordae. Doubt endocarditis since the valve leaflets are not thickened. Moderate to severe mitral regurgitation. Mild tricuspid regurgitation. There is no evidence of significant pericardial effusion. Plan: Plan of Care Cont IV ampicillin and rocephin repeat blood cultures 07/23/[address] PICC line until patient has repeat blood cultures negative at least for 48 to 72 hours Follow-up labs and cultures Continue supportive care Maintain aspiration precautions Would not discharge patient until blood clearance as above Overall prognosis poor NATALY CALLOWAY MD Jul 23, 2021 11:23
[2021-07-23] MEDS: AA 4.25 %/CALCIUM/LYTES/D5W 1,000 ML IV SCH (11:30)
[2021-07-23] MEDS: POTASSIUM CHLORIDE 10MEQ 100 ML IV SCH ×4 (11:31→15:02)
--- NOTE | 2021-07-23 13:57 | PDOC ---
PROGRESS NOTES Date of Service DATE: 07/23/21 TIME: 13:54 Subjective Subjective Patient seen and examined Objective Objective Vital Signs Date Time Temp Pulse Resp B/P (MAP) Pulse Ox O2 Delivery O2 Flow Rate FiO2 07/23/21 10:54 68 138/52 07/23/21 10:00 97.5 20 100 BiPAP/CPAP 97.5 07/23/21 08:41 2.5 Intake and Output 07/23/21 07:00 Intake Total 444 ml Balance 444 ml Intake Oral 320 ml IV Total 124 ml # Voids 1 Physical Exam Abdomen: Normal bowel sounds Heart: Other (Mildly irregular rhythm) General: mild distress Lungs: Other (Mildly decreased breath sounds) Assessment Assessment Problems Medical Problems: (1) Bandemia Status: Acute (2) Elevated troponin Status: Acute (3) Hypoxia Status: Acute (4) Pleural effusion Status: Acute (5) Respiratory failure Status: Acute (6) SIRS (systemic inflammatory response syndrome) Status: Acute Acute respiratory failure secondary to combination of acute on chronic diastolic heart failure, bilateral pleural effusions, possible pneumonia. S/P thoracentesis 07/19. The patient is feeling better. Heart catheterization as below. Acute on chronic diastolic heart failure: Echo showed LVEF 50 to 55%. Improved s/p diuresis. Continue Lasix therapy and monitoring of lab. Permanent atrial fibrillation/flutter presently with atrial flutter with RVR, rate better controlled. Continue digoxin and metoprolol as BP allows. Eliqius Moderate to severe mitral regurgitation, mitral valve prolapse with possible ruptured chordae noted on BETY. Right heart catheterization yesterday showed mildly elevated left-sided pressures with mild to moderate pulmonary hypertension. Continue present treatment. Future evaluation by valve clinic. Hypertension: Controlled SSS s/p PPM implantation with recent device check showing normal function with adequate battery life Sepsis/bacteremia; BC with GPC. no evidence of endocarditis per BETY Recent bilateral PE. Anticoagulation as above. Comment Review of Relevant I have reviewed the following items peewee (where applicable) has been applied. Labs Laboratory Tests Test 07/22/21 05:00 07/22/21 17:40 07/23/21 08:00 07/23/21 09:40 Heparin Anti-Xa Act, Unfractionated 0.37 IU/mL (0.30-0.70) O2 Saturation 99 % (92-99) 88 % (92-99) Arterial Blood pH 7.36 (7.35-7.45) 7.55 (7.35-7.45) Arterial Blood pCO2 at Patient Temp 66 mmHg (35-46) 44 mmHg (35-46) Arterial Blood pO2 at Patient Temp 147 mmHg (65-108) 48 mmHg (65-108) Arterial Blood HCO3 36 mmol/L (21-28) 38 mmol/L (21-28) Arterial Blood Base Excess 9 mmol/L (-3-3) 15 mmol/L (-3-3) FiO2 100 bipap 1.5 lpm nc White Blood Count 8.0 x10^3/uL (4.0-11.0) Red Blood Count 3.97 x10^6/uL (3.50-5.40) Hemoglobin 11.4 g/dL (12.0-15.5) Hematocrit 35.5 % (36.0-47.0) Mean Corpuscular Volume 89 fL (79-100) Mean Corpuscular Hemoglobin 29 pg (25-35) Mean Corpuscular Hemoglobin Concent 32 g/dL (31-37) Red Cell Distribution Width 16.7 % (11.5-14.5) Platelet Count 206 x10^3/uL (140-400) Sodium Level 147 mmol/L (136-145) Potassium Level 2.9 mmol/L (3.5-5.1) Chloride Level 104 mmol/L (98-107) Carbon Dioxide Level 41 mmol/L (21-32) Anion Gap 2 (6-14) Blood Urea Nitrogen 11 mg/dL (7-20) Creatinine 0.4 mg/dL (0.6-1.0) Estimated GFR (Cockcroft-Gault) 152.8 BUN/Creatinine Ratio 28 (6-20) Glucose Level 99 mg/dL (70-99) Calcium Level 8.1 mg/dL (8.5-10.1) Total Bilirubin 0.5 mg/dL (0.2-1.0) Aspartate Amino Transf (AST/SGOT) 37 U/L (15-37) Alanine Aminotransferase (ALT/SGPT) 33 U/L (14-59) Alkaline Phosphatase 91 U/L (46-116) Total Protein 5.5 g/dL (6.4-8.2) Albumin 1.7 g/dL (3.4-5.0) Albumin/Globulin Ratio 0.4 (1.0-1.7) Laboratory Tests Test 07/22/21 17:40 07/23/21 08:00 07/23/21 09:40 O2 Saturation 99 % (92-99) 88 % (92-99) Arterial Blood pH 7.36 (7.35-7.45) 7.55 (7.35-7.45) Arterial Blood pCO2 at Patient Temp 66 mmHg (35-46) 44 mmHg (35-46) Arterial Blood pO2 at Patient Temp 147 mmHg (65-108) 48 mmHg (65-108) Arterial Blood HCO3 36 mmol/L (21-28) 38 mmol/L (21-28) Arterial Blood Base Excess 9 mmol/L (-3-3) 15 mmol/L (-3-3) FiO2 100 bipap 1.5 lpm nc White Blood Count 8.0 x10^3/uL (4.0-11.0) Red Blood Count 3.97 x10^6/uL (3.50-5.40) Hemoglobin 11.4 g/dL (12.0-15.5) Hematocrit 35.5 % (36.0-47.0) Mean Corpuscular Volume 89 fL (79-100) Mean Corpuscular Hemoglobin 29 pg (25-35) Mean Corpuscular Hemoglobin Concent 32 g/dL (31-37) Red Cell Distribution Width 16.7 % (11.5-14.5) Platelet Count 206 x10^3/uL (140-400) Sodium Level 147 mmol/L (136-145) Potassium Level 2.9 mmol/L (3.5-5.1) Chloride Level 104 mmol/L (98-107) Carbon Dioxide Level 41 mmol/L (21-32) Anion Gap 2 (6-14) Blood Urea Nitrogen 11 mg/dL (7-20) Creatinine 0.4 mg/dL (0.6-1.0) Estimated GFR (Cockcroft-Gault) 152.8 BUN/Creatinine Ratio 28 (6-20) Glucose Level 99 mg/dL (70-99) Calcium Level 8.1 mg/dL (8.5-10.1) Total Bilirubin 0.5 mg/dL (0.2-1.0) Aspartate Amino Transf (AST/SGOT) 37 U/L (15-37) Alanine Aminotransferase (ALT/SGPT) 33 U/L (14-59) Alkaline Phosphatase 91 U/L (46-116) Total Protein 5.5 g/dL (6.4-8.2) Albumin 1.7 g/dL (3.4-5.0) Albumin/Globulin Ratio 0.4 (1.0-1.7) Microbiology 07/20/21 Blood Culture - Final, Complete 07/20/21 Antimicrobic Susceptibility - Final, Complete 07/19/21 Gram Stain - Final, Resulted 07/19/21 Aerobic and Anaerobic Culture - Preliminary, Resulted Medications Current Medications Diltiazem HCl (Cardizem Iv Push) 20 mg 1X ONCE IVP Last administered on 07/17/21at 01:41; Start 07/17/21 at 02:00; Stop 07/17/21 at 02:01; Status DC Diltiazem HCl 125 mg/Sodium Chloride 125 ml @ 5 mls/hr 1X ONCE IV Last administered on 07/17/21at 01:48; Start 07/17/21 at 02:00; Stop 07/17/21 at 11:39; Status DC Aspirin (Ecotrin) 325 mg 1X ONCE PO Last administered on 07/17/21at 01:38; Start 07/17/21 at 02:00; Stop 07/17/21 at 02:01; Status DC Acetaminophen (Tylenol) 500 mg 1X ONCE PO Last administered on 07/17/21at 02:19; Start 07/17/21 at 02:00; Stop 07/17/21 at 02:01; Status DC Iohexol (Omnipaque 350 Mg/ml) 100 ml 1X ONCE IV ; Start 07/17/21 at 02:00; Stop 07/17/21 at 02:01; Status DC Info (CONTRAST GIVEN -- Rx MONITORING) 1 each PRN DAILY PRN MC SEE COMMENTS; Start 07/17/21 at 01:30; Stop 07/19/21 at 01:29; Status DC Aztreonam (Azactam) 2 gm 1X ONCE IVP Last administered on 07/17/21at 03:45; Start 07/17/21 at 03:30; Stop 07/17/21 at 03:31; Status DC Azithromycin 250 ml @ 250 mls/hr 1X ONCE IV Last administered on 07/17/21at 04:27; Start 07/17/21 at 03:30; Stop 07/17/21 at 04:29; Status DC Sterile Water (WATER for RESP) 2,000 ml CONT PRN INH VIA VAPOTHERM DEVICE; Start 07/17/21 at 03:15 Ondansetron HCl (Zofran) 4 mg PRN Q8HRS PRN IVP NAUSEA/VOMITING 1ST CHOICE Last administered on 07/17/21at 22:33; Start 07/17/21 at 03:15; Stop 07/18/21 at 03:14; Status DC Pantoprazole Sodium (PROTONIX VIAL for IV PUSH) 40 mg DAILYAC IVP Last administered on 07/23/21at 10:50; Start 07/17/21 at 09:00 Apixaban (Eliquis) 10 mg BID PO ; Start 07/17/21 at 21:00; Stop 07/17/21 at 09:54; Status DC Atorvastatin Calcium (Lipitor) 10 mg QHS PO Last administered on 07/21/21at 21:00; Start 07/17/21 at 21:00 Digoxin (Lanoxin) 125 mcg DAILY PO Last administered on 07/23/21at 10:53; Start 07/17/21 at 11:00 Ceftriaxone Sodium (Rocephin) 1 gm Q24H IVP Last administered on 07/17/21at 12:49; Start 07/17/21 at 11:00; Stop 07/17/21 at 13:27; Status DC Azithromycin 500 mg/Sodium Chloride 250 ml @ 250 mls/hr 1X ONCE IV ; Start 07/17/21 at 10:00; Stop 07/17/21 at 10:59; Status UNV Azithromycin 250 mg/Sodium Chloride 250 ml @ 250 mls/hr Q24H IV ; Start 07/18/21 at 09:00; Stop 07/18/21 at 08:34; Status DC Heparin Sodium/ Dextrose 250 ml @ 0 mls/hr CONT PRN IV SEE I/O RECORD; Start 07/17/21 at 10:00; Status UNV Heparin Sodium/ Dextrose 250 ml @ 10.128 mls/ hr CONT PRN IV PER PROTOCOL; Start 07/17/21 at 10:00; Stop 07/17/21 at 11:39; Status DC Heparin Sodium (Porcine) (Heparin Sodium) 1,900 unit PRN Q6HRS PRN IV FOR PTT < 40; Start 07/17/21 at 10:00; Status Cancel Heparin Sodium (Porcine) (Heparin Sodium) 2,000 unit PRN Q6HRS PRN IV FOR PTT 40 - 58; Start 07/17/21 at 10:00; Stop 07/17/21 at 12:02; Status DC Heparin Sodium (Porcine) (Heparin Sodium) 1,000 unit PRN Q6HRS PRN IV FOR PTT 59 - 78; Start 07/17/21 at 10:00; Stop 07/17/21 at 12:02; Status DC Furosemide (Lasix) 40 mg 1X ONCE IVP Last administered on 07/17/21at 12:04; Start 07/17/21 at 10:45; Stop 07/17/21 at 10:46; Status DC Apixaban (Eliquis) 5 mg BID PO ; Start 07/17/21 at 12:00; Stop 07/17/21 at 12:07; Status DC Metoprolol Tartrate (Lopressor) 25 mg BID PO Last administered on 07/23/21at 10:54; Start 07/17/21 at 12:00 Furosemide (Lasix) 40 mg DAILY IVP Last administered on 07/21/21at 14:58; Start 07/17/21 at 12:00; Stop 07/22/21 at 15:10; Status DC Heparin Sodium/ Dextrose 250 ml @ 10.128 mls/ hr CONT PRN IV PER PROTOCOL Last administered on 07/21/21at 14:56; Start 07/17/21 at 12:15; Stop 07/22/21 at 19:28; Status DC Heparin Sodium (Porcine) (Heparin Sodium) 1,900 unit PRN Q6HRS PRN IV FOR PTT < 40; Start 07/17/21 at 12:15; Stop 07/22/21 at 19:29; Status DC Heparin Sodium (Porcine) (Heparin Sodium) 2,000 unit PRN Q6HRS PRN IV FOR PTT 40 - 58 Last administered on 07/17/21at 12:46; Start 07/17/21 at 12:15; Stop 07/22/21 at 19:29; Status DC Heparin Sodium (Porcine) (Heparin Sodium) 1,000 unit PRN Q6HRS PRN IV FOR PTT 59 - 78 Last administered on 07/20/21at 02:25; Start 07/17/21 at 12:15; Stop 07/22/21 at 19:29; Status DC Lactobacillus Rhamnosus (Culturelle) 1 cap BID PO Last administered on 07/23/21at 10:51; Start 07/17/21 at 21:00 Vancomycin HCl (Vanco Per Pharmacy) 1 each PRN DAILY PRN MC SEE COMMENTS Last administered on 07/17/21at 14:35; Start 07/17/21 at 13:30; Stop 07/18/21 at 08:39; Status DC Piperacillin Sod/ Tazobactam Sod (Zosyn Per Pharmacy) 1 each PRN DAILY PRN MC SEE COMMENTS; Start 07/17/21 at 13:30; Stop 07/21/21 at 11:14; Status DC Piperacillin Sod/ Tazobactam Sod 3.375 gm/Sodium Chloride 50 ml @ 100 mls/hr Q6HRS IV Last administered on 07/20/21at 15:37; Start 07/17/21 at 14:00; Stop 07/20/21 at 20:41; Status DC Vancomycin HCl 1.5 gm/Sodium Chloride 500 ml @ 250 mls/hr 1X ONCE IV Last administered on 07/17/21at 13:59; Start 07/17/21 at 14:00; Stop 07/17/21 at 15:59; Status DC Vancomycin HCl 1 gm/Sodium Chloride 250 ml @ 250 mls/hr Q24H IV ; Start 07/18/21 at 14:00; Stop 07/18/21 at 08:34; Status DC Vancomycin HCl (Vancomycin Trough Level) 1 each 1X ONCE MC ; Start 07/19/21 at 13:30; Stop 07/19/21 at 13:31; Status Cancel Acetaminophen/ Hydrocodone Bitart (Lortab 5/325) 1 tab PRN Q4HRS PRN PO PAIN Last administered on 07/19/21at 20:36; Start 07/17/21 at 18:30 Daptomycin 390 mg/ Sodium Chloride 50 ml @ 100 mls/hr Q24H IV Last administered on 07/20/21at 10:00; Start 07/18/21 at 10:00; Stop 07/20/21 at 20:41; Status DC Ondansetron HCl (Zofran) 4 mg PRN Q6HRS PRN IVP NAUSEA/VOMITING; Start 07/19/21 at 14:15 Ringer's Solution 1,000 ml @ 30 mls/hr Q24H IV ; Start 07/20/21 at 06:00; Stop 07/20/21 at 17:59; Status DC Prochlorperazine Edisylate (Compazine) 5 mg PACU PRN PRN IVP NAUSEA, MRX1; Start 07/20/21 at 06:00; Stop 07/20/21 at 20:00; Status DC Psyllium Hydrophilic Mucilloid (Metamucil Fiber Packet) 1 pkt QHS PO Last administered on 07/21/21at 23:46; Start 07/19/21 at 21:00 Polyethylene Glycol (miraLAX PACKET) 17 gm DAILY PO Last administered on 07/19/21at 16:56; Start 07/19/21 at 16:45 Senna/Docusate Sodium (Senna Plus) 2 tab PRN BID PRN PO CONSTIPATION; Start 07/19/21 at 16:45 Lidocaine HCl (Viscous Lidocaine) 15 ml 1X ONCE SWSW Last administered on 07/20/21at 13:10; Start 07/20/21 at 08:45; Stop 07/20/21 at 08:46; Status DC Lidocaine HCl (Xylocaine 2% Topical 30gm Tube) 1 franklyn 1X ONCE TP Last administered on 07/20/21at 13:10; Start 07/20/21 at 08:45; Stop 07/20/21 at 08:46; Status DC Benzocaine (Hurricaine One) 2 spray 1X ONCE MM Last administered on 07/20/21at 13:10; Start 07/20/21 at 08:45; Stop 07/20/21 at 08:46; Status DC Lorazepam (Ativan Inj) 1 mg PRN Q6HRS PRN IVP ANXIETY / AGITATION Last administered on 07/23/21at 06:10; Start 07/20/21 at 18:00 Ziprasidone (Geodon Im) 10 mg 1X ONCE IM Last administered on 07/20/21at 19:30; Start 07/20/21 at 19:30; Stop 07/20/21 at 19:34; Status DC Ampicillin Sodium 2 gm/Sodium Chloride 100 ml @ 200 mls/hr Q6HRS IV Last administered on 07/23/21at 13:50; Start 07/21/21 at 00:00 Ceftriaxone Sodium (Rocephin) 2 gm Q12HR IVP Last administered on 07/23/21at 1 0:54; Start 07/20/21 at 21:00 Lidocaine HCl (Lidocaine 1% 20ml Vial) 20 ml STK-MED ONCE .ROUTE ; Start 07/22/21 at 12:05; Stop 07/22/21 at 12:06; Status DC Heparin Sodium/ Sodium Chloride 500 ml @ As Directed STK-MED ONCE .ROUTE ; Start 07/22/21 at 12:05; Stop 07/22/21 at 12:06; Status DC Fentanyl Citrate (Fentanyl 2ml Vial) 100 mcg STK-MED ONCE .ROUTE ; Start 07/22/21 at 13:58; Stop 07/22/21 at 13:58; Status DC Midazolam HCl (Versed) 2 mg STK-MED ONCE .ROUTE ; Start 07/22/21 at 13:58; Stop 07/22/21 at 13:58; Status DC Heparin Sodium/ Sodium Chloride (HEPARIN for ARTERIAL LINE FLUSH) 1,000 unit 1X ONCE IART Last administered on 07/22/21at 14:00; Start 07/22/21 at 14:00; Stop 07/22/21 at 14:04; Status DC Heparin Sodium/ Sodium Chloride (HEPARIN for ARTERIAL LINE FLUSH) 1,000 unit 1X ONCE IART Last administered on 07/22/21at 14:00; Start 07/22/21 at 14:00; Stop 07/22/21 at 14:04; Status DC Midazolam HCl (Versed) 2 mg 1X ONCE IV Last administered on 07/22/21at 14:25; Start 07/22/21 at 14:00; Stop 07/22/21 at 14:04; Status DC Fentanyl Citrate (Fentanyl 2ml Vial) 100 mcg 1X ONCE IV Last administered on 07/22/21at 14:25; Start 07/22/21 at 14:00; Stop 07/22/21 at 14:04; Status DC Lidocaine HCl (Lidocaine 1% 20ml Vial) 20 ml 1X ONCE INJ Last administered on 07/22/21at 14:26; Start 07/22/21 at 14:00; Stop 07/22/21 at 14:04; Status DC Furosemide (Lasix) 40 mg Q12H IVP Last administered on 07/23/21at 06:12; Start 07/22/21 at 18:00 Metoprolol Tartrate (Lopressor Vial) 5 mg 1X ONCE IVP Last administered on 07/22/21at 17:26; Start 07/22/21 at 17:15; Stop 07/22/21 at 17:19; Status DC Digoxin (Lanoxin) 500 mcg 1X ONCE IV Last administered on 07/22/21at 17:26; Start 07/22/21 at 17:15; Stop 07/22/21 at 17:19; Status DC Metoprolol Tartrate (Lopressor Vial) 5 mg PRN Q5MIN PRN IVP TACHYCARDIA; Start 07/22/21 at 22:30 Digoxin (Lanoxin) 125 mcg 1X ONCE IV ; Start 07/23/21 at 09:00; Stop 07/23/21 at 09:01; Status DC Enoxaparin Sodium (Lovenox Per Pharmacy Prophylaxis Dosing) 1 each PRN DAILY PRN MC SEE COMMENTS; Start 07/23/21 at 08:45 Enoxaparin Sodium (Lovenox 40mg Syringe) 40 mg Q24H SQ Last administered on 07/23/21at 10:54; Start 07/23/21 at 09:00 Amino Acids/ Electrolytes/ Dextrose 1,000 ml @ 80 mls/hr [id number] IV Last ad ministered on 07/23/21at 11:30; Start 07/23/21 at 09:15 Potassium Chloride/Water 100 ml @ 100 mls/hr Q1HR IV Last administered on 07/23/21at 13:52; Start 07/23/21 at 11:00; Stop 07/23/21 at 14:00 Active Scripts Active Eliquis (Apixaban) 5 Mg Tablet 5 Mg PO BID 30 Days Eliquis (Apixaban) 5 Mg Tablet 10 Mg PO BID 7 Days Metoprolol Tartrate 25 Mg Tablet 25 Mg PO BID 30 Days Keflex (Cephalexin) 500 Mg Capsule 1 Cap PO TID 3 Days Atorvastatin Calcium 10 Mg Tablet 10 Mg PO QHS 30 Days Digoxin 125 Mcg Tablet 125 Mcg PO DAILY 30 Days Reported Effer-K 10 Meq Tablet Eff (Potassium Bicarbonate/Cit Ac) 10 Meq Tablet.eff 15 Meq PO DAILY Lasix (Furosemide) 40 Mg Tablet 1 Tab PO DAILY 30 Days Vitals/I & O Vital Sign - Last 24 Hours 07/22/21 07/22/21 07/22/21 07/22/21 14:25 14:40 15:00 17:26 Temp 97.2 97.2 Pulse 70 93 93 Resp 22 24 18 B/P (MAP) 130/59 (82) 130/59 Pulse Ox 96 98 O2 Delivery Nasal Cannula Nasal Cannula O2 Flow Rate 8.0 8.0 07/22/21 07/22/21 07/22/21 07/22/21 17:26 17:30 19:00 19:50 Temp 97.3 97.3 Pulse 117 66 Resp 28 B/P (MAP) 139/95 134/52 (79) Pulse Ox 100 100 100 O2 Delivery BiPAP/CPAP BiPAP/CPAP BiPAP/CPAP 07/22/21 07/22/21 07/22/21 07/23/21 20:00 22:25 22:54 01:30 Temp 97.4 97.4 Pulse 57 Resp 26 B/P (MAP) 116/50 (72) Pulse Ox 100 100 99 O2 Delivery Bi-pap BiPAP/CPAP BiPAP/CPAP BiPAP/CPAP 07/23/21 07/23/21 07/23/21 07/23/21 02:46 04:30 07:00 08:00 Temp 97.2 97.5 97.2 97.5 Pulse 68 67 Resp 20 20 B/P (MAP) 135/57 (83) 147/54 (85) Pulse Ox 100 100 100 O2 Delivery BiPAP/CPAP BiPAP/CPAP BiPAP/CPAP Nasal Cannula O2 Flow Rate 3.0 07/23/21 07/23/21 07/23/21 07/23/21 08:06 08:41 10:00 10:53 Temp 97.5 97.5 Pulse 68 68 Resp 20 B/P (MAP) 167/51 (89) 138/52 Pulse Ox 100 100 O2 Delivery Nasal Cannula BiPAP/CPAP O2 Flow Rate 1.5 2.5 07/23/21 10:54 Pulse 68 B/P (MAP) 138/52 Intake and Output 07/22/21 07/22/21 07/23/21 15:00 23:00 07:00 Intake Total 0 ml 444 ml 0 ml Balance 0 ml 444 ml 0 ml Justifications for Admission Other Justification A. fib RVR and CHF exacerbation Nutrition Consultation Dietary Evaluation: Recommendations by RD: Dietary education by RD, Increase Calorie Intake, Protein supplementation Comments: REC continue diet per [employer]UFACT[employer]IST with oral nutrition supplements encourage po intake Expected Outcomes/Goals: to meet >75% est nutr needs- ongoing Interpretation of weight loss: >1-2% in 1 week Malnutrition Findings: Food and Nutrition Intake (Sev: <50% est energy req 5days Body Fat Depletion (Non Severe: Mod to Severe Weight Status: Underweight JOSE VILLEGAS MD Jul 23, 2021 13:57
[2021-07-23 14:46] VITALS: BP 149/52
[2021-07-23] MEDS: ONDANSETRON PF 4 MG/2 ML VIAL. IVP PRN (18:04)
[2021-07-23 18:09] LABS: BILIRUBIN,URINE NEGATIVE (NEG); CLARITY,URINE CLEAR; COLOR,URINE YELLOW; NITRITE,URINE NEGATIVE (NEG); PH,URINE 6.5 (<5.0-8.0); PROTEIN,URINE NEGATIVE (NEG-TRACE); UROBILINOGEN,URINE 0.2 mg/dL (0.2 mg/dL)
[2021-07-23 18:23] LABS: BACTERIA,URINE 0 /HPF (0-FEW); RBC,URINE OCC /HPF (0-2); WBC,URINE OCC /HPF (0-4)
[2021-07-23 19:20] VITALS: BP 136/54
[2021-07-23] MEDS: PSYLLIUM HUSK (SUGAR FREE) 1 PKT PACKET PO SCH (21:00)
[2021-07-23] MEDS: ATORVASTATIN CALCIUM 10 MG TABLET. PO SCH (21:00)
[2021-07-23 23:17] VITALS: BP 140/55
[2021-07-24] MEDS: AMPICILLIN SODIUM 2 GM in IV NORMAL SALINE 100ML 100 ML IV SCH ×4 (00:32→17:48)
[2021-07-24 02:41] VITALS: BP 150/56
[2021-07-24] MEDS: AA 4.25 %/CALCIUM/LYTES/D5W 1,000 ML IV SCH ×2 (03:35→17:47)
[2021-07-24] MEDS: FUROSEMIDE 40 MG/4 ML VIAL. IVP SCH ×2 (06:20→17:48)
[2021-07-24] MEDS: PANTOPRAZOLE IV PUSH 40 MG VIAL. IVP SCH (06:24)
[2021-07-24 06:31] VITALS: BP 160/52
--- NOTE | 2021-07-24 07:56 | PDOC ---
PULMONARY PROGRESS NOTES DATE: 07/24/21 TIME: 07:52 Subjective on didnt use bipap last night is tired s/p cath 07/22 Status post right thoracentesis 07/19 Vitals Vital Signs Date Time Temp Pulse Resp B/P (MAP) Pulse Ox O2 Delivery O2 Flow Rate FiO2 07/24/21 06:31 98.6 71 18 160/52 (88) 97 BiPAP/CPAP 98.6 07/23/21 20:00 2.5 ROS: No Nausea General: Alert HEENT: Other (nc at bipap mask on ) Lungs: Crackles, Other (Diminished breath sounds posteriorly at the bases) Cardiovascular: Other (irreg irreg) Abdomen: Soft Neuro Exam: Alert Extremities: Other (1+ pitting edema) Skin: Warm Labs Laboratory Tests Test 07/22/21 17:40 07/23/21 08:00 07/23/21 09:40 07/23/21 17:00 O2 Saturation 99 % (92-99) 88 % (92-99) Arterial Blood pH 7.36 (7.35-7.45) 7.55 (7.35-7.45) Arterial Blood pCO2 at Patient Temp 66 mmHg (35-46) 44 mmHg (35-46) Arterial Blood pO2 at Patient Temp 147 mmHg (65-108) 48 mmHg (65-108) Arterial Blood HCO3 36 mmol/L (21-28) 38 mmol/L (21-28) Arterial Blood Base Excess 9 mmol/L (-3-3) 15 mmol/L (-3-3) FiO2 100 bipap 1.5 lpm nc White Blood Count 8.0 x10^3/uL (4.0-11.0) Red Blood Count 3.97 x10^6/uL (3.50-5.40) Hemoglobin 11.4 g/dL (12.0-15.5) Hematocrit 35.5 % (36.0-47.0) Mean Corpuscular Volume 89 fL (79-100) Mean Corpuscular Hemoglobin 29 pg (25-35) Mean Corpuscular Hemoglobin Concent 32 g/dL (31-37) Red Cell Distribution Width 16.7 % (11.5-14.5) Platelet Count 206 x10^3/uL (140-400) Sodium Level 147 mmol/L (136-145) Potassium Level 2.9 mmol/L (3.5-5.1) Chloride Level 104 mmol/L (98-107) Carbon Dioxide Level 41 mmol/L (21-32) Anion Gap 2 (6-14) Blood Urea Nitrogen 11 mg/dL (7-20) Creatinine 0.4 mg/dL (0.6-1.0) Estimated GFR (Cockcroft-Gault) 152.8 BUN/Creatinine Ratio 28 (6-20) Glucose Level 99 mg/dL (70-99) Calcium Level 8.1 mg/dL (8.5-10.1) Total Bilirubin 0.5 mg/dL (0.2-1.0) Aspartate Amino Transf (AST/SGOT) 37 U/L (15-37) Alanine Aminotransferase (ALT/SGPT) 33 U/L (14-59) Alkaline Phosphatase 91 U/L (46-116) Total Protein 5.5 g/dL (6.4-8.2) Albumin 1.7 g/dL (3.4-5.0) Albumin/Globulin Ratio 0.4 (1.0-1.7) Urine Collection Type Unknown Urine Color Yellow Urine Clarity Clear Urine pH 6.5 (<5.0-8.0) Urine Specific Josephine 1.010 (1.000-1.030) Urine Protein Negative mg/dL (NEG-TRACE) Urine Glucose (UA) Negative mg/dL (NEG) Urine Ketones (Stick) 15 mg/dL (NEG) Urine Blood Negative (NEG) Urine Nitrite Negative (NEG) Urine Bilirubin Negative (NEG) Urine Urobilinogen Dipstick 0.2 mg/dL (0.2 mg/dL) Urine Leukocyte Esterase Negative (NEG) Urine RBC Occ /HPF (0-2) Urine WBC Occ /HPF (0-4) Urine Squamous Epithelial Cells Many /LPF Urine Bacteria 0 /HPF (0-FEW) Test 07/23/21 18:40 Glucose (Fingerstick) 130 mg/dL (70-99) Laboratory Tests Test 07/23/21 08:00 07/23/21 09:40 07/23/21 17:00 07/23/21 18:40 O2 Saturation 88 % (92-99) Arterial Blood pH 7.55 (7.35-7.45) Arterial Blood pCO2 at Patient Temp 44 mmHg (35-46) Arterial Blood pO2 at Patient Temp 48 mmHg (65-108) Arterial Blood HCO3 38 mmol/L (21-28) Arterial Blood Base Excess 15 mmol/L (-3-3) FiO2 1.5 lpm nc White Blood Count 8.0 x10^3/uL (4.0-11.0) Red Blood Count 3.97 x10^6/uL (3.50-5.40) Hemoglobin 11.4 g/dL (12.0-15.5) Hematocrit 35.5 % (36.0-47.0) Mean Corpuscular Volume 89 fL (79-100) Mean Corpuscular Hemoglobin 29 pg (25-35) Mean Corpuscular Hemoglobin Concent 32 g/dL (31-37) Red Cell Distribution Width 16.7 % (11.5-14.5) Platelet Count 206 x10^3/uL (140-400) Sodium Level 147 mmol/L (136-145) Potassium Level 2.9 mmol/L (3.5-5.1) Chloride Level 104 mmol/L (98-107) Carbon Dioxide Level 41 mmol/L (21-32) Anion Gap 2 (6-14) Blood Urea Nitrogen 11 mg/dL (7-20) Creatinine 0.4 mg/dL (0.6-1.0) Estimated GFR (Cockcroft-Gault) 152.8 BUN/Creatinine Ratio 28 (6-20) Glucose Level 99 mg/dL (70-99) Calcium Level 8.1 mg/dL (8.5-10.1) Total Bilirubin 0.5 mg/dL (0.2-1.0) Aspartate Amino Transf (AST/SGOT) 37 U/L (15-37) Alanine Aminotransferase (ALT/SGPT) 33 U/L (14-59) Alkaline Phosphatase 91 U/L (46-116) Total Protein 5.5 g/dL (6.4-8.2) Albumin 1.7 g/dL (3.4-5.0) Albumin/Globulin Ratio 0.4 (1.0-1.7) Urine Collection Type Unknown Urine Color Yellow Urine Clarity Clear Urine pH 6.5 (<5.0-8.0) Urine Specific Josephine 1.010 (1.000-1.030) Urine Protein Negative mg/dL (NEG-TRACE) Urine Glucose (UA) Negative mg/dL (NEG) Urine Ketones (Stick) 15 mg/dL (NEG) Urine Blood Negative (NEG) Urine Nitrite Negative (NEG) Urine Bilirubin Negative (NEG) Urine Urobilinogen Dipstick 0.2 mg/dL (0.2 mg/dL) Urine Leukocyte Esterase Negative (NEG) Urine RBC Occ /HPF (0-2) Urine WBC Occ /HPF (0-4) Urine Squamous Epithelial Cells Many /LPF Urine Bacteria 0 /HPF (0-FEW) Glucose (Fingerstick) 130 mg/dL (70-99) Medications Active Scripts Medications Dose Route/Sig Max Daily Dose Days Date Category Eliquis (Apixaban) 5 Mg Tablet 5 Mg PO BID 30 07/15/21 Rx Eliquis (Apixaban) 5 Mg Tablet 10 Mg PO BID 7 07/15/21 Rx Metoprolol Tartrate 25 Mg Tablet 25 Mg PO BID 30 07/15/21 Rx Keflex (Cephalexin) 500 Mg Capsule 1 Cap PO TID 3 07/15/21 Rx Atorvastatin Calcium 10 Mg Tablet 10 Mg PO QHS 30 07/15/21 Rx Digoxin 125 Mcg Tablet 125 Mcg PO DAILY 30 07/15/21 Rx Effer-K 10 Meq Tablet Eff (Potassium Bicarbonate/Cit Ac) 10 Meq Tablet.eff 15 Meq PO DAILY 07/12/21 Reported Lasix (Furosemide) 40 Mg Tablet 1 Tab PO DAILY 30 07/12/21 Reported Comments Chest x-ray reviewed 07/20/2021. Bilateral infiltrates and left-sided pleural effusion. CT chest reviewed dated July 17, 2021 Bilateral pleural effusions, moderate per my impression. Evidence of congestive heart failure. Impression . 1. Acute respiratory failure, multifactorial in etiology including acute diastolic congestive heart failure, bilateral pleural effusion, AFib with rapid ventricular response, moderate to severe mitral regurgitation.--- now rate controlled 2. Abnormal CT of the chest. bilateral pleural effusions and evidence of CHF 3. Acute diastolic congestive heart failure. 4. Atrial fibrillation with rapid ventricular response. Now rate controlled 5. Pleural effusion, status post right thoracentesis , transudate. 6. Malnutrition. 7. Moderate to severe mitral regurgitation. 8. Right lower extremity cellulitis. 9. Leukocytosis--improved ID following resolved 10. BETY showed mitral valve prolapse with possible ruptured chordae and moderate to severe mitral regurgitation 11. non-ST elevation myocardial infarction. 12. Persistent Enterococcus faecalis bacteremia on admission on 07/17 and 07/18 and 07/20 cardiac cath 07/22 Conclusion Elevated left-sided filling pressure secondary to acute on chronic diastolic heart failure and mild to moderate pulmonary hypertension. No evidence of int racardiac shunt. Recommendations Continue medical management including diuresis. Plan . 1. Titrate FiO2 to keep O2 saturation 90% not higher is co2 retainer. bipap prn 2. A. fib/AC per cardiology--cardiac cath 07/22 reviewed 3. Status post right thoracentesis 07/19/21--1 liter removed -- transudate from CHF 4. Keep intake, less than output. Lasix per Cardiology. 5. antibiotics---per ID need neg blood cx before picc placement and dc fu 07/23 blood cx 6. Protonix for stress ulcer prophylaxis. 7. Patient has recurrent bilateral pleural effusions. She had a recent prior thoracentesis. etiology of her recurrent pleural effusion includes acute on chronic diastolic CHF as well as moderate to severe mitral regurgitation, pleural effusion will keep reoccurring. It will be difficult to manage her congestive heart failure without fixing the mitral regurgitation. will be evaluated in valve clinic as out pt. 8. Follow cardiology recommendations aggressive tx of chf discussed w JOSY Fenton MD Jul 24, 2021 07:56
[2021-07-24] MEDS: POLYETHYLENE GLYCOL 3350 17 GM PACKET. PO SCH (08:35)
[2021-07-24] MEDS: DIGOXIN 125 MCG TABLET. PO SCH (09:00)
[2021-07-24] MEDS: LACTOBACILLUS RHAMNOSUS GG 1 CAPSULE. PO SCH ×2 (09:00→19:48)
[2021-07-24] MEDS: METOPROLOL TART IMMED RELEASE 25 MG TABLET. PO SCH ×2 (09:00→19:48)
[2021-07-24] MEDS: ENOXAPARIN 40 MG/0.4 ML SYRINGE. SQ SCH (10:16)
[2021-07-24] MEDS: cefTRIAXone IV Push 2 GM VIAL. IVP SCH ×2 (10:16→20:34)
[2021-07-24 11:00] VITALS: BP 168/62
--- NOTE | 2021-07-24 11:05 | PDOC ---
Infectious Disease Note Subjective Subjective pt alert awake Asking for food, remains somewhat confused On O2 by nasal cannula Appears comfortable ROS ROS no n/v/d/sob/fever Vital Sign Vital Signs Vital Signs Date Time Temp Pulse Resp B/P (MAP) Pulse Ox O2 Delivery O2 Flow Rate FiO2 07/24/21 09:00 71 160/52 07/24/21 06:31 98.6 18 97 BiPAP/CPAP 98.6 07/23/21 20:00 2.5 Physical Exam PHYSICAL EXAM GENERAL: Alert, awake confused likely baseline, poor hearing lying in bed comfortably, in no acute distress HEENT normocephalic atraumatic anicteric NECK: Supple. LUNGS: Bibasilar crackles no wheezing. HEART: Irregular, holosystolic murmur, MUSCULOSKELETAL: No joint swelling. No decrease in range of motion. CENTRAL NERVOUS SYSTEM: Alert awake hard of hearing moves all 4 extremities debilitated, Labs Lab Laboratory Tests Test 07/23/21 17:00 07/23/21 18:40 Urine Collection Type Unknown Urine Color Yellow Urine Clarity Clear Urine pH 6.5 (<5.0-8.0) Urine Specific Dickey 1.010 (1.000-1.030) Urine Protein Negative mg/dL (NEG-TRACE) Urine Glucose (UA) Negative mg/dL (NEG) Urine Ketones (Stick) 15 mg/dL (NEG) Urine Blood Negative (NEG) Urine Nitrite Negative (NEG) Urine Bilirubin Negative (NEG) Urine Urobilinogen Dipstick 0.2 mg/dL (0.2 mg/dL) Urine Leukocyte Esterase Negative (NEG) Urine RBC Occ /HPF (0-2) Urine WBC Occ /HPF (0-4) Urine Squamous Epithelial Cells Many /LPF Urine Bacteria 0 /HPF (0-FEW) Glucose (Fingerstick) 130 mg/dL (70-99) Objective Assessment Sepsis from gram-positive bacteremia present on admission Persistent Enterococcus faecalis bacteremia on admission on 07/17 and 07/18 and 07/20 BETY difficult study with mitral valve chordae, less likely vegetation UA urine culture not done CT abdomen and pelvis reviewed Fever resolved Leukocytosis Abdominal discomfort, nausea Acute hypoxic respiratory failure on 4 L O2 by nasal cannula likely from CHF History of allergies to penicillin CHF A. fib with RVR Severe protein calorie malnutrition PPM in place Thrombocytopenia Onychomycosis Acrocyanosis, bilateral lower extremity resolved COPD Right pleural effusion that is post thoracocentesis last admission Generalized debility Hard of hearing Poor living condition BETY Technically difficult study. The left ventricular systolic function is normal. The Ejection Fraction is 50-55%. Pacer lead noted RA/RV. Mitral valve prolapse seen with possible ruptured chordae. Doubt endocarditis since the valve leaflets are not thickened. Moderate to severe mitral regurgitation. Mild tricuspid regurgitation. There is no evidence of significant pericardial effusion. Plan Plan of Care Cont IV ampicillin and rocephin repeat blood cultures 07/23/[address] PICC line until patient has repeat blood cultures negative at least for 48 to 72 hours Follow-up labs and cultures Continue supportive care Maintain aspiration precautions Would not discharge patient until blood clearance as above Overall prognosis poor likely pacemaker infection MARIYA CALLOWAY MD Jul 24, 2021 11:05
--- NOTE | 2021-07-24 13:41 | PDOC ---
PROGRESS NOTES Date of Service DATE: 07/24/21 TIME: 13:39 Subjective Subjective Patient seen and examined Objective Objective Vital Signs Date Time Temp Pulse Resp B/P (MAP) Pulse Ox O2 Delivery O2 Flow Rate FiO2 07/24/21 11:00 98.0 75 19 168/62 (97) 93 Nasal Cannula 3.0 98.0 Intake and Output 07/24/21 07:00 Intake Total 600 ml Output Total 1150 ml Balance -550 ml IV Total 600 ml Output Urine Total 1150 ml # Voids 3 # Bowel Movements 1 Physical Exam Abdomen: Normal bowel sounds Heart: Other (Mildly irregular) General: No acute distress Lungs: Other (Mildly decreased breath sounds) Assessment Assessment Problems Medical Problems: (1) Bandemia Status: Acute (2) Elevated troponin Status: Acute (3) Hypoxia Status: Acute (4) Pleural effusion Status: Acute (5) Respiratory failure Status: Acute (6) SIRS (systemic inflammatory response syndrome) Status: Acute Acute respiratory failure secondary to combination of acute on chronic diastolic heart failure, bilateral pleural effusions, possible pneumonia. S/P thoracentesis 07/19. The patient is feeling mildly better. Acute on chronic diastolic heart failure: Echo showed LVEF 50 to 55%. Improved s/p diuresis. Continue Lasix therapy and monitoring of lab. Permanent atrial fibrillation/flutter presently with atrial flutter with RVR, rate better controlled. Continue digoxin and metoprolol as BP allows. Eliqius Moderate to severe mitral regurgitation, mitral valve prolapse with possible ruptured chordae noted on BETY. Right heart catheterization Sunday showed mildly elevated left-sided pressures with mild to moderate pulmonary hypertension. Continue present treatment. Future evaluation by valve clinic. Hypertension: Controlled SSS s/p PPM implantation with recent device check showing normal function with adequate battery life Sepsis/bacteremia; BC with GPC. no evidence of endocarditis per BETY. ID following. Recent bilateral PE. Anticoagulation as above. Comment Review of Relevant I have reviewed the following items peewee (where applicable) has been applied. Labs Laboratory Tests Test 07/22/21 17:40 07/23/21 08:00 07/23/21 09:40 07/23/21 17:00 O2 Saturation 99 % (92-99) 88 % (92-99) Arterial Blood pH 7.36 (7.35-7.45) 7.55 (7.35-7.45) Arterial Blood pCO2 at Patient Temp 66 mmHg (35-46) 44 mmHg (35-46) Arterial Blood pO2 at Patient Temp 147 mmHg (65-108) 48 mmHg (65-108) Arterial Blood HCO3 36 mmol/L (21-28) 38 mmol/L (21-28) Arterial Blood Base Excess 9 mmol/L (-3-3) 15 mmol/L (-3-3) FiO2 100 bipap 1.5 lpm nc White Blood Count 8.0 x10^3/uL (4.0-11.0) Red Blood Count 3.97 x10^6/uL (3.50-5.40) Hemoglobin 11.4 g/dL (12.0-15.5) Hematocrit 35.5 % (36.0-47.0) Mean Corpuscular Volume 89 fL (79-100) Mean Corpuscular Hemoglobin 29 pg (25-35) Mean Corpuscular Hemoglobin Concent 32 g/dL (31-37) Red Cell Distribution Width 16.7 % (11.5-14.5) Platelet Count 206 x10^3/uL (140-400) Sodium Level 147 mmol/L (136-145) Potassium Level 2.9 mmol/L (3.5-5.1) Chloride Level 104 mmol/L (98-107) Carbon Dioxide Level 41 mmol/L (21-32) Anion Gap 2 (6-14) Blood Urea Nitrogen 11 mg/dL (7-20) Creatinine 0.4 mg/dL (0.6-1.0) Estimated GFR (Cockcroft-Gault) 152.8 BUN/Creatinine Ratio 28 (6-20) Glucose Level 99 mg/dL (70-99) Calcium Level 8.1 mg/dL (8.5-10.1) Total Bilirubin 0.5 mg/dL (0.2-1.0) Aspartate Amino Transf (AST/SGOT) 37 U/L (15-37) Alanine Aminotransferase (ALT/SGPT) 33 U/L (14-59) Alkaline Phosphatase 91 U/L (46-116) Total Protein 5.5 g/dL (6.4-8.2) Albumin 1.7 g/dL (3.4-5.0) Albumin/Globulin Ratio 0.4 (1.0-1.7) Urine Collection Type Unknown Urine Color Yellow Urine Clarity Clear Urine pH 6.5 (<5.0-8.0) Urine Specific [place] 1.010 (1.000-1.030) Urine Protein Negative mg/dL (NEG-TRACE) Urine Glucose (UA) Negative mg/dL (NEG) Urine Ketones (Stick) 15 mg/dL (NEG) Urine Blood Negative (NEG) Urine Nitrite Negative (NEG) Urine Bilirubin Negative (NEG) Urine Urobilinogen Dipstick 0.2 mg/dL (0.2 mg/dL) Urine Leukocyte Esterase Negative (NEG) Urine RBC Occ /HPF (0-2) Urine WBC Occ /HPF (0-4) Urine Squamous Epithelial Cells Many /LPF Urine Bacteria 0 /HPF (0-FEW) Test 07/23/21 18:40 Glucose (Fingerstick) 130 mg/dL (70-99) Laboratory Tests Test 07/23/21 17:00 07/23/21 18:40 Urine Collection Type Unknown Urine Color Yellow Urine Clarity Clear Urine pH 6.5 (<5.0-8.0) Urine Specific [place] 1.010 (1.000-1.030) Urine Protein Negative mg/dL (NEG-TRACE) Urine Glucose (UA) Negative mg/dL (NEG) Urine Ketones (Stick) 15 mg/dL (NEG) Urine Blood Negative (NEG) Urine Nitrite Negative (NEG) Urine Bilirubin Negative (NEG) Urine Urobilinogen Dipstick 0.2 mg/dL (0.2 mg/dL) Urine Leukocyte Esterase Negative (NEG) Urine RBC Occ /HPF (0-2) Urine WBC Occ /HPF (0-4) Urine Squamous Epithelial Cells Many /LPF Urine Bacteria 0 /HPF (0-FEW) Glucose (Fingerstick) 130 mg/dL (70-99) Microbiology 07/20/21 Blood Culture - Final, Complete 07/20/21 Antimicrobic Susceptibility - Final, Complete 07/19/21 Gram Stain - Final, Resulted 07/19/21 Aerobic and Anaerobic Culture - Preliminary, Resulted Medications Current Medications Diltiazem HCl (Cardizem Iv Push) 20 mg 1X ONCE IVP Last administered on 07/17/21at 01:41; Start 07/17/21 at 02:00; Stop 07/17/21 at 02:01; Status DC Diltiazem HCl 125 mg/Sodium Chloride 125 ml @ 5 mls/hr 1X ONCE IV Last administered on 07/17/21at 01:48; Start 07/17/21 at 02:00; Stop 07/17/21 at 11:39; Status DC Aspirin (Ecotrin) 325 mg 1X ONCE PO Last administered on 07/17/21at 01:38; Start 07/17/21 at 02:00; Stop 07/17/21 at 02:01; Status DC Acetaminophen (Tylenol) 500 mg 1X ONCE PO Last administered on 07/17/21at 02:19; Start 07/17/21 at 02:00; Stop 07/17/21 at 02:01; Status DC Iohexol (Omnipaque 350 Mg/ml) 100 ml 1X ONCE IV ; Start 07/17/21 at 02:00; Stop 07/17/21 at 02:01; Status DC Info (CONTRAST GIVEN -- Rx MONITORING) 1 each PRN DAILY PRN MC SEE COMMENTS; Start 07/17/21 at 01:30; Stop 07/19/21 at 01:29; Status DC Aztreonam (Azactam) 2 gm 1X ONCE IVP Last administered on 07/17/21at 03:45; Start 07/17/21 at 03:30; Stop 07/17/21 at 03:31; Status DC Azithromycin 250 ml @ 250 mls/hr 1X ONCE IV Last administered on 07/17/21at 04:27; Start 07/17/21 at 03:30; Stop 07/17/21 at 04:29; Status DC Sterile Water (WATER for RESP) 2,000 ml CONT PRN INH VIA VAPOTHERM DEVICE; Start 07/17/21 at 03:15 Ondansetron HCl (Zofran) 4 mg PRN Q8HRS PRN IVP NAUSEA/VOMITING 1ST CHOICE Last administered on 07/17/21at 22:33; Start 07/17/21 at 03:15; Stop 07/18/21 at 03:14; Status DC Pantoprazole Sodium (PROTONIX VIAL for IV PUSH) 40 mg DAILYAC IVP Last administered on 07/24/21at 06:24; Start 07/17/21 at 09:00 Apixaban (Eliquis) 10 mg BID PO ; Start 07/17/21 at 21:00; Stop 07/17/21 at 09:54; Status DC Atorvastatin Calcium (Lipitor) 10 mg QHS PO Last administered on 07/21/21at 21:00; Start 07/17/21 at 21:00 Digoxin (Lanoxin) 125 mcg DAILY PO Last administered on 07/23/21at 10:53; Start 07/17/21 at 11:00 Ceftriaxone Sodium (Rocephin) 1 gm Q24H IVP Last administered on 07/17/21at 12:49; Start 07/17/21 at 11:00; Stop 07/17/21 at 13:27; Status DC Azithromycin 500 mg/Sodium Chloride 250 ml @ 250 mls/hr 1X ONCE IV ; Start 07/17/21 at 10:00; Stop 07/17/21 at 10:59; Status UNV Azithromycin 250 mg/Sodium Chloride 250 ml @ 250 mls/hr Q24H IV ; Start 07/18/21 at 09:00; Stop 07/18/21 at 08:34; Status DC Heparin Sodium/ Dextrose 250 ml @ 0 mls/hr CONT PRN IV SEE I/O RECORD; Start 07/17/21 at 10:00; Status UNV Heparin Sodium/ Dextrose 250 ml @ 10.128 mls/ hr CONT PRN IV PER PROTOCOL; Start 07/17/21 at 10:00; Stop 07/17/21 at 11:39; Status DC Heparin Sodium (Porcine) (Heparin Sodium) 1,900 unit PRN Q6HRS PRN IV FOR PTT < 40; Start 07/17/21 at 10:00; Status Cancel Heparin Sodium (Porcine) (Heparin Sodium) 2,000 unit PRN Q6HRS PRN IV FOR PTT 40 - 58; Start 07/17/21 at 10:00; Stop 07/17/21 at 12:02; Status DC Heparin Sodium (Porcine) (Heparin Sodium) 1,000 unit PRN Q6HRS PRN IV FOR PTT 59 - 78; Start 07/17/21 at 10:00; Stop 07/17/21 at 12:02; Status DC Furosemide (Lasix) 40 mg 1X ONCE IVP Last administered on 07/17/21at 12:04; Start 07/17/21 at 10:45; Stop 07/17/21 at 10:46; Status DC Apixaban (Eliquis) 5 mg BID PO ; Start 07/17/21 at 12:00; Stop 07/17/21 at 12:07; Status DC Metoprolol Tartrate (Lopressor) 25 mg BID PO Last administered on 07/23/21at 10:54; Start 07/17/21 at 12:00 Furosemide (Lasix) 40 mg DAILY IVP Last administered on 07/21/21at 14:58; Start 07/17/21 at 12:00; Stop 07/22/21 at 15:10; Status DC Heparin Sodium/ Dextrose 250 ml @ 10.128 mls/ hr CONT PRN IV PER PROTOCOL Last administered on 07/21/21at 14:56; Start 07/17/21 at 12:15; Stop 07/22/21 at 19:28; Status DC Heparin Sodium (Porcine) (Heparin Sodium) 1,900 unit PRN Q6HRS PRN IV FOR PTT < 40; Start 07/17/21 at 12:15; Stop 07/22/21 at 19:29; Status DC Heparin Sodium (Porcine) (Heparin Sodium) 2,000 unit PRN Q6HRS PRN IV FOR PTT 40 - 58 Last administered on 07/17/21at 12:46; Start 07/17/21 at 12:15; Stop 07/22/21 at 19:29; Status DC Heparin Sodium (Porcine) (Heparin Sodium) 1,000 unit PRN Q6HRS PRN IV FOR PTT 59 - 78 Last administered on 07/20/21at 02:25; Start 07/17/21 at 12:15; Stop 07/22/21 at 19:29; Status DC Lactobacillus Rhamnosus (Culturelle) 1 cap BID PO Last administered on 07/23/21at 10:51; Start 07/17/21 at 21:00 Vancomycin HCl (Vanco Per Pharmacy) 1 each PRN DAILY PRN MC SEE COMMENTS Last administered on 07/17/21at 14:35; Start 07/17/21 at 13:30; Stop 07/18/21 at 08:39; Status DC Piperacillin Sod/ Tazobactam Sod (Zosyn Per Pharmacy) 1 each PRN DAILY PRN MC SEE COMMENTS; Start 07/17/21 at 13:30; Stop 07/21/21 at 11:14; Status DC Piperacillin Sod/ Tazobactam Sod 3.375 gm/Sodium Chloride 50 ml @ 100 mls/hr Q6HRS IV Last administered on 07/20/21at 15:37; Start 07/17/21 at 14:00; Stop 07/20/21 at 20:41; Status DC Vancomycin HCl 1.5 gm/Sodium Chloride 500 ml @ 250 mls/hr 1X ONCE IV Last administered on 07/17/21at 13:59; Start 07/17/21 at 14:00; Stop 07/17/21 at 15:59; Status DC Vancomycin HCl 1 gm/Sodium Chloride 250 ml @ 250 mls/hr Q24H IV ; Start 07/18/21 at 14:00; Stop 07/18/21 at 08:34; Status DC Vancomycin HCl (Vancomycin Trough Level) 1 each 1X ONCE MC ; Start 07/19/21 at 13:30; Stop 07/19/21 at 13:31; Status Cancel Acetaminophen/ Hydrocodone Bitart (Lortab 5/325) 1 tab PRN Q4HRS PRN PO PAIN Last administered on 07/19/21at 20:36; Start 07/17/21 at 18:30 Daptomycin 390 mg/ Sodium Chloride 50 ml @ 100 mls/hr Q24H IV Last administered on 07/20/21at 10:00; Start 07/18/21 at 10:00; Stop 07/20/21 at 20:41; Status DC Ondansetron HCl (Zofran) 4 mg PRN Q6HRS PRN IVP NAUSEA/VOMITING Last administered on 07/23/21at 18:04; Start 07/19/21 at 14:15 Ringer's Solution 1,000 ml @ 30 mls/hr Q24H IV ; Start 07/20/21 at 06:00; Stop 07/20/21 at 17:59; Status DC Prochlorperazine Edisylate (Compazine) 5 mg PACU PRN PRN IVP NAUSEA, MRX1; Start 07/20/21 at 06:00; Stop 07/20/21 at 20:00; Status DC Psyllium Hydrophilic Mucilloid (Metamucil Fiber Packet) 1 pkt QHS PO Last administered on 07/21/21at 23:46; Start 07/19/21 at 21:00 Polyethylene Glycol (miraLAX PACKET) 17 gm DAILY PO Last administered on 07/19/21at 16:56; Start 07/19/21 at 16:45 Senna/Docusate Sodium (Senna Plus) 2 tab PRN BID PRN PO CONSTIPATION; Start 07/19/21 at 16:45 Lidocaine HCl (Viscous Lidocaine) 15 ml 1X ONCE SWSW Last administered on 07/20/21at 13:10; Start 07/20/21 at 08:45; Stop 07/20/21 at 08:46; Status DC Lidocaine HCl (Xylocaine 2% Topical 30gm Tube) 1 franklyn 1X ONCE TP Last administered on 07/20/21at 13:10; Start 07/20/21 at 08:45; Stop 07/20/21 at 08:46; Status DC Benzocaine (Hurricaine One) 2 spray 1X ONCE MM Last administered on 07/20/21at 13:10; Start 07/20/21 at 08:45; Stop 07/20/21 at 08:46; Status DC Lorazepam (Ativan Inj) 1 mg PRN Q6HRS PRN IVP ANXIETY / AGITATION Last administered on 07/24/21at 03:34; Start 07/20/21 at 18:00 Ziprasidone (Geodon Im) 10 mg 1X ONCE IM Last administered on 07/20/21at 19:30; Start 07/20/21 at 19:30; Stop 07/20/21 at 19:34; Status DC Ampicillin Sodium 2 gm/Sodium Chloride 100 ml @ 200 mls/hr Q6HRS IV Last administered on 07/24/21at 12:29; Start 07/21/21 at 00:00 Ceftriaxone Sodium (Rocephin) 2 gm Q12HR IVP Last administered on 07/24/21at 10:16; Start 07/20/21 at 21:00 Lidocaine HCl (Lidocaine 1% 20ml Vial) 20 ml STK-MED ONCE .ROUTE ; Start 07/22/21 at 12:05; Stop 07/22/21 at 12:06; Status DC Heparin Sodium/ Sodium Chloride 500 ml @ As Directed STK-MED ONCE .ROUTE ; Start 07/22/21 at 12:05; Stop 07/22/21 at 12:06; Status DC Fentanyl Citrate (Fentanyl 2ml Vial) 100 mcg STK-MED ONCE .ROUTE ; Start 07/22/21 at 13:58; Stop 07/22/21 at 13:58; Status DC Midazolam HCl (Versed) 2 mg STK-MED ONCE .ROUTE ; Start 07/22/21 at 13:58; Stop 07/22/21 at 13:58; Status DC Heparin Sodium/ Sodium Chloride (HEPARIN for ARTERIAL LINE FLUSH) 1,000 unit 1X ONCE IART Last administered on 07/22/21at 14:00; Start 07/22/21 at 14:00; Stop 07/22/21 at 14:04; Status DC Heparin Sodium/ Sodium Chloride (HEPARIN for ARTERIAL LINE FLUSH) 1,000 unit 1X ONCE IART Last administered on 07/22/21at 14:00; Start 07/22/21 at 14:00; Stop 07/22/21 at 14:04; Status DC Midazolam HCl (Versed) 2 mg 1X ONCE IV Last administered on 07/22/21at 14:25; Start 07/22/21 at 14:00; Stop 07/22/21 at 14:04; Status DC Fentanyl Citrate (Fentanyl 2ml Vial) 100 mcg 1X ONCE IV Last administered on 07/22/21at 14:25; Start 07/22/21 at 14:00; Stop 07/22/21 at 14:04; Status DC Lidocaine HCl (Lidocaine 1% 20ml Vial) 20 ml 1X ONCE INJ Last administered on 07/22/21at 14:26; Start 07/22/21 at 14:00; Stop 07/22/21 at 14:04; Status DC Furosemide (Lasix) 40 mg Q12H IVP Last administered on 07/24/21at 06:20; Start 07/22/21 at 18:00 Metoprolol Tartrate (Lopressor Vial) 5 mg 1X ONCE IVP Last administered on 07/22/21at 17:26; Start 07/22/21 at 17:15; Stop 07/22/21 at 17:19; Status DC Digoxin (Lanoxin) 500 mcg 1X ONCE IV Last administered on 07/22/21at 17:26; Start 07/22/21 at 17:15; Stop 07/22/21 at 17:19; Status DC Metoprolol Tartrate (Lopressor Vial) 5 mg PRN Q5MIN PRN IVP TACHYCARDIA; Start 07/22/21 at 22:30 Digoxin (Lanoxin) 125 mcg 1X ONCE IV ; Start 07/23/21 at 09:00; Stop 07/23/21 at 09:01; Status DC Enoxaparin Sodium (Lovenox Per Pharmacy Prophylaxis Dosing) 1 each PRN DAILY PRN MC SEE COMMENTS; Start 07/23/21 at 08:45 Enoxaparin Sodium (Lovenox 40mg Syringe) 40 mg Q24H SQ Last administered on 07/24/21at 10:16; Start 07/23/21 at 09:00 Amino Acids/ Electrolytes/ Dextrose 1,000 ml @ 80 mls/hr [id number] IV Last administered on 07/24/21at 03:35; Start 07/23/21 at 09:15 Potassium Chloride/Water 100 ml @ 100 mls/hr Q1HR IV Last administered on 07/23/21at 15:02; Start 07/23/21 at 11:00; Stop 07/23/21 at 14:00; Status DC Active Scripts Active Eliquis (Apixaban) 5 Mg Tablet 5 Mg PO BID 30 Days Eliquis (Apixaban) 5 Mg Tablet 10 Mg PO BID 7 Days Metoprolol Tartrate 25 Mg Tablet 25 Mg PO BID 30 Days Keflex (Cephalexin) 500 Mg Capsule 1 Cap PO TID 3 Days Atorvastatin Calcium 10 Mg Tablet 10 Mg PO QHS 30 Days Digoxin 125 Mcg Tablet 125 Mcg PO DAILY 30 Days Reported Effer-K 10 Meq Tablet Eff (Potassium Bicarbonate/Cit Ac) 10 Meq Tablet.eff 15 Meq PO DAILY Lasix (Furosemide) 40 Mg Tablet 1 Tab PO DAILY 30 Days Vitals/I & O Vital Sign - Last 24 Hours 07/23/21 07/23/21 07/23/21 07/23/21 14:46 19:20 20:00 23:17 Temp 98.0 98.1 98.3 98.0 98.1 98.3 Pulse 69 70 68 Resp 20 16 22 B/P (MAP) 149/52 (84) 136/54 (81) 140/55 (83) Pulse Ox 97 100 97 O2 Delivery BiPAP/CPAP BiPAP/CPAP Nasal Cannula BiPAP/CPAP O2 Flow Rate 2.5 07/24/21 07/24/21 07/24/21 07/24/21 02:41 06:31 09:00 09:00 Temp 98.5 98.6 98.5 98.6 Pulse 68 71 71 71 Resp 16 18 B/P (MAP) 150/56 (87) 160/52 (88) 160/52 160/52 Pulse Ox 99 97 O2 Delivery BiPAP/CPAP BiPAP/CPAP 07/24/21 11:00 Temp 98.0 98.0 Pulse 75 Resp 19 B/P (MAP) 168/62 (97) Pulse Ox 93 O2 Delivery Nasal Cannula O2 Flow Rate 3.0 Intake and Output 07/23/21 07/23/21 07/24/21 15:00 23:00 07:00 Intake Total 500 ml 100 ml Output Total 1150 ml Balance 500 ml -1050 ml Justifications for Admission Other Justification A. fib RVR and CHF exacerbation Nutrition Consultation Dietary Evaluation: Recommendations by RD: Dietary education by RD, Increase Calorie Intake, Protein supplementation Comments: REC continue diet per HOME DAY CARE PROVIDER with oral nutrition supplements encourage po intake Expected Outcomes/Goals: to meet >75% est nutr needs- ongoing Interpretation of weight loss: >1-2% in 1 week Malnutrition Findings: Food and Nutrition Intake (Sev: <50% est energy req 5days Body Fat Depletion (Non Severe: Mod to Severe Weight Status: Underweight JOSE VILLEGAS MD Jul 24, 2021 13:41
[2021-07-24 14:45] VITALS: BP 120/46
--- NOTE | 2021-07-24 15:22 | PDOC ---
[employer] PROGRESS NOTE Date of Service DOS: DATE: 07/24/21 TIME: 15:21 Chief Complaint Chief Complaint Acute encephalopathy - likely due to sepsis Severe sepsis - ID consulted, cont vancomycin GPC positive blood cultures - as above Acute hypoxic respiratory failure Afib with RVR - eliquis for thromboprophylaxis, cardizem rate control back on metoprolol S/p ppm - good battery life H/o pulmonary embolism - on recent admission 07/14/2021 Acute on chronic diastolic heart failure: Recent 2D echo showed LVEF 50 to 55%. Continue diuresis. Moderate to severe mitral regurgitation noted on recent 2D echo. Consider BETY and referral for mitral valve clip repair as an outpatient. Thrombocytopenia Right pleural effusion Acrocyanosis, bilateral lower extremity COPD Right pleural effusion that is post thoracocentesis last admission -recurrent Generalized debility Hard of hearing Poor living condition History of Present Illness History of Present Illness 07/24, confused again today, cont NPO, plan to try to re-eval swallow when mental status improved again about the same otherwise 07/23, atrial flutter, rate controlled more calm, mitts off NPO still, start procalamine 07/22, more clear, mental status improvede calm and talkative was very confused 07/20 GEodon given overnight calm this AM, somnolent early in the AM Ms Bang is an 80 year old female well-known to our service as above with past medical history of congestive heart failure, A. fib, pacemaker placement at [facility] and NSTEMI (on 07/12/21) currently admitted in ICU who presented to ER on 07/17/2021 from [facility] via EMS with shortness of breath at long-term. Patient was hypoxic, so the patient on a nonrebreather. T-max 100.3, WBC 14 K, 07/17/2021 blood cultures are positive with GPC in pairs and chains. Patient is currently on O2. Alert awake. Remains confused. Last admission patient underwent right lung thoracocentesis for moderate pleural effusion on 07/14/2021. Cultures remain negative. Blood cultures were done this admission which are positive for gram-positive cocci in pairs and chains. Admitted with Cardiology, Pulmonology, and ID consultation. Afebrile overnight. Blood cultures 4-4 positive GPC. Heart rate A. fib in 90s 200s. She has been coughing with sips of water. Plan for repeat thoracentesis. Vitals/I&O Vitals/I&O: Vital Signs Date Time Temp Pulse Resp B/P (MAP) Pulse Ox O2 Delivery O2 Flow Rate FiO2 07/24/21 14:45 98.8 75 18 120/46 (70) 94 Nasal Cannula 3.0 98.8 I & O 07/23/21 07/23/21 07/24/21 15:00 23:00 07:00 Intake Total 500 ml 100 ml Output Total 1150 ml Balance 500 ml -1050 ml Physical Exam Physical Exam: GENERAL: Alert, awake confused likely baseline, poor hearing lying in bed comfortably, in no acute distress HEENT normocephalic atraumatic anicteric NECK: Supple. LUNGS: Bibasilar crackles no wheezing. HEART: Irregular, holosystolic murmur, MUSCULOSKELETAL: No joint swelling. No decrease in range of motion. CENTRAL NERVOUS SYSTEM: Alert awake hard of hearing moves all 4 extremities debilitated, General: No acute distress Heart: Other (Mildly irregular) Lungs: Crackles, Other (Diminished breath sounds posteriorly at the bases) Abdomen: Normal bowel sounds Extremities: No cyanosis, No edema Skin: No breakdown Labs Labs: Laboratory Tests Test 07/23/21 17:00 07/23/21 18:40 Urine Collection Type Unknown Urine Color Yellow Urine Clarity Clear Urine pH 6.5 (<5.0-8.0) Urine Specific [place] 1.010 (1.000-1.030) Urine Protein Negative mg/dL (NEG-TRACE) Urine Glucose (UA) Negative mg/dL (NEG) Urine Ketones (Stick) 15 mg/dL (NEG) Urine Blood Negative (NEG) Urine Nitrite Negative (NEG) Urine Bilirubin Negative (NEG) Urine Urobilinogen Dipstick 0.2 mg/dL (0.2 mg/dL) Urine Leukocyte Esterase Negative (NEG) Urine RBC Occ /HPF (0-2) Urine WBC Occ /HPF (0-4) Urine Squamous Epithelial Cells Many /LPF Urine Bacteria 0 /HPF (0-FEW) Glucose (Fingerstick) 130 mg/dL (70-99) Assessment and Plan Assessmemt and Plan Problems Medical Problems: (1) Bandemia Status: Acute (2) Elevated troponin Status: Acute (3) Hypoxia Status: Acute (4) Pleural effusion Status: Acute (5) Respiratory failure Status: Acute (6) SIRS (systemic inflammatory response syndrome) Status: Acute Comment Review of Relevant I have reviewed the following items peewee (where applicable) has been applied. Justifications for Admission Other Justification A. fib RVR and CHF exacerbation HAMZAH BRAND MD Jul 24, 2021 15:22
[2021-07-24 19:10] VITALS: BP 152/56
[2021-07-24] MEDS: ATORVASTATIN CALCIUM 10 MG TABLET. PO SCH (19:48)
[2021-07-24] MEDS: PSYLLIUM HUSK (SUGAR FREE) 1 PKT PACKET PO SCH (19:48)
[2021-07-24 20:23] LABS: BLOOD UREA NITROGEN 21 mg/dL (7-20); CALCIUM 7.8 mg/dL (8.5-10.1); CARBON DIOXIDE > 45 mmol/L (21-32); CHLORIDE 101 mmol/L (98-107); CREATININE 0.4 mg/dL (0.6-1.0); GFR 152.8; GLUCOSE 141 mg/dL (70-99); POTASSIUM 3.4 mmol/L (3.5-5.1); SODIUM 144 mmol/L (136-145)
[2021-07-24 23:16] VITALS: BP 100/64
[2021-07-25] MEDS: AMPICILLIN SODIUM 2 GM in IV NORMAL SALINE 100ML 100 ML IV SCH ×6 (00:03→20:23)
[2021-07-25 02:42] VITALS: BP 159/57
[2021-07-25 04:41] LABS: BLOOD UREA NITROGEN 23 mg/dL (7-20); CALCIUM 7.8 mg/dL (8.5-10.1); CARBON DIOXIDE 43 mmol/L (21-32); CHLORIDE 102 mmol/L (98-107); CREATININE 0.3 mg/dL (0.6-1.0); GLUCOSE 134 mg/dL (70-99); POTASSIUM 3.5 mmol/L (3.5-5.1); SODIUM 144 mmol/L (136-145)
[2021-07-25] MEDS: AA 4.25 %/CALCIUM/LYTES/D5W 1,000 ML IV SCH ×2 (05:09→14:06)
[2021-07-25] MEDS: PANTOPRAZOLE IV PUSH 40 MG VIAL. IVP SCH (05:14)
[2021-07-25] MEDS: FUROSEMIDE 40 MG/4 ML VIAL. IVP SCH ×2 (05:14→17:54)
[2021-07-25 07:00] VITALS: BP 160/58
--- NOTE | 2021-07-25 08:47 | PDOC ---
Infectious Disease Note Subjective Subjective pt alert awake Asking for food, remains somewhat confused On O2 by nasal cannula Appears comfortable ROS ROS No nausea vomiting diarrhea chest pain or fever Vital Sign Vital Signs Vital Signs Date Time Temp Pulse Resp B/P (MAP) Pulse Ox O2 Delivery O2 Flow Rate FiO2 07/25/21 02:42 99.1 71 16 159/57 (91) 95 Nasal Cannula 3.0 99.1 Physical Exam PHYSICAL EXAM GENERAL: Alert, awake confused likely baseline, poor hearing lying in bed comfortably, in no acute distress HEENT normocephalic atraumatic anicteric NECK: Supple. LUNGS: Bibasilar crackles no wheezing. HEART: Irregular, holosystolic murmur, MUSCULOSKELETAL: No joint swelling. No decrease in range of motion. CENTRAL NERVOUS SYSTEM: Alert awake hard of hearing moves all 4 extremities debilitated, Labs Lab Laboratory Tests Test 07/24/21 20:00 07/25/21 04:00 Sodium Level 144 mmol/L (136-145) 144 mmol/L (136-145) Potassium Level 3.4 mmol/L (3.5-5.1) 3.5 mmol/L (3.5-5.1) Chloride Level 101 mmol/L (98-107) 102 mmol/L (98-107) Carbon Dioxide Level > 45 mmol/L (21-32) 43 mmol/L (21-32) Anion Gap (6-14) (6-14) Blood Urea Nitrogen 21 mg/dL (7-20) 23 mg/dL (7-20) Creatinine 0.4 mg/dL (0.6-1.0) 0.3 mg/dL (0.6-1.0) Estimated GFR (Cockcroft-Gault) 152.8 213.0 Glucose Level 141 mg/dL (70-99) 134 mg/dL (70-99) Calcium Level 7.8 mg/dL (8.5-10.1) 7.8 mg/dL (8.5-10.1) Magnesium Level 1.8 mg/dL (1.8-2.4) Objective Assessment Sepsis from gram-positive bacteremia present on admission Persistent Enterococcus faecalis bacteremia on admission on 07/17 and 07/18 and 07/20,, 07/24 BETY difficult study with mitral valve chordae, less likely vegetation UA urine culture not done CT abdomen and pelvis reviewed Fever resolved Leukocytosis Abdominal discomfort, nausea Acute hypoxic respiratory failure on 4 L O2 by nasal cannula likely from CHF History of allergies to penicillin CHF A. fib with RVR Severe protein calorie malnutrition PPM in place Thrombocytopenia Onychomycosis Acrocyanosis, bilateral lower extremity resolved COPD Right pleural effusion that is post thoracocentesis last admission Generalized debility Hard of hearing Poor living condition BETY Technically difficult study. The left ventricular systolic function is normal. The Ejection Fraction is 50-55%. Pacer lead noted RA/RV. Mitral valve prolapse seen with possible ruptured chordae. Doubt endocarditis since the valve leaflets are not thickened. Moderate to severe mitral regurgitation. Mild tricuspid regurgitation. There is no evidence of significant pericardial effusion. Plan Plan of Care Cont IV ampicillin and rocephin repeat blood cultures 07/23/[address] PICC line until patient has repeat blood cultures negative at least for 48 to 72 hours Follow-up labs and cultures Continue supportive care Maintain aspiration precautions Overall prognosis poor likely pacemaker infection since blood culture continues to be positive will add 1 dose of gentamicin today Discussed with cardiology for further discussion about taking out pacemaker MARIYA CALLOWAY MD Jul 25, 2021 08:47
[2021-07-25] MEDS: METOPROLOL TART IMMED RELEASE 25 MG TABLET. PO SCH (09:00)
[2021-07-25] MEDS: DIGOXIN 125 MCG TABLET. PO SCH (09:00)
[2021-07-25] MEDS: POLYETHYLENE GLYCOL 3350 17 GM PACKET. PO SCH (09:00)
[2021-07-25] MEDS: LACTOBACILLUS RHAMNOSUS GG 1 CAPSULE. PO SCH ×2 (09:00→20:23)
--- NOTE | 2021-07-25 09:34 | PDOC ---
PULMONARY PROGRESS NOTES DATE: 07/25/21 TIME: 09:34 Subjective Patient appears to be very weak, continues to be short of breath, voice is weak, cough is weak. Vitals Vital Signs Date Time Temp Pulse Resp B/P (MAP) Pulse Ox O2 Delivery O2 Flow Rate FiO2 07/25/21 07:00 99.6 97 20 160/58 (92) 90 Nasal Cannula 3.0 99.6 ROS: No Nausea General: Alert HEENT: Other (nc at bipap mask on ) Lungs: Crackles, Other (Diminished breath sounds posteriorly at the bases) Cardiovascular: Other (irreg irreg) Abdomen: Soft Neuro Exam: Alert Extremities: Other (1+ pitting edema) Skin: Warm Labs Laboratory Tests Test 07/23/21 09:40 07/23/21 17:00 07/23/21 18:40 07/24/21 20:00 White Blood Count 8.0 x10^3/uL (4.0-11.0) Red Blood Count 3.97 x10^6/uL (3.50-5.40) Hemoglobin 11.4 g/dL (12.0-15.5) Hematocrit 35.5 % (36.0-47.0) Mean Corpuscular Volume 89 fL (79-100) Mean Corpuscular Hemoglobin 29 pg (25-35) Mean Corpuscular Hemoglobin Concent 32 g/dL (31-37) Red Cell Distribution Width 16.7 % (11.5-14.5) Platelet Count 206 x10^3/uL (140-400) Sodium Level 147 mmol/L (136-145) 144 mmol/L (136-145) Potassium Level 2.9 mmol/L (3.5-5.1) 3.4 mmol/L (3.5-5.1) Chloride Level 104 mmol/L (98-107) 101 mmol/L (98-107) Carbon Dioxide Level 41 mmol/L (21-32) > 45 mmol/L (21-32) Anion Gap 2 (6-14) (6-14) Blood Urea Nitrogen 11 mg/dL (7-20) 21 mg/dL (7-20) Creatinine 0.4 mg/dL (0.6-1.0) 0.4 mg/dL (0.6-1.0) Estimated GFR (Cockcroft-Gault) 152.8 152.8 BUN/Creatinine Ratio 28 (6-20) Glucose Level 99 mg/dL (70-99) 141 mg/dL (70-99) Calcium Level 8.1 mg/dL (8.5-10.1) 7.8 mg/dL (8.5-10.1) Total Bilirubin 0.5 mg/dL (0.2-1.0) Aspartate Amino Transf (AST/SGOT) 37 U/L (15-37) Alanine Aminotransferase (ALT/SGPT) 33 U/L (14-59) Alkaline Phosphatase 91 U/L (46-116) Total Protein 5.5 g/dL (6.4-8.2) Albumin 1.7 g/dL (3.4-5.0) Albumin/Globulin Ratio 0.4 (1.0-1.7) Urine Collection Type Unknown Urine Color Yellow Urine Clarity Clear Urine pH 6.5 (<5.0-8.0) Urine Specific Ruso 1.010 (1.000-1.030) Urine Protein Negative mg/dL (NEG-TRACE) Urine Glucose (UA) Negative mg/dL (NEG) Urine Ketones (Stick) 15 mg/dL (NEG) Urine Blood Negative (NEG) Urine Nitrite Negative (NEG) Urine Bilirubin Negative (NEG) Urine Urobilinogen Dipstick 0.2 mg/dL (0.2 mg/dL) Urine Leukocyte Esterase Negative (NEG) Urine RBC Occ /HPF (0-2) Urine WBC Occ /HPF (0-4) Urine Squamous Epithelial Cells Many /LPF Urine Bacteria 0 /HPF (0-FEW) Glucose (Fingerstick) 130 mg/dL (70-99) Test 07/25/21 04:00 Sodium Level 144 mmol/L (136-145) Potassium Level 3.5 mmol/L (3.5-5.1) Chloride Level 102 mmol/L (98-107) Carbon Dioxide Level 43 mmol/L (21-32) Anion Gap (6-14) Blood Urea Nitrogen 23 mg/dL (7-20) Creatinine 0.3 mg/dL (0.6-1.0) Estimated GFR (Cockcroft-Gault) 213.0 Glucose Level 134 mg/dL (70-99) Calcium Level 7.8 mg/dL (8.5-10.1) Magnesium Level 1.8 mg/dL (1.8-2.4) Laboratory Tests Test 07/24/21 20:00 07/25/21 04:00 Sodium Level 144 mmol/L (136-145) 144 mmol/L (136-145) Potassium Level 3.4 mmol/L (3.5-5.1) 3.5 mmol/L (3.5-5.1) Chloride Level 101 mmol/L (98-107) 102 mmol/L (98-107) Carbon Dioxide Level > 45 mmol/L (21-32) 43 mmol/L (21-32) Anion Gap (6-14) (6-14) Blood Urea Nitrogen 21 mg/dL (7-20) 23 mg/dL (7-20) Creatinine 0.4 mg/dL (0.6-1.0) 0.3 mg/dL (0.6-1.0) Estimated GFR (Cockcroft-Gault) 152.8 213.0 Glucose Level 141 mg/dL (70-99) 134 mg/dL (70-99) Calcium Level 7.8 mg/dL (8.5-10.1) 7.8 mg/dL (8.5-10.1) Magnesium Level 1.8 mg/dL (1.8-2.4) Medications Active Scripts Medications Dose Route/Sig Max Daily Dose Days Date Category Eliquis (Apixaban) 5 Mg Tablet 5 Mg PO BID 30 07/15/21 Rx Eliquis (Apixaban) 5 Mg Tablet 10 Mg PO BID 7 07/15/21 Rx Metoprolol Tartrate 25 Mg Tablet 25 Mg PO BID 30 07/15/21 Rx Keflex (Cephalexin) 500 Mg Capsule 1 Cap PO TID 3 07/15/21 Rx Atorvastatin Calcium 10 Mg Tablet 10 Mg PO QHS 30 07/15/21 Rx Digoxin 125 Mcg Tablet 125 Mcg PO DAILY 30 07/15/21 Rx Effer-K 10 Meq Tablet Eff (Potassium Bicarbonate/Cit Ac) 10 Meq Tablet.eff 15 Meq PO DAILY 07/12/21 Reported Lasix (Furosemide) 40 Mg Tablet 1 Tab PO DAILY 30 07/12/21 Reported Comments Chest x-ray reviewed 07/20/2021. Bilateral infiltrates and left-sided pleural effusion. CT chest reviewed dated July 17, 2021 Bilateral pleural effusions, moderate per my impression. Evidence of congestive heart failure. Impression . 1. Acute respiratory failure, multifactorial in etiology including acute diastolic congestive heart failure, bilateral pleural effusion, AFib with rapid ventricular response, moderate to severe mitral regurgitation.--- now rate controlled 2. Abnormal CT of the chest. bilateral pleural effusions and evidence of CHF 3. Acute diastolic congestive heart failure. 4. Atrial fibrillation with rapid ventricular response. 5. Pleural effusion, status post right thoracentesis , transudate. 6. Malnutrition. 7. Moderate to severe mitral regurgitation. 8. Right lower extremity cellulitis. 9. Leukocytosis--improved ID following resolved 10. BETY showed mitral valve prolapse with possible ruptured chordae and moderate to severe mitral regurgitation 11. non-ST elevation myocardial infarction. 12. Persistent Enterococcus faecalis bacteremia on admission on 07/17 and 07/18 and 07/20 cardiac cath 07/22 Conclusion Elevated left-sided filling pressure secondary to acute on chronic diastolic heart failure and mild to moderate pulmonary hypertension. No evidence of intracardiac shunt. Recommendations Continue medical management including diuresis. Plan . Updated 07/[address] Parks Prognosis is poor I would favor palliative care consult. Continue support for now Antibiotics per ID 1. Titrate FiO2 to keep O2 saturation 90% not higher is co2 retainer. bipap prn 2. A. fib/AC per cardiology--cardiac cath 07/22 reviewed 3. Status post right thoracentesis 07/19/21--1 liter removed -- transudate from CHF 4. Keep intake, less than output. Lasix per Cardiology. 5. antibiotics---per ID need neg blood cx before picc placement and dc fu 07/23 blood cx 6. Protonix for stress ulcer prophylaxis. 7. Patient has recurrent bilateral pleural effusions. She had a recent prior thoracentesis. etiology of her recurrent pleural effusion includes acute on chronic diastolic CHF as well as moderate to severe mitral regurgitation, pleural effusion will keep reoccurring. It will be difficult to manage her congestive heart failure without fixing the mitral regurgitation. will be evaluated in valve clinic as out pt. 8. Follow cardiology recommendations aggressive tx of chf discussed w CHHAYA Alfred MD Jul 25, 2021 09:34
[2021-07-25] MEDS: ENOXAPARIN 40 MG/0.4 ML SYRINGE. SQ SCH (09:40)
[2021-07-25] MEDS: cefTRIAXone IV Push 2 GM VIAL. IVP SCH ×2 (09:41→20:22)
[2021-07-25] MEDS ORDERED: GENTAMICIN SULFATE 80 MG in IV DEXTROSE 5% 100ML 100 ML IV ONE (10:00)
--- NOTE | 2021-07-25 10:10 | PDOC ---
MARCK BEARD CELL LEAD 07/25/21 1010: CARDIO Progress Notes Date and Time Date of Service 07/25/21 Time of Evaluation 1015 Subjective Subjective: No Chest Pain, No shortness of breath, No Palpitations Vitals Vitals Vital Signs Date Time Temp Pulse Resp B/P (MAP) Pulse Ox O2 Delivery O2 Flow Rate FiO2 07/25/21 07:00 99.6 97 20 160/58 (92) 90 Nasal Cannula 3.0 99.6 Weight Weight [ ] Input and Output Intake and Output Intake and Output 07/25/21 07:00 Intake Total 200 ml Output Total 2450 ml Balance -2250 ml Intake Oral 0 ml IV Total 200 ml Output Urine Total 2450 ml Laboratory Labs Laboratory Tests Test 07/24/21 20:00 07/25/21 04:00 Sodium Level 144 mmol/L (136-145) 144 mmol/L (136-145) Potassium Level 3.4 mmol/L (3.5-5.1) 3.5 mmol/L (3.5-5.1) Chloride Level 101 mmol/L (98-107) 102 mmol/L (98-107) Carbon Dioxide Level > 45 mmol/L (21-32) 43 mmol/L (21-32) Anion Gap (6-14) (6-14) Blood Urea Nitrogen 21 mg/dL (7-20) 23 mg/dL (7-20) Creatinine 0.4 mg/dL (0.6-1.0) 0.3 mg/dL (0.6-1.0) Estimated GFR (Cockcroft-Gault) 152.8 213.0 Glucose Level 141 mg/dL (70-99) 134 mg/dL (70-99) Calcium Level 7.8 mg/dL (8.5-10.1) 7.8 mg/dL (8.5-10.1) Magnesium Level 1.8 mg/dL (1.8-2.4) Microbiology Micro Microbiology 07/24/21 Blood Culture - Final, Complete 07/19/21 Gram Stain - Final, Complete 07/19/21 Aerobic and Anaerobic Culture - Final, Complete Physical Exam HEENT: Neck Supple W Full Motion Chest: Symmetric LUNGS: Other (fine basilar crackles) Heart: irregularly irregular (atrial flutter, rate controlled ) Abdomen: Soft N/T Extremities: Other (1+ bilateral LE edema) Neurology: alert, follow commands, confused Assessment Assessment 1. Acute respiratory failure secondary to combination of acute on chronic diastolic heart failure, bilateral pleural effusions, possible pneumonia. S/P thoracentesis 07/19. 2. Acute on chronic diastolic heart failure: Echo showed LVEF 50 to 55%. Improved s/p diuresis. RHC with elevated pressures. Continue Lasix therapy 3. Permanent atrial fibrillation/flutter presently with atrial flutter with RVR, rate better controlled. Now NPO. Will convert Dig and metoprolol to IV. On Lovenox for VTE prophylaxis. Consider for Eliquis therapy when able to take oral 4. Moderate to severe mitral regurgitation, mitral valve prolapse with possible ruptured chordae noted on BETY. 5. Hypertension: Controlled 6. SSS s/p PPM implantation with recent device check showing normal function with adequate battery life 7. Sepsis/bacteremia; BC with GPC. no evidence of endocarditis per BETY, although suspicion for endocarditis/pacer wire infection due to persistent bacteremia despite aggressive antibiotic therapy. 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 Continue antibiotics as per ID 8. Recent bilateral PE Justicifation of Admission Dx: Justifications for Admission: Justification of Admission Dx: Yes EMILY MARIN MD 07/25/21 1639: CARDIO Progress Notes Assessment Assessment Patient seen and examined. Agree with BASEBALL PLAYER's assessment and plan. Acute on chronic diastolic heart failure better compensated. Permanent atrial fibrillation rate controlled. BTEY showed mitral valve prolapse with flail chordae and moderate to severe mitral regurgitation Doubt this patient would qualify for mitral valve clip secondary to anatomy She is not a good candidate for open surgical repair Persistent bacteremia etiology discussed with ID team Appreciate ID input -they opined that even if patient had mitral valve endocarditis, the antibiotics should have cleared bacteremia by now Agree that patient might have had secondary seeding of pacer wires and hence bacteremia resistant to antibiotic therapy Plan to repeat cultures after initiating gentamicin in addition to current intravenous antibiotics If bacteremia persistent, we will consider referral to [facility] for possible laser lead extraction of pacer wires MARCK BEARD APRN Jul 25, 2021 10:10 EMILY MARIN MD Jul 25, 2021 16:39
[2021-07-25 11:00] VITALS: BP 153/55
--- NOTE | 2021-07-25 13:47 | PDOC ---
[facility] PROGRESS NOTE Date of Service DOS: DATE: 07/25/21 TIME: 13:46 Chief Complaint Chief Complaint Acute encephalopathy - likely due to sepsis Severe sepsis - ID consulted, cont vancomycin GPC positive blood cultures - as above Acute hypoxic respiratory failure Afib with RVR - eliquis for thromboprophylaxis, cardizem rate control back on metoprolol S/p ppm - good battery life H/o pulmonary embolism - on recent admission 07/14/2021 Acute on chronic diastolic heart failure: Recent 2D echo showed LVEF 50 to 55%. Continue diuresis. Moderate to severe mitral regurgitation noted on recent 2D echo. Consider BETY and referral for mitral valve clip repair as an outpatient. Thrombocytopenia Right pleural effusion Acrocyanosis, bilateral lower extremity COPD Right pleural effusion that is post thoracocentesis last admission -recurrent Generalized debility Hard of hearing Poor living condition History of Present Illness History of Present Illness 07/25/2021 Patient seen and examined Discussed with RN Chart reviewed On IV Clinimix Also has IV Unasyn hanging 07/24, confused again today, cont NPO, plan to try to re-eval swallow when mental status improved again about the same otherwise 07/23, atrial flutter, rate controlled more calm, mitts off NPO still, start procalamine 07/22, more clear, mental status improvede calm and talkative was very confused 07/20 Monserrat given overnight calm this AM, somnolent early in the AM Ms Bang is an 80 year old female well-known to our service as above with past medical history of congestive heart failure, A. fib, pacemaker placement at [facility] and NSTEMI (on 07/12/21) currently admitted in ICU who presented to ER on 07/17/2021 from [facility]. Patient was hypoxic, so the patient on a nonrebreather. T-max 100.3, WBC 14 K, 07/17/2021 blood cultures are positive with GPC in pairs and chains. Patient is currently on O2. Alert awake. Remains confused. Last admission patient underwent right lung thoracocentesis for moderate pleural effusion on 07/14/2021. Cultures remain negative. Blood cultures were done this admission which are positive for gram-positive cocci in pairs and chains. Admitted with Cardiology, Pulmonology, and ID consultation. Afebrile overnight. Blood cultures 4-4 positive GPC. Heart rate A. fib in 90s 200s. She has been coughing with sips of water. Plan for repeat thoracentesis. Vitals/I&O Vitals/I&O: Vital Signs Date Time Temp Pulse Resp B/P (MAP) Pulse Ox O2 Delivery O2 Flow Rate FiO2 07/25/21 11:00 99.0 77 18 153/55 (87) 97 Nasal Cannula 2.0 99.0 I & O 07/24/21 07/24/21 07/25/21 15:00 23:00 07:00 Intake Total 100 ml 100 ml Output Total 1000 ml 1450 ml Balance -900 ml 100 ml -1450 ml Physical Exam Physical Exam: GENERAL: Alert, awake confused likely baseline, poor hearing lying in bed comfortably, in no acute distress HEENT normocephalic atraumatic anicteric NECK: Supple. LUNGS: Bibasilar crackles no wheezing. HEART: Irregular, holosystolic murmur, MUSCULOSKELETAL: No joint swelling. No decrease in range of motion. CENTRAL NERVOUS SYSTEM: Alert awake hard of hearing moves all 4 extremities debilitated, General: No acute distress Heart: Other (Mildly irregular) Lungs: Crackles, Other (Diminished breath sounds posteriorly at the bases) Abdomen: Normal bowel sounds Extremities: No cyanosis, No edema Skin: No breakdown Labs Labs: Laboratory Tests Test 07/24/21 20:00 07/25/21 04:00 Sodium Level 144 mmol/L (136-145) 144 mmol/L (136-145) Potassium Level 3.4 mmol/L (3.5-5.1) 3.5 mmol/L (3.5-5.1) Chloride Level 101 mmol/L (98-107) 102 mmol/L (98-107) Carbon Dioxide Level > 45 mmol/L (21-32) 43 mmol/L (21-32) Anion Gap (6-14) (6-14) Blood Urea Nitrogen 21 mg/dL (7-20) 23 mg/dL (7-20) Creatinine 0.4 mg/dL (0.6-1.0) 0.3 mg/dL (0.6-1.0) Estimated GFR (Cockcroft-Gault) 152.8 213.0 Glucose Level 141 mg/dL (70-99) 134 mg/dL (70-99) Calcium Level 7.8 mg/dL (8.5-10.1) 7.8 mg/dL (8.5-10.1) Magnesium Level 1.8 mg/dL (1.8-2.4) Assessment and Plan Assessmemt and Plan Problems Medical Problems: (1) Bandemia Status: Acute (2) Elevated troponin Status: Acute (3) Hypoxia Status: Acute (4) Pleural effusion Status: Acute (5) Respiratory failure Status: Acute (6) SIRS (systemic inflammatory response syndrome) Status: Acute Acute encephalopathy - likely due to sepsis Severe sepsis - ID consulted, cont vancomycin GPC positive blood cultures - as above Acute hypoxic respiratory failure Afib with RVR - eliquis for thromboprophylaxis, cardizem rate control back on me toprolol S/p ppm - good battery life H/o pulmonary embolism - on recent admission 07/14/2021 Acute on chronic diastolic heart failure: Recent 2D echo showed LVEF 50 to 55%. Continue diuresis. Moderate to severe mitral regurgitation noted on recent 2D echo. Consider BETY and referral for mitral valve clip repair as an outpatient. Thrombocytopenia Right pleural effusion Acrocyanosis, bilateral lower extremity COPD Right pleural effusion that is post thoracocentesis last admission -recurrent Generalized debility Hard of hearing Poor living condition Comment Review of Relevant I have reviewed the following items peewee (where applicable) has been applied. Medications: Current Medications Medications (Trade) Dose Ordered Sig/Beny Route PRN Reason Start Time Stop Time Status Last Admin Dose Admin Ampicillin Sodium 2 gm/Sodium Chloride 100 ml @ 200 mls/hr Q4HRS IV 07/25/21 09:00 07/25/21 09:00 Gentamicin Sulfate 80 mg/ Dextrose 102 ml @ 204 mls/hr 1X ONCE IV 07/25/21 10:00 07/25/21 10:29 DC 07/25/21 12:44 Justifications for Admission Other Justification A. fib RVR and CHF exacerbation DAVID BROOKS III DO Jul 25, 2021 13:47
[2021-07-25] MEDS: METOPROLOL IV PUSH 5 MG/5 ML VIAL. IVP SCH ×2 (14:07→17:54)
[2021-07-25 14:28] VITALS: BP 112/54
[2021-07-25] MEDS: DIGOXIN IV 500 MCG/2 ML AMPUL. IV SCH (16:18)
[2021-07-25 19:35] VITALS: BP 137/64
[2021-07-25] MEDS: ATORVASTATIN CALCIUM 10 MG TABLET. PO SCH (20:23)
[2021-07-25] MEDS: PSYLLIUM HUSK (SUGAR FREE) 1 PKT PACKET PO SCH (20:23)
[2021-07-25] MEDS: ONDANSETRON PF 4 MG/2 ML VIAL. IVP PRN (21:59)
[2021-07-25 22:55] VITALS: BP 148/63
[2021-07-26] MEDS: METOPROLOL IV PUSH 5 MG/5 ML VIAL. IVP SCH ×4 (00:01→17:11)
[2021-07-26] MEDS: AA 4.25 %/CALCIUM/LYTES/D5W 1,000 ML IV SCH ×2 (02:59→13:32)
[2021-07-26 03:30] VITALS: BP 128/60
[2021-07-26] MEDS: AMPICILLIN SODIUM 2 GM in IV NORMAL SALINE 100ML 100 ML IV SCH ×6 (03:54→21:04)
--- NOTE | 2021-07-26 04:47 | NUR ---
Patient Tachypneic, shallow breaths on 2.5 L NC, diaphoretic O2 sat 75%. Placed patient on BIPAP at 28/8 rate of 20 30%FiO2. Patient o2 sat 92%. Will continue to monitor.
--- NOTE | 2021-07-26 04:47 | NUR ---
RN CALLED ME TO ASSESS PT, ON ARRIVAL PT HAD SHALLOW RESPIRATIONS, TACHYPNEIC, AND DIAPHORETIC. LUNGS DIM WITH FAINT CRACKLES. PT WAS PLACED BACK ON BIPAP. IPAP WAS INCREASED TO 28 TO MAINTAIN A VT HIGHER THAN 300, FIO2 WAS DECREASED TO 30% TO MAINTAIN SPO2 AROUND 90%. WILL CONT TO MONITOR PT.
[2021-07-26] MEDS: FUROSEMIDE 40 MG/4 ML VIAL. IVP SCH ×3 (05:25→17:12)
[2021-07-26] MEDS: PANTOPRAZOLE IV PUSH 40 MG VIAL. IVP SCH (05:25)
[2021-07-26 07:00] VITALS: BP 111/51
[2021-07-26 07:24] LABS: BASE EXCESS ABG 22 mmol/L (-3-3); HCO3 ABG 48 mmol/L (21-28); PO2 ABG 88 mmHg (65-108); SAT O2 ABG 97 % (92-99)
[2021-07-26 07:25] LABS: PCO2 ABG 61 mmHg (35-46)
[2021-07-26 07:26] LABS: FIO2 ABG 30
[2021-07-26] MEDS: cefTRIAXone IV Push 2 GM VIAL. IVP SCH ×2 (08:26→21:06)
[2021-07-26] MEDS: ENOXAPARIN 40 MG/0.4 ML SYRINGE. SQ SCH (08:26)
[2021-07-26] MEDS: LACTOBACILLUS RHAMNOSUS GG 1 CAPSULE. PO SCH ×2 (08:34→21:06)
[2021-07-26] MEDS: POLYETHYLENE GLYCOL 3350 17 GM PACKET. PO SCH (08:34)
--- NOTE | 2021-07-26 08:34 | PDOC ---
PULMONARY PROGRESS NOTES DATE: 07/26/21 TIME: 08:33 Subjective Patient continues to be weak, not short of breath cough is weak Vitals Vital Signs Date Time Temp Pulse Resp B/P (MAP) Pulse Ox O2 Delivery O2 Flow Rate FiO2 07/26/21 07:22 97 BiPAP/CPAP 07/26/21 05:27 74 105/49 07/26/21 03:30 97.4 28 2.0 97.4 ROS: No Nausea General: Alert HEENT: Other (nc at bipap mask on ) Lungs: Crackles, Other (Diminished breath sounds posteriorly at the bases) Cardiovascular: Other (irreg irreg) Abdomen: Soft Neuro Exam: Alert Extremities: Other (1+ pitting edema) Skin: Warm Labs Laboratory Tests Test 07/24/21 20:00 07/25/21 04:00 07/26/21 03:56 07/26/21 07:18 Sodium Level 144 mmol/L (136-145) 144 mmol/L (136-145) Potassium Level 3.4 mmol/L (3.5-5.1) 3.5 mmol/L (3.5-5.1) Chloride Level 101 mmol/L (98-107) 102 mmol/L (98-107) Carbon Dioxide Level > 45 mmol/L (21-32) 43 mmol/L (21-32) Anion Gap (6-14) (6-14) Blood Urea Nitrogen 21 mg/dL (7-20) 23 mg/dL (7-20) Creatinine 0.4 mg/dL (0.6-1.0) 0.3 mg/dL (0.6-1.0) Estimated GFR (Cockcroft-Gault) 152.8 213.0 Glucose Level 141 mg/dL (70-99) 134 mg/dL (70-99) Calcium Level 7.8 mg/dL (8.5-10.1) 7.8 mg/dL (8.5-10.1) Magnesium Level 1.8 mg/dL (1.8-2.4) Glucose (Fingerstick) 149 mg/dL (70-99) O2 Saturation 97 % (92-99) Arterial Blood pH 7.51 (7.35-7.45) Arterial Blood pCO2 at Patient Temp 61 mmHg (35-46) Arterial Blood pO2 at Patient Temp 88 mmHg (65-108) Arterial Blood HCO3 48 mmol/L (21-28) Arterial Blood Base Excess 22 mmol/L (-3-3) FiO2 30 Laboratory Tests Test 07/26/21 03:56 07/26/21 07:18 Glucose (Fingerstick) 149 mg/dL (70-99) O2 Saturation 97 % (92-99) Arterial Blood pH 7.51 (7.35-7.45) Arterial Blood pCO2 at Patient Temp 61 mmHg (35-46) Arterial Blood pO2 at Patient Temp 88 mmHg (65-108) Arterial Blood HCO3 48 mmol/L (21-28) Arterial Blood Base Excess 22 mmol/L (-3-3) FiO2 30 Medications Active Scripts Medications Dose Route/Sig Max Daily Dose Days Date Category Eliquis (Apixaban) 5 Mg Tablet 5 Mg PO BID 30 07/15/21 Rx Eliquis (Apixaban) 5 Mg Tablet 10 Mg PO BID 7 07/15/21 Rx Metoprolol Tartrate 25 Mg Tablet 25 Mg PO BID 30 07/15/21 Rx Keflex (Cephalexin) 500 Mg Capsule 1 Cap PO TID 3 07/15/21 Rx Atorvastatin Calcium 10 Mg Tablet 10 Mg PO QHS 30 07/15/21 Rx Digoxin 125 Mcg Tablet 125 Mcg PO DAILY 30 07/15/21 Rx Effer-K 10 Meq Tablet Eff (Potassium Bicarbonate/Cit Ac) 10 Meq Tablet.eff 15 Meq PO DAILY 07/12/21 Reported Lasix (Furosemide) 40 Mg Tablet 1 Tab PO DAILY 30 07/12/21 Reported Comments Chest x-ray reviewed 07/20/2021. Bilateral infiltrates and left-sided pleural effusion. CT chest reviewed dated July 17, 2021 Bilateral pleural effusions, moderate per my impression. Evidence of congestive heart failure. Impression . 1. Acute respiratory failure, multifactorial in etiology including acute diastolic congestive heart failure, bilateral pleural effusion, AFib with rapid ventricular response, moderate to severe mitral regurgitation.--- now rate controlled 2. Abnormal CT of the chest. bilateral pleural effusions and evidence of CHF 3. Acute diastolic congestive heart failure. 4. Atrial fibrillation with rapid ventricular response. 5. Pleural effusion, status post right thoracentesis , transudate. 6. Malnutrition. 7. Moderate to severe mitral regurgitation. 8. Right lower extremity cellulitis. 9. Leukocytosis--improved ID following resolved 10. BETY showed mitral valve prolapse with possible ruptured chordae and moderate to severe mitral regurgitation 11. non-ST elevation myocardial infarction. 12. Persistent Enterococcus faecalis bacteremia on admission on 07/17 and 07/18 and 07/20 cardiac cath 07/22 Conclusion Elevated left-sided filling pressure secondary to acute on chronic diastolic heart failure and mild to moderate pulmonary hypertension. No evidence of intracardiac shunt. Recommendations Continue medical management including diuresis. Plan . Updated 07/26 Antibiotics per ID Respiratory status appears to be compensated Long-term prognosis is poor Updated 07/[address] Parks Prognosis is poor I would favor palliative care consult. Continue support for now Antibiotics per ID CHHAYA LOYOLA MD Jul 26, 2021 08:33
--- NOTE | 2021-07-26 09:10 | PDOC ---
Infectious Disease Note Subjective Subjective Patient is sleepy no problem per RN ROS ROS No nausea vomiting diarrhea chest pain shortness of breath Vital Sign Vital Signs Vital Signs Date Time Temp Pulse Resp B/P (MAP) Pulse Ox O2 Delivery O2 Flow Rate FiO2 07/26/21 07:22 97 BiPAP/CPAP 07/26/21 07:00 97.1 72 21 111/51 (71) 97.1 07/26/21 03:30 2.0 Physical Exam PHYSICAL EXAM GENERAL: Alert, awake confused likely baseline, poor hearing lying in bed comfortably, in no acute distress HEENT normocephalic atraumatic anicteric NECK: Supple. LUNGS: Bibasilar crackles no wheezing. HEART: Irregular, holosystolic murmur, MUSCULOSKELETAL: No joint swelling. No decrease in range of motion. CENTRAL NERVOUS SYSTEM: Alert awake hard of hearing moves all 4 extremities debilitated, Labs Lab Laboratory Tests Test 07/26/21 03:56 07/26/21 07:18 Glucose (Fingerstick) 149 mg/dL (70-99) O2 Saturation 97 % (92-99) Arterial Blood pH 7.51 (7.35-7.45) Arterial Blood pCO2 at Patient Temp 61 mmHg (35-46) Arterial Blood pO2 at Patient Temp 88 mmHg (65-108) Arterial Blood HCO3 48 mmol/L (21-28) Arterial Blood Base Excess 22 mmol/L (-3-3) FiO2 30 Objective Assessment Sepsis from gram-positive bacteremia present on admission Persistent Enterococcus faecalis bacteremia on admission on 07/17 and 07/18 and 07/20,, 07/24 BETY difficult study with mitral valve chordae, less likely vegetation UA urine culture not done CT abdomen and pelvis reviewed Fever resolved Leukocytosis Abdominal discomfort, nausea Acute hypoxic respiratory failure on 4 L O2 by nasal cannula likely from CHF History of allergies to penicillin CHF A. fib with RVR Severe protein calorie malnutrition PPM in place Thrombocytopenia Onychomycosis Acrocyanosis, bilateral lower extremity resolved COPD Right pleural effusion that is post thoracocentesis last admission Generalized debility Hard of hearing Poor living condition BETY Technically difficult study. The left ventricular systolic function is normal. The Ejection Fraction is 50-55%. Pacer lead noted RA/RV. Mitral valve prolapse seen with possible ruptured chordae. Doubt endocarditis since the valve leaflets are not thickened. Moderate to severe mitral regurgitation. Mild tricuspid regurgitation. There is no evidence of significant pericardial effusion. Plan Plan of Care Cont IV ampicillin and rocephin repeat blood cultures 07/23/[address] PICC line until patient has repeat blood cultures negative at least for 48 to 72 hours Follow-up labs and cultures Continue supportive care Maintain aspiration precautions Overall prognosis poor likely pacemaker infection since blood culture continues to be positive will add 1 dose of gentamicin today Discussed with cardiology for further discussion about taking out pacemaker Repeat cultures are actually showing staph that might be contaminant MARIYA CALLOWAY MD Jul 26, 2021 09:10
--- NOTE | 2021-07-26 09:16 | PDOC ---
MARCK BEARD ADVERTISING ASSISTANT 07/26/21 0916: CARDIO Progress Notes Date and Time Date of Service 07/26/21 Time of Evaluation 1515 Subjective Subjective: No Chest Pain, No shortness of breath, No Palpitations, Other (drowsy ) Vitals Vitals Vital Signs Date Time Temp Pulse Resp B/P (MAP) Pulse Ox O2 Delivery O2 Flow Rate FiO2 07/26/21 07:22 97 BiPAP/CPAP 07/26/21 05:27 74 105/49 07/26/21 03:30 97.4 28 2.0 97.4 Weight Weight [ ] Input and Output Intake and Output Intake and Output 07/26/21 07:00 Intake Total 200 ml Output Total 3150 ml Balance -2950 ml Intake Oral 0 ml IV Total 200 ml Output Urine Total 3150 ml # Voids 1 # Bowel Movements 1 Laboratory Labs Laboratory Tests Test 07/26/21 03:56 07/26/21 07:18 Glucose (Fingerstick) 149 mg/dL (70-99) O2 Saturation 97 % (92-99) Arterial Blood pH 7.51 (7.35-7.45) Arterial Blood pCO2 at Patient Temp 61 mmHg (35-46) Arterial Blood pO2 at Patient Temp 88 mmHg (65-108) Arterial Blood HCO3 48 mmol/L (21-28) Arterial Blood Base Excess 22 mmol/L (-3-3) FiO2 30 Microbiology Micro Microbiology 07/24/21 Blood Culture - Final, Complete 07/19/21 Gram Stain - Final, Complete 07/19/21 Aerobic and Anaerobic Culture - Final, Complete Physical Exam HEENT: Neck Supple W Full Motion Chest: Symmetric LUNGS: Other (diminished ) Heart: irregularly irregular (atrial flutter, rate controlled ) Abdomen: Soft N/T Extremities: Other (trace-1+ bilateral LE edema) Neurology: alert, follow commands Assessment Assessment 1. Acute respiratory failure secondary to combination of acute on chronic diastolic heart failure, bilateral pleural effusions, possible pneumonia. S/P thoracentesis 07/19. 2. Acute on chronic diastolic heart failure: Echo showed LVEF 50 to 55%. Improved s/p diuresis. RHC with elevated pressures. Continue Lasix therapy 3. Permanent atrial fibrillation/flutter presently with atrial flutter with RVR, rate better controlled. Now NPO. Will convert Dig and metoprolol to IV. On Lovenox for VTE prophylaxis. Consider for Eliquis therapy when able to take oral 4. Moderate to severe mitral regurgitation, mitral valve prolapse with flail chordae noted on BETY. Poor candidate for open surgical repair and would likely not qualify for mitral valve clip secondary to anatomy 5. Hypertension: Controlled 6. SSS s/p PPM implantation with recent device check showing normal function with adequate battery life 7. Sepsis/bacteremia; BC with GPC. no evidence of endocarditis per BETY, although suspicion for secondary seeding of pacer wires due to persistent bacteremia resistant to antibiotic therapy. Repeat cultures following addition of gentamicin. If cultures remain +, consider referral to [facility] for possible laser lead extraction of pacer wires 8. Recent bilateral PE 9. ? Dysphagia; now NPO. awaiting swallow eval Justicifation of Admission Dx: Justifications for Admission: Justification of Admission Dx: Yes EMILY MARIN MD 07/26/21 1440: CARDIO Progress Notes Assessment Assessment Patient seen and examined. Agree with GEAR TOOTH GRINDING MACHINE OPERATOR's assessment and plan. Acute on chronic diastolic heart failure better compensated. Permanent atrial fibrillation rate controlled. BETY showed mitral valve prolapse with flail chordae and moderate to severe mitral regurgitation Doubt this patient would qualify for mitral valve clip secondary to anatomy She is not a good candidate for open surgical repair Persistent bacteremia etiology discussed with ID team Agree that if patient had mitral valve endocarditis, the antibiotics should have cleared bacteremia by now Patient probably had secondary seeding of pacer wires and hence bacteremia resistant to antibiotic therapy Plan to repeat cultures after initiating gentamicin in addition to current intravenous antibiotics If bacteremia persistent, we will consider referral to [facility] for possible laser lead extraction of pacer wires MARCK BEARD APRN Jul 26, 2021 09:16 EMILY MARIN MD Jul 26, 2021 14:40
[2021-07-26 11:00] VITALS: BP 134/63
--- NOTE | 2021-07-26 12:22 | PDOC ---
[facility] PROGRESS NOTE Date of Service DOS: DATE: 07/26/21 TIME: 12:17 Chief Complaint Chief Complaint Acute encephalopathy - likely due to sepsis Severe sepsis - ID consulted, cont vancomycin GPC positive blood cultures - as above Acute hypoxic respiratory failure Afib with RVR - eliquis for thromboprophylaxis, cardizem rate control back on metoprolol S/p ppm - good battery life H/o pulmonary embolism - on recent admission 07/14/2021 Acute on chronic diastolic heart failure: Recent 2D echo showed LVEF 50 to 55%. Continue diuresis. Moderate to severe mitral regurgitation noted on recent 2D echo. Consider BETY and referral for mitral valve clip repair as an outpatient. Thrombocytopenia Right pleural effusion Acrocyanosis, bilateral lower extremity COPD Right pleural effusion that is post thoracocentesis last admission -recurrent Generalized debility Hard of hearing Poor living condition History of Present Illness History of Present Illness 07/26/2021 Possible d/c to LTAC when bed available Patient seen and examined discussed with RN Chart reviewed continue on IV Clinimix IV Unasyn hanging 07/25/2021 Patient seen and examined Discussed with RN Chart reviewed On IV Clinimix Also has IV Unasyn hanging 07/24, confused again today, cont NPO, plan to try to re-eval swallow when mental status improved again about the same otherwise 07/23, atrial flutter, rate controlled more calm, mitts off NPO still, start procalamine 07/22, more clear, mental status improvede calm and talkative was very confused 07/20 GEodon given overnight calm this AM, somnolent early in the AM Ms Bang is an 80 year old female well-known to our service as above with past medical history of congestive heart failure, A. fib, pacemaker placement at [facility] and NSTEMI (on 07/12/21) currently admitted in ICU who presented to ER on 07/17/2021 from [facility] via EMS with shortness of breath at senior care. Patient was hypoxic, so the patient on a nonrebreather. T-max 100.3, WBC 14 K, 07/17/2021 blood cultures are positive with GPC in pairs and chains. Patient is currently on O2. Alert awake. Remains confused. Last admission patient underwent right lung thoracocentesis for moderate pleural effusion on 07/14/2021. Cultures remain negative. Blood cultures were done this admission which are positive for gram-positive cocci in pairs and chains. Admitted with Cardiology, Pulmonology, and ID consultation. Afebrile overnight. Blood cultures 4-4 positive GPC. Heart rate A. fib in 90s 200s. She has been coughing with sips of water. Plan for repeat thoracentesis. Vitals/I&O Vitals/I&O: Vital Signs Date Time Temp Pulse Resp B/P (MAP) Pulse Ox O2 Delivery O2 Flow Rate FiO2 07/26/21 11:30 99 Nasal Cannula 2.0 07/26/21 07:00 97.1 72 21 111/51 (71) 97.1 I & O 07/25/21 07/25/21 07/26/21 15:00 23:00 07:00 Intake Total 100 ml 100 ml Output Total 1100 ml 1700 ml 350 ml Balance -1100 ml -1600 ml -250 ml Physical Exam Physical Exam: GENERAL: Alert, awake confused likely baseline, poor hearing lying in bed comfortably, in no acute distress HEENT normocephalic atraumatic anicteric NECK: Supple. LUNGS: Bibasilar crackles no wheezing. HEART: Irregular, holosystolic murmur, MUSCULOSKELETAL: No joint swelling. No decrease in range of motion. CENTRAL NERVOUS SYSTEM: Alert awake hard of hearing moves all 4 extremities debilitated, General: No acute distress Heart: Other (Mildly irregular) Lungs: Crackles, Other (Diminished breath sounds posteriorly at the bases) Abdomen: Normal bowel sounds Extremities: No cyanosis, No edema Skin: No breakdown Labs Labs: Laboratory Tests Test 07/26/21 03:56 07/26/21 07:18 Glucose (Fingerstick) 149 mg/dL (70-99) O2 Saturation 97 % (92-99) Arterial Blood pH 7.51 (7.35-7.45) Arterial Blood pCO2 at Patient Temp 61 mmHg (35-46) Arterial Blood pO2 at Patient Temp 88 mmHg (65-108) Arterial Blood HCO3 48 mmol/L (21-28) Arterial Blood Base Excess 22 mmol/L (-3-3) FiO2 30 Assessment and Plan Assessmemt and Plan Problems Medical Problems: (1) Bandemia Status: Acute (2) Elevated troponin Status: Acute (3) Hypoxia Status: Acute (4) Pleural effusion Status: Acute (5) Respiratory failure Status: Acute (6) SIRS (systemic inflammatory response syndrome) Status: Acute PLAN: Possible d/c to LTAC when bed available Continue Clinimix Continue IV Unasyn Home Meds Trend Labs DVT prophylaxis Full Code Comment Review of Relevant I have reviewed the following items peewee (where applicable) has been applied. Medications: Current Medications Medications (Trade) Dose Ordered Sig/Beny Route PRN Reason Start Time Stop Time Status Last Admin Dose Admin Metoprolol Tartrate (Lopressor Vial) 5 mg Q6HRS IVP 07/25/21 14:00 07/26/21 05:27 Digoxin (Lanoxin) 125 mcg DAILY IV 07/25/21 15:00 07/25/21 16:18 Justifications for Admission Other Justification A. fib RVR and CHF exacerbation DAVID BROOKS III DO Jul 26, 2021 12:22
[2021-07-26] MEDS: DIGOXIN IV 500 MCG/2 ML AMPUL. IV SCH (13:30)
--- NOTE | 2021-07-26 13:48 | NUR ---
SS following up with discharge planning. SS reviewed pt chart and discussed with pt RN. Pt is currently requiring oxygen at two liters nasal canula and BIPAP PRN. COVID19 negative. Pt on IV Ampcillin, IV Lasix, and IV Rocephin. Pt on Clinimix. [facility] unable to accept back at this time. Pt needing higher level of care due to medical needs. SS phoned and faxed referral to [facility], ; fax [phone]. SS will continue to follow for discharge planning.
[2021-07-26 15:00] VITALS: BP 129/63
[2021-07-26 19:00] VITALS: BP 130/53
--- NOTE | 2021-07-26 19:05 | NUR ---
Assessment completed vss poc explained pt denied pain , pt confused and reoriented to surroundings call light placed in reach will resume care and continue to monitor pt.
[2021-07-26] MEDS: ATORVASTATIN CALCIUM 10 MG TABLET. PO SCH (21:06)
[2021-07-26] MEDS: PSYLLIUM HUSK (SUGAR FREE) 1 PKT PACKET PO SCH (21:06)
[2021-07-26 22:55] VITALS: BP 138/61
[2021-07-27] MEDS: METOPROLOL IV PUSH 5 MG/5 ML VIAL. IVP SCH ×3 (00:05→13:10)
[2021-07-27] MEDS: AMPICILLIN SODIUM 2 GM in IV NORMAL SALINE 100ML 100 ML IV SCH ×4 (00:05→13:10)
[2021-07-27] MEDS: ONDANSETRON PF 4 MG/2 ML VIAL. IVP PRN (00:29)
[2021-07-27] MEDS: AA 4.25 %/CALCIUM/LYTES/D5W 1,000 ML IV SCH ×2 (00:29→13:15)
[2021-07-27 02:46] VITALS: BP 141/61
[2021-07-27] MEDS: FUROSEMIDE 40 MG/4 ML VIAL. IVP SCH (05:52)
[2021-07-27] MEDS: PANTOPRAZOLE IV PUSH 40 MG VIAL. IVP SCH (05:53)
[2021-07-27 07:00] VITALS: BP 125/57
--- NOTE | 2021-07-27 08:29 | PDOC ---
[facility] PROGRESS NOTE Date of Service DOS: DATE: 07/27/21 TIME: 08:28 Chief Complaint Chief Complaint Acute encephalopathy - likely due to sepsis Severe sepsis - ID consulted, cont vancomycin GPC positive blood cultures - as above Acute hypoxic respiratory failure Afib with RVR - eliquis for thromboprophylaxis, cardizem rate control back on metoprolol S/p ppm - good battery life H/o pulmonary embolism - on recent admission 07/14/2021 Acute on chronic diastolic heart failure: Recent 2D echo showed LVEF 50 to 55%. Continue diuresis. Moderate to severe mitral regurgitation noted on recent 2D echo. Consider BETY and referral for mitral valve clip repair as an outpatient. Thrombocytopenia Right pleural effusion Acrocyanosis, bilateral lower extremity COPD Right pleural effusion that is post thoracocentesis last admission -recurrent Generalized debility Hard of hearing Poor living condition History of Present Illness History of Present Illness 07/27/2021 Patient seen and examined Discussed with RN Chart reviewed Has IV Clinimix and Unasyn hanging 07/26/2021 Patient seen and examined discussed with RN Chart reviewed continue on IV Clinimix IV Unasyn hanging 07/25/2021 Patient seen and examined Discussed with RN Chart reviewed On IV Clinimix Also has IV Unasyn hanging 07/24, confused again today, cont NPO, plan to try to re-eval swallow when mental status improved again about the same otherwise 07/23, atrial flutter, rate controlled more calm, mitts off NPO still, start procalamine 07/22, more clear, mental status improvede calm and talkative was very confused 07/20 GEodon given overnight calm this AM, somnolent early in the AM Ms Bang is an 80 year old female well-known to our service as above with past medical history of congestive heart failure, A. fib, pacemaker placement at [facility] and NSTEMI (on 07/12/21) currently admitted in ICU who presented to ER on 07/17/2021 from [facility] via EMS with shortness of breath at senior living. Patient was hypoxic, so the patient on a nonrebreather. T-max 100.3, WBC 14 K, 07/17/2021 blood cultures are positive with GPC in pairs and chains. Patient is currently on O2. Alert awake. Remains confused. Last admission patient underwent right lung thoracocentesis for moderate pleural effusion on 07/14/2021. Cultures remain negative. Blood cultures were done this admission which are positive for gram-positive cocci in pairs and chains. Admitted with Cardiology, Pulmonology, and ID consultation. Afebrile overnight. Blood cultures 4-4 positive GPC. Heart rate A. fib in 90s 200s. She has been coughing with sips of water. Plan for repeat thoracentesis. Vitals/I&O Vitals/I&O: Vital Signs Date Time Temp Pulse Resp B/P (MAP) Pulse Ox O2 Delivery O2 Flow Rate FiO2 07/27/21 05:52 71 140/61 07/27/21 02:46 98.2 18 91 Nasal Cannula 2.0 98.2 I & O 07/26/21 07/26/21 07/27/21 15:00 23:00 07:00 Intake Total 360 ml 240 ml Output Total 800 ml 450 ml Balance -440 ml -210 ml Physical Exam Physical Exam: GENERAL: Alert, awake confused likely baseline, poor hearing lying in bed comfortably, in no acute distress HEENT normocephalic atraumatic anicteric NECK: Supple. LUNGS: Bibasilar crackles no wheezing. HEART: Irregular, holosystolic murmur, MUSCULOSKELETAL: No joint swelling. No decrease in range of motion. CENTRAL NERVOUS SYSTEM: Alert awake hard of hearing moves all 4 extremities debilitated, General: No acute distress Heart: Other (Mildly irregular) Lungs: Crackles, Other (Diminished breath sounds posteriorly at the bases) Abdomen: Normal bowel sounds Extremities: No cyanosis, No edema Skin: No breakdown Assessment and Plan Assessmemt and Plan Problems Medical Problems: (1) Bandemia Status: Acute (2) Elevated troponin Status: Acute (3) Hypoxia Status: Acute (4) Pleural effusion Status: Acute (5) Respiratory failure Status: Acute (6) SIRS (systemic inflammatory response syndrome) Status: Acute Acute encephalopathy - likely due to sepsis Severe sepsis - ID consulted, cont vancomycin GPC positive blood cultures - as above Acute hypoxic respiratory failure Afib with RVR - eliquis for thromboprophylaxis, cardizem rate control back on metoprolol S/p ppm - good battery life H/o pulmonary embolism - on recent admission 07/14/2021 Acute on chronic diastolic heart failure: Recent 2D echo showed LVEF 50 to 55%. Continue diuresis. Moderate to severe mitral regurgitation noted on recent 2D echo. Consider BETY and referral for mitral valve clip repair as an outpatient. Thrombocytopenia Right pleural effusion Acrocyanosis, bilateral lower extremity COPD Right pleural effusion that is post thoracocentesis last admission -recurrent Generalized debility Hard of hearing Poor living condition Possible LTAC on discharge Continue Clinimix Continue Unasyn DVT prophylaxis Trend labs Full code Appreciate subspecialist input Comment Review of Relevant I have reviewed the following items peewee (where applicable) has been applied. Justifications for Admission Other Justification A. fib RVR and CHF exacerbation DAVID BROOKS III DO Jul 27, 2021 08:29
[2021-07-27] MEDS: LACTOBACILLUS RHAMNOSUS GG 1 CAPSULE. PO SCH (08:44)
[2021-07-27] MEDS: DIGOXIN IV 500 MCG/2 ML AMPUL. IV SCH (08:45)
[2021-07-27] MEDS: cefTRIAXone IV Push 2 GM VIAL. IVP SCH (08:46)
[2021-07-27] MEDS: ENOXAPARIN 40 MG/0.4 ML SYRINGE. SQ SCH (08:46)
[2021-07-27] MEDS: POLYETHYLENE GLYCOL 3350 17 GM PACKET. PO SCH (09:00)
--- NOTE | 2021-07-27 09:26 | PDOC ---
PULMONARY PROGRESS NOTES DATE: 07/27/21 TIME: 09:26 Subjective Patient continues to be weak, not short of breath cough is weak Vitals Vital Signs Date Time Temp Pulse Resp B/P (MAP) Pulse Ox O2 Delivery O2 Flow Rate FiO2 07/27/21 08:45 71 140/61 07/27/21 07:00 18 94 Nasal Cannula 2.0 07/27/21 02:46 98.2 98.2 ROS: No Nausea General: Alert HEENT: Other (nc at bipap mask on ) Lungs: Crackles, Other (Diminished breath sounds posteriorly at the bases) Cardiovascular: Other (irreg irreg) Abdomen: Soft Neuro Exam: Alert Extremities: Other (1+ pitting edema) Skin: Warm Labs Laboratory Tests Test 07/26/21 03:56 07/26/21 07:18 Glucose (Fingerstick) 149 mg/dL (70-99) O2 Saturation 97 % (92-99) Arterial Blood pH 7.51 (7.35-7.45) Arterial Blood pCO2 at Patient Temp 61 mmHg (35-46) Arterial Blood pO2 at Patient Temp 88 mmHg (65-108) Arterial Blood HCO3 48 mmol/L (21-28) Arterial Blood Base Excess 22 mmol/L (-3-3) FiO2 30 Medications Active Scripts Medications Dose Route/Sig Max Daily Dose Days Date Category Eliquis (Apixaban) 5 Mg Tablet 5 Mg PO BID 30 07/15/21 Rx Eliquis (Apixaban) 5 Mg Tablet 10 Mg PO BID 7 07/15/21 Rx Metoprolol Tartrate 25 Mg Tablet 25 Mg PO BID 30 07/15/21 Rx Keflex (Cephalexin) 500 Mg Capsule 1 Cap PO TID 3 07/15/21 Rx Atorvastatin Calcium 10 Mg Tablet 10 Mg PO QHS 30 07/15/21 Rx Digoxin 125 Mcg Tablet 125 Mcg PO DAILY 30 07/15/21 Rx Effer-K 10 Meq Tablet Eff (Potassium Bicarbonate/Cit Ac) 10 Meq Tablet.eff 15 Meq PO DAILY 07/12/21 Reported Lasix (Furosemide) 40 Mg Tablet 1 Tab PO DAILY 30 07/12/21 Reported Comments Chest x-ray reviewed 07/20/2021. Bilateral infiltrates and left-sided pleural effusion. CT chest reviewed dated July 17, 2021 Bilateral pleural effusions, moderate per my impression. Evidence of congestive heart failure. Impression . 1. Acute respiratory failure, multifactorial in etiology including acute diastolic congestive heart failure, bilateral pleural effusion, AFib with rapid ventricular response, moderate to severe mitral regurgitation.--- now rate controlled 2. Abnormal CT of the chest. bilateral pleural effusions and evidence of CHF 3. Acute diastolic congestive heart failure. 4. Atrial fibrillation with rapid ventricular response. 5. Pleural effusion, status post right thoracentesis , transudate. 6. Malnutrition. 7. Moderate to severe mitral regurgitation. 8. Right lower extremity cellulitis. 9. Leukocytosis--improved ID following resolved 10. BETY showed mitral valve prolapse with possible ruptured chordae and mo derate to severe mitral regurgitation 11. non-ST elevation myocardial infarction. 12. Persistent Enterococcus faecalis bacteremia on admission on 07/17 and 07/18 and 07/20 cardiac cath 07/22 Conclusion Elevated left-sided filling pressure secondary to acute on chronic diastolic heart failure and mild to moderate pulmonary hypertension. No evidence of intracardiac shunt. Recommendations Continue medical management including diuresis. Plan . Updated 07/26 Antibiotics per ID Respiratory status appears to be compensated Long-term prognosis is poor Updated 07/[address] Parks Prognosis is poor I would favor palliative care consult. Continue support for now Antibiotics per ID CHHAYA LOYOLA MD Jul 27, 2021 09:26
--- NOTE | 2021-07-27 10:01 | PDOC ---
Infectious Disease Note Subjective Subjective Patient is awake feeling good ROS ROS No nausea vomiting diarrhea chest pain shortness of breath or fever Vital Sign Vital Signs Vital Signs Date Time Temp Pulse Resp B/P (MAP) Pulse Ox O2 Delivery O2 Flow Rate FiO2 07/27/21 08:45 71 140/61 07/27/21 07:00 18 94 Nasal Cannula 2.0 07/27/21 02:46 98.2 98.2 Physical Exam PHYSICAL EXAM GENERAL: Alert, awake confused likely baseline, poor hearing lying in bed comfortably, in no acute distress HEENT normocephalic atraumatic anicteric NECK: Supple. LUNGS: Bibasilar crackles no wheezing. HEART: Irregular, holosystolic murmur, MUSCULOSKELETAL: No joint swelling. No decrease in range of motion. CENTRAL NERVOUS SYSTEM: Alert awake hard of hearing moves all 4 extremities debilitated, Objective Assessment Sepsis from gram-positive bacteremia present on admission Persistent Enterococcus faecalis bacteremia on admission on 07/17 and 07/18 and 07/20,, 07/24 BETY difficult study with mitral valve chordae, less likely vegetation UA urine culture not done CT abdomen and pelvis reviewed Fever resolved Leukocytosis Abdominal discomfort, nausea Acute hypoxic respiratory failure on 4 L O2 by nasal cannula likely from CHF History of allergies to penicillin CHF A. fib with RVR Severe protein calorie malnutrition PPM in place Thrombocytopenia Onychomycosis Acrocyanosis, bilateral lower extremity resolved COPD Right pleural effusion that is post thoracocentesis last admission Generalized debility Hard of hearing Poor living condition BETY Technically difficult study. The left ventricular systolic function is normal. The Ejection Fraction is 50-55%. Pacer lead noted RA/RV. Mitral valve prolapse seen with possible ruptured chordae. Doubt endocarditis since the valve leaflets are not thickened. Moderate to severe mitral regurgitation. Mild tricuspid regurgitation. There is no evidence of significant pericardial effusion. Plan Plan of Care Cont IV ampicillin and rocephin repeat blood cultures 07/23/[address] PICC line until patient has repeat blood cultures negative at least for 48 to 72 hours Follow-up labs and cultures Continue supportive care Maintain aspiration precautions Overall prognosis poor likely pacemaker infection since blood culture continues to be positive will add 1 dose of gentamicin today Discussed with cardiology for further discussion about taking out pacemaker Most recent culture is staph verneri likely to be contaminant Continue ampicillin and Rocephin patient can be discharged to [facility] MARIYA CALLOWAY MD Jul 27, 2021 10:01
[2021-07-27 11:00] VITALS: BP 119/52
--- NOTE | 2021-07-27 11:16 | PDOC ---
MARCK BEARD CURTIS 07/27/21 1116: CARDIO Progress Notes Date and Time Date of Service 07/27/21 Time of Evaluation 1115 Subjective Subjective: No Chest Pain, No shortness of breath, No Palpitations Vitals Vitals Vital Signs Date Time Temp Pulse Resp B/P (MAP) Pulse Ox O2 Delivery O2 Flow Rate FiO2 07/27/21 08:45 71 140/61 07/27/21 08:00 Nasal Cannula 2.0 07/27/21 07:00 18 94 07/27/21 02:46 98.2 98.2 Weight Weight [ ] Input and Output Intake and Output Intake and Output 07/27/21 07:00 Intake Total 600 ml Output Total 1250 ml Balance -650 ml Intake Oral 600 ml Output Urine Total 1250 ml Microbiology Micro Microbiology 07/24/21 Blood Culture - Preliminary, Resulted 07/19/21 Gram Stain - Final, Complete 07/19/21 Aerobic and Anaerobic Culture - Final, Complete Physical Exam HEENT: Neck Supple W Full Motion Chest: Symmetric LUNGS: Other (diminished ) Heart: irregularly irregular (atrial flutter, rate controlled ) Abdomen: Soft N/T Extremities: Other (trace-1+ bilateral LE edema) Neurology: alert, follow commands Assessment Assessment 1. Acute respiratory failure secondary to combination of acute on chronic diastolic heart failure, bilateral pleural effusions, possible pneumonia. S/P thoracentesis 07/19. 2. Acute on chronic diastolic heart failure: Echo showed LVEF 50 to 55%. RHC with elevated pressures. Improved s/p diuresis. 3. Permanent atrial fibrillation/flutter presently with atrial flutter with RVR, rate better controlled. Continue Dig and metoprolol for rate control. On Lovenox for VTE prophylaxis. 4. Moderate to severe mitral regurgitation, mitral valve prolapse with flail chordae noted on BETY. Poor candidate for open surgical repair and would likely not qualify for mitral valve clip secondary to anatomy 5. Hypertension: Controlled 6. SSS s/p PPM implantation with recent device check showing normal function with adequate battery life 7. Sepsis/bacteremia; BC with GPC. no evidence of endocarditis per BETY. Most recent blood cultures with Staphylococcus Warneri, felt to be contaminant. Continue antibiotics as per ID. 8. Recent bilateral PE 9. ? Dysphagia; now NPO. Okay to transfer to [facility] from a CV standpoint Justicifation of Admission Dx: Justifications for Admission: Justification of Admission Dx: Yes EMILY MARIN MD 07/27/21 1822: CARDIO Progress Notes Assessment Assessment Patient seen and examined. Agree with ACCOUNTING TUTOR's assessment and plan. Acute on chronic diastolic heart failure better compensated. Permanent atrial fibrillation rate controlled. BEYT showed mitral valve prolapse with flail chordae and moderate to severe mitral regurgitation Doubt this patient would qualify for mitral valve clip secondary to anatomy She is not a good candidate for open surgical repair Recent positive blood cultures being a contaminant per ID - continue Abx OK for transfer to [facility] - we will continue to follow her there MARCK BEARD APRN Jul 27, 2021 11:16 EMILY MARIN MD Jul 27, 2021 18:22
--- NOTE | 2021-07-27 12:34 | NUR ---
SS following up with discharge planning. SS reviewed pt chart and discussed with pt RN. Pt is currently requiring oxygen at two liters nasal. COVID19 negative. Pt on IV Ampicillin, Clinimix, IV Rocephin, IV Metoprolol, and IV Lasix. Pt accepted at [facility], ; fax [phone]. Bed available today. SS discussed with Cardiology and ID and both are agreeable to transfer to [facility]. Discharge orders received. SS phoned and faxed discharge orders to [facility]. Pt will discharge today and go to [facility] at 1400 via [facility] ambulance, . Pt and pt's RN notified. Packet and ambulance form placed on chart.
[2021-07-27 13:10] VITALS: BP 119/52
--- NOTE | 2021-07-27 15:27 | NUR ---
Discharge Note: NADINE SILVEIRA Discharge instructions and discharge home medications reviewed with Other facility and a copy given. All questions have been answered and understanding verbalized. Patient discharged to [facility]. All belongings taken with patient to facility
--- NOTE | 2021-07-27 16:15 | DS ---
DATE OF DISCHARGE: 07/27/2021 ADMITTING DIAGNOSES: Respiratory failure, bilateral pleural effusions, congestive heart failure, probable pneumonia. DISCHARGE DIAGNOSES: Resolving respiratory failure, resolving acute on chronic systolic and diastolic heart failure, resolving pneumonia, resolving effusion, status post thoracentesis (no malignant cells were identified). CONSULTS: Cardiology, Infectious Disease and Pulmonary Medicine. HOSPITAL COURSE: The patient is a pleasant elderly female who presented with acute on chronic systolic and diastolic heart failure and pleural effusions and pneumonia. She was admitted. We gave her IV antibiotics, breathing treatments, oxygen. The above consults were obtained. She went for a thoracentesis. The pathology report was basically negative. Over the past few days, she has done better. Today, I saw and examined her. She is stable enough to go to a long-term acute care. She is going to [facility]. DISPOSITION: [facility]. ACTIVITY: As tolerated. DIET: Low sodium. DISCHARGE MEDICATIONS: Please see the MRAD. Digoxin 125 IV daily, metoprolol 5 IV q.6 hours p.r.n., ampicillin 2 grams IV q.4 hours, Lovenox 40 a day, Clinimix, Lasix 40 IV daily, Ativan p.r.n., psyllium, senna, MiraLax, p.r.n. Zofran, Culturelle, Lipitor 10 a day, p.r.n. hydrocodone, and Protonix 40 a day. Total time 31 minutes. CRYSTAL/ELANA DR: CRYSTAL/german TID: [id number]
== END 2021-07-27 14:00 | DRG 871 ==
LOC: ER 01:13 → 1 WEST ICU 03:00 → 2 SOUTH 07-19 19:35 → 6 SOUTH 07-19 20:10
PROVIDERS: ADMIT Internal Medicine; ATTEND Internal Medicine
PROC: 0W993ZZ Drainage of Right Pleural Cavity, Percutaneous Approach (ICD-10-PCS; 2021-07-19)
PROC: B24BZZ4 Ultrasonography of Heart with Aorta, Transesophageal (ICD-10-PCS; principal; 2021-07-20 12:00)
PROC: B2111ZZ Fluoroscopy of Multiple Coronary Arteries using Low Osmolar Contrast (ICD-10-PCS; 2021-07-22)
PROC: 4A023N6 Measurement of Cardiac Sampling and Pressure, Right Heart, Percutaneous Approach (ICD-10-PCS; 2021-07-22)
PROC: 5A09357 Assistance with Respiratory Ventilation, Less than 24 Consecutive Hours, Continuous Positive Airway Pressure (ICD-10-PCS; 2021-07-22)
PROC: 5A09357 Assistance with Respiratory Ventilation, Less than 24 Consecutive Hours, Continuous Positive Airway Pressure (ICD-10-PCS; 2021-07-23)
PROC: 5A09357 Assistance with Respiratory Ventilation, Less than 24 Consecutive Hours, Continuous Positive Airway Pressure (ICD-10-PCS; 2021-07-24)
PROC: 5A09357 Assistance with Respiratory Ventilation, Less than 24 Consecutive Hours, Continuous Positive Airway Pressure (ICD-10-PCS; 2021-07-26)
DX: A41.9 Sepsis, unspecified organism (principal); J96.01 Acute respiratory failure with hypoxia; E43 Unspecified severe protein-calorie malnutrition; I26.99 Other pulmonary embolism without acute cor pulmonale; I50.43 Acute on chronic combined systolic (congestive) and diastolic (congestive) heart failure; J18.9 Pneumonia, unspecified organism; E87.1 Hypo-osmolality and hyponatremia; G93.40 Encephalopathy, unspecified; I48.21 Permanent atrial fibrillation; I48.92 Unspecified atrial flutter; L03.115 Cellulitis of right lower limb; B35.1 Tinea unguium; B96.89 Other specified bacterial agents as the cause of diseases classified elsewhere; D69.6 Thrombocytopenia, unspecified; H91.90 Unspecified hearing loss, unspecified ear; I11.0 Hypertensive heart disease with heart failure; I25.2 Old myocardial infarction; I27.20 Pulmonary hypertension, unspecified; I34.0 Nonrheumatic mitral (valve) insufficiency; I34.1 Nonrheumatic mitral (valve) prolapse; J44.9 Chronic obstructive pulmonary disease, unspecified; K21.9 Gastro-esophageal reflux disease without esophagitis; M19.90 Unspecified osteoarthritis, unspecified site; R13.10 Dysphagia, unspecified; R65.20 Severe sepsis without septic shock; R74.01 Elevation of levels of liver transaminase levels; R79.89 Other specified abnormal findings of blood chemistry; Z20.822 Contact with and (suspected) exposure to COVID-19; I73.89 Other specified peripheral vascular diseases; Z82.49 Family history of ischemic heart disease and other diseases of the circulatory system; Z86.711 Personal history of pulmonary embolism; Z88.0 Allergy status to penicillin; Z90.710 Acquired absence of both cervix and uterus; Z95.0 Presence of cardiac pacemaker; Z87.440 Personal history of urinary (tract) infections
CPT/HCPCS: 32555; 36415; 36600; 71045; 71275; 74176; 80048; 80053; 80162; 81001; 82553; 82805; 82962; 83605; 83615; 83735; 83880; 84157; 84484; 85007; 85025; 85027; 85520; 85610; 85730; 87040; 87071; 87075; 87077; 87186; 87205; 87426; 87804; 88112; 88305; 93005; 93312; 93320; 93451; 94660; 94760; 96365; 96366; 96375; 96376; 99152; 99153; C1773; C1894; C9113; J0290; J0456; J0696; J0878; J1160; J1580; J1644; J1650; J1940; J2060; J2250; J2405; J2543; J3010; J3370; J3480; J3486; J3490; J7040; J7060; U0003; U0005; 92526-GN; 92610-GN; 99291-25; G0378